=== PATIENT | female | born 1970 | race Two or more races ===

== ENCOUNTER 2020-03-21 17:25 | Emergency (ER) | payer MEDICAID, SELFPAY ==
[2020-03-21 17:39] VITALS: BP 122/78; PULSE 105; RESP 16; TEMP 36.6; O2SAT 97; BMI 31.7
--- NOTE | 2020-03-21 21:40 | ED.FEMALEGU ---
HPI - Female Genitourinary General Chief complaint: Urogenital-Female Stated complaint: flank pain,painful urination Time Seen by Provider: 03/21/20 21:31 Source: patient Mode of arrival: ambulatory Limitations: no limitations History of Present Illness HPI Narrative: Patient comes to emergency room complaining dysuria and back pain. Patient states it has been going on for 3-4 days but much worse today. Patient states she called her primary care physician but they could not see her today and she was instructed to come to the emergency room. Patient denies fever. Patient has no history of kidney stones. Patient states she has had multiple UTIs in the past and feels about the same. Related Data Previous Rx's Medication Instructions Recorded promethazine 12.5 mg tablet 12.500f25 mg PO TID #120 tab 02/29/20 cefuroxime axetil 250 mg PO BID 10 Days #20 tab 03/22/20 Allergies Allergy/AdvReac Type Severity Reaction Status Date / Time gabapentin [From NEURONTIN] Allergy Severe RASH,HIVES Verified 03/21/20 22:22 cortisone [CORTISONE] Allergy Intermediate ITCHING,JANAE Verified 03/21/20 22:22 H Sulfa (Sulfonamide Allergy Intermediate VOMITING/RA Verified 03/21/20 22:22 Antibiotics) SH adhesive tape [Adhesive Tape] Allergy Mild RASH ( Verified 03/21/20 22:22 TEGADERM ) carisoprodol [From Soma] Allergy Mild SHORTNESS Verified 03/21/20 22:22 OF BREATH,VOMITING ibuprofen [From Motrin] Allergy Mild VOMITING Verified 03/21/20 22:22 morphine [Morphine] Allergy Mild SHORTNESS Verified 03/21/20 22:22 OF BREATH naproxen [From Naprosyn] Allergy Mild VOMITING Verified 03/21/20 22:22 duloxetine [Cymbalta] Allergy Unknown Nausea and Verified 03/21/20 22:22 Vomiting ketorolac Allergy Unknown Shortness Verified 03/21/20 22:22 of Breath oxybutynin Allergy Unknown Nausea and Verified 03/21/20 22:22 Vomiting pregabalin [From LYRICA] Allergy Unknown HYPER AND Verified 03/21/20 22:22 PANIC ATTACK ranitidine [RANITIDINE] Allergy Unknown TACHYCARDIA Verified 03/21/20 22:22 sulfamethoxazole Allergy Unknown VOMITING,RA Verified 11/11/20 22:22 [From BACTRIM] SH tramadol Allergy Unknown Shortness Verified 03/21/20 22:22 of Breath trimethoprim [From BACTRIM] Allergy Unknown VOMITING,RA Verified 03/21/20 22:22 SH Tricyclic Compounds AdvReac Mild VOMITING Verified 03/21/20 22:22 TO ALL ANTIDEPRESSANTS From Toradol Allergy Intermediate SOB Uncoded 01/26/20 16:29 From Ultram Allergy Intermediate SOB Uncoded 01/26/20 16:29 all antidepressants except Allergy Unknown Nausea and Uncoded 03/21/20 22:22 Rem Vomiting Cortisone Allergy Unknown Hives Uncoded 03/21/20 22:22 milk, yogurt, dairy Allergy Unknown vomitting Uncoded 11/17/19 00:00 tegaderm Allergy Unknown rash Uncoded 11/17/19 00:00 Review of Systems Review of Systems: Constitutional : No Weight loss, No Fever, No Chills, No Night Sweats, No Fatigue, No Malaise ENT/Mouth : No Hearing loss, No Ear Pain, No Nasal Congestion, No Sinus Pain, No Hoarseness, No sore throat, No Rhinorrhea, No Swallowing Difficulty Eyes: No Eye Pain, No Swelling, No Redness, No Foreign Body, No Discharge, No Vision Changes Cardiovascular : No Chest Pain, No SOB, No Dyspnea on Exertion, No Orthopnea, No Edema, No Palpitations Respiratory : No Cough, No Sputum, No Wheezing, No Smoke Exposure, No Dyspnea Gastrointestinal : complaining of nausea, no vomiting, no abdominal pain Genitourinary : no irregular bleeding, complaining of dysuria, dark colored urine and back pain bilaterally, no flank pain No Urinary Incontinence, No Urgency, No Flank Pain, No Urinary Flow Changes, No Hesitancy Musculoskeletal : No joint pain, No Myalgias, No Joint Swelling Skin : No Skin Lesions, No rash Neuro : No Weakness, No Numbness, No Paresthesias, No Loss of Consciousness, No Dizziness, No Headache Psych : No Anxiety/Panic, No Depression, No SI/HI/AH/VH, No Social Issues, Heme/Lymph: No Bruising, No Bleeding,No Lymphadenopathy Endocrine : No Polyuria, No Polydipsia, No Temperature Intolerance PMFSH Past Medical History Medical History (Updated 03/22/20 @ 00:52 by Nadira Santa MD) Asthma Fibromyalgia Hypertension Hypoglycemia Social History Social History Alcohol intake: never Smoking Status: Current every day smoker Use of substances other than those prescribed or required for medical reasons: No Advance Directives: No Advance Directives Information Provided: No Physical Exam Vital Signs: Vital Signs: Last Vital Signs Temp 97.9 F 03/21/20 22:53 Pulse 83 03/21/20 22:53 Resp 18 03/21/20 22:53 BP 121/74 03/21/20 22:53 Pulse Ox 99 03/21/20 22:53 Body Mass Index 31.7 Appearance: Alert. Oriented X3. No acute distress. Eyes: Pupils equal, round and reactive to light. ENT: Pharynx normal. Neck: Normal inspection. Neck supple. No lymph nodes noted. No crepitus CVS: Normal heart rate and rhythm. Pulses normal. Normal S1 and S2 Respiratory: No respiratory distress. Breath sounds normal. No Wheezing. No rales Abdomen: Soft and nontender. No rigidity. No distention. good BS x4, no suprapubic pain Back: bilateral lower back pain, no flank pain Skin: Skin warm and dry. Normal skin color. Normal skin turgor. Extremities: No lower extremity edema. No lower extremity edema. No Lacerations. No Rash Neuro: Oriented X 3. No motor deficit. No sensory deficit. Moving all extermities. No slurred speech. Course Course Course Narrative: I discussed the labs with the patient and the imaging. Patient does not have kidney stones, patient has a UTI, clinically pyelonephritis. Patient's white blood cell count is chronically elevated. Patient's blood pressure within normal limits, not tachycardic no fever. Sepsis is not suspected at this time. Patient was given 1 g of ceftriaxone, patient is being discharged home. MDM - Female Genitourinary Lab Data Result diagrams: 03/21/20 22:17 03/21/20 22:17 Labs: Lab Results 03/21/20 03/21/20 03/21/20 Range/Units 22:15 22:16 22:17 WBC 15.6 H (4.8-10.8) X10*3/uL RBC 4.97 (4.20-5.50) X10*6/uL Hgb 13.9 (12.0-16.0) g/dl Hct 44.1 (37-47) % MCV 88.7 (80-98) fL MCH 28.0 (27.0-33.0) pg MCHC 31.5 (31.0-35.0) g/dl RDW 14.2 (11.0-16.0) % Plt Count 347 (160-400) X10*3/uL MPV 10.2 (9.4-12.3) fL Immature Gran % (Auto) 0.3 (0.0-0.4) % Neut % (Auto) 62.3 (45-73) % Lymph % (Auto) 28.2 (20-40) % [place] % (Auto) 7.2 (2-11) % Eos % (Auto) 1.5 (0-4) % Baso % (Auto) 0.5 (0-2) % Lymph # (Auto) 4.4 (1.2-4.9) X10*3/uL [place] # (Auto) 1.1 (0.1-1.2) X10*3/uL Eos # (Auto) 0.2 (0.0-0.4) X10*3/uL Baso # (Auto) 0.1 (0.0-0.2) X10*3/uL Abs Immat Gran (auto) 0.05 H (0.00-0.03) X10*3/uL Absolute Neuts (auto) 9.7 H (2.0-8.3) X10*3/uL Absolute Nucleated RBC 0.000 (0.0-0.012) X10*3/uL Nucleated RBC % (auto) 0.0 (0.0-0.2) /100WBC Sodium (135-145) mmol/L Potassium (3.3-5.1) mmol/l Chloride (96-108) mmol/L Carbon Dioxide (22-29) mmol/L Anion Gap (12-20) BUN (9-16) mg/dL Creatinine (0.5-1.4) mg/dL Estim Creat Clear Calc Estimated GFR Random Glucose (60-115) mg/dL Lactic Acid 1.4 (0.5-2.0) mmol/L Calcium (8.4-10.2) mg/dL Total Bilirubin (0.0-1.0) mg/dL Direct Bilirubin (0.0-0.5) mg/dL AST (5-31) U/L ALT (0-31) U/L Alkaline Phosphatase (39-117) U/L Total Protein (6.5-8.0) g/dL Albumin (3.5-5.0) g/dL Urine Color YELLOW Urine Appearance HAZY Urine pH 5.5 (5.0-8.0) Ur Specific [place] 1.020 (1.005-1.025) Urine Protein NEG (NEG-TRACE) MG/DL Urine Glucose (UA) NEG (NEG) MG/DL Urine Ketones NEG (NEG) MG/DL Urine Blood 1+ H (NEG) Urine Nitrite NEG (NEG) Ur Leukocyte Esterase TRACE H (NEG) Urine RBC 1-4 (0) /HPF Urine WBC 0-2 (0-4) /HPF Ur Squamous Epith Cells 4+ /LPF Urine Bacteria 1+ /LPF 03/21/20 Range/Units 22:17 WBC (4.8-10.8) X10*3/uL RBC (4.20-5.50) X10*6/uL Hgb (12.0-16.0) g/dl Hct (37-47) % MCV (80-98) fL MCH (27.0-33.0) pg MCHC (31.0-35.0) g/dl RDW (11.0-16.0) % Plt Count (160-400) X10*3/uL MPV (9.4-12.3) fL Immature Gran % (Auto) (0.0-0.4) % Neut % (Auto) (45-73) % Lymph % (Auto) (20-40) % [place] % (Auto) (2-11) % Eos % (Auto) (0-4) % Baso % (Auto) (0-2) % Lymph # (Auto) (1.2-4.9) X10*3/uL [place] # (Auto) (0.1-1.2) X10*3/uL Eos # (Auto) (0.0-0.4) X10*3/uL Baso # (Auto) (0.0-0.2) X10*3/uL Abs Immat Gran (auto) (0.00-0.03) X10*3/uL Absolute Neuts (auto) (2.0-8.3) X10*3/uL Absolute Nucleated RBC (0.0-0.012) X10*3/uL Nucleated RBC % (auto) (0.0-0.2) /100WBC Sodium 140 (135-145) mmol/L Potassium 3.3 (3.3-5.1) mmol/l Chloride 98 (96-108) mmol/L Carbon Dioxide 31 H (22-29) mmol/L Anion Gap 14 (12-20) BUN 7 L (9-16) mg/dL Creatinine 0.75 (0.5-1.4) mg/dL Estim Creat Clear Calc 94.0 Estimated GFR > 60 Random Glucose 80 (60-115) mg/dL Lactic Acid (0.5-2.0) mmol/L Calcium 8.9 (8.4-10.2) mg/dL Total Bilirubin 0.4 (0.0-1.0) mg/dL Direct Bilirubin < 0.2 (0.0-0.5) mg/dL AST 21 (5-31) U/L ALT 28 (0-31) U/L Alkaline Phosphatase 144 H (39-117) U/L Total Protein 7.2 (6.5-8.0) g/dL Albumin 4.3 (3.5-5.0) g/dL Urine Color Urine Appearance Urine pH (5.0-8.0) Ur Specific [place] (1.005-1.025) Urine Protein (NEG-TRACE) MG/DL Urine Glucose (UA) (NEG) MG/DL Urine Ketones (NEG) MG/DL Urine Blood (NEG) Urine Nitrite (NEG) Ur Leukocyte Esterase (NEG) Urine RBC (0) /HPF Urine WBC (0-4) /HPF Ur Squamous Epith Cells /LPF Urine Bacteria /LPF Imaging Data CT scan - abdomen: Radiologist's impression: There is mild bibasilar atelectasis. The visualized lung bases are otherwise clear. The visualized portions of the heart are unremarkable. The liver is of normal size and attenuation without focal lesions nor intrahepatic biliary ductal dilation. A normal gallbladder is identified. There is no wall thickening or discernible pericholecystic fluid. The spleen, pancreas, adrenal glands are unremarkable. Both kidneys are of normal size and attenuation without hydronephrosis or nephrolithiasis. There is no abdominal free fluid. There is neither mesenteric nor retroperitoneal lymphadenopathy. There are mild manifestations of diverticulosis without evidence of diverticulitis; otherwise, unremarkable unopacified loops of small and large bowel are identified. A normal appendix is identified. There is no pelvic free fluid. The urinary bladder is unremarkable. There is neither pelvic nor inguinal lymphadenopathy. Bone windows: Neither sclerotic nor lytic bone lesions are identified. CT/CT abdomen pelvis wo con IMPRESSION: No acute abdominal or pelvic inflammatory or infectious processes. Diverticulosis without evidence of diverticulitis. Neither hydronephrosis nor nephrolithiasis. Automated exposure control (Care Dose) Adjustment of the mA and/or kv according to patient size (this includes techniques or standardized protocols for targeted exams where dose is matched to indication / reason for exam; i.e. extremities or head). Discharge Plan Discharge Clinical Impression: Pyelonephritis Patient Disposition: Home, Self-Care Instructions: Kidney Infection (ED), Flank Pain (ED) Additional Instructions: if you have any fever, worsening symptoms, please return to emergency room or call 911. Please follow-up with the primary care physician tomorrow. Prescriptions: New cefuroxime axetil 250 mg tablet 250 mg PO BID 10 Days Qty: 20 RF: 0 No Action promethazine 12.5 mg tablet 12.500f25 mg PO TID Qty: 120 RF: 0
[2020-03-21 21:57] VITALS: BP 131/79; PULSE 88; RESP 17; TEMP 36.8; O2SAT 100
[2020-03-21] MEDS: 0.9 % Sodium Chloride 1,000 ML 999 ML IVCONT (22:23)
[2020-03-21 22:33] LABS: Basophils Absolute Auto 0.1 X10*3/uL (0.0-0.2); Basophils Percent Auto 0.5 % (0-2); Eosinophils Absolute Auto 0.2 X10*3/uL (0.0-0.4); Eosinophils Percent Auto 1.5 % (0-4); Hematocrit 44.1 % (37-47); Hemoglobin 13.9 g/dl (12.0-16.0); Imm Gran Abs Auto 0.05 X10*3/uL (0.00-0.03); Imm Gran Pct Auto 0.3 % (0.0-0.4); Lymphocytes Absolute Auto 4.4 X10*3/uL (1.2-4.9); Lymphocytes Percent Auto 28.2 % (20-40); Mean Corpuscular HGB Conc 31.5 g/dl (31.0-35.0); Mean Corpuscular Volume 88.7 fL (80-98); Mean Platelet Volume 10.2 fL (9.4-12.3); Monocytes Absolute Auto 1.1 X10*3/uL (0.1-1.2); Monocytes Percent Auto 7.2 % (2-11); Neutrophils Absolute Auto 9.7 X10*3/uL (2.0-8.3); Neutrophils Percent Auto 62.3 % (45-73); Platelet Count 347 X10*3/uL (160-400); Red Blood Count 4.97 X10*6/uL (4.20-5.50); Red Cell Distribution Width 14.2 % (11.0-16.0); White Blood Count 15.6 X10*3/uL (4.8-10.8)
[2020-03-21 22:34] LABS: MANUAL DIFF FLAG NO
[2020-03-21 22:53] VITALS: BP 121/74; PULSE 83; RESP 18; TEMP 36.6; O2SAT 99
[2020-03-21 22:58] LABS: Lactic Acid 1.4 mmol/L (0.5-2.0)
[2020-03-21 23:02] LABS: Anion Gap 14 (12-20); Blood Urea Nitrogen 7 mg/dL (9-16); Calcium 8.9 mg/dL (8.4-10.2); Carbon Dioxide 31 mmol/L (22-29); Chloride 98 mmol/L (96-108); Estimated Glomerular Filt Rate > 60; Glucose Random 80 mg/dL (60-115); Potassium 3.3 mmol/l (3.3-5.1); Sodium 140 mmol/L (135-145)
[2020-03-21 23:05] LABS: Appearance Urine HAZY; Color Urine YELLOW; Glucose Urine UA NEG (NEG); Leukocyte Esterase Urine TRACE (NEG); Nitrite Urine NEG (NEG); PH 5.5 (5.0-8.0); Urine Blood 1+ (NEG); Urine Ketones NEG (NEG); Urine Protein NEG (NEG-TRACE)
[2020-03-21 23:12] LABS: Bacteria Urine 1+ /LPF; Squamous Epithelial Cell Urine 4+ /LPF; WBC Urine 0-2 /HPF (0-4)
--- NOTE | 2020-03-21 23:23 | CT_ITS ---
EXAMINATION: CT ABDOMEN AND PELVIS WITHOUT CONTRAST CLINICAL INFORMATION: Bilateral flank pain. COMPARISON: 08/31/2018. TECHNIQUE: Contiguous axial thin section helical images of the abdomen and pelvis were performed without oral or IV contrast. The data set was reformatted in the coronal and sagittal planes and reviewed on an independent workstation. DLP: 762 mGy-cm. FINDINGS: There is mild bibasilar atelectasis. The visualized lung bases are otherwise clear. The visualized portions of the heart are unremarkable. The liver is of normal size and attenuation without focal lesions nor intrahepatic biliary ductal dilation. A normal gallbladder is identified. There is no wall thickening or discernible pericholecystic fluid. The spleen, pancreas, adrenal glands are unremarkable. Both kidneys are of normal size and attenuation without hydronephrosis or nephrolithiasis. There is no abdominal free fluid. There is neither mesenteric nor retroperitoneal lymphadenopathy. There are mild manifestations of diverticulosis without evidence of diverticulitis; otherwise, unremarkable unopacified loops of small and large bowel are identified. A normal appendix is identified. There is no pelvic free fluid. The urinary bladder is unremarkable. There is neither pelvic nor inguinal lymphadenopathy. Bone windows: Neither sclerotic nor lytic bone lesions are identified. CT/CT abdomen pelvis wo con IMPRESSION: No acute abdominal or pelvic inflammatory or infectious processes. Diverticulosis without evidence of diverticulitis. Neither hydronephrosis nor nephrolithiasis. Automated exposure control (Care Dose) Adjustment of the mA and/or kv according to patient size (this includes techniques or standardized protocols for targeted exams where dose is matched to indication / reason for exam; i.e. extremities or head).
[2020-03-21 23:37] LABS: Alanine Aminotransferase 28 U/L (0-31); Albumin Level 4.3 g/dL (3.5-5.0); Alkaline Phosphatase 144 U/L (39-117); Aspartate Amino Transferase 21 U/L (5-31); Bilirubin Direct < 0.2 mg/dL (0.0-0.5); Bilirubin Total 0.4 mg/dL (0.0-1.0); Total Protein 7.2 g/dL (6.5-8.0)
--- NOTE | 2020-03-22 00:11 | PC.NURSE ---
PT TO AND FROM IMAGING WITHOUT INCIDENT. PLAN FOR IV ANTIBIOTICS AND PAIN MANAGEMENT
[2020-03-22] MEDS: cefTRIAXone sodium 1 GM in 0.9 % Sodium Chloride 50 ML IV (00:17)
== END 2020-03-22 00:58 | disposition home or self-care (01) ==
PROVIDERS: Emergency Provider Emergency Medicine; PCP Internal Medicine
DX: N10 Acute pyelonephritis (principal); M54.5 Low back pain; I10 Essential (primary) hypertension; F17.200 Nicotine dependence, unspecified, uncomplicated; Z71.6 Tobacco abuse counseling; Z79.899 Other long term (current) drug therapy
CPT/HCPCS: 36415; 74176; 80048; 80076; 81001; 83605; 85025; 87040; 87086; 96361; 96365; 96375; 99284; J0696

== ENCOUNTER 2020-07-25 14:55 | Outpatient (REF) | payer MEDICAID, SELFPAY ==
[2020-07-25 16:51] LABS: Cholesterol 269 mg/dL; HDL Cholesterol 53 mg/dL; LDL Cholesterol Calculated 188 mg/dl; Triglycerides 142 mg/dL
== END 2020-07-25 14:56 | disposition home or self-care (01) ==
LOC: HO.LAB 14:55
PROVIDERS: Absent Provider Internal Medicine Cardiovascular Disease; PCP Internal Medicine; Visit Provider Internal Medicine Endocrinology, Diabetes & Metabolism
DX: E89.0 Postprocedural hypothyroidism (principal); E55.9 Vitamin D deficiency, unspecified; E16.1 Other hypoglycemia; E78.5 Hyperlipidemia, unspecified
CPT/HCPCS: 36415; 80061

== ENCOUNTER 2020-08-29 15:36 | Outpatient (REF) | payer MEDICAID, SELFPAY ==
--- NOTE | ~2020-08-29 | MM_ITS ---
EXAMINATION: MM DIAGNOSTIC DIGITAL BREAST TOMOSYNTHESIS, BILATERAL CLINICAL INFORMATION: At time of screening appointment, patient notes pain upper inner quadrant right breast 1-2 weeks. No palpable mass or discharge. No known family history breast cancer. The lifetime risk of breast cancer based on the Tyrer-Cuzick Model is 6%. COMPARISON: Mammography: 06/14/2019, 03/19/2018, 02/12/2017, 02/06/2017, 02/05/2016 TECHNIQUE: Digital breast tomosynthesis is performed in both the craniocaudal and mediolateral oblique views along with computer-aided detection (CAD). Synthesized 2D images are generated from the tomosynthesis. FINDINGS: There are scattered areas of fibroglandular density (ACR BI-RADS breast composition Category b). There is denser fibroglandular tissue in the bilateral upper outer quadrant similar to prior studies. There are shifting fibroglandular densities from year to year without interval mass or developing density or architectural abnormality. No abnormal calcifications. The axilla and skin contours are unremarkable. There is no skin thickening or coarsening of the Alvarez's ligaments. Patient unable to stay for diagnostic right breast ultrasound which has been rescheduled. MM/MM tomosynthesis diagnostic BI IMPRESSION: 1. No mammographic evidence of malignancy or inflammatory changes. 2. Targeted right breast ultrasound scheduled for another day. ASSESSMENT: BI-RADS 0: Incomplete - Need Additional Imaging Evaluation RECOMMENDATION: Diagnostic right breast ultrasound (scheduled). This patient's information was entered into a reminder system with a target due date for their next breast imaging.
== END 2020-08-29 15:37 | disposition home or self-care (01) ==
LOC: HO.MAMMO 15:36
PROVIDERS: Visit Provider Internal Medicine
DX: N64.4 Mastodynia (principal)
CPT/HCPCS: 77062; 77066

== ENCOUNTER 2020-09-07 14:13 | Outpatient (REF) | payer MEDICAID, SELFPAY ==
--- NOTE | ~2020-09-07 | US_ITS ---
EXAMINATION: US DIAGNOSTIC ULTRASOUND BREAST, RIGHT CLINICAL INFORMATION: Right breast pain upper inner quadrant. Unremarkable diagnostic mammography. Ultrasound to complete evaluation. COMPARISON: Mammography 08/29/2020, 06/14/2019, 03/19/2018, 02/06/2017. TECHNIQUE: Ultrasound right breast is targeted to the area of clinical concern medial right breast. Additional imaging also performed outer quadrant and comparison imaging medial left breast. Grayscale imaging and color Doppler are performed without and with harmonics. FINDINGS: There is no focal suspicious finding. There is no cystic or solid mass, architectural abnormality, duct ectasia, or edema in the soft tissue planes. Results are discussed with the patient at time of visit. There is no imaging correlate for patient's symptoms within the breasts. Patient confirms prior history costochondritis and fibromyalgia. US/US breast RT limited IMPRESSION: 1. Unremarkable targeted right breast ultrasound. 2. No mammographic evidence of malignancy or inflammatory changes on recent imaging. ASSESSMENT: BI-RADS 1: Negative RECOMMENDATION: 1. Patient should be managed based on the clinical impression. 2. Otherwise, routine annual screening mammography. This patient's information was entered into a reminder system with a target due date for their next mammogram.
== END 2020-09-07 14:14 | disposition home or self-care (01) ==
LOC: HO.MAMMO 14:13
PROVIDERS: Visit Provider Internal Medicine
DX: N64.4 Mastodynia (principal)
CPT/HCPCS: 76642

== ENCOUNTER 2020-12-12 15:29 | Outpatient (REF) | payer MEDICAID, SELFPAY ==
[2020-12-12 16:50] LABS: Alanine Aminotransferase 26 U/L (0-31); Albumin Level 4.3 g/dL (3.5-5.0); Anion Gap 14 (12-20); Aspartate Amino Transferase 20 U/L (5-31); Blood Urea Nitrogen 9 mg/dL (9-16); Calcium 9.6 mg/dL (8.4-10.2); Carbon Dioxide 27 mmol/L (22-29); Chloride 104 mmol/L (96-108); Estimated Glomerular Filt Rate > 60; Glucose Random 97 mg/dL (60-115); Phosphorus 2.9 mg/dL (2.7-4.5); Potassium 4.5 mmol/L (3.3-5.1); Sodium 140 mmol/L (135-145)
[2020-12-12 17:11] LABS: TSH reflex Free T4 0.62 uIU/mL (0.32-4.0); Vitamin D 25-OH Total 26.4 ng/mL (>30)
[2020-12-13 07:48] LABS: Estimated Average Glucose 114 mg/dL; Hemoglobin A1c % 5.6 %
[2020-12-14 17:51] LABS: Calcium (PTHI) 9.6 mg/dL (8.6-10.4); PTHI 40 pg/mL (14-64)
== END 2020-12-12 15:30 | disposition home or self-care (01) ==
LOC: HO.LAB 15:29
PROVIDERS: PCP Internal Medicine; Visit Provider Internal Medicine Endocrinology, Diabetes & Metabolism
DX: E89.0 Postprocedural hypothyroidism (principal); E55.9 Vitamin D deficiency, unspecified; E16.1 Other hypoglycemia
CPT/HCPCS: 36415; 80048; 82040; 82306; 83036; 83970; 84100; 84443; 84450; 84460

== ENCOUNTER 2021-03-21 15:02 | Outpatient (REF) | payer MEDICAID, SELFPAY ==
--- NOTE | ~2021-03-21 | XR_ITS ---
EXAMINATION: XR THORACIC SPINE XR LUMBAR SPINE CLINICAL INFORMATION: Back pain. Right-sided sciatica. COMPARISON: CT abdomen and pelvis from 03/21/2020. TECHNIQUE: Thoracic spine, AP and lateral views (2 views) Lumbar spine, 5 views FINDINGS: Thoracic spine: The thoracic vertebra have normal height and alignment. No evidence of degenerative disc disease. No focal lytic or blastic lesion. The paraspinal soft tissues are unremarkable. Lumbosacral spine: The 5 segmented lumbar vertebra have normal height and alignment. No fracture or subluxation. No evidence of pars interarticularis defect or vertebral compression fracture. The disc spaces are maintained. No vertebral endplate erosion or soft tissue swelling. Moderate facet osteoarthritis at L4-L5. Otherwise, there appears to be generally mild facet arthropathy at L3-L4 and L5-S1. Sacrum and sacroiliac joints are unremarkable. XR/XR thoracic spine 2V IMPRESSION: * Thoracic spine is unremarkable. * Multilevel facet arthropathy of the lumbar spine, worst (moderate in degree) at L4-L5. * No fracture or malalignment in the spine.
--- NOTE | ~2021-03-21 | XR_ITS ---
EXAMINATION: XR THORACIC SPINE XR LUMBAR SPINE CLINICAL INFORMATION: Back pain. Right-sided sciatica. COMPARISON: CT abdomen and pelvis from 03/21/2020. TECHNIQUE: Thoracic spine, AP and lateral views (2 views) Lumbar spine, 5 views FINDINGS: Thoracic spine: The thoracic vertebra have normal height and alignment. No evidence of degenerative disc disease. No focal lytic or blastic lesion. The paraspinal soft tissues are unremarkable. Lumbosacral spine: The 5 segmented lumbar vertebra have normal height and alignment. No fracture or subluxation. No evidence of pars interarticularis defect or vertebral compression fracture. The disc spaces are maintained. No vertebral endplate erosion or soft tissue swelling. Moderate facet osteoarthritis at L4-L5. Otherwise, there appears to be generally mild facet arthropathy at L3-L4 and L5-S1. Sacrum and sacroiliac joints are unremarkable. XR/XR lumbar spine 4V min IMPRESSION: * Thoracic spine is unremarkable. * Multilevel facet arthropathy of the lumbar spine, worst (moderate in degree) at L4-L5. * No fracture or malalignment in the spine.
== END 2021-03-21 15:03 | disposition home or self-care (01) ==
LOC: HO.XRAY 15:02
PROVIDERS: PCP Internal Medicine; Visit Provider Internal Medicine
DX: M54.6 Pain in thoracic spine (principal)
CPT/HCPCS: 72070; 72110

== ENCOUNTER 2021-04-23 17:04 | Outpatient (REF) | payer MEDICAID, SELFPAY ==
--- NOTE | ~2021-04-23 | XR_ITS ---
EXAMINATION: XR CHEST CLINICAL INFORMATION: Acute upper respiratory tract infection COMPARISON: Previous chest x-ray most recent June 2018 TECHNIQUE: 2 views of the chest were obtained. FINDINGS: The cardiac and mediastinal contours are stable. The lungs are clear. There is no pleural effusion or pneumothorax. There are postsurgical changes to the cervical spine. XR/XR chest 2V IMPRESSION: No evidence for acute disease in the chest.
== END 2021-04-23 17:05 | disposition home or self-care (01) ==
LOC: HO.XRAY 17:04
PROVIDERS: Absent Provider Internal Medicine; PCP Internal Medicine; Visit Provider Family Medicine
DX: J06.9 Acute upper respiratory infection, unspecified (principal); R06.02 Shortness of breath
CPT/HCPCS: 71046

== ENCOUNTER 2021-08-12 11:12 | Outpatient (REF) | payer MEDICAID, SELFPAY ==
[2021-08-12 12:40] LABS: Cholesterol 169 mg/dL; HDL Cholesterol 43 mg/dL; LDL Cholesterol Calculated 100 mg/dl; Triglycerides 130 mg/dL
== END 2021-08-12 11:13 | disposition home or self-care (01) ==
LOC: HO.LAB 11:12
PROVIDERS: PCP Internal Medicine; Visit Provider Internal Medicine Cardiovascular Disease
DX: E78.5 Hyperlipidemia, unspecified (principal)
CPT/HCPCS: 36415; 80061

== ENCOUNTER 2021-10-11 15:31 | Outpatient (REF) | payer MEDICAID, SELFPAY ==
[2021-10-11 16:39] LABS: Estimated Average Glucose 117 mg/dL; Hemoglobin A1c % 5.7 %
[2021-10-11 17:01] LABS: Albumin Level 4.2 g/dL (3.5-5.0); Anion Gap 15 (12-20); Blood Urea Nitrogen 9 mg/dL (9-16); Calcium 9.5 mg/dL (8.4-10.2); Carbon Dioxide 25 mmol/L (22-29); Chloride 100 mmol/L (96-108); Estimated Glomerular Filt Rate > 60; Glucose Random 149 mg/dL (60-115); Potassium 4.3 mmol/L (3.3-5.1); Sodium 136 mmol/L (135-145)
[2021-10-11 17:13] LABS: TSH reflex Free T4 1.13 uIU/mL (0.32-4.0); Vitamin D 25-OH Total 61.8 ng/mL (>30)
== END 2021-10-11 15:32 | disposition home or self-care (01) ==
LOC: HO.LAB 15:31
PROVIDERS: PCP Internal Medicine; Visit Provider Internal Medicine Endocrinology, Diabetes & Metabolism
DX: E89.0 Postprocedural hypothyroidism (principal); E55.9 Vitamin D deficiency, unspecified; R73.9 Hyperglycemia, unspecified; K21.9 Gastro-esophageal reflux disease without esophagitis; K58.2 Mixed irritable bowel syndrome; K30 Functional dyspepsia
CPT/HCPCS: 36415; 80048; 82040; 82306; 83036; 84443; 99212

== ENCOUNTER 2021-10-14 15:30 | Outpatient (REF) | payer MEDICAID, SELFPAY ==
--- NOTE | ~2021-10-14 | MM_ITS ---
EXAMINATION: MM SCREENING DIGITAL BREAST TOMOSYNTHESIS, BILATERAL CLINICAL INFORMATION: Screening. Asymptomatic. The lifetime risk of breast cancer based on the Tyrer-Cuzick Model is 6.3%. COMPARISON: Mammography: August 29, 2020 and studies dating back to December 27, 2013 TECHNIQUE: Digital breast tomosynthesis is performed in both the craniocaudal and mediolateral oblique views along with computer-aided detection (CAD). Synthesized 2D images are generated from the tomosynthesis. FINDINGS: The breasts are heterogeneously dense, which may obscure small masses (ACR BI-RADS breast composition Category c). There are no significant masses, abnormal calcifications, or other abnormalities. MM/MM tomosynthesis screening BI IMPRESSION: There are no significant changes from prior study. ASSESSMENT: BI-RADS 1: Negative RECOMMENDATION: Routine annual mammography screening. This patient's information was entered into a reminder system with a target due date for their next mammogram.
== END 2021-10-14 15:31 | disposition home or self-care (01) ==
LOC: HO.MAMMO 15:30
PROVIDERS: Visit Provider Internal Medicine
DX: Z12.31 Encounter for screening mammogram for malignant neoplasm of breast (principal)
CPT/HCPCS: 77063; 77067

== ENCOUNTER → 2022-01-08 14:33 | Outpatient (BNVA) | payer MEDICAID, SELFPAY | PROVIDERS: PCP Internal Medicine; Visit Provider Nurse Practitioner | DX: K21.9 Gastro-esophageal reflux disease without esophagitis (principal); K30 Functional dyspepsia; K58.2 Mixed irritable bowel syndrome | CPT/HCPCS: 99212 ==

== ENCOUNTER 2022-01-16 13:45 | Outpatient (REF) | payer MEDICAID, SELFPAY ==
--- NOTE | ~2022-01-16 | US_ITS ---
EXAMINATION: ULTRASOUND EXTREMITY NONVASCULAR CLINICAL INFORMATION: Localized mass/lump. COMPARISON: No similar priors. TECHNIQUE: Targeted sonographic evaluation of the area of clinical concern in the soft tissues of the left hip. US/US extremity nonvascular FINDINGS/IMPRESSION: There is a lesion in the soft tissues overlying the left hip with density equal to the adjacent fat measuring approximately up to 4.9 cm in favor to represent a lipoma. If patient becomes symptomatic and if there is any growth of the lesion, correlation with cross-sectional imaging, preferably MRI is recommended to further characterize the finding.
== END 2022-01-16 13:46 | disposition home or self-care (01) ==
LOC: HO.US 13:45
PROVIDERS: PCP Internal Medicine; Visit Provider Emergency Medicine
DX: R22.42 Localized swelling, mass and lump, left lower limb (principal)
CPT/HCPCS: 76882

== ENCOUNTER → 2022-02-07 14:25 | Outpatient (BNVA) | payer MEDICAID, SELFPAY | PROVIDERS: PCP Internal Medicine; Referring Provider Emergency Medicine; Visit Provider Surgery | DX: Z01.818 Encounter for other preprocedural examination (principal); D17.9 Benign lipomatous neoplasm, unspecified; M79.7 Fibromyalgia; J45.909 Unspecified asthma, uncomplicated; I10 Essential (primary) hypertension; F11.90 Opioid use, unspecified, uncomplicated; F17.200 Nicotine dependence, unspecified, uncomplicated; Z71.6 Tobacco abuse counseling | CPT/HCPCS: 99202 ==

== ENCOUNTER 2022-04-22 13:54 | Emergency (ER) | payer MEDICAID, SELFPAY ==
--- NOTE | ~2022-04-22 | XR_ITS ---
EXAMINATION: XR CHEST CLINICAL INFORMATION: Cough, shortness of breath, wheezing. COMPARISON: 04/23/2021 chest radiographs. TECHNIQUE: 2 views of the chest were obtained. FINDINGS: No significant abnormality is noted involving the heart, lungs, mediastinum, bony thorax or soft tissues. XR/XR chest 2V IMPRESSION: No acute cardiopulmonary process.
[2022-04-22 14:03] VITALS: BP 122/97; PULSE 98; RESP 18; TEMP 37; O2SAT 96; BMI 32.9
--- NOTE | 2022-04-22 14:05 | ED.URI ---
HPI - URI/Sore Throat General Chief Complaint: Upper Respiratory Symptoms <MARIELLA Bhat - Last Filed: 04/22/22 14:10> Stated Complaint: COLD,COUGH,ELOINA X'S 2 DAYS <MARIELLA Bhat - Last Filed: 04/22/22 14:10> Time Seen by Provider: 04/22/22 14:12 <MARIELLA Bhat - Last Filed: 04/22/22 14:10> Source: patient <Ashley Reagan NP - Last Filed: 04/22/22 16:52> Mode of arrival: ambulatory <Ashley Reagan NP - Last Filed: 04/22/22 16:52> Limitations: no limitations <Ashley Reagan NP - Last Filed: 04/22/22 16:52> History of Present Illness HPI Narrative: 51yoF c PMHx HTN, HLD, Herat disease, GERD and fibromyalgia who is presenting to the ER c c /o 4 days of URI symptoms which include subjective fevers, chills, fatigue, malaise, cough with chest tightness/wheezing. Reports she has been using her albuterol inhaler nebulizers and no symptomatic relief. She is also using [id number] cough medicine and no symptomatic relief. She denies any measured fevers, dizziness, headaches, neck pain/stiffness, sore throat, nasal congestion/rhinorrhea, sputum production, dyspnea on exertion, orthopnea, palpitations, paresthesias, nausea/vomiting/diarrhea abdominal pain, lower extremity edema or calf tenderness, recent travel or sick contacts or any other symptoms complaints or concerns at this time. <Ashley Reagan NP - Last Filed: 04/22/22 16:52> Related Data Home Medications: Home Medications Medication Instructions Recorded Confirmed albuterol sulfate 90 mcg/actuation 2 puff inhalation Q6H PRN 10/11/21 02/07/22 aerosol inhaler atorvastatin 20 mg tablet 20 mg PO DAILY 10/11/21 02/07/22 cholecalciferol (vitamin D3) 125 125 mcg PO DAILY 10/11/21 02/07/22 mcg (5,000 unit) tablet clonazepam 1 mg tablet (Klonopin) 1 mg PO TID 10/11/21 02/07/22 fluticasone propionate 250 1 inh inhalation BID 10/11/21 02/07/22 mcg/actuation blister powder for inhalation (Flovent Diskus) levothyroxine 125 mcg tablet 125 mcg PO DAILY 10/11/21 02/07/22 (Levoxyl) lisinopril 40 mg tablet 40 mg PO DAILY 10/11/21 02/07/22 mirtazapine 15 mg tablet (Remeron) 15 mg PO BEDTIME 10/11/21 02/07/22 omeprazole 20 mg capsule,delayed 20 mg PO BID 10/11/21 02/07/22 release oxycodone-acetaminophen 5 mg-325 1 tab PO TID PRN 10/11/21 02/07/22 mg tablet (Percocet) promethazine 12.5 mg tablet 12.5 mg PO TID 10/11/21 02/07/22 sumatriptan succinate 100 mg 100 mg PO Q2-4H PRN 10/11/21 02/07/22 tablet (Imitrex) verapamil 120 mg 24 hr 120 mg PO DAILY 10/11/21 02/07/22 capsule,extended release zinc 50 mg tablet 50 mg PO TID 10/11/21 02/07/22 Previous Rx's Medication Instructions Recorded promethazine 12.5 mg tablet 12.500f25 mg PO TID #120 tabs 02/29/20 cefuroxime axetil 250 mg tablet 250 mg PO BID 10 days #20 tabs 03/22/20 sennosides 8.6 mg capsule (senna) 17.2 mg PO BEDTIME constipation 30 10/11/21 days #60 caps simethicone 180 mg capsule 180 mg PO QID 30 days #120 caps 10/11/21 dicyclomine 10 mg capsule 10 mg PO BID #60 caps 01/08/22 metoclopramide HCl 5 mg tablet 5 mg PO .TIDAC #90 tabs 01/08/22 (Reglan) <MARIELLA Bhat - Last Filed: 04/22/22 14:10> Allergies/Adverse Reactions: Allergies Allergy/AdvReac Type Severity Reaction Status Date / Time gabapentin [From NEURONTIN] Allergy Severe RASH,HIVES Verified 02/07/22 15:01 cortisone [CORTISONE] Allergy Intermediate ITCHING,JANAE Verified 02/07/22 15:01 H Sulfa (Sulfonamide Allergy Intermediate VOMITING/RA Verified 02/07/22 15:01 Antibiotics) SH adhesive tape [Adhesive Tape] Allergy Mild RASH ( Verified 02/07/22 15:01 TEGADERM ) carisoprodol [From Soma] Allergy Mild SHORTNESS Verified 02/07/22 15:01 OF BREATH,VOMITING ibuprofen [From Motrin] Allergy Mild VOMITING Verified 02/07/22 15:01 morphine [Morphine] Allergy Mild SHORTNESS Verified 02/07/22 15:01 OF BREATH naproxen [From Naprosyn] Allergy Mild VOMITING Verified 02/07/22 15:01 duloxetine [Cymbalta] Allergy Unknown Nausea and Verified 02/07/22 15:01 Vomiting ketorolac Allergy Unknown Shortness Verified 02/07/22 15:01 of Breath oxybutynin Allergy Unknown Nausea and Verified 02/07/22 15:01 Vomiting pregabalin [From LYRICA] Allergy Unknown HYPER AND Verified 02/07/22 15:01 PANIC ATTACK ranitidine [RANITIDINE] Allergy Unknown TACHYCARDIA Verified 02/07/22 15:01 sulfamethoxazole Allergy Unknown VOMITING,RA Verified 02/07/22 15:01 [From BACTRIM] SH tramadol Allergy Unknown Shortness Verified 02/07/22 15:01 of Breath trimethoprim [From BACTRIM] Allergy Unknown VOMITING,RA Verified 02/07/22 15:01 SH Tricyclic Antidepressants AdvReac Mild VOMITING Verified 02/07/22 15:01 and Tricy TO ALL [Tricyclic Compounds] ANTIDEPRESSANTS From Toradol Allergy Intermediate SOB Uncoded 10/11/21 16:33 From Ultram Allergy Intermediate SOB Uncoded 10/11/21 16:33 all antidepressants except Allergy Unknown Nausea and Uncoded 10/11/21 16:33 Rem Vomiting Cortisone Allergy Unknown Hives Uncoded 10/11/21 16:33 milk, yogurt, dairy Allergy Unknown vomitting Uncoded 10/11/21 16:33 tegaderm Allergy Unknown rash Uncoded 10/11/21 16:33 <MARIELLA Bhat - Last Filed: 04/22/22 14:10> Review of Systems Review of Systems: Yes all other systems are reviewed and are negative <Ashley Reagan NP - Last Filed: 04/22/22 16:52> Constitutional: Constitutional: Reports no additional constitutional complaints, Denies body ache(s), Reports chills, Reports fatigue, Reports fever(s), Denies headache(s), Reports malaise and Denies weakness <Ashley Reagan CREDIT RISK SPECIALIST - Last Filed: 04/22/22 16:52> Eyes: Eyes: Reports no additional eye complaints and Denies change in vision <Ashley Reagan CREDIT RISK SPECIALIST - Last Filed: 04/22/22 16:52> ENT: Reports system reviewed and no additional complaints, except as documented, Denies dizziness, Denies headache(s), Denies nasal congestion, Denies nasal discharge and Denies neck pain <Ashley Reagan CREDIT RISK SPECIALIST - Last Filed: 04/22/22 16:52> Cardiovascular: Cardiovascular: Reports no additional cardiovascular complaints, Denies chest pain, Denies leg edema and Denies dyspnea <Ashley Reagan CREDIT RISK SPECIALIST - Last Filed: 04/22/22 16:52> Respiratory: Respiratory: Reports no additional respiratory complaints, Reports cough and Denies dyspnea <Ashley Reagan CREDIT RISK SPECIALIST - Last Filed: 04/22/22 16:52> Gastrointestinal: Gastrointestinal: Reports no additional gastrointestinal complaints, Denies abdominal pain, Denies diarrhea, Denies nausea and Denies vomiting <Ashley Reagan CREDIT RISK SPECIALIST - Last Filed: 04/22/22 16:52> Genitourinary: Genitourinary: Reports no additional female genitourinary complaints and Denies urinary incontinence <Ashley Reagan CREDIT RISK SPECIALIST - Last Filed: 04/22/22 16:52> Musculoskeletal: Musculoskeletal: Reports no additional musculoskeletal complaints, Denies back pain, Denies arthralgias, Denies joint swelling, Denies neck pain, Denies numbness and Denies tingling <Ashley Reagan CREDIT RISK SPECIALIST - Last Filed: 04/22/22 16:52> Integumentary/Breasts: Skin/Breast: Reports system reviewed and no additional complaints, except as docu and Denies rash <Ashley Reagan CREDIT RISK SPECIALIST - Last Filed: 04/22/22 16:52> Neurologic: Reports system reviewed and no additional complaints, except as documented, Denies Abnormal speech present, Denies dizziness, Denies headache(s), Denies numbness, Denies tingling and Denies weakness <Ashley Reagan NP - Last Filed: 04/22/22 16:52> Endocrine: Endocrine: Reports fatigue <Ashley Reagan NP - Last Filed: 04/22/22 16:52> [facility] Past Medical History Attestation statement: The following information was validated with the patient. <Ashley Reagan NP - Last Filed: 04/22/22 16:52> Source: old records reviewed and nursing notes reviewed <Ashley Reagan NP - Last Filed: 04/22/22 16:52> Medical History: Medical History Asthma Fibromyalgia Hypertension Hypoglycemia <MARIELLA Bhat - Last Filed: 04/22/22 14:10> Surgical History: Surgical History Carpal tunnel syndrome Endometriosis determined by laparoscopy H/O knee surgery H/O neck surgery History of partial hysterectomy <MARIELLA Bhat - Last Filed: 04/22/22 14:10> Social History Social History: Social History Household Members: None Housing: Apartment Alcohol intake: never Patient Tobacco Use Status: Never used Tobacco Advance Directives: No <MARIELLA Bhat - Last Filed: 04/22/22 14:10> Physical Exam Vital Signs: Vital Signs: Last Vital Signs Temp 98.6 F 04/22/22 14:03 Pulse 98 04/22/22 14:03 Resp 18 04/22/22 16:17 BP 122/97 H 04/22/22 14:03 Pulse Ox 96 04/22/22 14:03 O2 Del Method 04/22/22 14:03 BMI result Body Mass Index 32.9 <MARIELLA Bhat - Last Filed: 04/22/22 14:10> Vital Signs: Last Vital Signs Temp 98.6 F 04/22/22 14:03 Pulse 98 04/22/22 14:03 Resp 18 04/22/22 16:17 BP 122/97 H 04/22/22 14:03 Pulse Ox 96 04/22/22 14:03 O2 Del Method 04/22/22 14:03 BMI result Body Mass Index 32.9 <Ashley Reagan NP - Last Filed: 04/22/22 16:52> Const: General: cooperative, healthy appearing, comfortable and no acute distress <Ashley Reagan NP - Last Filed: 04/22/22 16:52> Orientation/consciousness: patient oriented x3 <Ashley Reagan NP - Last Filed: 04/22/22 16:52> Limitations: no limitations <Ashley Reagan NP - Last Filed: 04/22/22 16:52> HEENT: Head: Yes normal to inspection <Ashley Reagan NP - Last Filed: 04/22/22 16:52> Ears: hearing grossly normal bilaterally and TM's normal bilaterally <Ashley Reagan NP - Last Filed: 04/22/22 16:52> General nose exam: Normal external nose present <Ashley Reagan NP - Last Filed: 04/22/22 16:52> Face and sinus: Yes normal facial exam <Ashley Reagan NP - Last Filed: 04/22/22 16:52> Mouth: Normal oral and palatal mucosa present <Ashley Reagan NP - Last Filed: 04/22/22 16:52> Throat: Yes posterior oropharynx normal, Yes tonsils normal and Yes uvula midline <Ashley Reagan NP - Last Filed: 04/22/22 16:52> Eyes: General: appearance normal, both eyes and all related structures <Ashley Reagan NP - Last Filed: 04/22/22 16:52> Pupils: Equal, round and reactive pupils present <Ashley Reagan NP - Last Filed: 04/22/22 16:52> Neck: Neck: Yes normal visual inspection <Ashley Reagan NP - Last Filed: 04/22/22 16:52> Chest: Chest palpation & inspection: normal inspection of the chest <Ashley Reagan NP - Last Filed: 04/22/22 16:52> Resp: Effort & Inspection: normal respiratory effort <Ashley Reagan NP - Last Filed: 04/22/22 16:52> Auscultation: clear to auscultation bilaterally <Ashley Reagan NP - Last Filed: 04/22/22 16:52> Cardio: Rate: regular rate <Ashley Reagan CREDIT RISK SPECIALIST - Last Filed: 04/22/22 16:52> Rhythm: regular rhythm <Ashley Reagan CREDIT RISK SPECIALIST - Last Filed: 04/22/22 16:52> Peripheral pulses: Peripheral pulses 2+ throughout <Ashley Reagan CREDIT RISK SPECIALIST - Last Filed: 04/22/22 16:52> GI: Inspection: Yes normal to inspection <Ashley Reagan NP - Last Filed: 04/22/22 16:52> Palpation (GI): Soft to palpation and nontender <Ashley Reagan CREDIT RISK SPECIALIST - Last Filed: 04/22/22 16:52> Auscultation: normal bowel sounds <Ashley Reagan CREDIT RISK SPECIALIST - Last Filed: 04/22/22 16:52> Back/Spine/Pelvis: Thoracic/Lumbar Spine: thoracic and lumbar spine normal to inspection <Ashley Reagan NP - Last Filed: 04/22/22 16:52> Skin: General skin exam: no rashes or lesions noted <Ashley Reagan NP - Last Filed: 04/22/22 16:52> Neuro: General: patient oriented x3, no focal motor deficits and normal sensation to monofilament <Ashley Reagan NP - Last Filed: 04/22/22 16:52> Cranial nerves: Yes Equal, round and reactive pupils present <Ashley Reagan CREDIT RISK SPECIALIST - Last Filed: 04/22/22 16:52> Cognition (Neuro): normal cognition <Ashley Reagan NP - Last Filed: 04/22/22 16:52> Speech: No Abnormal speech present <Ashley Reagan NP - Last Filed: 04/22/22 16:52> Gait exam (Neuro): Normal gait present <Ashley Reagan NP - Last Filed: 04/22/22 16:52> Motor exam (neuro): 5/5 motor strength present throughout <Ashley Reagan NP - Last Filed: 04/22/22 16:52> Extrem: General: Yes normal to inspection, Yes no pedal edema and Yes no calf tenderness <Ashley Reagan NP - Last Filed: 04/22/22 16:52> Course Course Course Narrative: 14:10pm - 51yoF c PMHx HTN, HLD, Herat disease, GERD and fibromyalgia who is presenting to the ER c c /o 4 days of URI symptoms which include subjective fevers, chills, fatigue, malaise, cough with chest tightness/wheezing. Reports she has been using her albuterol inhaler nebulizers and no symptomatic relief. She is also using [id number] cough medicine and no symptomatic relief. She denies any measured fevers, dizziness, headaches, neck pain/stiffness, sore throat, nasal congestion/rhinorrhea, sputum production, dyspnea on exertion, orthopnea, palpitations, paresthesias, nausea/vomiting/diarrhea abdominal pain, lower extremity edema or calf tenderness, recent travel or sick contacts or any other symptoms complaints or concerns at this time. Vital signs are stable within normal limits. Lungs clear to auscultation. CV RRR. No lower extremity or calf tenderness noted. Plan: COVID/RSV/flu swab, chest x-ray. Patient will be sent back to the waiting room for further evaluation treatment into Emergency minor care. <MARIELLA Bhat - Last Filed: 04/22/22 14:10> Reevaluation(s) Reevaluation #1: Influenza a screen is positive. RSV and COVID are negative. Chest x-ray shows no evidence of pneumonia. Patient has had symptoms for 4 days so I do not believe Tamiflu would be helpful. Patient on discharge complaining of some wheezing and feeling like she needs a nebulizer treatment. She has clear lungs throughout. Will give DuoNeb and reassess <Ashley Reagan NP - Last Filed: 04/22/22 16:52> Reevaluation #2: Feels better post neb. Will discharge home with supportive care. <Ashley Reagan NP - Last Filed: 04/22/22 16:52> Medications Administered Discontinued Medications Generic Name Dose Route Start Last Admin Trade Name Freq PRN Reason Stop Dose Admin Albuterol/Ipratropium 3 ml 04/22/22 15:41 04/22/22 16:15 Albuterol/Iprat 2.5/0.5mg 3 Ml Ampul.Neb INHALE 04/22/22 15:42 3 ml ONCE ONE Administration <MARIELLA Bhat - Last Filed: 04/22/22 14:10> Medications Administered Discontinued Medications Generic Name Dose Route Start Last Admin Trade Name Freq PRN Reason Stop Dose Admin Albuterol/Ipratropium 3 ml 04/22/22 15:41 04/22/22 16:15 Albuterol/Iprat 2.5/0.5mg 3 Ml Ampul.Neb INHALE 04/22/22 15:42 3 ml ONCE ONE Administration <Ashley Reagan NP - Last Filed: 04/22/22 16:52> Medical Decision Making Medical Decision Making MDM Narrative: 51yoF c PMHx HTN, HLD, Herat disease, GERD and fibromyalgia who is presenting to the ER c c /o 4 days of URI symptoms which include subjective fevers, chills, fatigue, malaise, cough with chest tightness/wheezing. Exam is benign. Lungs are clear. Will send testing for flu, COVID, RSV, obtain x-ray <Ashley Reagan NP - Last Filed: 04/22/22 16:52> Differential Diagnosis Differential Diagnoses: The differential diagnosis associated with the presentation includes <Ashley Reagan NP - Last Filed: 04/22/22 16:52> Viral syndrome, influenza, pneumonia <Ashley Reagan NP - Last Filed: 04/22/22 16:52> Lab Data [facility] Lab Attestation statement: I reviewed the patient's lab results. <Ashley Reagan NP - Last Filed: 04/22/22 16:52> Labs: Lab Results 04/22/22 Range/Units 14:10 Influenza Type A (PCR) POSITIVE A (Negative) Influenza Type B (PCR) NEGATIVE (Negative) RSV RNA Qual (PCR) NEGATIVE (Negative) SARS-CoV-2 RNA (RT-PCR) NEGATIVE (Negative) <MARIELLA Bhat - Last Filed: 04/22/22 14:10> Lab Results 04/22/22 Range/Units 14:10 Influenza Type A (PCR) POSITIVE A (Negative) Influenza Type B (PCR) NEGATIVE (Negative) RSV RNA Qual (PCR) NEGATIVE (Negative) SARS-CoV-2 RNA (RT-PCR) NEGATIVE (Negative) <Ashley Reagan NP - Last Filed: 04/22/22 16:52> Radiology Impression Discussion of test interpretation with radiology: I have reviewed the radiologist's reading. <Ashley Reagan NP - Last Filed: 04/22/22 16:52> Radiologist Impression: CXR negative for fracture <Ashlye Reagan NP - Last Filed: 04/22/22 16:52> Prescription Management Tamiflu-not indicated with symptoms greater than 4 days <Ashley Reagan NP - Last Filed: 04/22/22 16:52> Discharge Plan Discharge Clinical Impression: Influenza <MARIELLA Bhat - Last Filed: 04/22/22 14:10> Patient Disposition: Home, Self-Care <MARIELLA Bhat - Last Filed: 04/22/22 14:10> Instructions: Influenza (ED) <MARIELLA Bhat - Last Filed: 04/22/22 14:10> Additional Instructions: Flu screen is positive. RSV and covid are negative Chest x-ray shows no signs of pneumonia. Increase fluids, rest Tylenol for pain or fever as needed Use your albuterol inhaler 2 puffs every 4 hours as needed for cough/wheezing <MARIELLA Bhat - Last Filed: 04/22/22 14:10> Prescriptions: No Action promethazine 12.5 mg tablet 12.500f25 mg PO TID Qty: 120 0RF cefuroxime axetil 250 mg tablet 250 mg PO BID 10 Days Qty: 20 0RF levothyroxine [Levoxyl] 125 mcg tablet 125 mcg PO DAILY clonazepam [Klonopin] 1 mg tablet 1 mg PO TID simethicone 180 mg capsule 180 mg PO QID 30 Days Qty: 120 3RF Rx Instructions: after meals omeprazole 20 mg capsule,delayed release(DR/EC) 20 mg PO BID sumatriptan succinate [Imitrex] 100 mg tablet 100 mg PO Q2-4H PRN Rx Instructions: do not exceed 2 doses per 24 hrs senna 8.6 mg capsule 17.2 mg PO BEDTIME 30 Days Qty: 60 1RF mirtazapine [Remeron] 15 mg tablet 15 mg PO BEDTIME oxycodone-acetaminophen [Percocet] 5-325 mg tablet 1 tab PO TID PRN promethazine 12.5 mg tablet 12.5 mg PO TID lisinopril 40 mg tablet 40 mg PO DAILY verapamil 120 mg capsule,ext rel. pellets 24 hr 120 mg PO DAILY albuterol sulfate 90 mcg/actuation HFA aerosol inhaler 2 puff inhalation Q6H PRN Flovent Diskus 250 mcg/actuation blister with device 1 inh inhalation BID cholecalciferol (vitamin D3) 125 mcg (5,000 unit) tablet 125 mcg PO DAILY zinc 50 mg tablet 50 mg PO TID Rx Instructions: administer on empty stomach, at least 1 hour before or after meal(s) atorvastatin 20 mg tablet 20 mg PO DAILY metoclopramide HCl [Reglan] 5 mg tablet 5 mg PO .TIDAC Qty: 90 3RF Rx Instructions: PLEASE DISPENSE TO PATIENT!! SOMEONE AT THE PHARMACY TOLD HER NOT TO TAKE THIS WHICH IS IMPROPER THEY DO NOT HAVE A LICENSE TO PRACTICE MEDICINE!! PROVIDER IS AWARE OF PHENERGEN AND WE ARE TRANSITIONING AWAY. THANK YOU FOR DELAYIONG THE PATIENTS TREATMENT AND RECOVERY!! dicyclomine 10 mg capsule 10 mg PO BID Qty: 60 3RF <MARIELLA Bhat - Last Filed: 04/22/22 14:10> Referrals: Carmita Avelar MD [Primary Care Provider] - 1 week <MARIELLA Bhat - Last Filed: 04/22/22 14:10> Interventions: ED Discharge Assessment Last Done: 04/22/22 16:46 <MARIELLA Bhat - Last Filed: 04/22/22 14:10> Discharge Date/Time: 04/22/22 16:47 <MARIELLA Bhat - Last Filed: 04/22/22 14:10>
[2022-04-22 15:15] LABS: Influenza A PCR POSITIVE (Negative); Influenza B PCR NEGATIVE (Negative); Resp Syncy Virus RNA Qual PCR NEGATIVE (Negative); SARS COV2 PCR INHOUSE NEGATIVE (Negative)
[2022-04-22] MEDS: Albuterol/Iprat 2.5/0.5MG 3 ML AMPUL.NEB INHALE (16:15)
[2022-04-22 16:17] VITALS: RESP 18; O2SAT 96
== END 2022-04-22 16:47 | disposition home or self-care (01) ==
PROVIDERS: Physician Assistant Medical; Emergency Provider Emergency Medicine; PCP Internal Medicine
DX: J10.1 Influenza due to other identified influenza virus with other respiratory manifestations (principal); R05.9 Cough, unspecified; M79.10 Myalgia, unspecified site; R50.9 Fever, unspecified; Z79.899 Other long term (current) drug therapy
CPT/HCPCS: 0241U; 71046; 94640; 99283; 99284

== ENCOUNTER → 2022-05-06 15:39 | Outpatient (BNVA) | payer MEDICAID, SELFPAY | PROVIDERS: PCP Internal Medicine; Visit Provider Nurse Practitioner | DX: K30 Functional dyspepsia (principal); K59.04 Chronic idiopathic constipation; K58.2 Mixed irritable bowel syndrome; K21.9 Gastro-esophageal reflux disease without esophagitis; M79.7 Fibromyalgia; I10 Essential (primary) hypertension | CPT/HCPCS: 99212 ==

== ENCOUNTER 2022-05-13 14:58 | Outpatient (REF) | payer MEDICAID, SELFPAY ==
[2022-05-13 16:33] LABS: Alanine Aminotransferase 37 U/L (0-31); Albumin Level 4.5 g/dL (3.5-5.0); Alkaline Phosphatase 184 U/L (39-117); Anion Gap 12 (12-20); Aspartate Amino Transferase 24 U/L (5-31); Bilirubin Total 0.4 mg/dL (0.0-1.0); Blood Urea Nitrogen 12 mg/dL (9-16); Carbon Dioxide 26 mmol/L (22-29); Chloride 107 mmol/L (96-108); Estimated Glomerular Filt Rate > 60; Glucose Random 74 mg/dL (60-115); Potassium 3.8 mmol/L (3.3-5.1); Sodium 141 mmol/L (135-145); Total Protein 7.6 g/dL (6.5-8.0)
[2022-05-13 16:37] LABS: Estimated Average Glucose 114 mg/dL; Hemoglobin A1C 149.1474 umol/L; Hemoglobin A1c % 5.6 %
[2022-05-13 16:51] LABS: Free T4 (Free Thyroxine) 1.06 ng/dL (0.71-1.85); Thyroid Stimulating Hormone 0.78 uIU/mL (0.32-4.0); Vitamin D 25-OH Total 36.6 ng/mL (>30)
== END 2022-05-13 14:59 | disposition home or self-care (01) ==
LOC: HO.LAB 14:58
PROVIDERS: Absent Provider Internal Medicine Endocrinology, Diabetes & Metabolism; PCP Internal Medicine; Visit Provider Surgery
DX: E89.0 Postprocedural hypothyroidism (principal); E55.9 Vitamin D deficiency, unspecified; R73.9 Hyperglycemia, unspecified
CPT/HCPCS: 36415; 80053; 82306; 83036; 84439; 84443; 99212

== ENCOUNTER 2022-05-28 07:15 | Day surgery (SDC) | payer MEDICAID, SELFPAY ==
[2022-05-22 13:09] VITALS: BMI 32.5
--- NOTE | 2022-05-27 10:20 | HO.ANESPROP2 ---
HPI - Anesthesia Eval Consult details Narrative: 51yo F for Left Excision Lipoma of Hip Multiple Allergies PMFSH Active Problems Active Problems: All Active Problems (Updated 04/23/22 @ 00:00 by Akanksha Onofre) GERD (gastroesophageal reflux disease) (Acute) Irritable bowel syndrome with both constipation and diarrhea (Acute) Delayed gastric emptying (Acute) Lipoma (Acute) Chronic narcotic use (Acute) Nicotine use (Acute) Hypertension (Acute) Asthma (Acute) Fibromyalgia (Acute) Past Medical History Medical History Asthma Fibromyalgia Hypertension Hypoglycemia Family History Family History Mother Diabetes Hypertension Heart abnormality Father No problems noted. Father No problems noted. Surgical History Surgical History Carpal tunnel syndrome Endometriosis determined by laparoscopy H/O knee surgery H/O neck surgery History of partial hysterectomy Social History Social History Household Members: None Housing: Apartment Do you presently have visiting nurse or other home services: No Alcohol intake: never Patient Tobacco Use Status: Current everyday Tobacco user Tobacco use type: Cigarette Cigarettes Per Day: 8 Years Smoked: 26 Use of substances other than those prescribed or required for medical reasons: No Have you been hit, kicked, punched, or otherwise hurt by someone within the past year? If so, by whom?: No Are you DNR?: No Advance Directives: No Advance Directives Information Provided: Yes Advance Directives on File: No Recently lost weight without trying: No Nutrition Risks: No Nutritional Risk Patient : No : No Poor oral hygiene: No Meds Allergies Allergy/AdvReac Type Severity Reaction Status Date / Time carisoprodol [From Soma] Allergy Severe SHORTNESS Verified 05/22/22 13:06 OF BREATH,VOMITING duloxetine [Cymbalta] Allergy Severe Nausea and Verified 05/22/22 13:06 Vomiting gabapentin [From NEURONTIN] Allergy Severe RASH,HIVES Verified 05/22/22 13:07 ibuprofen [From Motrin] Allergy Severe VOMITING Verified 05/22/22 13:06 ketorolac Allergy Severe Shortness Verified 05/22/22 13:06 of Breath morphine [Morphine] Allergy Severe SHORTNESS Verified 05/22/22 13:06 OF BREATH naproxen [From Naprosyn] Allergy Severe VOMITING Verified 05/22/22 13:06 oxybutynin Allergy Severe Nausea and Verified 05/22/22 13:06 Vomiting pregabalin [From LYRICA] Allergy Severe HYPER AND Verified 05/22/22 13:06 PANIC ATTACK ranitidine [RANITIDINE] Allergy Severe TACHYCARDIA Verified 05/22/22 13:06 sulfamethoxazole Allergy Severe VOMITING,RASH, Verified 05/22/22 13:06 [From BACTRIM] hives tramadol Allergy Severe Shortness Verified 05/22/22 13:06 of Breath trimethoprim [From BACTRIM] Allergy Severe VOMITING,RASH, Verified 05/22/22 13:06 hives cortisone [CORTISONE] Allergy Intermediate ITCHING,JANAE Verified 05/22/22 13:07 H Sulfa (Sulfonamide Allergy Intermediate VOMITING/RASH, Verified 05/22/22 13:06 Antibiotics) hives transparent dressing Allergy Rash Verified 05/27/22 09:36 [Tegaderm] dicyclomine AdvReac Severe Palpitation Verified 05/22/22 13:07 s Tricyclic Antidepressants AdvReac Severe VOMITING Verified 05/22/22 13:06 and Tricy from ALL [Tricyclic Compounds] ANTIDEPRESSANTS, palpitations all antidepressants except Allergy Severe Nausea and Uncoded 05/22/22 13:06 Rem Vomiting milk, yogurt, dairy Allergy Severe Diarrhea, Uncoded 05/22/22 13:06 vomitting Home Medications Medication Instructions Recorded Confirmed Last Taken Type albuterol sulfate 90 mcg/actuation 2 puff inhalation Q6H PRN 10/11/21 05/28/22 Unknown History aerosol inhaler Shortness Of Breath Or Wheezing atorvastatin 20 mg tablet 20 mg PO .DAILY @ 1600 10/11/21 05/28/22 05/27/22 History cholecalciferol (vitamin D3) 125 125 mcg PO DAILY 10/11/21 05/28/22 05/27/22 History mcg (5,000 unit) tablet clonazepam 1 mg tablet (Klonopin) 1 mg PO BID 10/11/21 05/28/22 05/27/22 History fluticasone propionate 250 1 inh inhalation BID 10/11/21 05/28/22 Unknown History mcg/actuation blister powder for inhalation (Flovent Diskus) levothyroxine 125 mcg tablet 125 mcg PO DAILY 10/11/21 05/28/22 05/28/22 History (Levoxyl) oxycodone-acetaminophen 5 mg-325 1 tab PO TID PRN Pain 10/11/21 05/28/22 05/28/22 History mg tablet (Percocet) sumatriptan succinate 100 mg 100 mg PO Q2-4H PRN Headache 10/11/21 05/28/22 Unknown History tablet (Imitrex) doxylamine succinate 25 mg tablet 25 - 50 mg PO BEDTIME PRN Insomnia 05/06/22 05/28/22 Unknown History (Sleep Aid (doxylamine)) lisinopril 20 mg tablet 20 mg PO DAILY 05/06/22 05/28/22 05/27/22 History mirtazapine 7.5 mg tablet 7.5 mg PO BEDTIME 05/06/22 05/28/22 05/27/22 History verapamil 180 mg 24 hr 180 mg PO .DAILY @ 1600 05/06/22 05/28/22 05/27/22 History capsule,extended release zinc 50 mg tablet 50 mg PO BID 05/06/22 05/28/22 05/27/22 History sennosides 8.6 mg capsule (senna) 17.2 mg PO BEDTIME PRN Constipation 05/22/22 05/28/22 Unknown History Exam Exam Date and Time: May 27, 2022 1020 Height,Weight and Vital Signs: Height 5 ft 4 in Weight 86.183 kg Pertinent Lab Results Pertinent Lab Results: Laboratory Tests 03/21/20 05/13/22 22:17 15:39 WBC 15.6 H Hgb 13.9 Hct 44.1 Plt Count 347 Sodium 141 Potassium 3.8 Chloride 107 Carbon Dioxide 26 BUN 12 Creatinine 0.74 Assessment and Plan Assessment Anesthesia Assessment: Chart Reviewed
[2022-05-28] VITALS (9 sets, daily range): BP systolic 103–143; BP diastolic 59–89; PULSE 94–112; RESP 15–20; TEMP 36.5–37; O2SAT 91–98
[2022-05-28] MEDS: Lactated Ringers 1,000 ML 100 ML IVCONT (08:01)
--- NOTE | 2022-05-28 08:08 | P.CONAN_ITS ---
[facility] Active Problems Active Problems: All Active Problems (Updated 04/23/22 @ 00:00 by Background [place]) GERD (gastroesophageal reflux disease) (Acute) Irritable bowel syndrome with both constipation and diarrhea (Acute) Delayed gastric emptying (Acute) Lipoma (Acute) Chronic narcotic use (Acute) Nicotine use (Acute) Hypertension (Acute) Asthma (Acute) Fibromyalgia (Acute) Past Medical History Medical History Asthma Fibromyalgia Hypertension Hypoglycemia Family History Family History Mother Diabetes Hypertension Heart abnormality Father No problems noted. Father No problems noted. Surgical History Surgical History Carpal tunnel syndrome Endometriosis determined by laparoscopy H/O knee surgery H/O neck surgery History of partial hysterectomy History of Problems with Anesthesia: Yes Social History Social History Household Members: None Housing: Apartment Do you presently have visiting nurse or other home services: No Alcohol intake: never Patient Tobacco Use Status: Current everyday Tobacco user Tobacco use type: Cigarette Cigarettes Per Day: 8 Years Smoked: 26 Use of substances other than those prescribed or required for medical reasons: No Have you been hit, kicked, punched, or otherwise hurt by someone within the past year? If so, by whom?: No Are you DNR?: No Advance Directives: No Advance Directives Information Provided: Yes Advance Directives on File: No Recently lost weight without trying: No Nutrition Risks: No Nutritional Risk Patient : No : No Poor oral hygiene: No Meds Allergies Allergy/AdvReac Type Severity Reaction Status Date / Time carisoprodol [From Soma] Allergy Severe SHORTNESS Verified 05/22/22 13:06 OF BREATH,VOMITING duloxetine [Cymbalta] Allergy Severe Nausea and Verified 05/22/22 13:06 Vomiting gabapentin [From NEURONTIN] Allergy Severe RASH,HIVES Verified 05/22/22 13:07 ibuprofen [From Motrin] Allergy Severe VOMITING Verified 05/22/22 13:06 ketorolac Allergy Severe Shortness Verified 05/22/22 13:06 of Breath morphine [Morphine] Allergy Severe SHORTNESS Verified 05/22/22 13:06 OF BREATH naproxen [From Naprosyn] Allergy Severe VOMITING Verified 05/22/22 13:06 oxybutynin Allergy Severe Nausea and Verified 05/22/22 13:06 Vomiting pregabalin [From LYRICA] Allergy Severe HYPER AND Verified 05/22/22 13:06 PANIC ATTACK ranitidine [RANITIDINE] Allergy Severe TACHYCARDIA Verified 05/22/22 13:06 sulfamethoxazole Allergy Severe VOMITING,RASH, Verified 05/22/22 13:06 [From BACTRIM] hives tramadol Allergy Severe Shortness Verified 05/22/22 13:06 of Breath trimethoprim [From BACTRIM] Allergy Severe VOMITING,RASH, Verified 05/22/22 13:06 hives cortisone [CORTISONE] Allergy Intermediate ITCHING,JANAE Verified 05/22/22 13:07 H Sulfa (Sulfonamide Allergy Intermediate VOMITING/RASH, Verified 05/22/22 13:06 Antibiotics) hives transparent dressing Allergy Rash Verified 05/27/22 09:36 [Tegaderm] dicyclomine AdvReac Severe Palpitation Verified 05/22/22 13:07 s Tricyclic Antidepressants AdvReac Severe VOMITING Verified 05/22/22 13:06 and Tricy from ALL [Tricyclic Compounds] ANTIDEPRESSANTS, palpitations all antidepressants except Allergy Severe Nausea and Uncoded 05/22/22 13:06 Rem Vomiting milk, yogurt, dairy Allergy Severe Diarrhea, Uncoded 05/22/22 13:06 vomitting Active Medications: Current Medications Albuterol Sulfate (Albuterol Sulfate (0.083%) 2.5 Mg/3 Ml Vial.Neb) 2.5 mg INHALE ONCE PRN PRN Reason: Shortness of Breath/Wheezing Lactated Ringer's (Lr) 1,000 mls @ 100 mls/hr IVCONT .Q10H CLAUDIA Last Admin: 05/28/22 08:01 Dose: 100 mls/hr Home Medications Medication Instructions Recorded Confirmed Last Taken Type albuterol sulfate 90 mcg/actuation 2 puff inhalation Q6H PRN 10/11/21 05/28/22 Unknown History aerosol inhaler Shortness Of Breath Or Wheezing atorvastatin 20 mg tablet 20 mg PO .DAILY @ 1600 10/11/21 05/28/22 05/27/22 History cholecalciferol (vitamin D3) 125 125 mcg PO DAILY 10/11/21 05/28/22 05/27/22 History mcg (5,000 unit) tablet clonazepam 1 mg tablet (Klonopin) 1 mg PO BID 10/11/21 05/28/22 05/27/22 History fluticasone propionate 250 1 inh inhalation BID 10/11/21 05/28/22 Unknown History mcg/actuation blister powder for inhalation (Flovent Diskus) levothyroxine 125 mcg tablet 125 mcg PO DAILY 10/11/21 05/28/22 05/28/22 History (Levoxyl) oxycodone-acetaminophen 5 mg-325 1 tab PO TID PRN Pain 10/11/21 05/28/22 05/28/22 History mg tablet (Percocet) sumatriptan succinate 100 mg 100 mg PO Q2-4H PRN Headache 10/11/21 05/28/22 Unknown History tablet (Imitrex) doxylamine succinate 25 mg tablet 25 - 50 mg PO BEDTIME PRN Insomnia 05/06/22 05/28/22 Unknown History (Sleep Aid (doxylamine)) lisinopril 20 mg tablet 20 mg PO DAILY 05/06/22 05/28/22 05/27/22 History mirtazapine 7.5 mg tablet 7.5 mg PO BEDTIME 05/06/22 05/28/22 05/27/22 History verapamil 180 mg 24 hr 180 mg PO .DAILY @ 1600 05/06/22 05/28/22 05/27/22 Hi story capsule,extended release zinc 50 mg tablet 50 mg PO BID 05/06/22 05/28/22 05/27/22 History sennosides 8.6 mg capsule (senna) 17.2 mg PO BEDTIME PRN Constipation 05/22/22 05/28/22 Unknown History Exam Exam Date and Time: May 28, 2022 0808 Height,Weight and Vital Signs: Height 5 ft 4 in Weight 86.183 kg Last Vital Signs Temp 97.7 F 05/28/22 07:55 Pulse 94 05/28/22 07:55 Resp 16 05/28/22 07:55 BP 130/82 05/28/22 07:55 Pulse Ox 98 05/28/22 07:55 O2 Del Method 05/28/22 07:55 Airway Mallampati Class: II TM Dist: >3cm Neck ROM: Full Loose/Missing/Broken Teeth: No Heart: RRR Lungs: CTA Assessment and Plan Assessment Anesthesia Assessment: Anesthesia Plan Discussed and Chart Reviewed Final Anesthetic Review History of Problems with Anesthesia: Yes NPO: Yes ASA Class: II Final Preanesthetic Review: Meds/Allgs Chart Reviewed, Consent Obtained/Reviewed and Anes Risks/Benef Reviewed Patient Risk: Low Procedure Risk: Low Anesthetic Plan Anesthetic Plan: GA Disposition: Standard PACU
--- NOTE | 2022-05-28 08:25 | P.HPSUR_ITS ---
Pre-Procedural Eval Section A Date of Service: 05/28/22 The patient is an INPATIENT: No Changes since office visit: Yes Patient answered all questions; No Cold of Flu in the past 2 weeks, No New Medical Problems and No Changes in Medication The History & Physical has been completed within 30 days and I have reviewed it.: Yes Section B Chief Complaint: Benign lipomatous neoplasm, unspecified Allergies: Allergies Allergy/AdvReac Type Severity Reaction Status Date / Time carisoprodol [From Soma] Allergy Severe SHORTNESS Verified 05/22/22 13:06 OF BREATH,VOMITING duloxetine [Cymbalta] Allergy Severe Nausea and Verified 05/22/22 13:06 Vomiting gabapentin [From NEURONTIN] Allergy Severe RASH,HIVES Verified 05/22/22 13:07 ibuprofen [From Motrin] Allergy Severe VOMITING Verified 05/22/22 13:06 ketorolac Allergy Severe Shortness Verified 05/22/22 13:06 of Breath morphine [Morphine] Allergy Severe SHORTNESS Verified 05/22/22 13:06 OF BREATH naproxen [From Naprosyn] Allergy Severe VOMITING Verified 05/22/22 13:06 oxybutynin Allergy Severe Nausea and Verified 05/22/22 13:06 Vomiting pregabalin [From LYRICA] Allergy Severe HYPER AND Verified 05/22/22 13:06 PANIC ATTACK ranitidine [RANITIDINE] Allergy Severe TACHYCARDIA Verified 05/22/22 13:06 sulfamethoxazole Allergy Severe VOMITING,RASH, Verified 05/22/22 13:06 [From BACTRIM] hives tramadol Allergy Severe Shortness Verified 05/22/22 13:06 of Breath trimethoprim [From BACTRIM] Allergy Severe VOMITING,RASH, Verified 05/22/22 13:0 6 hives cortisone [CORTISONE] Allergy Intermediate ITCHING,JANAE Verified 05/22/22 13:07 H Sulfa (Sulfonamide Allergy Intermediate VOMITING/RASH, Verified 05/22/22 13:06 Antibiotics) hives transparent dressing Allergy Rash Verified 05/27/22 09:36 [Tegaderm] dicyclomine AdvReac Severe Palpitation Verified 05/22/22 13:07 s Tricyclic Antidepressants AdvReac Severe VOMITING Verified 05/22/22 13:06 and Tricy from ALL [Tricyclic Compounds] ANTIDEPRESSANTS, palpitations all antidepressants except Allergy Severe Nausea and Uncoded 05/22/22 13:06 Rem Vomiting milk, yogurt, dairy Allergy Severe Diarrhea, Uncoded 05/22/22 13:06 vomitting Plan Diagnosis/Plan: Unchanged I have reviewed the history and physical and performed a pertinent physical examination on my patient. No changes have occurred unless specified. Time Spent With Patient Time: Total time managing care of this patient today ____ minutes.
--- NOTE | 2022-05-28 09:39 | W.PM.OPN ---
Operative Note Operative Note Date of Service: 05/28/22 Narrative: Preoperative diagnosis: lipoma left hip Postoperative diagnosis: same Procedure: excision of lipoma left hip Surgeon: Dariel Stout MD Monitor Technician: Nancy Hung PA-C Anesthesia: general LMA Indications for procedure: 51-year-old female patient presenting with a large lipoma of the left hip which is gradually increased in size and causing discomfort. On examination the lipoma measures 15 by 10 cm and is just above the left hip the posterior lateral back. There are no overlying skin changes noted. Operative findings: Large lipoma with multiple pseudo pockets involving a area measuring 15 x 15 cm Specimen: lipoma left hip Estimated blood loss: 5 mL Complications: none Procedure details: patient was brought to the OR placed in a supine position. After administering general anesthesia the patient was rotated to a lateral position. Left hip was prepped with ChloraPrep and draped in a sterile fashion. A surgical time-out was called the consent confirmed. Patient received preoperative antibiotics and Venodyne boots were in place. Local anesthesia consisting of 0.5% Sensorcaine with epinephrine was then infiltrated in a curvilinear fashion over the lipoma. Incision was then made with scalpel carried out through subcutaneous tissue up to the lipoma. The lipoma was found to be soft and indiscrete. Combination of electrocautery and sharp dissection was used to excise the multiple levels of lipoma. The lipoma was approximately 15 cm in diameter and extended down to the muscle fascia. The lesion was completely removed and sent to pathology for further examination. Hemostasis was assured using electrocautery. Wounds were irrigated with saline solution suctioned dry. Deep subcutaneous tissue and superficial subcutaneous tissue were then reapproximated using interrupted 3-0 Polysorb sutures. Dermis was reapproximated using interrupted 3-0 Polysorb sutures. Skin was closed using a subcuticular 4-0 Polysorb suture. Steri-Strips, 2 x 2 gauze and Tegaderm then applied. The patient tolerated the procedure well. Sponge, instrument, needle counts reported as correct. The patient was transferred to PACU in stable condition.
[2022-05-28] MEDS: oxyCODONE HCl Immed Release 5 MG TABLET PO (10:03)
[2022-05-28] MEDS: fentaNYL citrate/PF 100 MCG/2 ML VIAL 50 MCG IVPUSH ×2 (10:09→10:20)
== END 2022-05-28 11:31 ==
LOC: HO.SSS 07:15
PROVIDERS: PCP Internal Medicine; Visit Provider Surgery
PROC: (CPT 27043; principal; 2022-05-28 09:10)
DX: D17.24 Benign lipomatous neoplasm of skin and subcutaneous tissue of left leg (principal); M79.7 Fibromyalgia; I10 Essential (primary) hypertension; E16.2 Hypoglycemia, unspecified; J45.909 Unspecified asthma, uncomplicated; Z79.51 Long term (current) use of inhaled steroids; Z79.899 Other long term (current) drug therapy; Z88.2 Allergy status to sulfonamides; Z88.8 Allergy status to other drugs, medicaments and biological substances; Z91.040 Latex allergy status
CPT/HCPCS: 27043; 88304; J0690; J1100; J1170; J2250; J2370; J2405; J3010

== ENCOUNTER → 2022-06-10 13:36 | Outpatient (BNVA) | payer MEDICAID, SELFPAY | PROVIDERS: PCP Internal Medicine; Visit Provider Surgery | DX: Z13.89 Encounter for screening for other disorder (principal) ==

== ENCOUNTER 2022-07-01 08:44 | Emergency (ER) | payer MEDICAID, SELFPAY ==
--- NOTE | ~2022-07-01 | CT_ITS ---
EXAMINATION: CT abdomen pelvis wo IV con CLINICAL INFORMATION: Reason for Exam R flank pain COMPARISON: No prior CT available for comparison. TECHNIQUE: Multidetector volumetric imaging was performed from the superior aspect of the liver through the pubic symphysis , noncontrasted study. Sagittal and coronal reformatted images were obtained on the technologist's workstation. This CT examination was performed using dose optimization techniques as appropriate, variously including the following: *Automated exposure control *Adjustment of mA and/or kV according to patient size (this includes techniques or standardized protocols for targeted exams where dose is matched to indication/reason for exam; i.e. extremities or head) *Use of iterative reconstruction technique DLP: 667 mGy-cm FINDINGS: LOWER THORAX: Included lung bases are clear. HEPATOBILIARY: No focal hepatic lesions. No biliary ductal dilatation. GALLBLADDER: Gallbladder unremarkable. SPLEEN: Spleen is normal in size. PANCREAS: No focal mass or ductal dilatation. STOMACH AND GASTROINTESTINAL TRACT: Stomach is grossly unremarkable. There is no bowel distention or thickening. Mild diverticulosis without evidence of acute diverticulitis. Normal appendix identified. No CT evidence of appendicitis. ADRENALS: No adrenal nodules. KIDNEYS/URETERS: No hydronephrosis, stones or solid mass lesions. URINARY BLADDER: Partially decompressed. PELVIC VISCERA: Unremarkable PERITONEUM: No free air or fluid. LYMPH NODES: No lymphadenopathy. VASCULAR:Mild vascular calcifications, no aneurysm. BONES, ABDOMINAL WALL AND SOFT TISSUES: There is subcutaneous soft tissue opacity within the left lateral gluteal region extends from the dermis to the muscle fascia roughly measures 5.7 x 5.4 cm axially and about 6.7 cm craniocaudally, not well characterized on this noncontrast CT scan, differential diagnoses would include hematoma, infection, versus soft tissue mass, this may require further evaluation with contrast enhanced CT scan and/or ultrasound. CT/CT abdomen pelvis wo IV con IMPRESSION: * There is extra-abdominal SUBCUTANEOUS soft tissue opacity within the left lateral gluteal region extends from the dermis to the muscle fascia roughly measures 5.7 x 5.4 x 6.7 cm, not well characterized on this noncontrast CT scan, differential diagnoses would include hematoma, infection, versus soft tissue mass, this may require further evaluation with contrast enhanced CT scan and/or ultrasound. * Mild diverticulosis without evidence of acute diverticulitis. * Mild vascular calcifications. * No CT evidence of kidney stone or hydronephrosis. No evidence of appendicitis.
--- NOTE | ~2022-07-01 | US_ITS ---
EXAMINATION:US pelvic and transvaginal CLINICAL INFORMATION: Reason for Exam r flank/rlq abd pain COMPARISON: No priors available. LMP: Postmenopausal FINDINGS: UTERUS: Uterus is absent has been removed. ADNEXA: Ovaries were not visualized might have been removed and/or obscured by bowel gas. FREE FLUID: Trace amount of free fluid. OTHER FINDINGS: None US/US pelvic and transvaginal IMPRESSION: * Status post hysterectomy. * Ovaries were not visualized might have been removed and/or obscured by bowel gas.
[2022-07-01 08:49] VITALS: BP 140/95; PULSE 95; RESP 18; TEMP 36.4; O2SAT 98; BMI 32.5
[2022-07-01 09:22] LABS: Basophils Absolute Auto 0.1 X10*3/uL (0.0-0.2); Basophils Percent Auto 0.6 % (0-2); Eosinophils Absolute Auto 0.3 X10*3/uL (0.0-0.4); Eosinophils Percent Auto 1.9 % (0-4); Hematocrit 48.5 % (37.0-47.0); Hemoglobin 15.4 g/dl (12.0-16.0); Imm Gran Abs Auto 0.05 X10*3/uL (0.00-0.03); Imm Gran Pct Auto 0.3 % (0.0-0.4); Lymphocytes Absolute Auto 5.1 X10*3/uL (1.2-4.9); MANUAL DIFF FLAG SCAN; Mean Corpuscular HGB Conc 31.8 g/dl (31.0-35.0); Mean Corpuscular Hemoglobin 27.9 pg (27.0-33.0); Mean Corpuscular Volume 87.9 fL (80.0-98.0); Mean Platelet Volume 9.8 fL (9.4-12.3); Monocytes Absolute Auto 1.1 X10*3/uL (0.1-1.2); Monocytes Percent Auto 6.5 % (2-11); Neutrophils Absolute Auto 9.9 x10*3/uL (2.0-8.3); Neutrophils Percent Auto 59.7 % (45-73); Platelet Count 366 X10*3/uL (160-400); Red Blood Count 5.52 X10*6/uL (4.20-5.50); Red Cell Distribution Width 14.9 % (11.0-16.0); SCAN SMEAR FLAG 1; White Blood Count 16.6 X10*3/uL (4.8-10.8)
[2022-07-01 09:24] LABS: Appearance Urine Cloudy; Color Urine Yellow; Glucose Urine UA Negative (Negative); Leukocyte Esterase Urine Negative (Negative); Nitrite Urine Negative (Negative); PH 5.5 (5.0-9.0); Specific Gravity - Urine 1.015 (1.005-1.025); UMIC TRIGGER UACC YES; Urine Blood Trace (Negative); Urine Ketones Negative (Negative); Urine Protein Negative (Neg-Trace)
[2022-07-01 09:27] LABS: Bacteria Urine 2+ (None Seen); Hyaline Casts Urine 0-2 /LPF (0-2); Squamous Epithelial Cell Urine >20 /HPF (0-2); WBC Urine 0-5 /HPF (0-5)
[2022-07-01 09:39] LABS: Alanine Aminotransferase 47 U/L (0-31); Albumin Level 4.5 g/dL (3.5-5.0); Alkaline Phosphatase 178 U/L (39-117); Anion Gap 11 (12-20); Aspartate Amino Transferase 23 U/L (5-31); Bilirubin Direct 0.2 mg/dL (0.0-0.5); Bilirubin Total 0.5 mg/dL (0.0-1.0); Blood Urea Nitrogen 10 mg/dL (9-16); Calcium 9.9 mg/dL (8.4-10.2); Carbon Dioxide 27 mmol/L (22-29); Chloride 105 mmol/L (96-108); Creatinine Clr Calc Pharmacy 93.2; Estimated Glomerular Filt Rate > 60; Glucose Random 98 mg/dL (60-115); Lipase 24 U/L (8-78); Potassium 3.7 mmol/L (3.3-5.1); Sodium 139 mmol/L (135-145); Total Protein 7.3 g/dL (6.5-8.0)
[2022-07-01 09:40] LABS: COVID-19 Test Negative (Negative); IDNOW Serial# 16C4AD1C
[2022-07-01 09:48] LABS: SLIDE REVIEW VERIFIED
[2022-07-01 11:29] VITALS: BP 146/95; PULSE 83; RESP 18; O2SAT 97
--- NOTE | 2022-07-01 11:30 | PC.NURSE ---
pt is alert and oriented, skin appropriate for ethnicity, respirations even and unlabored, pt reports right sided flank pain since thursday, and foul smelling urine and urgency to void, sometimes also has pain in the right upper abd area, pain at 10/10. denies n/v/d
[2022-07-01] MEDS: oxyCODONE HCl Immed Release 5 MG TABLET PO (12:29)
[2022-07-01 12:48] LABS: Lactic Acid 1.2 mmol/L (0.5-2.0)
[2022-07-01 12:55] LABS: HCG Quantitative < 2 mIU/mL
--- NOTE | 2022-07-01 13:44 | ED.ABDPAIN ---
HPI - Abdominal Pain General Chief Complaint: Abdominal Pain Stated Complaint: R side back pain/kidney pain? Time Seen by Provider: 07/01/22 12:15 Source: patient and family ( at bedside) Mode of arrival: ambulatory Limitations: language barrier (German-speaking) History of Present Illness HPI narrative: 51yoF with a PMHx of GERD, IBS, delayed gastric emptying, lipoma, chronic narcotic use, hypertension, asthma, fibromyalgia and pyelonephritis to his code presenting to the ER with complaints of right-sided flank pain with associated urinary frequency/urgency and retention for the past 3 days worse today. She is also concerned about her ovaries and feels like she has been having bilateral suprapubic ovarian pain and is concerned about this. She reports she has never had kidney stones in the past although she has chronic microscopic hematuria that she is aware of. She denies any fevers, chills, nausea/vomiting, chest pain or shortness of breath, palpitations, dysuria, gross hematuria, black or bloody stools, diarrhea constipation, recent travel or sick contacts or any other symptoms complaints or concerns at this time. MD elicited complaint: abdominal pain and flank pain Pertinent past history: other (History of pyelonephritis) Onset (ago): day(s) (3 days) Pain Consistency: constant Location: R flank Severity: moderate Quality: aching Radiation: RLQ Exacerbating factors: nothing Relieving factors: nothing Associated symptoms: other (Urinary frequency/urgency/retention) Related Data Home Medications Medication Instructions Recorded Confirmed albuterol sulfate 90 mcg/actuation 2 puff inhalation Q6H PRN 10/11/21 05/28/22 aerosol inhaler Shortness Of Breath Or Wheezing atorvastatin 20 mg tablet 20 mg PO .DAILY @ 1600 10/11/21 05/28/22 cholecalciferol (vitamin D3) 125 125 mcg PO DAILY 10/11/21 05/28/22 mcg (5,000 unit) tablet clonazepam 1 mg tablet (Klonopin) 1 mg PO BID 10/11/21 05/28/22 fluticasone propionate 250 1 inh inhalation BID 10/11/21 05/28/22 mcg/actuation blister powder for inhalation (Flovent Diskus) levothyroxine 125 mcg tablet 125 mcg PO DAILY 10/11/21 05/28/22 (Levoxyl) oxycodone-acetaminophen 5 mg-325 1 tab PO TID PRN Pain 10/11/21 05/28/22 mg tablet (Percocet) sumatriptan succinate 100 mg 100 mg PO Q2-4H PRN Headache 10/11/21 05/28/22 tablet (Imitrex) doxylamine succinate 25 mg tablet 25 - 50 mg PO BEDTIME PRN Insomnia 05/06/22 05/28/22 (Sleep Aid (doxylamine)) lisinopril 20 mg tablet 20 mg PO DAILY 05/06/22 05/28/22 mirtazapine 7.5 mg tablet 7.5 mg PO BEDTIME 05/06/22 05/28/22 verapamil 180 mg 24 hr 180 mg PO .DAILY @ 1600 05/06/22 05/28/22 capsule,extended release zinc 50 mg tablet 50 mg PO BID 05/06/22 05/28/22 sennosides 8.6 mg capsule (senna) 17.2 mg PO BEDTIME PRN Constipation 05/22/22 05/28/22 Previous Rx's Medication Instructions Recorded loperamide 2 mg capsule (Imodium 2 mg PO Q2H PRN loose stool #60 05/06/22 A-D) caps metoclopramide HCl 5 mg tablet 5 mg PO .TIDAC #90 tabs 05/06/22 (Reglan) omeprazole 20 mg capsule,delayed 20 mg PO BID #60 caps 05/06/22 release simethicone 180 mg capsule 180 mg PO QID 30 days #120 caps 05/06/22 cyclobenzaprine 10 mg tablet 10 mg PO Q8H #10 tabs 07/01/22 oxycodone 5 mg tablet 5 mg PO Q6H PRN pain #10 tabs 07/01/22 Allergies Allergy/AdvReac Type Severity Reaction Status Date / Time carisoprodol [From Soma] Allergy Severe SHORTNESS Verified 07/01/22 08:49 OF BREATH,VOMITING duloxetine [Cymbalta] Allergy Severe Nausea and Verified 07/01/22 08:49 Vomiting gabapentin [From NEURONTIN] Allergy Severe RASH,HIVES Verified 07/01/22 08:49 ibuprofen [From Motrin] Allergy Severe VOMITING Verified 07/01/22 08:49 ketorolac Allergy Severe Shortness Verified 07/01/22 08:49 of Breath morphine [Morphine] Allergy Severe SHORTNESS Verified 07/01/22 08:49 OF BREATH naproxen [From Naprosyn] Allergy Severe VOMITING Verified 07/01/22 08:49 oxybutynin Allergy Severe Nausea and Verified 07/01/22 08:49 Vomiting pregabalin [From LYRICA] Allergy Severe HYPER AND Verified 07/01/22 08:49 PANIC ATTACK ranitidine [RANITIDINE] Allergy Severe TACHYCARDIA Verified 07/01/22 08:49 sulfamethoxazole Allergy Severe VOMITING,RASH, Verified 07/01/22 08:49 [From BACTRIM] hives tramadol Allergy Severe Shortness Verified 07/01/22 08:49 of Breath trimethoprim [From BACTRIM] Allergy Severe VOMITING,RASH, Verified 07/01/22 08:49 hives cortisone [CORTISONE] Allergy Intermediate ITCHING,JANAE Verified 07/01/22 08:49 H Sulfa (Sulfonamide Allergy Intermediate VOMITING/RASH, Verified 07/01/22 08:49 Antibiotics) hives transparent dressing Allergy Rash Verified 07/01/22 08:49 [Tegaderm] dicyclomine AdvReac Severe Palpitation Verified 07/01/22 08:49 s Tricyclic Antidepressants AdvReac Severe VOMITING Verified 07/01/22 08:49 and Tricy from ALL [Tricyclic Compounds] ANTIDEPRESSANTS, palpitations all antidepressants except Allergy Severe Nausea and Uncoded 06/10/22 14:04 Rem Vomiting milk, yogurt, dairy Allergy Severe Diarrhea, Uncoded 06/10/22 14:04 vomitting Review of Systems Review of Systems Constitutional : No Fever, No Chills, No Night Sweats, No Fatigue, No Malaise Cardiovascular : No Chest Pain, No SOB Respiratory : No Cough, No Sputum, No Wheezing, No Dyspnea Gastrointestinal : No Nausea, No Vomiting, No Diarrhea, + abdominal Pain, No Hematochezia, No Melena Genitourinary : No irregular bleeding, No Dysuria, + Urinary Frequency, No Hematuria,No Urinary Incontinence, No Urgency, No Flank Pain Musculoskeletal : No joint pain, No Myalgias, No Joint Swelling Skin : No Skin Lesions, No rash Neuro : No Weakness, No Numbness, No Paresthesias, No Loss of Consciousness, No Dizziness, No Headache Heme/Lymph: No Lymphadenopathy Endocrine : No Temperature Intolerance Yes all other systems are reviewed and are negative PMFSH Past Medical History Attestation statement: The following information was validated with the patient. Source: old records reviewed and nursing notes reviewed Medical History Asthma Fibromyalgia Hypertension Hypoglycemia Surgical History Carpal tunnel syndrome Endometriosis determined by laparoscopy H/O knee surgery H/O neck surgery History of partial hysterectomy Family History Family History Mother Diabetes Hypertension Heart abnormality Father No problems noted. Father No problems noted. Social History Social History Household Members: None Housing: Apartment Do you presently have visiting nurse or other home services: No Alcohol intake: never Patient Tobacco Use Status: Current everyday Tobacco user Tobacco use type: Cigarette Cigarettes Per Day: 8 Years Smoked: 26 Smoked in Last 30 Days: Yes Use of substances other than those prescribed or required for medical reasons: No Advance Directives: No Advance Directives Information Provided: No Physical Exam ED Vital Signs: Vital Signs - 24 hr 07/01/22 08:49 07/01/22 11:29 Temperature 97.5 F Pulse Rate 95 83 Respiratory Rate 18 18 Blood Pressure 140/95 H 146/95 H Pulse Oximetry 98 97 Oxygen Delivery Method Room Air Room Air BMI result Body Mass Index 32.5 Vital signs have been reviewed and all within normal limits Appearance: Alert. Oriented X3. No acute distress. Head: Normal external exam. Normocephalic. Eyes: PERRLA. EOMI. Conjunctiva and sclera normal. Eyelids normal. ENT: Pharynx normal. Uvula midline. Moist mucous membranes. No trismus noted. No drooling noted. No muffled voice noted. Neck: Normal inspection. Neck supple. FROM. No adenopathy. No meningeal signs. CVS: Normal heart rate and rhythm. Heart sound normal. No murmurs noted. Pulses normal throughout. Respiratory: No respiratory distress. Painless inspiration. Breath sounds normal. No wheezes/rales/rhonchi noted. Chest nontender. No accessory muscle usage noted or decreased air movement noted. Abdomen: Soft and moderate tenderness palpation to the right flank/right lower quadrant/suprapubic area with guarding. Nondistended. No rigidity. Bowel sounds normal in all 4 quadrants. No distention noted. No organomegaly noted. No visible injury noted. No rebound tenderness. Negative Rovsing sign. Negative obturator's sign. Negative psoas sign. Negative Lee sign. Back: + Right CVA tenderness. No Left CVA tenderness noted. Full range of motion noted. Skin: Skin warm and dry. Normal skin color. Normal skin turgor. No rashes/lesions/lacerations noted. Extremities: Extremities exhibit normal range of motion. Extremities nontender. Neuro: Oriented X 3. No motor deficit. No sensory deficit. Reflexes normal. Normal steady gait. CN's II-XII intact bilaterally? Course Course Course Narrative: 12:20pm - 51yoF with a PMHx of GERD, IBS, delayed gastric emptying, lipoma, chronic narcotic use, hypertension, asthma, fibromyalgia and pyelonephritis to his code presenting to the ER with complaints of right-sided flank pain with associated urinary frequency/urgency and retention for the past 3 days worse today. She is also concerned about her ovaries and feels like she has been having bilateral suprapubic ovarian pain and is concerned about this. She reports she has never had kidney stones in the past although she has chronic microscopic hematuria that she is aware of. This is a patient with right flank/right lower quadrant/suprapubic abdominal pain, most concerning for kidney stone. Differential diagnoses: Pyelonephritis versus UTI versus kidney stones. Abdominal exam without peritoneal signs. No evidence of acute abdomen at this time. Well appearing. Low suspicion for acute hepatobiliary disease (includng acute cholecystitis), acute infectious processes (pneumonia, hepatitis, appendicitis), vascular catastrophe, bowel obstruction or viscus perforation. Presentation not consistent with other acute, emergent causes of abdominal pain at this time. Patient had labs while she was in triage patient with leukocytosis of 16,000, anion gap 11, ALT 47, alkaline phosphate 178. Otherwise all other labs are within normal limits. UA revealed trace of blood otherwise no evidence of UTI she has negative nitrates and negative leukocytes therefore left concern for pyelonephritis. Plan: Will obtain CT scan abdomen pelvis without IV contrast. Provide 5 mg of oxycodone and re-evaluate. Reevaluation(s) Reevaluation #1: CT scan abdomen pelvis revealed a subcutaneous soft tissue opacity within the left lateral gluteal region. Mild diverticulosis without evidence of diverticulitis. Vascular calcifications otherwise no evidence of kidney stones or hydronephrosis or evidence of appendicitis. Therefore I went back in to examine the patient and she reports to me that at the end of May she had a lipoma to her left gluteal area excised. She denies any fevers and the area does not appear tender, erythematous and there is no swelling on my exam. Therefore at this time patient most likely muscular skeletal pain. Will DC home with muscle relaxants and instructions return if any new or worsening symptoms follow up with primary care provider. Patient with at bedside understand agree this plan. Time: 14:40 Medical Decision Making Lab Data MDM Lab Attestation statement: I reviewed the patient's lab results. 07/01/22 09:09 07/01/22 09:09 Labs: Lab Results 07/01/22 07/01/22 07/01/22 Range/Units 09:09 09:09 09:09 WBC 16.6 H (4.8-10.8) X10*3/uL RBC 5.52 H (4.20-5.50) X10*6/uL Hgb 15.4 (12.0-16.0) g/dl Hct 48.5 H (37.0-47.0) % MCV 87.9 (80.0-98.0) fL MCH 27.9 (27.0-33.0) pg MCHC 31.8 (31.0-35.0) g/dl RDW 14.9 (11.0-16.0) % Plt Count 366 (160-400) X10*3/uL MPV 9.8 (9.4-12.3) fL Immature Gran % (Auto) 0.3 (0.0-0.4) % Neut % (Auto) 59.7 (45-73) % Lymph % (Auto) 31.0 (20-40) % [place] % (Auto) 6.5 (2-11) % Eos % (Auto) 1.9 (0-4) % Baso % (Auto) 0.6 (0-2) % Lymph # (Auto) 5.1 H (1.2-4.9) X10*3/uL [place] # (Auto) 1.1 (0.1-1.2) X10*3/uL Eos # (Auto) 0.3 (0.0-0.4) X10*3/uL Baso # (Auto) 0.1 (0.0-0.2) X10*3/uL Abs Immat Gran (auto) 0.05 H (0.00-0.03) X10*3/uL Absolute Neuts (auto) 9.9 H (2.0-8.3) x10*3/uL Absolute Nucleated RBC 0.000 (0.0-0.012) X10*3/uL Nucleated RBC % (auto) 0.0 (0.0-0.2) /100WBC Smear Tech's Comments VERIFIED Sodium 139 (135-145) mmol/L Potassium 3.7 (3.3-5.1) mmol/L Chloride 105 (96-108) mmol/L Carbon Dioxide 27 (22-29) mmol/L Anion Gap 11 L (12-20) BUN 10 (9-16) mg/dL Creatinine 0.75 (0.5-1.4) mg/dL Estim Creat Clear Calc 93.2 Estimated GFR > 60 Random Glucose 98 (60-115) mg/dL Lactic Acid (0.5-2.0) mmol/L Calcium 9.9 (8.4-10.2) mg/dL Total Bilirubin 0.5 (0.0-1.0) mg/dL Direct Bilirubin 0.2 (0.0-0.5) mg/dL AST 23 (5-31) U/L ALT 47 H (0-31) U/L Alkaline Phosphatase 178 H (39-117) U/L Total Protein 7.3 (6.5-8.0) g/dL Albumin 4.5 (3.5-5.0) g/dL Lipase 24 (8-78) U/L Beta HCG, Quant < 2 mIU/mL Urine Color Urine Appearance Urine pH (5.0-9.0) Ur Specific [place] (1.005-1.025) Urine Protein (Neg-Trace) mg/dL Urine Glucose (UA) (Negative) mg/dL Urine Ketones (Negative) mg/dL Urine Blood (Negative) Urine Nitrite (Negative) Ur Leukocyte Esterase (Negative) Urine RBC (0-2) /HPF Urine WBC (0-5) /HPF Ur Squamous Epith Cells (0-2) /HPF Urine Bacteria (None Seen) Hyaline Casts (0-2) /LPF COVID-19 ([facility]) Negative (Negative) COVID-19 Clin Com See Note 07/01/22 07/01/22 Range/Units 09:09 12:31 WBC (4.8-10.8) X10*3/uL RBC (4.20-5.50) X10*6/uL Hgb (12.0-16.0) g/dl Hct (37.0-47.0) % MCV (80.0-98.0) fL MCH (27.0-33.0) pg MCHC (31.0-35.0) g/dl RDW (11.0-16.0) % Plt Count (160-400) X10*3/uL MPV (9.4-12.3) fL Immature Gran % (Auto) (0.0-0.4) % Neut % (Auto) (45-73) % Lymph % (Auto) (20-40) % [place] % (Auto) (2-11) % Eos % (Auto) (0-4) % Baso % (Auto) (0-2) % Lymph # (Auto) (1.2-4.9) X10*3/uL [place] # (Auto) (0.1-1.2) X10*3/uL Eos # (Auto) (0.0-0.4) X10*3/uL Baso # (Auto) (0.0-0.2) X10*3/uL Abs Immat Gran (auto) (0.00-0.03) X10*3/uL Absolute Neuts (auto) (2.0-8.3) x10*3/uL Absolute Nucleated RBC (0.0-0.012) X10*3/uL Nucleated RBC % (auto) (0.0-0.2) /100WBC Smear Tech's Comments Sodium (135-145) mmol/L Potassium (3.3-5.1) mmol/L Chloride (96-108) mmol/L Carbon Dioxide (22-29) mmol/L Anion Gap (12-20) BUN (9-16) mg/dL Creatinine (0.5-1.4) mg/dL Estim Creat Clear Calc Estimated GFR Random Glucose (60-115) mg/dL Lactic Acid 1.2 (0.5-2.0) mmol/L Calcium (8.4-10.2) mg/dL Total Bilirubin (0.0-1.0) mg/dL Direct Bilirubin (0.0-0.5) mg/dL AST (5-31) U/L ALT (0-31) U/L Alkaline Phosphatase (39-117) U/L Total Protein (6.5-8.0) g/dL Albumin (3.5-5.0) g/dL Lipase (8-78) U/L Beta HCG, Quant mIU/mL Urine Color Yellow Urine Appearance Cloudy Urine pH 5.5 (5.0-9.0) Ur Specific [place] 1.015 (1.005-1.025) Urine Protein Negative (Neg-Trace) mg/dL Urine Glucose (UA) Negative (Negative) mg/dL Urine Ketones Negative (Negative) mg/dL Urine Blood Trace H (Negative) Urine Nitrite Negative (Negative) Ur Leukocyte Esterase Negative (Negative) Urine RBC 3-5 H (0-2) /HPF Urine WBC 0-5 (0-5) /HPF Ur Squamous Epith Cells >20 (0-2) /HPF Urine Bacteria 2+ (None Seen) Hyaline Casts 0-2 (0-2) /LPF COVID-19 ([facility]) (Negative) COVID-19 Clin Com Independent Interpretation I performed an independent interpretation of an: CT Scan (CT scan results reviewed by myself and discussed with the patient and family member at bedside) Radiology Impression Discussion of test interpretation with radiology: I have reviewed the radiologist's reading. Radiologist Impression: FINDINGS: LOWER THORAX: Included lung bases are clear. HEPATOBILIARY: No focal hepatic lesions. No biliary ductal dilatation. GALLBLADDER: Gallbladder unremarkable. SPLEEN: Spleen is normal in size. PANCREAS: No focal mass or ductal dilatation. STOMACH AND GASTROINTESTINAL TRACT: Stomach is grossly unremarkable. There is no bowel distention or thickening. Mild diverticulosis without evidence of acute diverticulitis. Normal appendix identified. No CT evidence of appendicitis. ADRENALS: No adrenal nodules. KIDNEYS/URETERS: No hydronephrosis, stones or solid mass lesions. URINARY BLADDER: Partially decompressed. PELVIC VISCERA: Unremarkable PERITONEUM: No free air or fluid. LYMPH NODES: No lymphadenopathy. VASCULAR:Mild vascular calcifications, no aneurysm. BONES, ABDOMINAL WALL AND SOFT TISSUES: There is subcutaneous soft tissue opacity within the left lateral gluteal region extends from the dermis to the muscle fascia roughly measures 5.7 x 5.4 cm axially and about 6.7 cm craniocaudally, not well characterized on this noncontrast CT scan, differential diagnoses would include hematoma, infection, versus soft tissue mass, this may require further evaluation with contrast enhanced CT scan and/or ultrasound. CT/CT abdomen pelvis wo IV con IMPRESSION: ? *? There is extra-abdominal SUBCUTANEOUS soft tissue opacity within the left lateral gluteal region extends from the dermis to the muscle fascia roughly measures 5.7 x 5.4 x 6.7 cm, not well characterized on this noncontrast CT scan, differential diagnoses would include hematoma, infection, versus soft tissue mass, this may require further evaluation with contrast enhanced CT scan and/or ultrasound. ? *? Mild diverticulosis without evidence of acute diverticulitis. ? *? Mild vascular calcifications. ? *? No CT evidence of kidney stone or hydronephrosis. No evidence of appendicitis. Independent Historian Clinical information obtained from an independent historian. History obtained from or confirmed by: Spouse External Record Review External record reviewed: Inpatient record, Office record, Outpatient record, Prior outpatient labs, Prior outpatient radiology, Primary care record and Outside ED record I reviewed all labs in our medical record system Prescription Management I considered prescription management with: Pain Medication Chronic Conditions Patient?s care impacted by: Hypertension and Other (Pyelonephritis, GERD, fibromyalgia, heart disease) Medications Administered Discontinued Medications Generic Name Dose Route Start Last Admin Trade Name Freq PRN Reason Stop Dose Admin Ketorolac Tromethamine 30 mg 07/01/22 12:22 07/01/22 12:40 Ketorolac Tromethamine 30 Mg/Ml Vial IM 07/01/22 12:23 Not Given ONCE ONE Oxycodone HCl 5 mg 07/01/22 12:23 07/01/22 12:29 Oxycodone Hcl Immed Release 5 Mg Tablet PO 07/01/22 12:24 5 mg ONCE ONE Administration Discharge Plan Discharge Clinical Impression: Pain on movement of skeletal muscle Patient Disposition: Home, Self-Care Instructions: Musculoskeletal Pain (ED) Prescriptions: New cyclobenzaprine 10 mg tablet 10 mg PO Q8H Qty: 10 0RF oxycodone 5 mg tablet 5 mg PO Q6H PRN (Reason: pain) Qty: 10 0RF Rx Instructions: Partial Fill upon patient request. No Action senna 8.6 mg capsule 17.2 mg PO BEDTIME PRN (Reason: Constipation) levothyroxine [Levoxyl] 125 mcg tablet 125 mcg PO DAILY clonazepam [Klonopin] 1 mg tablet 1 mg PO BID Label Comments: 1 mg in the morning and 2 mg at bedtime sumatriptan succinate [Imitrex] 100 mg tablet 100 mg PO Q2-4H PRN (Reason: Headache) Rx Instructions: do not exceed 2 doses per 24 hrs oxycodone-acetaminophen [Percocet] 5-325 mg tablet 1 tab PO TID PRN (Reason: Pain) albuterol sulfate 90 mcg/actuation HFA aerosol inhaler 2 puff inhalation Q6H PRN (Reason: Shortness Of Breath Or Wheezing) Flovent Diskus 250 mcg/actuation blister with device 1 inh inhalation BID cholecalciferol (vitamin D3) 125 mcg (5,000 unit) tablet 125 mcg PO DAILY atorvastatin 20 mg tablet 20 mg PO .DAILY @ 1600 zinc 50 mg tablet 50 mg PO BID Rx Instructions: administer on empty stomach, at least 1 hour before or after meal(s) lisinopril 20 mg tablet 20 mg PO DAILY mirtazapine 7.5 mg tablet 7.5 mg PO BEDTIME verapamil 180 mg capsule,ext rel. pellets 24 hr 180 mg PO .DAILY @ 1600 Sleep Aid (doxylamine) 25 mg tablet 25 - 50 mg PO BEDTIME PRN (Reason: Insomnia) omeprazole 20 mg capsule,delayed release(DR/EC) 20 mg PO BID Qty: 60 6RF metoclopramide HCl [Reglan] 5 mg tablet 5 mg PO .TIDAC Qty: 90 6RF loperamide [Imodium A-D] 2 mg capsule 2 mg PO Q2H PRN (Reason: loose stool) Qty: 60 6RF Rx Instructions: until patient has gone 12 hours without a bowel movement simethicone 180 mg capsule 180 mg PO QID 30 Days Qty: 120 6RF Rx Instructions: after meals Referrals: Carimta Avelar MD [Primary Care Provider] - 2 days Print Language: German
[2022-07-01 14:44] VITALS: BP 134/98; PULSE 81; RESP 18; O2SAT 96
== END 2022-07-01 15:26 | disposition home or self-care (01) ==
PROVIDERS: Physician Assistant Medical; Emergency Provider Emergency Medicine; PCP Internal Medicine
DX: M79.7 Fibromyalgia (principal); Z20.822 Contact with and (suspected) exposure to COVID-19; I10 Essential (primary) hypertension; F11.90 Opioid use, unspecified, uncomplicated; Z79.02 Long term (current) use of antithrombotics/antiplatelets; Z79.899 Other long term (current) drug therapy
CPT/HCPCS: 36415; 74176; 76830; 76856; 80053; 81001; 82248; 83605; 83690; 84702; 85025; 87040; 87635; 99284

== ENCOUNTER → 2022-07-04 14:38 | Outpatient (BNVA) | payer MEDICAID, SELFPAY | PROVIDERS: PCP Internal Medicine; Visit Provider Nurse Practitioner | DX: K58.2 Mixed irritable bowel syndrome (principal); K21.9 Gastro-esophageal reflux disease without esophagitis; K30 Functional dyspepsia; Z79.899 Other long term (current) drug therapy | CPT/HCPCS: 99212 ==

== ENCOUNTER 2022-08-27 13:57 | Outpatient (REF) | payer MEDICAID, SELFPAY ==
--- NOTE | ~2022-08-27 | XR_ITS ---
EXAMINATION: XR SHOULDER, RIGHT CLINICAL INFORMATION: Pain and numbness COMPARISON: Previous right clavicle x-ray December 2013 TECHNIQUE: Three views of the right shoulder. FINDINGS: The bones and soft tissues are normal. No fracture. Glenohumeral and acromioclavicular alignment is anatomic with normal joint space. No abnormal soft tissue calcifications. XR/XR shoulder RT min 2V IMPRESSION: Normal right shoulder.
== END 2022-08-27 13:58 | disposition home or self-care (01) ==
LOC: HO.XRAY 13:57
PROVIDERS: PCP Internal Medicine; Visit Provider Internal Medicine
DX: M25.511 Pain in right shoulder (principal); G89.29 Other chronic pain
CPT/HCPCS: 73030

== ENCOUNTER 2022-10-15 09:24 | Outpatient (REF) | payer MEDICAID, SELFPAY ==
--- NOTE | 2022-10-15 | EMG_ITS ---
Please see scanned EMG / Nerve Conduction Report. MTDD
== END 2022-10-15 09:25 | disposition home or self-care (01) ==
LOC: HO.NEURO 09:24
PROVIDERS: PCP Internal Medicine; Visit Provider Internal Medicine
DX: M25.511 Pain in right shoulder (principal); G89.29 Other chronic pain
CPT/HCPCS: 95886; 95910

== ENCOUNTER 2022-12-30 15:12 | Outpatient (REF) | payer MEDICAID, SELFPAY | END 2022-12-30 15:13 | disposition home or self-care (01) | LOC: HO.MAMMO 15:12 | PROVIDERS: PCP Internal Medicine; Visit Provider Internal Medicine | DX: Z12.31 Encounter for screening mammogram for malignant neoplasm of breast (principal) | CPT/HCPCS: 77063; 77067 ==

== ENCOUNTER → 2022-12-30 15:30 | Outpatient (BNV) | payer MEDICAID, SELFPAY | PROVIDERS: PCP Internal Medicine; Visit Provider Radiology Diagnostic Radiology | DX: Z12.31 Encounter for screening mammogram for malignant neoplasm of breast (principal) | CPT/HCPCS: 77063; 77067 ==

== ENCOUNTER 2023-01-01 15:34 | Outpatient (AMB) | payer MEDICAID, SELFPAY ==
--- NOTE | 2023-01-01 15:37 | A.OFFVIS_ITS ---
Intake Vital Signs 01/01/23 15:47 Height 5 ft 4 in Weight 194 lb 0.108 oz BMI 33.3 BP 125/67 Blood Pressure Location Lt brachial Position Sitting Pulse 93 Intake Visit Reasons: 6 month fu Intake Note: Patient presents to in office visit today in 6 months follow up. CC: Patient constipation, diarrhea, epigastric pain, nausea and GERD. 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 Accompanied by: Self / Same As Patient Allergies carisoprodol [From Soma] Allergy (Severe, Verified 01/01/23 15:50) SHORTNESS OF BREATH,VOMITING duloxetine [Cymbalta] Allergy (Severe, Verified 01/01/23 15:50) Nausea and Vomiting gabapentin [From NEURONTIN] Allergy (Severe, Verified 01/01/23 15:50) RASH,HIVES ibuprofen [From Motrin] Allergy (Severe, Verified 01/01/23 15:50) VOMITING ketorolac Allergy (Severe, Verified 01/01/23 15:50) Shortness of Breath morphine [Morphine] Allergy (Severe, Verified 01/01/23 15:50) SHORTNESS OF BREATH naproxen [From Naprosyn] Allergy (Severe, Verified 01/01/23 15:50) VOMITING oxybutynin Allergy (Severe, Verified 01/01/23 15:50) Nausea and Vomiting pregabalin [From LYRICA] Allergy (Severe, Verified 01/01/23 15:50) HYPER AND PANIC ATTACK ranitidine [RANITIDINE] Allergy (Severe, Verified 01/01/23 15:50) TACHYCARDIA sulfamethoxazole [From BACTRIM] Allergy (Severe, Verified 01/01/23 15:50) VOMITING,RASH, hives tramadol Allergy (Severe, Verified 01/01/23 15:50) Shortness of Breath trimethoprim [From BACTRIM] Allergy (Severe, Verified 01/01/23 15:50) VOMITING,RASH, hives cortisone [CORTISONE] Allergy (Intermediate, Verified 01/01/23 15:50) ITCHING,RASH Sulfa (Sulfonamide Antibiotics) Allergy (Intermediate, Verified 01/01/23 15:50) VOMITING/RASH, hives transparent dressing [Tegaderm] Allergy (Verified 01/01/23 15:50) Rash dicyclomine Adverse Reaction (Severe, Verified 01/01/23 15:50) Palpitations Tricyclic Antidepressants and Tricy [Tricyclic Compounds] Adverse Reaction (Severe, Verified 01/01/23 15:50) VOMITING from ALL ANTIDEPRESSANTS, palpitations all antidepressants except Rem Allergy (Severe, Uncoded 06/10/22 14:04) Nausea and Vomiting milk, yogurt, dairy Allergy (Severe, Uncoded 06/10/22 14:04) Diarrhea, vomitting HPI 6 month fu HPI Details Assessment & Plan (1) Irritable bowel syndrome with both constipation and diarrhea: ?Code(s): K58.2 - Mixed irritable bowel syndrome ?Plan: She is doing well with her medications. The loperimide solved the diarrhea and the senna controls her CIC phase, and her N/V is well controlled on the reglan. She is now very satisfied with her treatment. Her GERD is well controlled on her omeprazole. ROV 6 mos. (2) GERD (gastroesophageal reflux disease): ?Code(s): K21.9 - Gastro-esophageal reflux disease without esophagitis (3) Delayed gastric emptying: ?Code(s): K30 - Functional dyspepsia ? ? ? Medications: Refilled loperamide (Imodiu m A-D) ?? until mariella salvador has gone 12 hours without a mohan wel movement 2 mg? PO Q2H PRN 6 0 caps 6RF loose s tool ? ? metoclopramide HCl (Reglan) 5 mg? PO .TIDAC 90 tabs 6RF K30 - Functional d yspepsia ? omeprazole 20 mg? PO BID 60 c aps 6RF K21.9 - Gastro-eso phageal reflux dis ease without esoph agitis ? simethicone ?? aft er meals 180 mg? PO QID 30 days 120 caps 6RF E ? TODAY'S VISIT She is having CIC alt with diarrhea, about equal. But she is taking senna 2 tabs only with bad CIC, I think we need to eliminate the imodium, and do 1 s mehreen a night to see if we can even out her BM's. AND add fiber, sending rx even though it is not covered so pharmacy can help her as she does not like the gloopy liquid. She is doing well with the omeprazole and simethicone and metoclopramide. ROV 5 weeks. [facility], [facility] Medical History Asthma Fibromyalgia Hypertension Hypoglycemia Surgical History Carpal tunnel syndrome Endometriosis determined by laparoscopy H/O knee surgery H/O neck surgery History of partial hysterectomy Family History Mother Diabetes Hypertension Heart abnormality Father No problems noted. Father No problems noted. Social History Household Members: None Housing: Apartment Do you presently have visiting nurse or other home services: No Alcohol intake: never Patient Tobacco Use Status: Current everyday Tobacco user Tobacco use type: Cigarette Cigarettes Per Day: 8 Years Smoked: 26 Review of Systems Const Denies fatigue, Denies fever(s), Denies night sweats, Denies poor appetite and Denies weight loss ENT Reports Normal hearing present, Denies dental pain, Denies dysphagia, Denies hearing loss, Denies mouth pain, Denies odynophagia, Denies throat swelling, Denies tongue swelling and Reports other (Dentition adequate) Card Reports no additional complaints Resp Reports no additional complaints GI Denies abdominal pain, Denies melena, Denies bloating, Denies hematochezia, Reports constipation, Denies GI cramping, Denies dysphagia, Denies excessive flatus, Denies early satiety, Reports heartburn, Reports diarrhea, Denies nausea, Denies odynophagia, Denies vomiting and Denies hematemesis Skin/Breast Denies pruritus, Denies lesions, Denies rash and Denies jaundice Neuro Reports Normal hearing present and Denies Abnormal speech present Endo Denies fatigue Aller/Immun Denies throat swelling and Denies tongue swelling Physical Exam Vital Signs: Last Vital Signs Pulse 93 01/01/23 15:47 BP 125/67 01/01/23 15:47 BMI result Body Mass Index 33.3 Const General: cooperative, no acute distress, well developed and well groomed Nutritional Appearance: well nourished and obese Orientation/consciousness: oriented to person, oriented to place and oriented to time Limitations: No language barrier HEENT Head: Yes normocephalic and Yes atraumatic Eyes General: appearance normal, both eyes and all related structures Pupils: Equal, round and reactive pupils present Neck Neck: Yes normal visual inspection and Yes no lymphadenopathy Thyroid: Thyroid normal Resp Effort & Inspection: normal respiratory effort and able to speak in complete sentences Auscultation: clear to auscultation bilaterally Cardio Rate: regular rate Rhythm: regular rhythm Heart sounds: Normal, physiologic split S2 sound present Peripheral pulses: radial pulses present and posterior tibial pulses present GI Inspection: No distended, No Abdominal panniculus present and Yes obesity Palpation (GI): Soft to palpation, nontender, no guarding, not rigid and No hepatosplenomegaly present Percussion: Yes normal to percussion Auscultation: normal bowel sounds Rectal Exam - Female: deferred Skin General skin exam: no rashes or lesions noted, turgor normal, skin not dry, no jaundice, No spider nevi and no striae Rashes: no rashes Nails: normal Neuro General: oriented to person, oriented to place and oriented to time Cranial nerves: Yes Equal, round and reactive pupils present and Yes Normal hearing present Speech: No Abnormal speech present Extrem General: Yes normal to inspection, No clubbing, No cyanosis and No edema Psych Appearance: grossly normal and well kempt Mental Status: mental status grossly normal Speech and movement: Normal speech and movement present Affect: normal affect Attitude: cooperative Thought process: Normal thought process present and not confabulating Thought content: Normal thought content present Insight: Limited insight present (Psych) Judgement: Limited judgement present (Psych) Assessment & Plan Assessment & Plan (1) Irritable bowel syndrome with both constipation and diarrhea: Code(s): K58.2 - Mixed irritable bowel syndrome Plan: She is having CIC alt with diarrhea, about equal. But she is taking senna 2 tabs only with bad CIC, I think we need to eliminate the imodium, and do 1 senna a night to see if we can even out her BM's. AND add fiber, sending rx even though it is not covered so pharmacy can help her as she does not like the gloopy liquid. She is doing well with the omeprazole and simethicone and metoclopramide. ROV 5 weeks. (2) GERD (gastroesophageal reflux disease): Code(s): K21.9 - Gastro-esophageal reflux disease without esophagitis (3) Delayed gastric emptying: Code(s): K30 - Functional dyspepsia (4) Chronic narcotic use: Code(s): F11.90 - Opioid use, unspecified, uncomplicated Medications: New psyllium husk (Fiber (psyllium husk)) 0.8 grams (2 x 0.4 gram) PO DAILY 60 caps 6RF K58.2 - Mixed irritable bowel syndrome Refilled simethicone after meals 180 mg PO QID 30 days 120 caps 6RF Coding Level of Care Code Est Pt Level 3 (88892) Diagnoses Irritable bowel syndrome with both constipation and diarrhea K58.2 GERD (gastroesophageal reflux disease) K21.9 Delayed gastric emptying K30 Chronic narcotic use F11.90
[2023-01-01 15:47] VITALS: BP 125/67; PULSE 93; BMI 33.3
== END 2023-01-01 16:14 | disposition home or self-care (01) ==
PROVIDERS: Visit Provider Nurse Practitioner
DX: K58.2 Mixed irritable bowel syndrome (principal); K21.9 Gastro-esophageal reflux disease without esophagitis; K30 Functional dyspepsia; F11.90 Opioid use, unspecified, uncomplicated

== ENCOUNTER → 2023-01-01 15:34 | Outpatient (BNVA) | payer MEDICAID, SELFPAY | PROVIDERS: Visit Provider Nurse Practitioner | DX: K58.2 Mixed irritable bowel syndrome (principal); K21.9 Gastro-esophageal reflux disease without esophagitis; K30 Functional dyspepsia; F11.20 Opioid dependence, uncomplicated | CPT/HCPCS: 99212; 99213 ==

== ENCOUNTER 2023-01-14 14:25 | Outpatient (REF) | payer MEDICAID, SELFPAY ==
[2023-01-14 18:04] LABS: Alanine Aminotransferase 28 U/L (0-31); Aspartate Amino Transferase 19 U/L (5-31); Cholesterol 145 mg/dL (<200); HDL Cholesterol 39 mg/dL (>40); LDL Cholesterol Calculated 79 mg/dL (<100); Triglycerides 135 mg/dL (<150)
== END 2023-01-14 14:26 | disposition home or self-care (01) ==
LOC: HO.LAB 14:25
PROVIDERS: PCP Internal Medicine; Visit Provider Internal Medicine Cardiovascular Disease
DX: E78.5 Hyperlipidemia, unspecified (principal)
CPT/HCPCS: 36415; 80061; 84450; 84460

== ENCOUNTER 2023-01-20 15:54 | Outpatient (REF) | payer MEDICAID, SELFPAY ==
[2023-01-20 19:58] LABS: Creatinine Urine 265.78 mg/dL; Microalbum/Creatinine Ratio Ur 10.1 ug/mg cr (<30)
== END 2023-01-20 15:55 | disposition home or self-care (01) ==
LOC: HO.HHCL 15:54
PROVIDERS: Visit Provider Internal Medicine
DX: E11.9 Type 2 diabetes mellitus without complications (principal)
CPT/HCPCS: 82043; 82570

== ENCOUNTER 2023-03-03 13:50 | Outpatient (AMB) | payer MEDICAID, SELFPAY ==
[2023-03-03 14:01] VITALS: BP 148/87; PULSE 102; O2SAT 97; BMI 33.8
--- NOTE | 2023-03-03 14:01 | A.OFFVIS_ITS ---
Intake Vital Signs 03/03/23 14:01 Height 5 ft 4 in Weight 196 lb 10.437 oz BMI 33.8 BP 148/87 H Blood Pressure Location Rt brachial Position Sitting Pulse 102 H Pulse Source Pulse Oximeter Pulse Oximetry (%) 97 Oxygen Delivery Method Room Air Intake Visit Reasons: 5 week follow up Intake Note: Pt presents to the office today for a 5 week follow up. Pt states she is very upset that she got a letter in the mail saying she had a positive cologuard test but her doctor never called to explain the results. Pt states otherwise she is feeling feel well and denies any N/V/D. Pt states she thinks the senna is helpful. Allergies carisoprodol [From Soma] Allergy (Severe, Verified 04/09/23 14:20) SHORTNESS OF BREATH,VOMITING duloxetine [Cymbalta] Allergy (Severe, Verified 04/09/23 14:20) Nausea and Vomiting gabapentin [From NEURONTIN] Allergy (Severe, Verified 04/09/23 14:20) RASH,HIVES ibuprofen [From Motrin] Allergy (Severe, Verified 04/09/23 14:20) VOMITING ketorolac Allergy (Severe, Verified 04/09/23 14:20) Shortness of Breath morphine [Morphine] Allergy (Severe, Verified 04/09/23 14:20) SHORTNESS OF BREATH naproxen [From Naprosyn] Allergy (Severe, Verified 04/09/23 14:20) VOMITING oxybutynin Allergy (Severe, Verified 04/09/23 14:20) Nausea and Vomiting pregabalin [From LYRICA] Allergy (Severe, Verified 04/09/23 14:20) HYPER AND PANIC ATTACK ranitidine [RANITIDINE] Allergy (Severe, Verified 04/09/23 14:20) TACHYCARDIA sulfamethoxazole [From BACTRIM] Allergy (Severe, Verified 04/09/23 14:20) VOMITING,RASH, hives tramadol Allergy (Severe, Verified 04/09/23 14:20) Shortness of Breath trimethoprim [From BACTRIM] Allergy (Severe, Verified 04/09/23 14:20) VOMITING,RASH, hives cortisone [CORTISONE] Allergy (Intermediate, Verified 04/09/23 14:20) ITCHING,RASH Sulfa (Sulfonamide Antibiotics) Allergy (Intermediate, Verified 04/09/23 14:20) VOMITING/RASH, hives transparent dressing [Tegaderm] Allergy (Verified 04/09/23 14:20) Rash dicyclomine Adverse Reaction (Severe, Verified 04/09/23 14:20) Palpitations Tricyclic Antidepressants and Tricy [Tricyclic Compounds] Adverse Reaction (Severe, Verified 04/09/23 14:20) VOMITING from ALL ANTIDEPRESSANTS, palpitations all antidepressants except Rem Allergy (Severe, Uncoded 04/09/23 14:20) Nausea and Vomiting milk, yogurt, dairy Allergy (Severe, Uncoded 04/09/23 14:20) Diarrhea, vomitting HPI 5 week follow up HPI Details Assessment & Plan (1) Irritable bowel syndrome with both c onstipation and diarrhea: Code(s): K58.2 - Mixed irritable bowel syndrome Plan: She is having CIC alt with diarrhea, about equal. But she is taking senna 2 tabs only with bad CIC, I think we need to eliminate the imodium, and do 1 se nna a night to see if we can even out her BM's. AND add fiber, sending rx even though it is not covered so pharmacy can help her as she does not like the gloopy liquid. She is doing well with the omeprazole and simethicone and metoclopramide. ROV 5 weeks. (2) GERD (gastroesophageal reflux diseas e): Code(s): K21.9 - Gastro-esophageal reflux disease without esophagitis (3) Delayed gastric emptying: Code(s): K30 - Functional dyspepsia (4) Chronic narcotic use: Code(s): F11.90 - Opioid use, unspecified, uncomplicated Medications: New psyllium husk (Fib er (psyllium husk) ) 0.8 grams (2 x 0.4 gram) PO DAILY 60 caps 6RF K58.2 - Mixed irri table bowel syndro me Refilled simethicone aft er meals 180 mg PO QID 30 days 120 caps 6RF TODAY'S VISIT She is upset today because she received a letter from her PCP stating she has a positive Cologuard. She is very worried about this as she does not understand what this means. She wants to proceed with colonoscopy and this is fine. Her last scope was in 2019 and she had hyperplastic polyps then. She is doing well with the omeprazole and simethicone and metoclopramide, and fiber. She continues to have chronic leukocytosis. Her asthma is well controlled and she denies any cardiac problems. There are no prior problems with anesthesia or sedation. No ID problems ROV 6 mos and after colonoscopy PFSH Medical History Fibromyalgia Hypoglycemia Asthma Hypertension Surgical History H/O neck surgery H/O knee surgery Carpal tunnel syndrome History of partial hysterectomy Endometriosis determined by laparoscopy Family History Mother Diabetes Hypertension Heart abnormality Father No problems noted. Father No problems noted. Social History Household Members: None Housing: Apartment Do you presently have visiting nurse or other home services: No Alcohol intake: never Patient Tobacco Use Status: Current everyday Tobacco user Tobacco use type: Cigarette Cigarettes Per Day: 8 Years Smoked: 26 Review of Systems Const Denies fatigue, Denies fever(s), Denies night sweats, Denies poor appetite and Denies weight loss Eyes Reports requires corrective lenses ENT Reports Normal hearing present, Denies dental pain, Denies dysphagia, Denies hearing loss, Denies mouth pain, Denies odynophagia, Denies throat swelling, Denies tongue swelling and Reports other (Dentition adequate) GI Denies abdominal pain, Denies melena, Denies bloating, Denies hematochezia, Denies constipation, Denies GI cramping, Denies dysphagia, Denies excessive flatus, Denies early satiety, Denies heartburn, Denies diarrhea, Denies nausea, Denies odynophagia, Denies vomiting and Denies hematemesis Skin/Breast Denies pruritus, Denies lesions, Denies rash and Denies jaundice Neuro Reports Normal hearing present and Denies Abnormal speech present Endo Denies fatigue Aller/Immun Denies throat swelling and Denies tongue swelling Physical Exam Vital Signs: Last Vital Signs Pulse 102 H 03/03/23 14:01 BP 148/87 H 03/03/23 14:01 Pulse Ox 97 03/03/23 14:01 Oxygen Delivery Method Room Air 03/03/23 14:01 BMI result Body Mass Index 33.8 Const General: cooperative, no acute distress, well developed and well groomed Nutritional Appearance: well nourished, obese and overweight Orientation/consciousness: oriented to person, oriented to place and oriented to time Limitations: No language barrier, ambulation with cane, ambulation with walker and wheelchair HEENT Head: Yes normocephalic and Yes atraumatic Eyes General: appearance normal, both eyes and all related structures Pupils: Equal, round and reactive pupils present Neck Neck: Yes normal visual inspection and Yes no lymphadenopathy Thyroid: Thyroid normal Resp Effort & Inspection: normal respiratory effort and able to speak in complete sentences Auscultation: clear to auscultation bilaterally Cardio Rate: regular rate Rhythm: regular rhythm Heart sounds: Normal, physiologic split S2 sound present Peripheral pulses: radial pulses present and posterior tibial pulses present GI Inspection: No distended and No Abdominal panniculus present Palpation (GI): Soft to palpation, nontender, no guarding, not rigid, No hepatosplenomegaly present and Hepatosplenomegaly present Percussion: Yes normal to percussion Auscultation: normal bowel sounds Rectal Exam - Female: deferred Skin General skin exam: no rashes or lesions noted, turgor normal, skin not dry, no jaundice, No spider nevi and no striae Rashes: no rashes Nails: normal Neuro General: oriented to person, oriented to place and oriented to time Cranial nerves: Yes Equal, round and reactive pupils present and Yes Normal hearing present Speech: No Abnormal speech present Extrem General: Yes normal to inspection, No clubbing, No cyanosis and No edema Psych Thought process: Normal thought process present and not confabulating Thought content: Normal thought content present Insight: Good insight present (Psych) Judgement: Good judgement present (Psych) Assessment & Plan Assessment & Plan (1) GERD (gastroesophageal reflux disease): Code(s): K21.9 - Gastro-esophageal reflux disease without esophagitis Plan: . (2) Irritable bowel syndrome with both constipation and diarrhea: Code(s): K58.2 - Mixed irritable bowel syndrome (3) Delayed gastric emptying: Code(s): K30 - Functional dyspepsia (4) Chronic narcotic use: Code(s): F11.90 - Opioid use, unspecified, uncomplicated (5) Leukocytosis: Code(s): D72.829 - Elevated white blood cell count, unspecified Plan She is upset today because she received a letter from her PCP stating she has a positive Cologuard. She is very worried about this as she does not understand what this means. She wants to proceed with colonoscopy and this is fine. Her last scope was in 2019 and she had hyperplastic polyps then. She is doing well with the omeprazole and simethicone and metoclopramide, and fiber. She continues to have chronic leukocytosis. Her asthma is well controlled and she denies any cardiac problems. There are no prior problems with anesthesia or sedation. No ID problems ROV 6 mos and after colonoscopy Orders: Orders Colonoscopy - GI Use Only 03/03/23 R19.5 - Other fecal abnormalities, K30 - Functional dyspepsia Referrals Hematology & Oncology Referral D72.829 - Elevated white blood cell count, unspecified Medications: New peg 3350-electrolytes [id number] -5.86 gram (Golytely) until fecal effluent is clear; do not exceed a total volume of 2,000 mL 240 mL PO Q10M 4,000 mL 0RF 1 day Z12.11 - Encounter for screening for malignant neoplasm of colon sennosides (senna) 17.2 mg (2 x 8.6 mg) PO BEDTIME PRN 60 caps 6RF Constipation K58.2 - Mixed irritable bowel syndrome Refilled omeprazole 20 mg PO BID 60 caps 6RF K21.9 - Gastro-esophageal reflux disease without esophagitis simethicone after meals 180 mg PO QID 120 caps 6RF 30 days Coding Level of Care Code Est Pt Level 4 (13186) Diagnoses GERD (gastroesophageal reflux disease) K21.9 Irritable bowel syndrome with both constipation and diarrhea K58.2 Delayed gastric emptying K30 Chronic narcotic use F1.90 Leukocytosis D72.829
== END 2023-03-03 14:40 | disposition home or self-care (01) ==
PROVIDERS: PCP Internal Medicine; Visit Provider Nurse Practitioner
DX: K21.9 Gastro-esophageal reflux disease without esophagitis (principal); K58.2 Mixed irritable bowel syndrome; K30 Functional dyspepsia; F11.90 Opioid use, unspecified, uncomplicated; D72.829 Elevated white blood cell count, unspecified
CPT/HCPCS: 99214

== ENCOUNTER → 2023-03-03 13:50 | Outpatient (BNVA) | payer MEDICAID, SELFPAY | PROVIDERS: PCP Internal Medicine; Visit Provider Nurse Practitioner | DX: K58.2 Mixed irritable bowel syndrome (principal); K21.9 Gastro-esophageal reflux disease without esophagitis; K30 Functional dyspepsia; F11.90 Opioid use, unspecified, uncomplicated; D72.829 Elevated white blood cell count, unspecified | CPT/HCPCS: 99212 ==

== ENCOUNTER 2023-04-09 14:11 | Outpatient (AMB) | payer MEDICAID, SELFPAY ==
--- NOTE | 2023-04-09 14:13 | A.OFFVIS_ITS ---
Intake Vital Signs 3 04/09/23 14:19 Height 5 ft 4 in Weight 197 lb 2 oz BMI 33.8 BP 124/78 Blood Pressure Location Lt brachial Position Sitting Pulse 98 Intake Visit Reasons: Lipoma x2 of back Intake Note: Patient is seen in office for evaluation of a lipoma of the back. Pt c/o: has 2 lumps on the lower back, onset 8 yrs ago, has increase in size, very painful, denies discharge, redness or other concerns L.OV:06/10/22 (lipoma hip) [employer] Required: No Accompanied by: Family/Other Allergies carisoprodol [From Soma] Allergy (Severe, Verified 04/09/23 14:20) SHORTNESS OF BREATH,VOMITING duloxetine [Cymbalta] Allergy (Severe, Verified 04/09/23 14:20) Nausea and Vomiting gabapentin [From NEURONTIN] Allergy (Severe, Verified 04/09/23 14:20) RASH,HIVES ibuprofen [From Motrin] Allergy (Severe, Verified 04/09/23 14:20) VOMITING ketorolac Allergy (Severe, Verified 04/09/23 14:20) Shortness of Breath morphine [Morphine] Allergy (Severe, Verified 04/09/23 14:20) SHORTNESS OF BREATH naproxen [From Naprosyn] Allergy (Severe, Verified 04/09/23 14:20) VOMITING oxybutynin Allergy (Severe, Verified 04/09/23 14:20) Nausea and Vomiting pregabalin [From LYRICA] Allergy (Severe, Verified 04/09/23 14:20) HYPER AND PANIC ATTACK ranitidine [RANITIDINE] Allergy (Severe, Verified 04/09/23 14:20) TACHYCARDIA sulfamethoxazole [From BACTRIM] Allergy (Severe, Verified 04/09/23 14:20) VOMITING,RASH, hives tramadol Allergy (Severe, Verified 04/09/23 14:20) Shortness of Breath trimethoprim [From BACTRIM] Allergy (Severe, Verified 04/09/23 14:20) VOMITING,RASH, hives cortisone [CORTISONE] Allergy (Intermediate, Verified 04/09/23 14:20) ITCHING,RASH Sulfa (Sulfonamide Antibiotics) Allergy (Intermediate, Verified 04/09/23 14:20) VOMITING/RASH, hives transparent dressing [Tegaderm] Allergy (Verified 04/09/23 14:20) Rash dicyclomine Adverse Reaction (Severe, Verified 04/09/23 14:20) Palpitations Tricyclic Antidepressants and Tricy [Tricyclic Compounds] Adverse Reaction (Severe, Verified 04/09/23 14:20) VOMITING from ALL ANTIDEPRESSANTS, palpitations all antidepressants except Rem Allergy (Severe, Uncoded 04/09/23 14:20) Nausea and Vomiting milk, yogurt, dairy Allergy (Severe, Uncoded 04/09/23 14:20) Diarrhea, vomitting Medication List - Last Reconciled 04/09/23 by Dariel Stout MD albuterol sulfate 90 mcg/actuation 2 puffs inhalation Q6H PRN atorvastatin 20 mg PO .DAILY @ 1600 cholecalciferol (vitamin D3) 125 mcg PO DAILY clonazepam (Klonopin) 1 mg PO BID doxylamine succinate (Sleep Aid (doxylamine)) 25 - 50 mg PO BEDTIME PRN fluticasone propionate 250 mcg/actuation (Flovent Diskus) 1 inh inhalation BID levothyroxine (Levoxyl) 125 mcg PO DAILY lisinopril 20 mg PO DAILY loperamide (Imodium A-D) 2 mg PO Q2H PRN metoclopramide HCl (Reglan) 5 mg PO .TIDAC mirtazapine 7.5 mg PO BEDTIME omeprazole 20 mg PO BID oxycodone-acetaminophen 5-325 mg (Percocet) 1 tab PO TID PRN peg 3350-electrolytes 236-22.74-6.74 -5.86 gram (Golytely) 240 mL PO Q10M 1 day psyllium husk (Fiber (psyllium husk)) 0.8 grams (2 x 0.4 gram) PO DAILY sennosides (senna) 17.2 mg (2 x 8.6 mg) PO BEDTIME PRN simethicone 180 mg PO QID 30 days sumatriptan succinate (Imitrex) 100 mg PO Q2-4H PRN verapamil ER 180 mg PO .DAILY @ 1600 zinc 50 mg PO BID HPI HPI Comments 2 History of Present Illness0 Details 52-year-old female patient presenting with complaints of a painful lump in the lower back bilaterally which is developed over the last several months and is now causing increased discomfort. She also reports some pain that radiates down into the leg which she feels may be separate from the low back pain. She feels a palpable lump in location of the pain but denies any skin changes, bleeding or discharge. She denies previous surgery in this location. She has requested excision of this palpable lump. She does have a previous history of lipomas in the leg. [facility] Medical History Fibromyalgia Hypoglycemia Asthma Hypertension Surgical History H/O neck surgery H/O knee surgery Carpal tunnel syndrome History of partial hysterectomy Endometriosis determined by laparoscopy Family History Mother Diabetes Hypertension Heart abnormality Father No problems noted. Father No problems noted. Social History Household Members: None Housing: Apartment Do you presently have visiting nurse or other home services: No Alcohol intake: never Patient Tobacco Use Status: Current everyday Tobacco user Tobacco use type: Cigarette Cigarettes Per Day: 8 Years Smoked: 26 Review of Systems Const All systems reviewed & are unremarkable except as noted in HPI and below Musc Reports back pain and Reports radiating pain into limb Physical Exam Vital Signs: Last Vital Signs Pulse 98 04/09/23 14:19 BP 124/78 04/09/23 14:19 BMI result Body Mass Index 33.8 Const General: cooperative and no acute distress Nutritional Appearance: well nourished Orientation/consciousness: patient oriented x3 Limitations: no limitations HEENT Head: Yes normocephalic and Yes atraumatic Ears: hearing grossly normal bilaterally Resp Effort & Inspection: normal respiratory effort, no audible wheezes, no cough and no respiratory distress Cardio Jugular venous distension: no JVD GI Inspection: Yes normal to inspection Palpation (GI): Soft to palpation Back/Spine/Pelvis Other: Bilateral palpable soft tissue mass within the subcutaneous tissue, tender to palpation each measuring approximately 2-3 cm in diameter. No overlying skin changes are appreciated. Findings are consistent with a lipoma. Back/spine/pelvis image: 2 1. 2. Skin Other: Warm, dry, no rash Neuro General: patient oriented x3 Extrem General: Yes no clubbing, cyanosis or edema Assessment & Plan Assessment & Plan (1) Lipoma: Code(s): D17.9 - Benign lipomatous neoplasm, unspecified Qualifiers: Lipoma location: trunk Qualified Code(s): D17.1 - Benign lipomatous neoplasm of skin and subcutaneous tissue of trunk Plan 52-year-old female patient presenting with a soft tissue mass located bilaterally in the low back which seems to be increasing in size and causing increased discomfort. On examination the patient has 2-3 cm palpable soft tissue masses suggestive of a lipoma , located in the low back bilaterally. After discussion of the procedure, risks, and alternatives, she consents to excision of the bilateral low back lipomas under general anesthesia. This will be scheduled at her earliest convenience. Coding Level of Care Code Est Pt Level 3 (71122) Diagnoses Lipoma of torso D17.1 Lipoma location: trunk
[2023-04-09 14:19] VITALS: BP 124/78; PULSE 98; BMI 33.8
== END 2023-04-09 14:36 | disposition home or self-care (01) ==
PROVIDERS: PCP Internal Medicine; Visit Provider Surgery
DX: D17.1 Benign lipomatous neoplasm of skin and subcutaneous tissue of trunk (principal)
CPT/HCPCS: 99214

== ENCOUNTER → 2023-04-09 14:11 | Outpatient (BNVA) | payer MEDICAID, SELFPAY | PROVIDERS: PCP Internal Medicine; Visit Provider Surgery | DX: D17.1 Benign lipomatous neoplasm of skin and subcutaneous tissue of trunk (principal) | CPT/HCPCS: 99212 ==

== ENCOUNTER 2023-05-13 11:07 | Day surgery (SDC) | payer MEDICAID, SELFPAY ==
--- NOTE | 2023-05-12 12:49 | P.CONAN_ITS ---
Documented by User: Sandra Lyons NP 05/12/23 12:49 HPI - Anesthesia Eval Consult details Narrative: 52yo F for Colonoscopy Multiple Allergies PMFSH Active Problems Active Problems: All Active Problems (Updated 04/09/23 @ 14:31 by Dariel Stout MD) Leukocytosis (Acute) Positive colorectal cancer screening using Cologuard test (Acute) GERD (gastroesophageal reflux disease) (Acute) Irritable bowel syndrome with both constipation and diarrhea (Acute) Delayed gastric emptying (Acute) Chronic narcotic use (Acute) Nicotine use (Acute) Hypertension (Acute) Asthma (Acute) Fibromyalgia (Acute) Past Medical History Medical History (Updated 05/13/23 @ 11:30 by Maria R Helms RN) Thyroid disease Migraines Elevated cholesterol Fibromyalgia Hypoglycemia Asthma Hypertension Family History Family History Mother Diabetes Hypertension Heart abnormality Father No problems noted. Father No problems noted. Surgical History Surgical History (Updated 05/13/23 @ 11:23 by Maria R Helms RN) H/O neck surgery H/O knee surgery Carpal tunnel syndrome History of partial hysterectomy Endometriosis determined by laparoscopy History of Problems with Anesthesia: Yes Social History Social History Household Members: None Housing: Apartment Do you presently have visiting nurse or other home services: No Alcohol intake: never Patient Tobacco Use Status: Current everyday Tobacco user Tobacco use type: Cigarette Cigarettes Per Day: 10 Years Smoked: 26 Use of substances other than those prescribed or required for medical reasons: No Are you DNR?: No Advance Directives: No Advance Directives Information Provided: Yes Meds Allergies Allergy/AdvReac Type Severity Reaction Status Date / Time carisoprodol [From Soma] Allergy Severe SHORTNESS Verified 05/13/23 11:25 OF BREATH,VOMITING duloxetine [Cymbalta] Allergy Severe Nausea and Verified 05/13/23 11:25 Vomiting gabapentin [From NEURONTIN] Allergy Severe RASH,HIVES Verified 05/13/23 11:25 ibuprofen [From Motrin] Allergy Severe VOMITING Verified 05/13/23 11:25 ketorolac Allergy Severe Shortness Verified 05/13/23 11:25 of Breath morphine [Morphine] Allergy Severe SHORTNESS Verified 05/13/23 11:25 OF BREATH naproxen [From Naprosyn] Allergy Severe VOMITING Verified 05/13/23 11:25 oxybutynin Allergy Severe Nausea and Verified 05/13/23 11:25 Vomiting pregabalin [From LYRICA] Allergy Severe HYPER AND Verified 05/13/23 11:25 PANIC ATTACK ranitidine [RANITIDINE] Allergy Severe TACHYCARDIA Verified 05/13/23 11:25 sulfamethoxazole Allergy Severe VOMITING,RASH, Verified 05/13/23 11:25 [From BACTRIM] hives tramadol Allergy Severe Shortness Verified 05/13/23 11:25 of Breath trimethoprim [From BACTRIM] Allergy Severe VOMITING,RASH, Verified 05/13/23 11:25 hives cortisone [CORTISONE] Allergy Intermediate ITCHING,JANAE Verified 05/13/23 11:25 H Sulfa (Sulfonamide Allergy Intermediate VOMITING/RASH, Verified 05/13/23 11:25 Antibiotics) hives transparent dressing Allergy Rash Verified 05/13/23 11:25 [Tegaderm] dicyclomine AdvReac Severe Palpitation Verified 05/13/23 11:25 s Tricyclic Antidepressants AdvReac Severe VOMITING Verified 05/13/23 11:25 and Tricy from ALL [Tricyclic Compounds] ANTIDEPRESSANTS, palpitations all antidepressants except Allergy Severe Nausea and Uncoded 04/09/23 14:20 Rem Vomiting milk, yogurt, dairy Allergy Severe Diarrhea, Uncoded 04/09/23 14:20 vomitting Home Medications Medication Instructions Recorded Confirmed Last Taken Type albuterol sulfate 90 mcg/actuation 2 puff inhalation Q6H PRN 10/11/21 05/13/23 Unknown History aerosol inhaler Shortness Of Breath Or Wheezing atorvastatin 20 mg tablet 20 mg PO .DAILY @ 1600 10/11/21 05/13/23 05/27/22 History cholecalciferol (vitamin D3) 125 125 mcg PO DAILY 10/11/21 05/13/23 05/27/22 History mcg (5,000 unit) tablet clonazepam 1 mg tablet (Klonopin) 1 mg PO BID 10/11/21 05/13/23 05/27/22 History fluticasone propionate 250 1 inh inhalation BID 10/11/21 05/13/23 05/13/23 07:30 History mcg/actuation blister powder for inhalation (Flovent Diskus) levothyroxine 125 mcg tablet 125 mcg PO DAILY 10/11/21 05/13/23 05/13/23 07:30 History (Levoxyl) sumatriptan succinate 100 mg 100 mg PO Q2-4H PRN Headache 10/11/21 05/13/23 Unknown History tablet (Imitrex) doxylamine succinate 25 mg tablet 25 - 50 mg PO BEDTIME PRN Insomnia 05/06/22 05/13/23 Unknown History (Sleep Aid (doxylamine)) lisinopril 20 mg tablet 20 mg PO DAILY 05/06/22 05/13/23 05/13/23 07:30 History mirtazapine 7.5 mg tablet 7.5 mg PO BEDTIME 05/06/22 05/13/23 05/27/22 History verapamil 180 mg 24 hr 180 mg PO .DAILY @ 1600 05/06/22 05/13/23 05/27/22 History capsule,extended release zinc 50 mg tablet 50 mg PO BID 05/06/22 05/13/23 05/27/22 History loratadine 10 mg tablet (Claritin) 10 mg PO DAILY 05/13/23 05/13/23 05/13/23 07:30 History oxycodone 5 mg tablet 5 mg PO TID PRN Pain 05/13/23 05/13/23 05/13/23 07:30 History Assessment and Plan Assessment Anesthesia Assessment: Chart Reviewed Final Anesthetic Review History of Problems with Anesthesia: Yes Documented by User: Toya Kaur MD 05/13/23 13:34 [facility] Past Medical History Medical History (Updated 05/13/23 @ 11:30 by Maria R Helms RN) Thyroid disease Migraines Elevated cholesterol Fibromyalgia Hypoglycemia Asthma Hypertension Family History Family History Mother Diabetes Hypertension Heart abnormality Father No problems noted. Father No problems noted. Family history of problems with anesthesia: No Surgical History Surgical History (Updated 05/13/23 @ 11:23 by Maria R Helms RN) H/O neck surgery H/O knee surgery Carpal tunnel syndrome History of partial hysterectomy Endometriosis determined by laparoscopy History of Problems with Anesthesia: No Social History Social History Household Members: None Housing: Apartment Do you presently have visiting nurse or other home services: No Alcohol intake: never Patient Tobacco Use Status: Current everyday Tobacco user Tobacco use type: Cigarette Cigarettes Per Day: 10 Years Smoked: 26 Use of substances other than those prescribed or required for medical reasons: No Are you DNR?: No Advance Directives: No Advance Directives Information Provided: Yes Meds Allergies Allergy/AdvReac Type Severity Reaction Status Date / Time carisoprodol [From Soma] Allergy Severe SHORTNESS Verified 05/13/23 11:25 OF BREATH,VOMITING duloxetine [Cymbalta] Allergy Severe Nausea and Verified 05/13/23 11:25 Vomiting gabapentin [From NEURONTIN] Allergy Severe RASH,HIVES Verified 05/13/23 11:25 ibuprofen [From Motrin] Allergy Severe VOMITING Verified 05/13/23 11:25 ketorolac Allergy Severe Shortness Verified 05/13/23 11:25 of Breath morphine [Morphine] Allergy Severe SHORTNESS Verified 05/13/23 11:25 OF BREATH naproxen [From Naprosyn] Allergy Severe VOMITING Verified 05/13/23 11:25 oxybutynin Allergy Severe Nausea and Verified 05/13/23 11:25 Vomiting pregabalin [From LYRICA] Allergy Severe HYPER AND Verified 05/13/23 11:25 PANIC ATTACK ranitidine [RANITIDINE] Allergy Severe TACHYCARDIA Verified 05/13/23 11:25 sulfamethoxazole Allergy Severe VOMITING,RASH, Verified 05/13/23 11:25 [From BACTRIM] hives tramadol Allergy Severe Shortness Verified 05/13/23 11:25 of Breath trimethoprim [From BACTRIM] Allergy Severe VOMITING,RASH, Verified 05/13/23 11:25 hives cortisone [CORTISONE] Allergy Intermediate ITCHING,JANAE Verified 05/13/23 11:25 H Sulfa (Sulfonamide Allergy Intermediate VOMITING/RASH, Verified 05/13/23 11:25 Antibiotics) hives transparent dressing Allergy Rash Verified 05/13/23 11:25 [Tegaderm] dicyclomine AdvReac Severe Palpitation Verified 05/13/23 11:25 s Tricyclic Antidepressants AdvReac Severe VOMITING Verified 05/13/23 11:25 and Tricy from ALL [Tricyclic Compounds] ANTIDEPRESSANTS, palpitations all antidepressants except Allergy Severe Nausea and Uncoded 04/09/23 14:20 Rem Vomiting milk, yogurt, dairy Allergy Severe Diarrhea, Uncoded 04/09/23 14:20 vomitting Home Medications Medication Instructions Recorded Confirmed Last Taken Type albuterol sulfate 90 mcg/actuation 2 puff inhalation Q6H PRN 10/11/21 05/13/23 Unknown History aerosol inhaler Shortness Of Breath Or Wheezing atorvastatin 20 mg tablet 20 mg PO .DAILY @ 1600 10/11/21 05/13/23 05/27/22 History cholecalciferol (vitamin D3) 125 125 mcg PO DAILY 10/11/21 05/13/23 05/27/22 History mcg (5,000 unit) tablet clonazepam 1 mg tablet (Klonopin) 1 mg PO BID 10/11/21 05/13/23 05/27/22 History fluticasone propionate 250 1 inh inhalation BID 10/11/21 05/13/23 05/13/23 07:30 History mcg/actuation blister powder for inhalation (Flovent Diskus) levothyroxine 125 mcg tablet 125 mcg PO DAILY 10/11/21 05/13/23 05/13/23 07:30 History (Levoxyl) sumatriptan succinate 100 mg 100 mg PO Q2-4H PRN Headache 10/11/21 05/13/23 Unknown History tablet (Imitrex) doxylamine succinate 25 mg tablet 25 - 50 mg PO BEDTIME PRN Insomnia 05/06/22 05/13/23 Unknown History (Sleep Aid (doxylamine)) lisinopril 20 mg tablet 20 mg PO DAILY 05/06/22 05/13/23 05/13/23 07:30 History mirtazapine 7.5 mg tablet 7.5 mg PO BEDTIME 05/06/22 05/13/23 05/27/22 History verapamil 180 mg 24 hr 180 mg PO .DAILY @ 1600 05/06/22 05/13/23 05/27/22 History capsule,extended release zinc 50 mg tablet 50 mg PO BID 05/06/22 05/13/23 05/27/22 History loratadine 10 mg tablet (Claritin) 10 mg PO DAILY 05/13/23 05/13/23 05/13/23 07:30 History oxycodone 5 mg tablet 5 mg PO TID PRN Pain 05/13/23 05/13/23 05/13/23 07:30 History Exam Airway Mallampati Class: II TM Dist: >3cm Neck ROM: Full Heart: rrr Lungs: cta Assessment and Plan Assessment Anesthesia Assessment: Anesthesia Plan Discussed Final Anesthetic Review Family History of Problems with Anesthesia: No History of Problems with Anesthesia: No NPO: Yes ASA Class: III Final Preanesthetic Review: No Changes in Pt Med Stat, Meds/Allgs Chart Reviewed and Consent Obtained/Reviewed Patient Risk: Intermediate Procedure Risk: Intermediate Anesthetic Plan Anesthetic Plan: MAC: Disposition: Standard PACU
--- NOTE | 2023-05-13 10:27 | MHC.SHP ---
Pre-Procedural Eval Section A Date of Service: 05/13/23 Section B Chief Complaint: Other fecal abnormalities Details of Present Illness: FH of polyps, pos cologuard Relevant Family History (Specify if Yes): Yes Relevant Social History: None Present Medications: see Short Stay Collaborative assessment Medical History: Significant History (Asthma Fibromyalgia Hypertension Hypoglycemia) History of Previous Operations: Relevant previous surgery/procedure and date(s) (Carpal tunnel syndrome Endometriosis determined by laparoscopy H/O knee surgery H/O neck surgery History of partial hysterectomy) Allergies: Allergies Allergy/AdvReac Type Severity Reaction Status Date / Time carisoprodol [From Soma] Allergy Severe SHORTNESS Verified 04/09/23 14:20 OF BREATH,VOMITING duloxetine [Cymbalta] Allergy Severe Nausea and Verified 04/09/23 14:20 Vomiting gabapentin [From NEURONTIN] Allergy Severe RASH,HIVES Verified 04/09/23 14:20 ibuprofen [From Motrin] Allergy Severe VOMITING Verified 04/09/23 14:20 ketorolac Allergy Severe Shortness Verified 04/09/23 14:20 of Breath morphine [Morphine] Allergy Severe SHORTNESS Verified 04/09/23 14:20 OF BREATH naproxen [From Naprosyn] Allergy Severe VOMITING Verified 04/09/23 14:20 oxybutynin Allergy Severe Nausea and Verified 04/09/23 14:20 Vomiting pregabalin [From LYRICA] Allergy Severe HYPER AND Verified 04/09/23 14:20 PANIC ATTACK ranitidine [RANITIDINE] Allergy Severe TACHYCARDIA Verified 04/09/23 14:20 sulfamethoxazole Allergy Severe VOMITING,RASH, Verified 04/09/23 14:20 [From BACTRIM] hives tramadol Allergy Severe Shortness Verified 04/09/23 14:20 of Breath trimethoprim [From BACTRIM] Allergy Severe VOMITING,RASH, Verified 04/09/23 14:20 hives cortisone [CORTISONE] Allergy Intermediate ITCHING,JANAE Verified 04/09/23 14:20 H Sulfa (Sulfonamide Allergy Intermediate VOMITING/RASH, Verified 04/09/23 14:20 Antibiotics) hives transparent dressing Allergy Rash Verified 04/09/23 14:20 [Tegaderm] dicyclomine AdvReac Severe Palpitation Verified 04/09/23 14:20 s Tricyclic Antidepressants AdvReac Severe VOMITING Verified 04/09/23 14:20 and Tricy from ALL [Tricyclic Compounds] ANTIDEPRESSANTS, palpitations all antidepressants except Allergy Severe Nausea and Uncoded 04/09/23 14:20 Rem Vomiting milk, yogurt, dairy Allergy Severe Diarrhea, Uncoded 04/09/23 14:20 vomitting Review of Systems Sugical H&P ROS: Negative: Constitution, Cardiovascular, Respiratory, Neurological, Psychiatric, Hem-Onc, Allergic/Immunologic, Gastrointestinal, Genitourinary, Musculoskeletal, Integumentary, Endocrine and Eyes/Ears/Nose/Throat Exam Surgical H&P Exam: Normal: HEENT, Normal: Heart, Normal: Lungs, Normal: Extremities, Normal: Abdomen, Normal: Skin and Normal: Neurological Plan Diagnosis/Plan: Unchanged I have reviewed the history and physical and performed a pertinent physical examination on my patient. No changes have occurred unless specified. Time Spent With Patient Time: Total time managing care of this patient today ____ minutes.
[2023-05-13 11:49] VITALS: BP 139/83; PULSE 72; RESP 16; TEMP 36.6; O2SAT 96; BMI 33.4
[2023-05-13 12:41] LABS: Glucose, Whole Blood 85 mg/dL (60-115)
--- NOTE | 2023-05-13 14:19 | W.PM.OPN ---
Operative Note Operative Note Date of Service: 05/13/23 Narrative: Operative Information Procedure Description: Colonoscopy Indication: pos cologuard Anesthesia: MAC COLONOSCOPY Instrument: Olympus variable stiffness pediatric scope 190L Colonoscopy Monitoring: Vital signs and clinical assessment, continuous EKG monitoring, Pulse oximetry, Carbon Dioxide monitoring and blood pressure monitoring were done throughout the procedure. Colon withdrawal time was 18 minutes. Procedure: The patient was placed in the left lateral decubitis position and pre-procedure medications were administered. After a digital rectal examination of the ano-rectum, the video colonoscope was inserted into the rectum and advanced through the colon to the cecum/TI. The colonoscope was slowly withdrawn in a retrograde panoramic fashion and the colon mucosa was carefully examined including a retroflexed view of the rectum. Findings and interventions are described below. Procedure Difficulty: easy Findings: Terminal Ileum- scattered erosions, bx taken Cecum:normal Ascending Colon: normal, random bx taken Transverse Colon -normal Descending Colon:normal Sigmoid Colon: moderate diverticulosis, x2 sessile polyps 6-9 mm removed with cold snare, 4-6 mm sessile polyp removed with cold forceps Rectum: Retroflexion with small internal hemorrhoids, grade I, x1 sessile polyp 10 mm removed with cold snare Anorectum - normal Colon preparation: Lima Bowel Preparation Scale Right colon; 2 Transverse colon: 2 Left colon; 2 (0 = Unprepared colon segment with mucosa not seen due to solid stool that cannot be cleared. 1 = Portion of mucosa of the colon segment seen, but other areas of the colon segment not well seen due to staining, residual stool and/or opaque liquid. 2 = Minor amount of residual staining, small fragments of stool and/or opaque liquid, but mucosa of colon segment seen well. 3 = Entire mucosa of colon segment seen well with no residual staining, small fragments of stool or opaque liquid) Impression and Post Procedure Diagnosis: polyps internal hemorrhoids diverticular disease Plan: High fiber diet leaflet Avoid straining at stool, epsom salts and sitz bath, anusol supps or cream Repeat Colonoscopy in 2-3 years due to polyps or earlier if clinically indicated consider Cte if having any sx suggestive of crohns, check NSAId hx Above findings were reviewed with the patient and relevant handouts were provided if indicated.
[2023-05-13 14:25] VITALS: BP 112/69; PULSE 76; RESP 16; TEMP 36.3; O2SAT 94
[2023-05-13 14:40] VITALS: BP 111/68; PULSE 64; RESP 16; TEMP 36.3; O2SAT 96
== END 2023-05-13 15:27 | disposition home or self-care (01) ==
PROVIDERS: PCP Internal Medicine; Visit Provider Internal Medicine Gastroenterology
PROC: 0DJD8ZZ Inspection of Lower Intestinal Tract, Via Natural or Artificial Opening Endoscopic (ICD-10-PCS; CPT 45378; principal; 2023-05-13 13:40)
DX: R19.5 Other fecal abnormalities (principal); Z83.719 Family history of colon polyps, unspecified; K63.5 Polyp of colon; K57.30 Diverticulosis of large intestine without perforation or abscess without bleeding; K64.0 First degree hemorrhoids; K52.89 Other specified noninfective gastroenteritis and colitis; I10 Essential (primary) hypertension; E16.2 Hypoglycemia, unspecified; J45.909 Unspecified asthma, uncomplicated; M79.7 Fibromyalgia; Z79.51 Long term (current) use of inhaled steroids; Z79.899 Other long term (current) drug therapy; Z88.2 Allergy status to sulfonamides; Z88.5 Allergy status to narcotic agent; Z88.8 Allergy status to other drugs, medicaments and biological substances; F17.210 Nicotine dependence, cigarettes, uncomplicated
CPT/HCPCS: 45385; 45380; 82947; 88305; J2704

== ENCOUNTER → 2023-05-13 11:07 | Outpatient (BNV) | payer MEDICAID, SELFPAY | PROVIDERS: PCP Internal Medicine; Visit Provider Internal Medicine Gastroenterology | DX: Z12.11 Encounter for screening for malignant neoplasm of colon (principal); R19.5 Other fecal abnormalities; K63.5 Polyp of colon; K64.0 First degree hemorrhoids | CPT/HCPCS: 45380; 45385 ==

== ENCOUNTER 2023-06-09 14:54 | Outpatient (REF) | payer MEDICAID, SELFPAY ==
[2023-06-09 16:18] LABS: Estimated Average Glucose 108 mg/dL; Hemoglobin A1c % 5.4 % (<6.0)
[2023-06-09 16:40] LABS: Alanine Aminotransferase 42 U/L (0-31); Albumin Level 4.5 g/dL (3.5-5.0); Anion Gap 14 (12-20); Aspartate Amino Transferase 23 U/L (5-31); Blood Urea Nitrogen 12 mg/dL (9-16); Calcium 10.2 mg/dL (8.4-10.2); Carbon Dioxide 26 mmol/L (22-29); Chloride 106 mmol/L (96-108); Estimated Glomerular Filt Rate > 60; Glucose Random 91 mg/dL (60-115); Potassium 4.3 mmol/L (3.3-5.1); Sodium 142 mmol/L (135-145)
[2023-06-09 16:59] LABS: TSH reflex Free T4 0.34 uIU/mL (0.32-4.0); Vitamin D 25-OH Total 35.3 ng/mL (>30)
== END 2023-06-09 14:55 | disposition home or self-care (01) ==
LOC: HO.LAB 14:54
PROVIDERS: PCP Internal Medicine; Visit Provider Internal Medicine Endocrinology, Diabetes & Metabolism
DX: E16.2 Hypoglycemia, unspecified (principal); E03.9 Hypothyroidism, unspecified; E55.9 Vitamin D deficiency, unspecified
CPT/HCPCS: 36415; 80048; 82040; 82306; 83036; 84443; 84450; 84460

== ENCOUNTER → 2023-06-16 13:33 | Outpatient (BNV) | payer MEDICAID, SELFPAY | PROVIDERS: PCP Internal Medicine; Referring Provider Nurse Practitioner; Visit Provider Internal Medicine Medical Oncology | DX: D72.829 Elevated white blood cell count, unspecified (principal) | CPT/HCPCS: 99204; 99213 ==

== ENCOUNTER 2023-09-03 16:07 | Emergency (ER) | payer MEDICAID, SELFPAY ==
[2023-09-03 16:24] VITALS: BP 140/87; PULSE 101; RESP 18; TEMP 36.3; O2SAT 98; BMI 33.8
--- NOTE | 2023-09-03 16:25 | ED_ITS ---
HPI - General Adult General Chief complaint: General Medical Stated complaint: swollen node, sore throat. antibiotics didnt work Time Seen by Provider: 09/03/23 16:53 Source: patient Mode of arrival: ambulatory Limitations: no limitations History of Present Illness HPI narrative: 53-year-old female presents the ER for evaluation of left-sided neck swelling and pain with a palpable bump for the last 1 week. She went to the clinic 2 times where she tested negative for strep throat. She was started on empiric Augmentin and prednisone. She states the swelling on the left side of her neck is continuing, worsens when she eats. No redness of the area. She reports pain when swallowing. No fevers. No cough or upper respiratory tract infection symptoms. MD complaint: Left-sided neck swelling and sore throat Onset (ago): week(s) (1) Location: mouth Radiation: neck Severity: severe Severity scale (1-10): 8 Quality: stabbing and aching Pain Consistency: constant Relieving factors: medication Exacerbating factors: eating Associated symptoms: denies other symptoms Treatments prior to arrival: none Related Data Home Medications ?Medication ?Instructions ?Recorded ?Confirmed albuterol sulfate 90 mcg/actuation 2 puff inhalation Q6H PRN 10/11/21 06/16/23 aerosol inhaler Shortness Of Breath Or Wheezing atorvastatin 20 mg tablet 20 mg PO .DAILY @ 1600 10/11/21 06/16/23 cholecalciferol (vitamin D3) 125 125 mcg PO DAILY 10/11/21 06/16/23 mcg (5,000 unit) tablet clonazepam 1 mg tablet (Klonopin) 1 mg PO BID 10/11/21 06/16/23 fluticasone propionate 250 1 inh inhalation BID 10/11/21 06/16/23 mcg/actuation blister powder for inhalation (Flovent Diskus) levothyroxine 125 mcg tablet 125 mcg PO DAILY 10/11/21 06/16/23 (Levoxyl) sumatriptan succinate 100 mg 100 mg PO Q2-4H PRN Headache 10/11/21 06/16/23 tablet (Imitrex) doxylamine succinate 25 mg tablet 25 - 50 mg PO BEDTIME PRN Insomnia 05/06/22 06/16/23 (Sleep Aid (doxylamine)) lisinopril 20 mg tablet 20 mg PO DAILY 05/06/22 06/16/23 mirtazapine 7.5 mg tablet 7.5 mg PO BEDTIME 05/06/22 06/16/23 verapamil 180 mg 24 hr 180 mg PO .DAILY @ 1600 05/06/22 06/16/23 capsule,extended release zinc 50 mg tablet 50 mg PO BID 05/06/22 06/16/23 loratadine 10 mg tablet (Claritin) 10 mg PO DAILY 05/13/23 06/16/23 oxycodone 5 mg tablet 5 mg PO TID PRN Pain 05/13/23 06/16/23 Previous Rx's ?Medication ?Instructions ?Recorded loperamide 2 mg capsule (Imodium 2 mg PO Q2H PRN loose stool #60 07/04/22 A-D) caps sennosides 8.6 mg capsule (senna) 17.2 mg (2 x 8.6 mg) PO BEDTIME 03/03/23 PRN Constipation #60 caps simethicone 180 mg capsule 180 mg PO QID 30 days #120 caps 03/03/23 metoclopramide HCl 5 mg tablet 5 mg PO TID #90 tabs 06/08/23 omeprazole 20 mg capsule,delayed 20 mg PO BID #60 caps 07/06/23 release Allergies Allergy/AdvReac Type Severity Reaction Status Date / Time carisoprodol [From Soma] Allergy Severe SHORTNESS Verified 09/03/23 16:27 OF BREATH,VOMITING duloxetine [Cymbalta] Allergy Severe Nausea and Verified 09/03/23 16:27 Vomiting gabapentin [From NEURONTIN] Allergy Severe RASH,HIVES Verified 09/03/23 16:27 ibuprofen [From Motrin] Allergy Severe VOMITING Verified 09/03/23 16:27 ketorolac Allergy Severe Shortness Verified 09/03/23 16:27 of Breath morphine [Morphine] Allergy Severe SHORTNESS Verified 09/03/23 16:27 OF BREATH naproxen [From Naprosyn] Allergy Severe VOMITING Verified 09/03/23 16:27 oxybutynin Allergy Severe Nausea and Verified 09/03/23 16:27 Vomiting pregabalin [From LYRICA] Allergy Severe HYPER AND Verified 09/03/23 16:27 PANIC ATTACK ranitidine [RANITIDINE] Allergy Severe TACHYCARDIA Verified 09/03/23 16:27 sulfamethoxazole Allergy Severe VOMITING,RASH, Verified 09/03/23 16:27 [From BACTRIM] hives tramadol Allergy Severe Shortness Verified 09/03/23 16:27 of Breath trimethoprim [From BACTRIM] Allergy Severe VOMITING,RASH, Verified 09/03/23 16:27 hives cortisone [CORTISONE] Allergy Intermediate ITCHING,JANAE Verified 09/03/23 16:27 H Sulfa (Sulfonamide Allergy Intermediate VOMITING/RASH, Verified 09/03/23 16:27 Antibiotics) hives transparent dressing Allergy Rash Verified 09/03/23 16:27 [Tegaderm] dicyclomine AdvReac Severe Palpitation Verified 09/03/23 16:27 s Tricyclic Antidepressants AdvReac Severe VOMITING Verified 09/03/23 16:27 and Tricy from ALL [Tricyclic Compounds] ANTIDEPRESSANTS, palpitations all antidepressants except Allergy Severe Nausea and Uncoded 06/16/23 13:49 Rem Vomiting milk, yogurt, dairy Allergy Severe Diarrhea, Uncoded 06/16/23 13:49 vomitting Review of Systems 2 Review of Systems: Yes all other systems are reviewed and are negative [facility] Past Medical History Medical History (Updated 09/03/23 @ 17:54 by MARIELLA Agustin) Thyroid disease Migraines Elevated cholesterol Fibromyalgia Hypoglycemia Asthma Hypertension Surgical History (Updated 06/16/23 @ 16:28 by Tawnya Faustin MD) H/O neck surgery H/O knee surgery Carpal tunnel syndrome History of partial hysterectomy Endometriosis determined by laparoscopy Family History Family History Mother Diabetes Hypertension Heart abnormality Father No problems noted. Father No problems noted. Social History Social History (Updated 06/16/23 @ 13:48 by Vira Bertrand) Household Members: None Housing: Apartment Do you presently have visiting nurse or other home services: No Alcohol intake: never Patient Tobacco Use Status: Current everyday Tobacco user Tobacco use type: Cigarette Years Smoked: 26 Advance Directives: No Advance Directives Information Provided: No Do you have a plan to hurt others: No Plan service: No Physical Exam ED Vital Signs: Vital Signs - 24 hr 09/03/23 16:24 Temperature 97.3 F Pulse Rate 101 H Respiratory Rate 18 Blood Pressure 140/87 H Pulse Oximetry 98 Oxygen Delivery Method Room Air BMI result Body Mass Index 33.8 Appearance: Alert. Oriented X3. No acute distress. Head: normocephalic, atraumatic. Eyes: Pupils equal, round and reactive to light. ENT: Pharynx normal. No tonsillar swelling or exudate. duct of the salivary glands uvula is midline. Normal voice, handling secretions normally uvula is midline, handling secretions normally, normal voice. No visible salivary duct Neck: Small area of swelling to the left upper neck under the mandible w/ tenderness. no overlying erythema. CVS: Normal heart rate and rhythm. Pulses normal. Respiratory: No respiratory distress. Breath sounds normal. Abdomen: Soft and nontender. +BS x4 Skin: Skin warm and dry. Normal skin color. Normal skin turgor. No rashes. Extremities: No lower extremity edema. No joint swelling. Neuro/psych: Oriented X 3. Grossly normal, nonfocal. CN II-XII intact. Normal speech and cognition. Course Course Course Narrative: This is a rapid medical exam: Additional HPI, ROS, PE not included below will be deferred to primary provider. Patient is a 53-year-old female presenting to the ED with complaint of painful swelling to left side of neck which she states gets bigger after eating. Has been seen at the clinic on 08/25 and 08/30 and was tested for strep both times which were negative. Has been on abx for 3 days without improvement. Plan: labs, strep and viral swabs, will likely need CT Medical Decision Making Medical Decision Making [facility] Narrative: 53-year-old female presents to the ER for evaluation of a swollen area on the left side of her neck along with sore throat. Pain increases with eating. On empiric antibiotics despite negative strep throat swabs. Exam and clinical presentation are consistent with prostatitis. Discussed diagnosis and management with patient including massage and sour candies. She can continue her oral antibiotics although low suspicion for infectious etiology. Stable for discharge home with outpatient follow-up. Differential Diagnosis Differential Diagnoses: The differential diagnosis associated with the presentation includes Strep throat, COVID, flu, RSV, peritonsillar abscess, retropharyngeal abscess, dental infection or abscess, Jose's angina Admission/Observation Consideration of admission/observation: Escalation of care including admission/observation considered Lab Data [facility] Lab Attestation statement: I reviewed the patient's lab results. mild leukocytosis of 14.8, just finished a course of prednisone, this is most likely the cause of her leukocytosis 04/25/24 16:36 09/03/23 16:36 Labs: Lab Results 09/03/23 Range/Units 16:36 WBC 14.8 H (4.8-10.8) X10*3/uL RBC 5.47 (4.20-5.50) X10*6/uL Hgb 15.7 (12.0-16.0) g/dl Hct 48.7 H (37.0-47.0) % MCV 89.0 (80.0-98.0) fL MCH 28.7 (27.0-33.0) pg MCHC 32.2 (31.0-35.0) g/dl RDW 14.4 (11.0-16.0) % Plt Count 322 (160-400) X10*3/uL MPV 9.5 (9.4-12.3) fL Immature Gran % (Auto) 0.3 (0.0-0.4) % Neut % (Auto) 63.8 (45-73) % Lymph % (Auto) 29.0 (20-40) % Otero % (Auto) 4.9 (2-11) % Eos % (Auto) 1.5 (0-4) % Baso % (Auto) 0.5 (0-2) % Lymph # (Auto) 4.3 (1.2-4.9) X10*3/uL Otero # (Auto) 0.7 (0.1-1.2) X10*3/uL Eos # (Auto) 0.2 (0.0-0.4) X10*3/uL Baso # (Auto) 0.1 (0.0-0.2) X10*3/uL Abs Immat Gran (auto) 0.04 H (0.00-0.03) X10*3/uL Absolute Neuts (auto) 9.5 H (2.0-8.3) x10*3/uL Absolute Nucleated RBC 0.000 (0.0-0.012) X10*3/uL Nucleated RBC % (auto) 0.0 (0.0-0.2) /100WBC Sodium 142 (135-145) mmol/L Potassium 3.5 (3.3-5.1) mmol/L Chloride 106 (96-108) mmol/L Carbon Dioxide 31 H (22-29) mmol/L Anion Gap 9 L (12-20) BUN 9 (9-16) mg/dL Creatinine 0.71 (0.5-1.4) mg/dL Estim Creat Clear Calc 97.9 Estimated GFR > 60 Random Glucose 117 H (60-115) mg/dL Calcium 9.7 (8.4-10.2) mg/dL Total Bilirubin 0.4 (0.0-1.0) mg/dL AST 17 (5-31) U/L ALT 23 (0-31) U/L Alkaline Phosphatase 156 H (39-117) U/L Total Protein 7.6 (6.5-8.0) g/dL Albumin 4.4 (3.5-5.0) g/dL Influenza Type A (PCR) NEGATIVE (Negative) Influenza Type B (PCR) NEGATIVE (Negative) RSV RNA Qual (PCR) NEGATIVE (Negative) SARS-CoV-2 RNA (RT-PCR) NEGATIVE (Negative) S. pyogenes GrpA NOLAN Negative (Negative) Independent Historian Clinical information obtained from an independent historian. History obtained from or confirmed by: Spouse External Record Review External record reviewed: Outpatient record, Prior outpatient labs and Prior outpatient radiology Tests considered The following testing was considered but not selected: CT scan of the neck considered Prescription Management I considered prescription management with: Pain Medication and Antibiotic Critical Care Time Critical Care Time Critical Care Time: No Discharge Plan Discharge Clinical Impression: Parotiditis Patient Disposition: Home, Self-Care Instructions: Sialoadenitis (ED) Additional Instructions: Continue the previously prescribed antibiotics. Use warm compresses to the area several times per day. Gently massage the area. Recommend trial of sour foods and candies to help increase saliva and released the gland obstruction. Recommend Tylenol 1000 mg 4 times a day as needed for pain. Continue your previously prescribed oxycodone as needed for pain. Follow-up with your doctor. If you develop new or worsening symptoms call 911 or come back to the ER for further evaluation. Prescriptions: No Action metoclopramide HCl 5 mg tablet 5 mg PO TID Qty: 90 3RF omeprazole 20 mg capsule,delayed release(DR/EC) 20 mg PO BID Qty: 60 6RF loratadine [Claritin] 10 mg Tablet 10 mg PO DAILY oxycodone 5 mg tablet 5 mg PO TID PRN (Reason: Pain) levothyroxine [Levoxyl] 125 mcg tablet 125 mcg PO DAILY clonazepam [Klonopin] 1 mg tablet 1 mg PO BID Patient Comments: 1 mg in the morning and 2 mg at bedtime sumatriptan succinate [Imitrex] 100 mg tablet 100 mg PO Q2-4H PRN (Reason: Headache) Rx Instructions: do not exceed 2 doses per 24 hrs albuterol sulfate 90 mcg/actuation HFA aerosol inhaler 2 puff inhalation Q6H PRN (Reason: Shortness Of Breath Or Wheezing) Flovent Diskus 250 mcg/actuation blister with device 1 inh inhalation BID cholecalciferol (vitamin D3) 125 mcg (5,000 unit) tablet 125 mcg PO DAILY atorvastatin 20 mg tablet 20 mg PO .DAILY @ 1600 zinc 50 mg tablet 50 mg PO BID Rx Instructions: administer on empty stomach, at least 1 hour before or after meal(s) loperamide [Imodium A-D] 2 mg capsule 2 mg PO Q2H PRN (Reason: loose stool) Qty: 60 6RF Rx Instructions: until patient has gone 12 hours without a bowel movement lisinopril 20 mg tablet 20 mg PO DAILY mirtazapine 7.5 mg tablet 7.5 mg PO BEDTIME verapamil 180 mg capsule,ext rel. pellets 24 hr 180 mg PO .DAILY @ 1600 Sleep Aid (doxylamine) 25 mg tablet 25 - 50 mg PO BEDTIME PRN (Reason: Insomnia) simethicone 180 mg capsule 180 mg PO QID 30 Days Qty: 120 6RF Rx Instructions: after meals senna 8.6 mg capsule 17.2 mg PO BEDTIME PRN (Reason: Constipation) Qty: 60 6RF Print Language: Maltese
[2023-09-03 16:41] LABS: MANUAL DIFF FLAG NO
--- OUTSIDE RECORDS SUMMARY | 2023-09-03 16:42 | XMS_ITS | Continuity of Care Document ---
Author Organization [facility] ter Address [address] [place] [id number]- Care Team Providers Care Organizational Development Consultant Name Role Phone Kiya Alvarado MD, Carmita Cook Primary Care Physici an Encounter [facility] [place] Date(s): 07/13/23 - 07/14/[address] [address]- Discharge Disposition: A-D/C Home Attending Physician: Bradley Martinez MD Admitting Physician: Bradley Martinez MD Referring Physician: Bradley Martinez MD Allergies, Adverse Reactions, Alerts Substance Reaction Severity Status sulfADIAZINE 1 Hives Active morphine SOB Active cortisone big hives swelling and itching Active gabapentin chest pain sob Active Toradol dyspnea Active Soma PALPITATIONS Active Zoloft vomiting Active Motrin vomiting Active Naprosyn vomiting Active Prozac vomiting Active Wellbutrin vomiting Active Ultram VOMITING, SOB Active Bactrim hives Active Tegaderm RASH Active Cymbalta 2 Dizzy Vomiting Active Lyrica tachycardia,hives Active NSAIDs Hives Active raNITIdine 3 Nausea and vomiting Active 1hives 2vomiting and dizzy 3vomiting, out of it Medications albuterol 0.083% inhalation solution 3 mL = 0.002 Gm, Inhalation, Every 6 hours, PRN wheezing, # 25 each, 0 Refills, Maintenance, Inhalation Solution Start Date: 11/12/09 Status: Ordered albuterol 200 mcg inhalation capsule 200, mcg, 1, each, 4 times a day, Scheduled / PRN, 0, 0, 06/23/05 18:11:14, as needed for wheezing,65 Start Date: 06/23/05 Status: Ordered atorvastatin 10 mg oral tablet 2 tablet = 20 mg, By Mouth, Daily, 0 Refills, Maintenance, 07/09/23 9:43:00 EST, Partial fill upon patient request if the prescription is for a schedule II opioid drug. Start Date: 07/09/23 Status: Ordered cholecalciferol 1000 intl units oral capsule 1 capsule = 1,000 International_Units, By Mouth, Daily, # 75 capsule, 0 Refills, Maintenance, 05/27/18 13:00:49 EST, Capsule Start Date: 05/27/18 Status: Ordered Flovent Rotadisk 250, mcg, Inhalation, 2 times a day, Scheduled / PRN, 60 each, 0, 0, 06/23/05 18:12:29, as needed for wheezing, [id number] Start Date: 06/23/05 Status: Ordered HYDROmorphone Inj 0.5 mg, Injection, IV Push Slowly, Every 3 hours, PRN for Pain , Severe, Routine, 07/13/23 22:32:00EST Start Date: 07/13/23 Stop Date: 07/14/23 Status: Discontinued Imitrex 100 mg oral tablet 1 tablet = 100 mg, By Mouth, Daily, PRN for migraine headache, may repeat dose after 2 hours up to a maximum of 2, # 9 tablet, 0 Refills, Maintenance, 05/27/18 13:02:07 EST, Tablet Start Date: 05/27/18 Status: Ordered Klonopin Tablet = 1 mg, By Mouth, 2 times a day, 1 tab in am and 2 tabs at bedtime, 0 Refills, 06/23/05 18:05:01 Start Date: 06/23/05 Status: Ordered levothyroxine 125 mcg (0.125 mg) oral tablet 1 tablet = 125 mcg, By Mouth, Daily, Maintenance, 07/13/23 18:54:00 EST, Tablet, Partial fill upon patient request if the prescription is for a schedule II opioid drug. Start Date: 07/13/23 Status: Ordered lisinopril 10 mg oral tablet 10 mg, 1, tablet, By Mouth, Daily, Refills 0, Maintenance, 11/01/18 14:39:19 EDT Start Date: 11/01/18 Status: Ordered ondansetron 4 mg oral tablet 1 tablet = 4 mg, By Mouth, Every 8 hours, # 12 tablet, 0 Refills, Acute 07/16/23 7:21:00 EST, 07/13/23 7:21:00 EST, Tablet, [facility], Partial fill upon patient request if the prescription is for a schedule II opioid drug., 163, cm, . Start Date: 07/13/23 Stop Date: 07/16/23 Status: Ordered oxyCODONE 5 mg oral tablet See Instructions, PRN, 1 tablet By Mouth Every 4-6 hours, # 42 tablet, Refills 0, Tot. Refills 0, Acute 07/20/23 7:21:00 EDT, as needed for pain, 07/13/23 7:20:00 EST, Instructions Replace Required Details, Route to Pharmacy Electronically, [facility]... Start Date: 07/13/23 Stop Date: 07/20/23 Status: Ordered oxyCODONE 5 mg oral tablet 5 mg, Tablet, By Mouth, Every 6 hours, PRN for Pain , Severe, Routine, 07/13/23 18:19:00 EST Start Date: 07/13/23 Stop Date: 07/14/23 Status: Discontinued Percocet-5/325 325 mg-5 mg oral tablet See Instructions, PRN as needed for pain, 1-2 tablets By Mouth Every 4 hours, # 10 tablet, 0 Refills Start Date: 04/15/09 Stop Date: 04/22/09 Status: Ordered Phenergan 25 mg/mL injectable solution = 12.5 mg, Intramuscular, Daily at bedtime, # 1 mL, 0 Refills, Maintenance, 05/27/18 13:01:35 EST, Solution Start Date: 05/27/18 Status: Ordered Prilosec OTC = 20 mg, By Mouth, Daily, 0 Refills, 06/23/05 18:07:53 Start Date: 06/23/05 Status: Ordered Remeron 15 mg oral tablet 1 tablet = 15 mg, By Mouth, Daily at bedtime, # 30 tablet, 0 Refills, Maintenance, 02/28/14 15:29:22, Tablet Start Date: 02/28/14 Status: Ordered verapamil 120 mg oral tablet, extended release 1 tablet = 120 mg, By Mouth, Daily, 0 Refills, Maintenance, 11/01/18 14:39:34 EDT Start Date: 11/01/18 Status: Ordered Vitamin D 32240 iu oral capsule 50,000 International_Units, By Mouth, Every week, Refills 0, Maintenance, 07/09/23 9:43:00 EST, Partial fill upon patient request if the prescription is for a schedule II opioid drug. Start Date: 07/09/23 Status: Ordered Problem List Condition Confirmation Course Effective Dates Status Health St atus Informant Obese class I Confirmed Active Procedures Procedure Date Related Diagnosis Body Site Status Arthrodesis, anterior interb jesus, including disc space preparation, discectomy, osteophytectomy and decompression of spinal cord and/or nerve roots; cervical below C2 Completed Results Radiology Reports * Exam Date Time Procedure Performing Provider Status 07/13/23 1:45 PM C-Arm > 1 Hour Terrance Simon; Auth ( Verified) Notes: (C-Arm > 1 Hour) Reason For Exam: C5-C7 ACDF RESULT: C-Arm > 1 Hour Cervical Spine 3 Views or Less, C-Arm > 1 Hour INDICATION: Reason: C5-C7 ACDF COMPARISONS: None TECHNIQUE: Fluoroscopy support was provided. There was no radiologist in attendance. FLUOROSCOPY TIME: 09.9 seconds EXPOSURE: 0.8468 Gycm2 (Dose Area Product) TECHNOLOGIST TIME: 1 hour 15 minutes FINDINGS: 6 images were submitted. Please refer to operative note for full details. IMPRESSION: See above. WSN: [id number] Ordering Physician: Bradley Martinez Dictated By: Rolando Hawkins MD Dictated Date/Time: 07/13/23 3:58 pm Reviewed By: Rolando Hawkins MD Signed By: Rolando Hakwins MD Signed Date/Time: 07/13/23 3:58 pm Transcribed By: LUAN Transcribed Date/Time: 07/13/23 3:58 pm * Exam Date Time Procedure Performing Provider Status 07/13/23 1:45 PM Cervical Spine 3 Views or Less Terrance Simon; David Notes: (Cervical Spine 3 Views or Less) Reason For Exam: C5-C7 ACDF RESULT: Cervical Spine 3 Views or Less Cervical Spine 3 Views or Less, C-Arm > 1 Hour INDICATION: Reason: C5-C7 ACDF COMPARISONS: None TECHNIQUE: Fluoroscopy support was provided. There was no radiologist in attendance. FLUOROSCOPY TIME: 09.9 seconds EXPOSURE: 0.8468 Gycm2 (Dose Area Product) TECHNOLOGIST TIME: 1 hour 15 minutes FINDINGS: 6 images were submitted. Please refer to operative note for full details. IMPRESSION: See above. WSN: [id number] Ordering Physician: Bradley Martinez Dictated By: Rolando Hawkins MD Dictated Date/Time: 07/13/23 3:58 pm Reviewed By: Rolando Hawkins MD Signed By: Rolando Hawkins MD Signed Date/Time: 07/13/23 3:58 pm Transcribed By: LUAN Transcribed Date/Time: 07/13/23 3:58 pm Vital Signs Most recent to oldest [Reference Range]: 1 2 3 Height 163 cm (07/14/23 7:33 AM) 163 cm (07/14/23 2:54 AM) 163 cm (07/13/23 11:49 PM) Weight 89 kg (07/13/23 10:07 AM) 88 kg (07/09/23 9:48 AM) Oxygen Saturation [94-100 %] 94 % (07/14/23 7:33 AM) 93 % *L* (07/14/23 2:54 AM) 91 % *L* (07/13/23 11:49 PM) Pulse Rate [55-90 bpm] 87 bpm (07/14/23 7:33 AM) 89 bpm (07/14/23 2:54 AM) 84 bpm (07/13/23 11:49 PM) Body Mass Index [18.5-24.99 kg/m2] 33.5 kg/m2 *>HHI* (07/13/23 10:07 AM) 33.12 kg/m2 *>HHI* (07/09/23 9:48 AM) Blood Pressure [90-138/55-84 mm Hg] 103/65mm Hg (07/14/23 7:33 AM) 104/74mm Hg (07/14/23 2:54 AM) 107/59mm Hg (07/13/23 11:49 PM) Respiratory Rate [16-30 br/min] 18 br/min (07/14/23 7:33 AM) 18 br/min (07/14/23 7:22 AM) 18 br/min (07/14/23 7:22 AM) Temperature [96.8-100.4 DegF] 98.2 DegF (07/14/23 7:33 AM) 97.9 DegF (07/14/23 2:54 AM) 98.0 DegF (07/13/23 11:49 PM) Liters per Minute 6 L/min (07/13/23 2:15 PM) 6 L/min (07/13/23 2:00 PM) Mode of Delivery (Oxygen) Room air (07/14/23 7:33 AM) Room air (07/14/23 2:54 AM) Room air (07/13/23 11:49 PM) Blood pressure sites Arm, left (07/14/23 7:33 AM) Arm, left (07/14/23 2:54 AM) Arm, left (07/13/23 11:49 PM) Temperature Route Oral (07/14/23 7:33 AM) Oral (07/14/23 2:54 AM) Oral (07/13/23 11:49 PM) Dry Weight 89 kg (07/13/23 10:07 AM) Weight Obtained Via Standing scale (07/13/23 10:07 AM) Patient/family stated (07/09/23 9:48 AM) Dry Weight Obtained Via Standing scale (07/13/23 10:07 AM) Social History Social History Type Response Smoking Status Current every day sm oker; Tobacco user in household: Yes; Type: Cigarettes entered on: 03/09/14 Sex Implantable Device List Procedure Provider Procedure Date Device Type Site Discectomy and Fusion Anterior Cervical Bradley Martinez MD 07/13/23 Unknown Cervical Sp ine Device Identifier Serial Number Lot or Batch Number Manufacturing Date Expiration Date Distinct Identification Code MRI Safety Implantable Status Assigning Authority Unknown [id number] Unknown Unknown 07/22/25 Unknown Unknown Active Unknown History and physical note * Event Display: History and Physical Hospital Authored Date: Hospital Progress note * Bradley Martinez MD: PERFORM, SIGN, VERIFY Event Display: Progress Note Hospital Authored Date: [id number] Patient: [address] Age: 53 years Sex: Female : 1970 Associated Diagnoses: None Author: Bradley Martinez MD Health Status Problem list All Problems Obese class I / SNOMED CT [id number] / Confirmed Allergies Allergic Reactions (Selected) Severity Not Documented Bactrim- Hives. Cortisone- Big hives swelling and itching. Cymbalta- Dizzy and vomiting. Gabapentin- Sob and chest pain. Lyrica- Tachycardia,hives. Morphine- Sob. Motrin- Vomiting. Naprosyn- Vomiting. NSAIDs- Hives. Prozac- Vomiting. RaNITIdine- Nausea and vomiting. Soma- Palpitations. SulfADIAZINE- Hives. Tegaderm- Rash. Toradol- Dyspnea. Ultram- Vomiting, sob. Wellbutrin- Vomiting. Zoloft- Vomiting. Patient With a good appetite. Ambulating to bathroom. Voiding spontaneously. Incision pain is improved Results Review Vital Signs Vitals : VITALS 07/14/2023 7:33 EST Temperature 98.2 DegF Pulse Rate 87 bpm Respiratory Rate 18 br/min Systolic Blood Pressure 103 mm Hg Diastolic Blood Pressure 65 mm Hg Physical Examination Neurologic Status alert appropriate. Motor Exam intact distally. DTR's Clonus is: absent. Incision Appears clean, dry, and intact. Impression and Plan Plan for D/C home when ambulating and eating * Mayela Dolan RN: PERFORM, SIGN, VERIFY Event Display: Progress Note Hospital Authored Date: Patient: [address] Age: 53 years Sex: Female : 1970 Associated Diagnoses: None Author: Mayela Dolan RN Findings Assumed care of pt at 1830. Pt a/ox4, ambulates independently, reports 10/10 pain to neck and throat. 0.2mg of IV Dilaudid given with little effect. Paged covering [facility] provider MARIELLA Fisher, increased IV Dilaudid to 0.5mg q3h and ordered Chloraseptic spray/lozenge. Meds administered with good effect. Pt requesting 1mg of Klonopin which she takes daily, covering provider made aware, ordered and given. Dressing to anterior neck c/d/i. Cervical collar in place. Note * Maria R Elliott RN: PERFORM Event Display: Discharge/Transfer Note Hospital Authored Date: Nursing Discharge Note Entered On: 07/14/2023 9:22 EST Performed On: 07/14/2023 9:21 EST by Maria R Elliott RN Nursing Discharge Note 2 Discharge Time : 07/14/2023 9:20 EST Discharge Level of Care at Discharge : Home/Prison/Foster Care Patient Left Unit Via : Wheelchair Patient Accompanied Off Unit with : Responsible adult DC Instructions Provided & Signed by Pt : Yes Patient Understands D/C Instructions : Yes Patient Instructions Discharge Signed : Yes Discharge Comments : IV dc'd with the tip intact Did Pt have Specialty Bed or Wound Vac : No Maria R lEliott RN - 07/14/2023 9:21 EST * Maria R Elliott RN: PERFORM Event Display: Patient Education/Instruction Authored Date: [id number] Inpatient Adult Discharge Instructions. [address] [address] Name: [address] : 1970?? Visit: 07/13/2023 09:34?? Current Date: 07/14/2023 08:48 ?? Account: [id number]?? Inpatient Adult Discharge Instructions We would like to thank you for allowing us to assist you with your healthcare needs. The following includes patient education materials and information regarding your injury/illness. Our entire staffstrives to provide an excellent experience for our patients and their families. PLEASE ENSURE YOU FOLLOW-UP PER THE INSTRUCTIONS BELOW! ?? YOUR OPINION IS IMPORTANT TO US! Please complete the survey you may receive by mail or email. Your feedback will be used to make improvements to the healthcare experiences of our patients and their families. Surveys are administered by [employer] ?? If further treatment with your primary care physician or another doctor is recommended, it is important for you to keep the appointment. Call your primary care physician or return to the Emergency Department immediately if your condition worsens, fails to improve, or new symptoms develop. If you need to find a doctor, you can call [facility] for a referral at [phone] or toll free at [phone]) or log in to [email or web address].. ?? [facility], in keeping with [facility] guidance, no longer requires face masks for staff, patientsor visitors in most situations. Similiar to time spent indoors at other locations, there is the chance that you were exposed to repiratory viruses during your time with us (such as flu or COVID-19). If you develop symptoms concerning for a viral respiratory infection, please seek testing (and treatment if indicated) from your medical provider or home test kit. ?? You can view and manage your care through the patient portal or by using a health care tim of your choosing. [employer] is a website that allows you to securely view your medical information including your hospital discharge summary, office visit summaries, medications and follow-up visits. You can also request appointments, renew medications, and request access to your medical information using a health care tim of your choosing, or just ask a question. You can enroll at [email or web address] or register during your next office visit. You have been discharged from [facility], Patient Care Unit: S3??. If you have any questions regarding these instructions, including results of studies pending, afteryou leave, please call us and we will be happy to assist you 01/12. [facility] Your Care Team Attending Physician Bradley Martinez MD?? Consulting Providers rBadley Martinez MD?? Discharging Providers Bradley Martinez MD Your Diagnosis Cervical spinal stenosis Tests Performed Below is a partial list of the tests performed during your hospitalization. You may have had other tests and procedures not included in this list. Please discuss all test results with your provider. GLUCOSE POC XR C-Arm > 1 Hour XR Cervical Spine 3 Views or Less No tests performed during this visit.?? Primary Care Provider Kiya Alvarado MD, Carmita Cook? Advance Directive Health Care Proxy on File No Discharge Vitals Temperature: 98.2 DegF Height: 163 cm Pulse Rate: 87 bpm Weight: 89 kg Respiratory Rate: 18 br/min Body Mass Index:??33.5 kg/m2??Critical Systolic Blood Pressure: 103 mm Hg Body surface area: 2.01 Diastolic Blood Pressure: 65 mm Hg ?? Oxygen Saturation: 94 % ?? Studies Pending All studies ordered during this hospital stay have been completed unless listed below. Please discuss all pending results with your provider listed above in these instructions. ?? No incomplete studies found?? What to do next Instructions From Your Doctor ?? Orders?? , ??07/14/23 8:39:00 EST?? Discharge Medications [address] :1970 Visit Date:07/13/2023 Medications: Please continue your medications until treatment is completed or stopped by your provider. Medications not listed below should be discontinued. Discuss any questions related to medications with your provider. What How Much When Instructions Next Dose Unchanged Albuterol (albuterol 0.083% inhalation solution) 3 Milliliter Inhalation Every 6 hours as needed for wheezing as needed Unchanged Albuterol (albuterol 200 mcg inhalation capsule) 1 Each 4 times a day as needed for as needed for wheezing as needed Unchanged Atorvastatin (atorvastatin 10 mg oral tablet) 2 tab(s) Oral Daily Today Unchanged Cholecalciferol (cholecalciferol 1000 intl units oral capsule) 1 capsule Oral Daily Today Unchanged Clonazepam (Klonopin Tablet) 1 Milligram Oral Twice a day 1 tab in am and 2 tabs at bedtime ?? Today Unchanged Ergocalciferol (Vitamin D 04635 iu oral capsule) 50,000 International Unit Oral Every week resume home schedule Unchanged Fluticasone (Flovent Rotadisk) 250 Microgram Inhalation Twice a day as needed for as needed for wheezing as needed Unchanged Levothyroxine (levothyroxine 125 mcg (0.125 mg) oral tablet) 1 tab(s) Oral Daily Today Unchanged Lisinopril (lisinopril 10 mg oral tablet) 1 tab(s) Oral Daily Today Unchanged Mirtazapine (Remeron 15 mg oral tablet) 1 tab(s) Oral Daily at Bedtime 3/5 bedtime Unchanged Omeprazole (Prilosec OTC) 20 Milligram Oral Daily Today Unchanged Ondansetron (ondansetron 4 mg oral tablet) 1 tab(s) Oral Every 8 hours Pickup at [facility] 3 as needed Unchanged Oxycodone (oxyCODONE 5 mg oral tablet) See instructions 1 tablet By Mouth Every 4-6 hours, As needed for as needed for pain ?? Pickup at [facility] 3 Last dose 07 Unchanged Promethazine (Phenergan 25 mg/ mL injectable solution) 12.5 Milligram Intramuscular Daily at Bedtime 3/5 Bedtime Unchanged Sumatriptan (Imitrex 100 mg oral tablet) 1 tab(s) Oral Daily as needed for for migraine headache may repeat dose after 2 hours up to a maximum of 2 ?? as needed Unchanged Verapamil (verapamil 120 mg oral tablet, extended release) 1 tab(s) Oral Daily Today [facility] Information [facility]: [address] [place], [place] [id number] [phone] Prescription Given During Visit Ondansetron (ondansetron 4 mg oral tablet) - 1 tablet = 4 mg, By Mouth, Every 8 hours, # 12 tablet,0 Refills, [facility], [address] [place] [phone]?? Oxycodone (oxyCODONE 5 mg oral tablet) - , # 42 tablet, 0 Refills, 1 tablet By Mouth Every 4-6 hours, [facility], [address] [place] [id number]?? Laboratory Results Below is a partial list of the most recent Laboratory test results done prior to this discharge. You may have had other tests and procedures not included in this list. Please discuss all test resultswith your provider. GLUCOSE POC (07/13/2023) ???Glucose, POC - 133 mg/dL Allergies (NKA means No Known Allergies) Bactrim??(hives) Cymbalta??(Dizzy, Vomiting) Lyrica??(tachycardia,hives) Motrin??(vomiting) NSAIDs??(Hives) Naprosyn??(vomiting) Prozac??(vomiting) Soma??(PALPITATIONS) Tegaderm??(RASH) Toradol??(dyspnea) Ultram??(VOMITING, SOB) Wellbutrin??(vomiting) Zoloft??(vomiting) cortisone??(big hives swelling and itching) gabapentin??(chest pain, sob) morphine??(SOB) raNITIdine??(Nausea and vomiting) sulfADIAZINE??(Hives) Problems Active Problems??(1) Obese class I?? Education Materials Below is the list of Educational Leaflet Providered with your Discharge Instructions. [employer] Patient Education - Orthopedics-Anterior Cervical Discectomy- Cervical Fusion-Or Scrub Tech?? Valuables and Belongings I fully understand and agree that [facility] accepts no responsibility for all my personal property including clothing, toilet articles, radios, jewelry, dentures, hearing aids, rings, money, or any other property that is in my possession or is brought to me after admission. I understand certain valuables may be placed in a hospital safe for a short period of time. I understand that the hospital is not liable for loss or damage due to accident, fire, or other natural occurrence while said property is in the safe. I accept full responsibility for any personal property that I keep with me, and will not hold the hospital responsible in case of loss or disappearance. I acknowledge that i have been encouraged to send valuables and belongings home. ?? Review of Valuable and Belonging List: With patient Date for Pt to Sign Valuables/Belongings: 07/14/23 07:33:00 ?? Other Discharge Information ? Pulmonary Rehab Status?? Pulmonary Rehab Discharge Status?? Respiratory Rate: 18 br/min ? Common Emergency Awareness Tips IS IT A STROKE? Act FAST and Check for these signs: FACE Does the face look uneven? ARM Does one arm drift down? SPEECH Does their speech sound strange? TIME Call at any sign of stroke ?? Heart Attack Signs Chest discomfort: Most heart attacks involve discomfort in the center of the chest and lasts more than a few minutes, or goes away and comes back. It can feel like uncomfortable pressure, squeezing, fullness or pain. Discomfort in upper body: Symptoms can include pain or discomfort in one or both arms, back, neck, jaw or stomach. Shortness of breath: With or without discomfort. Other signs: Breaking out in a cold sweat, nausea, or lightheaded. Remember, MINUTES DO MATTER. If you experience any of these heart attack warning signs, call to get immediate medical attention! ?? Smoking can increase your chances of developing chronic health problems and can cause harmful effects to other family members in your house. If you smoke, you are strongly encouraged to quit. Please call [employer] at [phone] or [phone] ([phone]) or log in to [email or web address] for referrals to smoking cessation programs. ?? 495 Suicide & Crisis Lifeline is available 01/12 if you or someone you know needs to find a reason to keep living. By calling 154 you'll be connected to a skilled, trained counselor at a crisis center in your area. INPATIENT DISCHARGE INSTRUCTIONS SIGNATURE PAGE [address] Location:[facility] Registration Date and Time:07/13/2023 09:34 EST Primary Care Physician: Kiya Alvarado MD, Carmita Cook, Attending Physician: Juan MILLER, Bradley Rodriguez, I [address], have received the above patient education materials/instructions and have verbalized understanding. If ambulance or transport services are being used I further acknowledge being given a choice of service. ?? If you need to contact me, please call me at this number: . Patient/Financial Reporting Accountant Name: Patient/Financial Reporting Accountant Signature: Relationship to Patient: Witness Name/Signature: Date: * Maria R Elliott RN: PERFORM Event Display: Patient Education Leaflets Authored Date: [id number] Orthopedics-Anterior Cervical Discectomy-Cervical Fusion-Or Scrub Tech ?? 226 Anterior Cervical Discectomy/ Cervical Fusion/ Posterior Cervical Decompression ?? Activity as tolerated, let pain be your guide. ?? Change dressings each day. ?? You should contact your physician if you experience any of the following: new pain, weakness, or new numbness which persists, increased redness, swelling, or drainage from incision, pain persisting more than 2 days requiring bed rest. ?? Riding in car is permissible but avoid driving yourself until cleared by your doctor. ?? Shower instructions: shower without collar, change bandage after. ?? Dressing instructions: leave steri-strips in place (white tape on skin); they will fall off on own. ?? Dressing instructions: dressing should be removed 24 hours after discharge. ?? Dressing instructions: keep dressing clean and dry except showers. ?? Return to work instructions: you should speak with your physician regarding when you can return to work. ?? Activity instructions: you may walk, climb stairs and do light activity as tolerated. ?? Activity instructions: no lifting more than 10 pounds or any heavy pushing or pulling. ?? Sexual activity: consult with your MD when to resume sexual activity. ?? You should contact your physician if you experience any of the following: increased temperature, headaches, difficulty breathing or swallowing, difficulty controlling urination or bowel movements. ?? If you have any questions, please call [phone]. ?? Try to taper pain medication use, particularly during the day. If you have questions, please call [phone]. ? Patient Care team information Care Team Personnel Name: Kiya Alvarado MD, Carmita Cook Position: [facility] Outreach Member Role: PCP Address: Address: [address] [place] [address] [address] [place] [address]- Name: Kelsi HUGHES, Mayela Position: [facility] RN Member Role: Primary Care Nurse Name: Geneva Diaz RN Position: [facility] SN RN Member Role: Primary Care Nurse Care Team Related Persons Name: PATSY ROSENBERG Address: [address] [place] [address] Name: LISA BLACKWELL Address: home [address] [place] [address] [address] [place] [address]
[2023-09-03 16:43] LABS: Basophils Absolute Auto 0.1 X10*3/uL (0.0-0.2); Basophils Percent Auto 0.5 % (0-2); Eosinophils Absolute Auto 0.2 X10*3/uL (0.0-0.4); Eosinophils Percent Auto 1.5 % (0-4); Hematocrit 48.7 % (37.0-47.0); Hemoglobin 15.7 g/dl (12.0-16.0); Imm Gran Abs Auto 0.04 X10*3/uL (0.00-0.03); Imm Gran Pct Auto 0.3 % (0.0-0.4); Lymphocytes Absolute Auto 4.3 X10*3/uL (1.2-4.9); Mean Corpuscular HGB Conc 32.2 g/dl (31.0-35.0); Mean Corpuscular Hemoglobin 28.7 pg (27.0-33.0); Mean Platelet Volume 9.5 fL (9.4-12.3); Monocytes Absolute Auto 0.7 X10*3/uL (0.1-1.2); Monocytes Percent Auto 4.9 % (2-11); Neutrophils Absolute Auto 9.5 x10*3/uL (2.0-8.3); Neutrophils Percent Auto 63.8 % (45-73); Platelet Count 322 X10*3/uL (160-400); Red Blood Count 5.47 X10*6/uL (4.20-5.50); Red Cell Distribution Width 14.4 % (11.0-16.0); White Blood Count 14.8 X10*3/uL (4.8-10.8)
[2023-09-03 16:58] LABS: Alanine Aminotransferase 23 U/L (0-31); Albumin Level 4.4 g/dL (3.5-5.0); Alkaline Phosphatase 156 U/L (39-117); Anion Gap 9 (12-20); Aspartate Amino Transferase 17 U/L (5-31); Bilirubin Total 0.4 mg/dL (0.0-1.0); Blood Urea Nitrogen 9 mg/dL (9-16); Calcium 9.7 mg/dL (8.4-10.2); Carbon Dioxide 31 mmol/L (22-29); Chloride 106 mmol/L (96-108); Creatinine Clr Calc Pharmacy 97.9; Estimated Glomerular Filt Rate > 60; Glucose Random 117 mg/dL (60-115); Potassium 3.5 mmol/L (3.3-5.1); Sodium 142 mmol/L (135-145); Total Protein 7.6 g/dL (6.5-8.0)
[2023-09-03 17:08] LABS: IDNOW Serial# 08D9AD1C; Strep A Nucleic Acid Negative (Negative)
[2023-09-03 17:22] LABS: Influenza A PCR NEGATIVE (Negative); Influenza B PCR NEGATIVE (Negative); Resp Syncy Virus RNA Qual PCR NEGATIVE (Negative); SARS COV2 PCR INHOUSE NEGATIVE (Negative)
[2023-09-03 18:12] VITALS: BP 135/65; PULSE 88; RESP 20; TEMP 36.6; O2SAT 98
== END 2023-09-03 18:13 | disposition home or self-care (01) ==
PROVIDERS: Registered Nurse Emergency; Emergency Provider Emergency Medicine; PCP Internal Medicine
DX: J02.9 Acute pharyngitis, unspecified (principal); R13.10 Dysphagia, unspecified; M54.2 Cervicalgia; Z11.52 Encounter for screening for COVID-19; Z20.822 Contact with and (suspected) exposure to COVID-19; Z79.899 Other long term (current) drug therapy
CPT/HCPCS: 0241U; 80053; 85025; 87651; 99283; 99284

== ENCOUNTER 2023-09-15 14:47 | Outpatient (REF) | payer MEDICAID, SELFPAY ==
[2023-09-15 15:11] LABS: Baso%MD 0.7 %; Eos%MD 2.1 %; Hematocrit 43.8 % (37.0-47.0); Hemoglobin 14.4 g/dl (12.0-16.0); IG%MD 0.3 %; Lymph%MD 26.7 %; Mean Corpuscular HGB Conc 32.9 g/dl (31.0-35.0); Mean Corpuscular Hemoglobin 29.3 pg (27.0-33.0); Mean Platelet Volume 9.9 fL (9.4-12.3); Mono%MD 3.6 %; Neut%MD 66.6 %; Platelet Count 306 X10*3/uL (160-400); Red Blood Count 4.92 X10*6/uL (4.20-5.50); Red Cell Distribution Width 14.4 % (11.0-16.0); White Blood Count 11.4 X10*3/uL (4.8-10.8)
[2023-09-15 15:38] LABS: Alanine Aminotransferase 41 U/L (0-31); Albumin Level 4.3 g/dL (3.5-5.0); Alkaline Phosphatase 155 U/L (39-117); Anion Gap 14 (12-20); Aspartate Amino Transferase 21 U/L (5-31); Bilirubin Total 0.4 mg/dL (0.0-1.0); Blood Urea Nitrogen 8 mg/dL (9-16); Calcium 9.5 mg/dL (8.4-10.2); Carbon Dioxide 25 mmol/L (22-29); Chloride 106 mmol/L (96-108); Estimated Glomerular Filt Rate > 60; Glucose Random 139 mg/dL (60-115); Potassium 3.7 mmol/L (3.3-5.1); Sodium 141 mmol/L (135-145); Total Protein 7.3 g/dL (6.5-8.0)
[2023-09-15 16:25] LABS: Basophils Abs Manual 0.1 X10*3/uL (0.0-0.2); Basophils Percent Manual 1 % (0-2); Lymphocytes Absolute Manual 2.7 X10*3/uL (1.2-4.9); Lymphocytes Percent Manual 24 % (20-40); Monocytes Absolute Manual 0.2 X10*3/uL (0.1-1.2); Monocytes Percent Manual 2 % (2-11); Neutrophils Percent Manual 73 % (45-73)
[2023-09-15 16:26] LABS: RBC Morphology NORMAL
[2023-09-15 16:27] LABS: Giant Platelet PRESENT; Large Platelet PRESENT; Platelet Estimate NORMAL (NORMAL); Platelet Morphology Comment NOTED; Spherocytes 2+ (3-5) /OIF; Toxic Granulation PRESENT
[2023-09-15 16:34] LABS: Estimated Glomerular Filt Rate > 60
[2023-09-15 19:03] LABS: Band Neutrophils Percent 0 % (3-5); Neutrophils Absolute Manual 8.3 X10*3/uL (2.0-8.3)
== END 2023-09-15 14:48 | disposition home or self-care (01) ==
LOC: HO.LAB 14:47
PROVIDERS: Internal Medicine Medical Oncology
DX: D72.829 Elevated white blood cell count, unspecified (principal); N18.9 Chronic kidney disease, unspecified
CPT/HCPCS: 36415; 80053; 82565; 85007; 85027

== ENCOUNTER 2023-10-09 12:24 | Emergency (ER) | payer MEDICAID, SELFPAY ==
--- NOTE | ~2023-10-09 | CT_ITS ---
EXAMINATION: CT ABDOMEN AND PELVIS WITH CONTRAST CLINICAL INFORMATION: Right-sided pain. Diarrhea. COMPARISON: CT scan abdomen pelvis July 01, 2019 TECHNIQUE: Multidetector volumetric images were obtained from the superior aspect of the liver through the pubic symphysis following administration 85 mL of Omnipaque 350 intravenous contrast. Sagittal and coronal reformatted images were obtained on the technologist's workstation. Oral contrast: No This CT examination was performed using dose optimization techniques as appropriate, variously including the following: *Automated exposure control *Adjustment of mA and/or kV according to patient size (this includes techniques or standardized protocols for targeted exams where dose is matched to indication/reason for exam; i.e. extremities or head) *Use of iterative reconstruction technique DLP: 745 mGy-cm FINDINGS: LUNG BASES: The visualized lung bases are unremarkable. LIVER, GALLBLADDER, AND BILIARY TREE: The liver is normal in size, shape, and attenuation. No focal hepatic lesion or biliary ductal dilatation is present. The gallbladder is unremarkable with no evidence of radiopaque gallstones, gallbladder wall thickening, or obvious pericholecystic inflammatory changes. PANCREAS: Unremarkable. SPLEEN: Unremarkable. ADRENAL GLANDS: Unremarkable. KIDNEYS AND URETERS: The kidneys are normal in size, shape, and attenuation. No hydronephrosis, hydroureter, or calculi seen. No perinephric stranding. BLADDER: Unremarkable. GASTROINTESTINAL TRACT: There are a few scattered diverticula of the colon. There is no diverticulitis. There is no bowel wall thickening /edema. There is no bowel obstruction. There is a moderate volume of stool in the colon. The appendix is normal . The small bowel loops are unremarkable. The stomach is normal. There is no hiatal hernia. ABDOMINAL WALL: No significant hernia is appreciated. LYMPH NODES: Normal. VASCULAR: Scattered vascular calcifications of aorta and iliac arteries. There is no aneurysm. PELVIC VISCERA: Status post hysterectomy. OSSEOUS STRUCTURES: Unremarkable. CT/CT abdomen pelvis w IV con IMPRESSION: No acute abnormality CT scan abdomen pelvis. Fleischner guidelines were followed.
[2023-10-09 12:26] VITALS: BP 150/99; PULSE 109; RESP 20; TEMP 36.7; O2SAT 98; BMI 33.0
--- NOTE | 2023-10-09 12:29 | ED.NAVMDI ---
HPI - Nausea/Vomiting/Diarrhea General Chief complaint: Abdominal Pain Stated complaint: vomiting diaherra Time Seen by Provider: 10/09/23 14:59 Source: patient and old records reviewed Mode of arrival: ambulatory Limitations: no limitations History of Present Illness ED Provider: JOSUE WHYTE Narrative: 53 yo male with PMH of GERD, IBS, delayed gastric emptying, chronic oxycodone use, asthma, HTN, fibromyalgia, HLD here with c/o having a diarrhea episode on Thursday but only one. On Thursday her mom made sound ground meat and afterwards the patient noted abdominal pain cramps nausea vomiting and diarrhea - nonbloody not black. No one else was sick. Since then she has diarrhea all the time even incontinent in her sleep. No travel, antibiotic use. No hx of diverticulitis/colitis. MD elicited complaint: nausea, vomiting, diarrhea and abdominal pain Onset (ago): day(s) (3) Description of vomiting: watery Description of diarrhea: mucus, watery and loose Associated nausea: Yes Associated abdominal pain: Yes Location of pain: diffuse Radiation: diffuse Pain consistency: intermittent Severity: moderate Quality: cramping Exacerbating factors: eating Relieving factors: none Context: possible food poisoning Associated symptoms: loss of appetite, malaise and nausea/vomiting Treatment prior to arrival: immodium Related Data Home Medications ?Medication ?Instructions ?Recorded ?Confirmed albuterol sulfate 90 mcg/actuation 2 puff inhalation Q6H PRN 10/11/21 06/16/23 aerosol inhaler Shortness Of Breath Or Wheezing atorvastatin 20 mg tablet 20 mg PO .DAILY @ 1600 10/11/21 06/16/23 cholecalciferol (vitamin D3) 125 125 mcg PO DAILY 10/11/21 06/16/23 mcg (5,000 unit) tablet clonazepam 1 mg tablet (Klonopin) 1 mg PO BID 10/11/21 06/16/23 fluticasone propionate 250 1 inh inhalation BID 10/11/21 06/16/23 mcg/actuation blister powder for inhalation (Flovent Diskus) levothyroxine 125 mcg tablet 125 mcg PO DAILY 10/11/21 06/16/23 (Levoxyl) sumatriptan succinate 100 mg 100 mg PO Q2-4H PRN Headache 10/11/21 06/16/23 tablet (Imitrex) doxylamine succinate 25 mg tablet 25 - 50 mg PO BEDTIME PRN Insomnia 05/06/22 06/16/23 (Sleep Aid (doxylamine)) lisinopril 20 mg tablet 20 mg PO DAILY 05/06/22 06/16/23 mirtazapine 7.5 mg tablet 7.5 mg PO BEDTIME 05/06/22 06/16/23 verapamil 180 mg 24 hr 180 mg PO .DAILY @ 1600 05/06/22 06/16/23 capsule,extended release zinc 50 mg tablet 50 mg PO BID 05/06/22 06/16/23 loratadine 10 mg tablet (Claritin) 10 mg PO DAILY 05/13/23 06/16/23 oxycodone 5 mg tablet 5 mg PO TID PRN Pain 05/13/23 06/16/23 Previous Rx's ?Medication ?Instructions ?Recorded loperamide 2 mg capsule (Imodium 2 mg PO Q2H PRN loose stool #60 07/04/22 A-D) caps sennosides 8.6 mg capsule (senna) 17.2 mg (2 x 8.6 mg) PO BEDTIME 03/03/23 PRN Constipation #60 caps simethicone 180 mg capsule 180 mg PO QID 30 days #120 caps 03/03/23 metoclopramide HCl 5 mg tablet 5 mg PO TID #90 tabs 06/08/23 omeprazole 20 mg capsule,delayed 20 mg PO BID #60 caps 07/06/23 release Allergies Allergy/AdvReac Type Severity Reaction Status Date / Time carisoprodol [From Soma] Allergy Severe SHORTNESS Verified 10/09/23 12:30 OF BREATH,VOMITING duloxetine [Cymbalta] Allergy Severe Nausea and Verified 10/09/23 12:30 Vomiting gabapentin [From NEURONTIN] Allergy Severe RASH,HIVES Verified 10/09/23 12:30 ibuprofen [From Motrin] Allergy Severe VOMITING Verified 10/09/23 12:30 ketorolac Allergy Severe Shortness Verified 10/09/23 12:30 of Breath morphine [Morphine] Allergy Severe SHORTNESS Verified 10/09/23 12:30 OF BREATH naproxen [From Naprosyn] Allergy Severe VOMITING Verified 10/09/23 12:30 oxybutynin Allergy Severe Nausea and Verified 10/09/23 12:30 Vomiting pregabalin [From LYRICA] Allergy Severe HYPER AND Verified 10/09/23 12:30 PANIC ATTACK ranitidine [RANITIDINE] Allergy Severe TACHYCARDIA Verified 10/09/23 12:30 sulfamethoxazole Allergy Severe VOMITING,RASH, Verified 10/09/23 12:30 [From BACTRIM] hives tramadol Allergy Severe Shortness Verified 10/09/23 12:30 of Breath trimethoprim [From BACTRIM] Allergy Severe VOMITING,RASH, Verified 10/09/23 12:30 hives cortisone [CORTISONE] Allergy Intermediate ITCHING,JANAE Verified 10/09/23 12:30 H Sulfa (Sulfonamide Allergy Intermediate VOMITING/RASH, Verified 10/09/23 12:30 Antibiotics) hives transparent dressing Allergy Rash Verified 10/09/23 12:30 [Tegaderm] dicyclomine AdvReac Severe Palpitation Verified 10/09/23 12:30 s Tricyclic Antidepressants AdvReac Severe VOMITING Verified 10/09/23 12:30 and Tricy from ALL [Tricyclic Compounds] ANTIDEPRESSANTS, palpitations all antidepressants except Allergy Severe Nausea and Uncoded 06/16/23 13:49 Rem Vomiting milk, yogurt, dairy Allergy Severe Diarrhea, Uncoded 06/16/23 13:49 vomitting Review of Systems Review of Systems: Constitutional : No Weight loss, No Fever, No Chills ENT/Mouth : No sore throat, No Rhinorrhea Eyes: No Swelling, No Redness Cardiovascular : No Chest Pain, No SOB, NoEdema Respiratory : No Cough, No Sputum, No Wheezing Gastrointestinal : Positive Nausea, Positive Vomiting, positive Diarrhea, positive abdominal Pain, No Hematochezia, No Melena Genitourinary : No Dysuria, No Urinary Frequency, No Hematuria, No Urgency Musculoskeletal : No joint pain, No Myalgias, No Joint Swelling Skin : No Skin Lesions, No rash Neuro : No Weakness, No Numbness, No Dizziness, No Headache Psych : No Anxiety/Panic, No Depression Heme/Lymph: No Bruising, No Lymphadenopathy Endocrine : No Polyuria, No Polydipsia All other systems reviewed and are negative. Gastrointestinal: Gastrointestinal: Reports nausea PMFSH Past Medical History Attestation statement: The following information was validated with the patient. Source: old records reviewed Medical History Thyroid disease Migraines Elevated cholesterol Fibromyalgia Hypoglycemia Asthma Hypertension Surgical History H/O neck surgery H/O knee surgery Carpal tunnel syndrome History of partial hysterectomy Endometriosis determined by laparoscopy Family History Family History Mother Diabetes Hypertension Heart abnormality Father No problems noted. Father No problems noted. Social History Social History Household Members: None Housing: Apartment Do you presently have visiting nurse or other home services: No Alcohol intake: never Patient Tobacco Use Status: Current everyday Tobacco user Tobacco use type: Cigarette Years Smoked: 26 Smoked in Last 30 Days: Yes Use of substances other than those prescribed or required for medical reasons: No Advance Directives: No Advance Directives Information Provided: No Do you have a plan to hurt others: No Plan service: No Physical Exam Vital Signs: Vital Signs: Last Vital Signs Temp 98.1 F 10/09/23 12:26 Pulse 90 10/09/23 14:48 Resp 19 10/09/23 14:48 BP 135/76 10/09/23 14:48 Pulse Ox 97 10/09/23 14:48 O2 Del Method Room Air 10/09/23 14:48 BMI result Body Mass Index 33.0 Appearance: Alert. Oriented X3. No acute distress. Eyes: Pupils equal, round and reactive to light. ENT: Pharynx normal. Neck: Normal inspection. Neck supple. CVS: Normal heart rate and rhythm. Pulses normal. Respiratory: No respiratory distress. Breath sounds normal. Abdomen: Soft and moderate ttp in lower abdomen no rebound Skin: Skin warm and dry. Normal skin color. Normal skin turgor. Extremities: No lower extremity edema. No calf ttp Neuro: Oriented X 3. No motor deficit. No sensory deficit. Course Course Course Narrative: This is a Rapid Medical Examination (RME) performed by Thuy Gupta PA-C in triage. Full HPI, ROS, assessment and treatment plan per primary provider in the Main ED. 53 yo female hx of GERD, IBS, delayed gastric emptying, lipoma, chronic narcotic use, HTN, fibromyalgia, pyelonephritis here w/ N/V/D x5 days. states stool is watery and looks like im peeing . cannot tolerate PO intake. endorses assoc 7/10 epigastric abd pain. no known sick contacts. no new medications. denies recent travel. denies etoh consumption. denies fever, chills, constipation, dysuria, hematuria. Plan: labs, UA, viral serology, GI penel, cdiff ordered Reevaluation(s) Reevaluation #1: signed out to Dr. Brian pending further workup Medications Administered Generic Name Dose Route Start Last Admin Trade Name Freq PRN Reason Stop Dose Admin Sodium Chloride 1,000 mls @ 999 mls/hr 10/09/23 15:00 10/09/23 15:17 Ns IV 10/09/23 16:00 999 mls/hr .Q1H1M ONE Administration Sodium Chloride 1,000 mls @ 999 mls/hr 10/09/23 15:04 10/09/23 15:17 Ns IV 10/09/23 16:04 999 mls/hr .Q1H1M ONE Administration Discontinued Medications Generic Name Dose Route Start Last Admin Trade Name Freq PRN Reason Stop Dose Admin Ondansetron HCl 4 mg 10/09/23 15:00 10/09/23 15:14 Ondansetron Hcl 4 Mg/2 Ml Vial IVPUSH 10/09/23 15:01 4 mg ONCE ONE Administration Oxycodone HCl 10 mg 10/09/23 15:04 10/09/23 15:13 Oxycodone Hcl Immed Release 5 Mg Tablet PO 10/09/23 15:05 10 mg ONCE ONE Administration Medical Decision Making Medical Decision Making [facility] Narrative: 53 yo male with PMH of GERD, IBS, delayed gastric emptying, chronic oxycodone use, asthma, HTN, fibromyalgia, HLD here with c/o abdominal pain diarrhea n/v since Thursday no travel, antibiotic use was present prior to food exposure but worsened. At this time labs, CT scan, IVF, zofran oral pain medication. Differential Diagnosis Differential Diagnoses: The differential diagnosis associated with the presentation includes diverticulitis, colitis, enteritis Admission/Observation Consideration of admission/observation: Escalation of care including admission/observation considered Lab Data [facility] Lab Attestation statement: I reviewed the patient's lab results. 10/09/23 13:02 10/09/23 13:02 Labs: Lab Results 10/09/23 Range/Units 13:02 WBC 14.4 H (4.8-10.8) X10*3/uL RBC 5.12 (4.20-5.50) X10*6/uL Hgb 15.0 (12.0-16.0) g/dl Hct 46.0 (37.0-47.0) % MCV 89.8 (80.0-98.0) fL MCH 29.3 (27.0-33.0) pg MCHC 32.6 (31.0-35.0) g/dl RDW 14.5 (11.0-16.0) % Plt Count 309 (160-400) X10*3/uL MPV 9.9 (9.4-12.3) fL Immature Gran % (Auto) 0.2 (0.0-0.4) % Neut % (Auto) 62.5 (45-73) % Lymph % (Auto) 29.5 (20-40) % Dade % (Auto) 5.8 (2-11) % Eos % (Auto) 1.4 (0-4) % Baso % (Auto) 0.6 (0-2) % Lymph # (Auto) 4.3 (1.2-4.9) X10*3/uL Dade # (Auto) 0.8 (0.1-1.2) X10*3/uL Eos # (Auto) 0.2 (0.0-0.4) X10*3/uL Baso # (Auto) 0.1 (0.0-0.2) X10*3/uL Abs Immat Gran (auto) 0.03 (0.00-0.03) X10*3/uL Absolute Neuts (auto) 9.0 H (2.0-8.3) x10*3/uL Absolute Nucleated RBC 0.000 (0.0-0.012) X10*3/uL Nucleated RBC % (auto) 0.0 (0.0-0.2) /100WBC Sodium 142 (135-145) mmol/L Potassium 3.3 (3.3-5.1) mmol/L Chloride 107 (96-108) mmol/L Carbon Dioxide 25 (22-29) mmol/L Anion Gap 13 (12-20) BUN 8 L (9-16) mg/dL Creatinine 0.72 (0.5-1.4) mg/dL Estim Creat Clear Calc 95.4 Estimated GFR > 60 Random Glucose 101 (60-115) mg/dL Calcium 9.4 (8.4-10.2) mg/dL Magnesium 1.9 (1.6-2.6) mg/dL Total Bilirubin 0.3 (0.0-1.0) mg/dL AST 19 (5-31) U/L ALT 49 H (0-31) U/L Alkaline Phosphatase 166 H (39-117) U/L Total Protein 7.1 (6.5-8.0) g/dL Albumin 4.4 (3.5-5.0) g/dL Lipase 22 (8-78) U/L Urine Color Dark Yellow Urine Appearance Cloudy Urine pH 5.5 (5.0-9.0) Ur Specific Cornish >= 1.030 H (1.005-1.025) Urine Protein Trace (Neg-Trace) mg/dL Urine Glucose (UA) Negative (Negative) mg/dL Urine Ketones Trace (Negative) mg/dL Urine Blood Small (1+) H (Negative) Urine Nitrite Negative (Negative) Ur Leukocyte Esterase Negative (Negative) Urine RBC 11-20 H (0-2) /HPF Urine WBC 0-5 (0-5) /HPF Ur Squamous Epith Cells >20 (0-2) /HPF Urine Bacteria 1+ (None Seen) Hyaline Casts 0-2 (0-2) /LPF Influenza Type A (PCR) NEGATIVE (Negative) Influenza Type B (PCR) NEGATIVE (Negative) RSV RNA Qual (PCR) NEGATIVE (Negative) SARS-CoV-2 RNA (RT-PCR) NEGATIVE (Negative) Independent Interpretation I performed an independent interpretation of an: CT Scan Radiology Impression Discussion of test interpretation with radiology: I have reviewed the radiologist's reading. Independent Historian Clinical information obtained from an independent historian. History obtained from or confirmed by: Spouse External Record Review External record reviewed: Inpatient record Discharge Plan Discharge Clinical Impression: Abdominal pain Patient Disposition: Still a Patient Prescriptions: No Action metoclopramide HCl 5 mg tablet 5 mg PO TID Qty: 90 3RF omeprazole 20 mg capsule,delayed release(DR/EC) 20 mg PO BID Qty: 60 6RF loratadine [Claritin] 10 mg Tablet 10 mg PO DAILY oxycodone 5 mg tablet 5 mg PO TID PRN (Reason: Pain) levothyroxine [Levoxyl] 125 mcg tablet 125 mcg PO DAILY clonazepam [Klonopin] 1 mg tablet 1 mg PO BID Patient Comments: 1 mg in the morning and 2 mg at bedtime sumatriptan succinate [Imitrex] 100 mg tablet 100 mg PO Q2-4H PRN (Reason: Headache) Rx Instructions: do not exceed 2 doses per 24 hrs albuterol sulfate 90 mcg/actuation HFA aerosol inhaler 2 puff inhalation Q6H PRN (Reason: Shortness Of Breath Or Wheezing) Flovent Diskus 250 mcg/actuation blister with device 1 inh inhalation BID cholecalciferol (vitamin D3) 125 mcg (5,000 unit) tablet 125 mcg PO DAILY atorvastatin 20 mg tablet 20 mg PO .DAILY @ 1600 zinc 50 mg tablet 50 mg PO BID Rx Instructions: administer on empty stomach, at least 1 hour before or after meal(s) loperamide [Imodium A-D] 2 mg capsule 2 mg PO Q2H PRN (Reason: loose stool) Qty: 60 6RF Rx Instructions: until patient has gone 12 hours without a bowel movement lisinopril 20 mg tablet 20 mg PO DAILY mirtazapine 7.5 mg tablet 7.5 mg PO BEDTIME verapamil 180 mg capsule,ext rel. pellets 24 hr 180 mg PO .DAILY @ 1600 Sleep Aid (doxylamine) 25 mg tablet 25 - 50 mg PO BEDTIME PRN (Reason: Insomnia) simethicone 180 mg capsule 180 mg PO QID 30 Days Qty: 120 6RF Rx Instructions: after meals senna 8.6 mg capsule 17.2 mg PO BEDTIME PRN (Reason: Constipation) Qty: 60 6RF Print Language: Citizen Of [place]
[2023-10-09 13:07] LABS: MANUAL DIFF FLAG NO
[2023-10-09 13:09] LABS: Basophils Absolute Auto 0.1 X10*3/uL (0.0-0.2); Basophils Percent Auto 0.6 % (0-2); Eosinophils Absolute Auto 0.2 X10*3/uL (0.0-0.4); Eosinophils Percent Auto 1.4 % (0-4); Imm Gran Abs Auto 0.03 X10*3/uL (0.00-0.03); Imm Gran Pct Auto 0.2 % (0.0-0.4); Lymphocytes Absolute Auto 4.3 X10*3/uL (1.2-4.9); Lymphocytes Percent Auto 29.5 % (20-40); Mean Corpuscular HGB Conc 32.6 g/dl (31.0-35.0); Mean Corpuscular Hemoglobin 29.3 pg (27.0-33.0); Mean Corpuscular Volume 89.8 fL (80.0-98.0); Mean Platelet Volume 9.9 fL (9.4-12.3); Monocytes Absolute Auto 0.8 X10*3/uL (0.1-1.2); Monocytes Percent Auto 5.8 % (2-11); Neutrophils Percent Auto 62.5 % (45-73); Platelet Count 309 X10*3/uL (160-400); Red Blood Count 5.12 X10*6/uL (4.20-5.50); Red Cell Distribution Width 14.5 % (11.0-16.0); White Blood Count 14.4 X10*3/uL (4.8-10.8)
[2023-10-09 13:10] LABS: Appearance Urine Cloudy; Color Urine Dark Yellow; Glucose Urine UA Negative (Negative); Leukocyte Esterase Urine Negative (Negative); Nitrite Urine Negative (Negative); PH 5.5 (5.0-9.0); Specific Gravity - Urine >= 1.030 (1.005-1.025); UMIC TRIGGER UACC YES; Urine Blood Small (1+) (Negative); Urine Ketones Trace mg/dL (Negative); Urine Protein Trace mg/dL (Neg-Trace)
[2023-10-09 13:15] LABS: Bacteria Urine 1+ (None Seen); Hyaline Casts Urine 0-2 /LPF (0-2); Squamous Epithelial Cell Urine >20 /HPF (0-2); WBC Urine 0-5 /HPF (0-5)
[2023-10-09 13:24] LABS: Alanine Aminotransferase 49 U/L (0-31); Albumin Level 4.4 g/dL (3.5-5.0); Alkaline Phosphatase 166 U/L (39-117); Anion Gap 13 (12-20); Aspartate Amino Transferase 19 U/L (5-31); Bilirubin Total 0.3 mg/dL (0.0-1.0); Blood Urea Nitrogen 8 mg/dL (9-16); Calcium 9.4 mg/dL (8.4-10.2); Carbon Dioxide 25 mmol/L (22-29); Chloride 107 mmol/L (96-108); Creatinine Clr Calc Pharmacy 95.4; Estimated Glomerular Filt Rate > 60; Glucose Random 101 mg/dL (60-115); Lipase 22 U/L (8-78); Magnesium 1.9 mg/dL (1.6-2.6); Potassium 3.3 mmol/L (3.3-5.1); Sodium 142 mmol/L (135-145); Total Protein 7.1 g/dL (6.5-8.0)
[2023-10-09 13:45] LABS: Influenza A PCR NEGATIVE (Negative); Influenza B PCR NEGATIVE (Negative); Resp Syncy Virus RNA Qual PCR NEGATIVE (Negative); SARS COV2 PCR INHOUSE NEGATIVE (Negative)
[2023-10-09 14:48] VITALS: BP 135/76; PULSE 90; RESP 19; O2SAT 97
--- NOTE | 2023-10-09 14:53 | PC.NURSE ---
Pt presents to ED from home, reports ABD pain and N/V/D (multiple episodes of each) since Thursday night. Pt reports she thinks she ate bad meat Thursday. Denies CP, SOB, fevers, cough, recent ABX use. Pt does report increase urination but little amounts. Reports poor PO intake. ABD pain in epigastric and RUQ region, 10/10, pressure. Alert and oriented, breathing even and unlabored, skin slightly clammy. VSS.
[2023-10-09] MEDS: oxyCODONE HCl Immed Release 5 MG TABLET 10 MG PO ×2 (15:13→18:41)
[2023-10-09] MEDS: ondansetron HCL 4 MG/2 ML VIAL IVPUSH (15:14)
[2023-10-09] MEDS: 0.9 % Sodium Chloride 1,000 ML 999 ML IV ×2 (15:17)
[2023-10-09] MEDS: iohexoL 350 MG/ML 100 ML INFUS..BTL IV (16:13)
[2023-10-09 16:37] VITALS: BP 115/70; PULSE 84; RESP 18; TEMP 36.5; O2SAT 98
--- NOTE | 2023-10-09 18:07 | PC.NURSE ---
Pt still unable to provide stool sample, reports she cannot go. Pain at 810 now
[2023-10-09 18:41] VITALS: BP 126/76; PULSE 79; RESP 18; TEMP 36.6; O2SAT 95
[2023-10-09 18:46] VITALS: BP 126/76; PULSE 79; RESP 18; TEMP 36.6; O2SAT 95
== END 2023-10-09 18:46 | disposition home or self-care (01) ==
PROVIDERS: Physician Assistant Medical; Emergency Provider Emergency Medicine Emergency Medical Services; PCP Internal Medicine
DX: R10.9 Unspecified abdominal pain (principal); R19.7 Diarrhea, unspecified; I10 Essential (primary) hypertension; J45.909 Unspecified asthma, uncomplicated; Z79.891 Long term (current) use of opiate analgesic
CPT/HCPCS: 0241U; 74177; 80053; 81001; 83690; 83735; 85025; 96361; 96374; 99284; 99285; J2405; Q9967

== ENCOUNTER 2023-10-16 15:35 | Outpatient (REF) | payer MEDICAID, SELFPAY ==
[2023-10-16 16:01] LABS: MANUAL DIFF FLAG NO
[2023-10-16 16:08] LABS: Basophils Absolute Auto 0.1 X10*3/uL (0.0-0.2); Basophils Percent Auto 0.6 % (0-2); Eosinophils Absolute Auto 0.3 X10*3/uL (0.0-0.4); Eosinophils Percent Auto 1.9 % (0-4); Hematocrit 44.7 % (37.0-47.0); Hemoglobin 14.6 g/dl (12.0-16.0); Imm Gran Abs Auto 0.06 X10*3/uL (0.00-0.03); Imm Gran Pct Auto 0.4 % (0.0-0.4); Lymphocytes Absolute Auto 4.6 X10*3/uL (1.2-4.9); Lymphocytes Percent Auto 29.6 % (20-40); Mean Corpuscular HGB Conc 32.7 g/dl (31.0-35.0); Mean Corpuscular Hemoglobin 29.5 pg (27.0-33.0); Mean Corpuscular Volume 90.3 fL (80.0-98.0); Mean Platelet Volume 10.4 fL (9.4-12.3); Monocytes Percent Auto 6.3 % (2-11); Neutrophils Absolute Auto 9.6 x10*3/uL (2.0-8.3); Neutrophils Percent Auto 61.2 % (45-73); Platelet Count 317 X10*3/uL (160-400); Red Blood Count 4.95 X10*6/uL (4.20-5.50); Red Cell Distribution Width 14.6 % (11.0-16.0); White Blood Count 15.6 X10*3/uL (4.8-10.8)
[2023-10-16 17:32] LABS: Alanine Aminotransferase 33 U/L (0-31); Albumin Level 4.2 g/dL (3.5-5.0); Alkaline Phosphatase 138 U/L (39-117); Anion Gap 10 (12-20); Aspartate Amino Transferase 27 U/L (5-31); Bilirubin Total 0.2 mg/dL (0.0-1.0); Blood Urea Nitrogen 8 mg/dL (9-16); Calcium 9.7 mg/dL (8.4-10.2); Carbon Dioxide 31 mmol/L (22-29); Chloride 107 mmol/L (96-108); Estimated Glomerular Filt Rate > 60; Glucose Random 104 mg/dL (60-115); Potassium 3.2 mmol/L (3.3-5.1); Sodium 145 mmol/L (135-145); Total Protein 7.2 g/dL (6.5-8.0)
== END 2023-10-16 15:36 | disposition home or self-care (01) ==
LOC: HO.HHCL 15:35
PROVIDERS: Visit Provider Internal Medicine Medical Oncology
DX: D72.829 Elevated white blood cell count, unspecified (principal)
CPT/HCPCS: 36415; 80053; 85025

== ENCOUNTER 2023-10-18 16:35 | Outpatient (REF) | payer MEDICAID, SELFPAY ==
[2023-10-20 12:29] LABS: Adenovirus F 40/41 Not Detected (Not Detect.); Astrovirus Not Detected (Not Detect.); Cryptosporidium Not Detected (Not Detect.); Cyclospora cayetanensis Not Detected (Not Detect.); E. coli EAEC Not Detected (Not Detect.); E. coli EPEC Not Detected (Not Detect.); E. coli ETEC Not Detected (Not Detect.); E. coli STEC Not Detected (Not Detect.); Entamoeba histolytica Not Detected (Not Detect.); Giardia lamblia Not Detected (Not Detect.); Norovirus GI/GII Not Detected (Not Detect.); Plesiomonas shigelloides Not Detected (Not Detect.); Rotavirus A Not Detected (Not Detect.); Salmonella Not Detected (Not Detect.); Sapovirus Not Detected (Not Detect.); Shigella sp./EIEC Not Detected (Not Detect.); Vibrio Not Detected (Not Detect.); Vibrio Cholerae Not Detected (Not Detect.); Yersinia enterocolitica Not Detected (Not Detect.)
[2023-10-20 15:29] LABS: Campylobacter Detected (Not Detect.)
== END 2023-10-18 16:36 | disposition home or self-care (01) ==
LOC: HO.HHCLNP 16:35
PROVIDERS: Visit Provider General Practice
DX: R19.7 Diarrhea, unspecified (principal)
CPT/HCPCS: 87507

== ENCOUNTER 2023-12-08 15:53 | Outpatient (AMB) | payer MEDICAID, SELFPAY ==
[2023-12-08 15:56] VITALS: BP 135/83; PULSE 102; BMI 33.2
--- NOTE | 2023-12-08 15:56 | MHC.OFFVIS ---
Vital Signs 12/08/23 15:56 Height 5 ft 4 in Weight 193 lb 9.054 oz BMI 33.2 BP 135/83 Blood Pressure Location Lt brachial Position Sitting Pulse 102 H Intake Visit Reasons: s/p colonoscopy 05/13 Intake Note: Patient presents to in office visit today in follow up s/p colonoscopy. CC: Patient reports that she had a bacteria back in September and was having diarrhea. She went to the ED and was started on abx, she completed abx course but sometimes still has diarrhea. Line Helper Required: No Allergies carisoprodol [From Soma] Allergy (Severe, Verified 12/08/23 16:08) SHORTNESS OF BREATH,VOMITING duloxetine [Cymbalta] Allergy (Severe, Verified 12/08/23 16:08) Nausea and Vomiting gabapentin [From NEURONTIN] Allergy (Severe, Verified 12/08/23 16:08) RASH,HIVES ibuprofen [From Motrin] Allergy (Severe, Verified 12/08/23 16:08) VOMITING ketorolac Allergy (Severe, Verified 12/08/23 16:08) Shortness of Breath morphine [Morphine] Allergy (Severe, Verified 12/08/23 16:08) SHORTNESS OF BREATH naproxen [From Naprosyn] Allergy (Severe, Verified 12/08/23 16:08) VOMITING oxybutynin Allergy (Severe, Verified 12/08/23 16:08) Nausea and Vomiting pregabalin [From LYRICA] Allergy (Severe, Verified 12/08/23 16:08) HYPER AND PANIC ATTACK ranitidine [RANITIDINE] Allergy (Severe, Verified 12/08/23 16:08) TACHYCARDIA sulfamethoxazole [From BACTRIM] Allergy (Severe, Verified 12/08/23 16:08) VOMITING,RASH, hives tramadol Allergy (Severe, Verified 12/08/23 16:08) Shortness of Breath trimethoprim [From BACTRIM] Allergy (Severe, Verified 12/08/23 16:08) VOMITING,RASH, hives cortisone [CORTISONE] Allergy (Intermediate, Verified 12/08/23 16:08) ITCHING,RASH Sulfa (Sulfonamide Antibiotics) Allergy (Intermediate, Verified 12/08/23 16:08) VOMITING/RASH, hives transparent dressing [Tegaderm] Allergy (Verified 12/08/23 16:08) Rash dicyclomine Adverse Reaction (Severe, Verified 12/08/23 16:08) Palpitations Tricyclic Antidepressants and Tricy [Tricyclic Compounds] Adverse Reaction (Severe, Verified 12/08/23 16:08) VOMITING from ALL ANTIDEPRESSANTS, palpitations all antidepressants except Rem Allergy (Severe, Uncoded 11/06/23 15:36) Nausea and Vomiting milk, yogurt, dairy Allergy (Severe, Uncoded 11/06/23 15:36) Diarrhea, vomitting HPI HPI s/p colonoscopy 05/13: Details: Assessment & Plan (1) GERD (gastroesophageal reflux disease): Code(s): K21.9 - Gastro-esophageal reflux disease without esophagitis Plan: . (2) Irritable bowel syndrome with both constipation and diarrhea: Code(s): K58.2 - Mixed irritable bowel syndrome (3) Delayed gastric emptying: Code(s): K30 - Functional dyspepsia (4) Chronic narcotic use: Code(s): F11.90 - Opioid use, unspecified, uncomplicated (5) Leukocytosis: Code(s): D72.829 - Elevated white blood cell count, unspecified Plan She is upset today because she received a letter from her PCP stating she has a positive Cologuard. She is very worried about this as she does not understand what this means. She wants to proceed with colonoscopy and this is fine. Her last scope was in 2019 and she had hyperplastic polyps then. She is doing well with the omeprazole and simethicone and metoclopramide, and fiber. She continues to have chronic leukocytosis. Her asthma is well controlled and she denies any cardiac problems. There are no prior problems with anesthesia or sedation. No ID problems ROV 6 mos and after colonoscopy Orders: Orders Colonoscopy - GI Use Only 03/03/23 R19.5 - Other fecal abnormalities, K30 - Functional dyspepsia Referrals Hematology & Oncology Referral D72.829 - Elevated white blood cell count, unspecified Medications: New peg 3350-electrolytes 236-22.74-6.74 -5.86 gram (Golytely) until fecal effluent is clear; do not exceed a total volume of 2,000 mL 240 mL PO Q10M 4,000 mL 0RF 1 day Z12.11 - Encounter for screening for malignant neoplasm of colon sennosides (senna) 17.2 mg (2 x 8.6 mg) PO BEDTIME PRN 60 caps 6RF Constipation K58.2 - Mixed irritable bowel syndrome Refilled omeprazole 20 mg PO BID 60 caps 6RF K21.9 - Gastro-esophageal reflux disease without esophagitis simethicone after meals 180 mg PO QID 120 caps 6RF 30 days Colonoscopy 05/13/23 Findings: Terminal Ileum- scattered erosions, bx taken Cecum:normal Ascending Colon: normal, random bx taken Transverse Colon -normal Descending Colon:normal Sigmoid Colon: moderate diverticulosis, x2 sessile polyps 6-9 mm removed with cold snare, 4-6 mm sessile polyp removed with cold forceps Rectum: Retroflexion with small internal hemorrhoids, grade I, x1 sessile polyp 10 mm removed with cold snare Anorectum - normal Impression and Post Procedure Diagnosis: polyps internal hemorrhoids diverticular disease Plan: High fiber diet leaflet Avoid straining at stool, epsom salts and sitz bath, anusol supps or cream Repeat Colonoscopy in 2-3 years due to polyps or earlier if clinically indicated consider Cte if having any sx suggestive of crohns, check NSAId hx Biopsy Received: 05/14/23 Diagnosis A. Terminal ileum, biopsy: Ileal mucosa with no specific change; no ileitis, granulomas or dysplasia. B. Colon, right, biopsy: Colonic mucosa with no specific change; no colitis, granulomas or dysplasia. C. Colon, rectum and sigmoid, 3 polyps: Hyperplastic polyps, three TODAY'S VISIT Since the polyps were only hyperplastic the procedure should be repeated in 5 years due to the positive Cologuard. The procedure was well tolerated. The results were explained and the patient is agreeable to the follow-up interval as stated. The bowel pattern has returned to normal. Education was provided to tell any 1st degree relatives about their findings to be sure that they are screened by age 45. Educated that they will be put on a recall list when it is time for their repeat scope but should they move out of state or away from the hospital they will need to remember along with their primary to repeat the procedure in a timely fashion to avoid any adverse complications. She is doing well with the omeprazole and simethicone and metoclopramide, and fiber. She developed 5 days of severe watery diarrhea in September. She presented to our ER initially, and they did a CT but did not find any reason for the diarrhea. However, they did no stool samples! She could not provide stools r/t taking 2 imodium prior to arrival. At this time she was severely dehydrated and took 3 bags of IV. She tells me that she was dx'ed with camphylobactor in October by [facility] and then she was treated with zithromax. But she has had diarrhea milton with eating red meats - even if it is well cooked. ROV 3 mos. PFSH Medical History Thyroid disease Migraines Elevated cholesterol Fibromyalgia Hypoglycemia Asthma Hypertension Surgical History H/O colonoscopy H/O neck surgery H/O knee surgery Carpal tunnel syndrome History of partial hysterectomy Endometriosis determined by laparoscopy Family History Mother Diabetes Hypertension Heart abnormality Father No problems noted. Father No problems noted. Social History Household Members: None Housing: Apartment Do you presently have visiting nurse or other home services: No Alcohol intake: never Patient Tobacco Use Status: Current everyday Tobacco user Tobacco use type: Cigarette Years Smoked: 26 service: No Review of Systems Const Denies fatigue, Denies fever(s), Denies night sweats, Denies poor appetite and Denies weight loss ENT Reports Normal hearing present, Denies dental pain, Denies dysphagia, Denies hearing loss, Denies mouth pain, Denies odynophagia, Denies throat swelling, Denies tongue swelling and Reports other (Dentition adequate) Card Reports no additional complaints Resp Reports no additional complaints GI Details: Denies abdominal pain, Denies melena, Denies bloating, Denies hematochezia, Reports constipation, Denies GI cramping, Denies dysphagia, Denies excessive flatus, Denies early satiety, Reports heartburn, Reports diarrhea, Denies nausea, Denies odynophagia, Denies vomiting and Denies hematemesis Skin/Breast Denies pruritus, Denies lesions, Denies rash and Denies jaundice Neuro Reports Normal hearing present and Denies Abnormal speech present Endo Denies fatigue Aller/Immun Denies throat swelling and Denies tongue swelling Physical Exam Vital Signs: Last Vital Signs Pulse 102 H 12/08/23 15:56 BP 135/83 12/08/23 15:56 BMI result Body Mass Index 33.2 Const General: cooperative, no acute distress, well developed and well groomed Nutritional Appearance: well nourished and obese Orientation/consciousness: oriented to person, oriented to place and oriented to time Limitations: No language barrier HEENT Head: Yes normocephalic and Yes atraumatic Eyes General: appearance normal, both eyes and all related structures Pupils: Equal, round and reactive pupils present Neck Neck: Yes normal visual inspection and Yes no lymphadenopathy Thyroid: Thyroid normal Resp Effort & Inspection: normal respiratory effort and able to speak in complete sentences Auscultation: clear to auscultation bilaterally Cardio Rate: regular rate Rhythm: regular rhythm Heart sounds: Normal, physiologic split S2 sound present Peripheral pulses: radial pulses present and posterior tibial pulses present GI Inspection: No distended, No Abdominal panniculus present and Yes obesity Palpation (GI): Soft to palpation, nontender, no guarding, not rigid and No hepatosplenomegaly present Percussion: Yes normal to percussion Auscultation: normal bowel sounds Rectal Exam - Female: deferred Skin General skin exam: no rashes or lesions noted, turgor normal, skin not dry, no jaundice, No spider nevi and no striae Rashes: no rashes Nails: normal Neuro General: oriented to person, oriented to place and oriented to time Cranial nerves: Yes Equal, round and reactive pupils present and Yes Normal hearing present Speech: No Abnormal speech present Extrem General: Yes normal to inspection, No clubbing, No cyanosis and No edema Psych Appearance: grossly normal and well kempt Mental Status: mental status grossly normal Speech and movement: Normal speech and movement present Affect: normal affect Attitude: cooperative Thought process: Normal thought process present and not confabulating Thought content: Normal thought content present Insight: Limited insight present (Psych) Judgement: Limited judgement present (Psych) Results Reviewed Results Reviewed: Colonoscopy 05/13/23 Findings: Terminal Ileum- scattered erosions, bx taken Cecum:normal Ascending Colon: normal, random bx taken Transverse Colon -normal Descending Colon:normal Sigmoid Colon: moderate diverticulosis, x2 sessile polyps 6-9 mm removed with cold snare, 4-6 mm sessile polyp removed with cold forceps Rectum: Retroflexion with small internal hemorrhoids, grade I, x1 sessile polyp 10 mm removed with cold snare Anorectum - normal Impression and Post Procedure Diagnosis: polyps internal hemorrhoids diverticular disease Plan: High fiber diet leaflet Avoid straining at stool, epsom salts and sitz bath, anusol supps or cream Repeat Colonoscopy in 2-3 years due to polyps or earlier if clinically indicated consider Cte if having any sx suggestive of crohns, check NSAId hx Biopsy Received: 05/14/23 Diagnosis A. Terminal ileum, biopsy: Ileal mucosa with no specific change; no ileitis, granulomas or dysplasia. B. Colon, right, biopsy: Colonic mucosa with no specific change; no colitis, granulomas or dysplasia. C. Colon, rectum and sigmoid, 3 polyps: Hyperplastic polyps, three Assessment & Plan Assessment & Plan (1) Positive colorectal cancer screening using Cologuard test: Code(s): R19.5 - Other fecal abnormalities Category: Medical (2) Delayed gastric emptying: Code(s): K30 - Functional dyspepsia Category: Medical (3) Irritable bowel syndrome with both constipation and diarrhea: Code(s): K58.2 - Mixed irritable bowel syndrome Category: Medical (4) GERD (gastroesophageal reflux disease): Code(s): K21.9 - Gastro-esophageal reflux disease without esophagitis Category: Medical Plan Since the polyps were only hyperplastic the procedure should be repeated in 5 years due to the positive Cologuard. The procedure was well tolerated. The results were explained and the patient is agreeable to the follow-up interval as stated. The bowel pattern has returned to normal. Education was provided to tell any 1st degree relatives about their findings to be sure that they are screened by age 45. Educated that they will be put on a recall list when it is time for their repeat scope but should they move out of state or away from the hospital they will need to remember along with their primary to repeat the procedure in a timely fashion to avoid any adverse complications. She is doing well with the omeprazole and simethicone and metoclopramide, and fiber. She developed 5 days of severe watery diarrhea in September. She presented to our ER initially, and they did a CT but did not find any reason for the diarrhea. However, they did no stool samples! She could not provide stools r/t taking 2 imodium prior to arrival. At this time she was severely dehydrated and took 3 bags of IV. She tells me that she was dx'ed with camphylobactor in October by [facility] and then she was treated with zithromax. But she has had diarrhea milton with eating red meats - even if it is well cooked. ROV 3 mos. Medications: Refilled sennosides (senna) 17.2 mg (2 x 8.6 mg) PO BEDTIME PRN 60 caps 6RF Constipation K58.2 - Mixed irritable bowel syndrome simethicone after meals 180 mg PO QID 120 caps 6RF 30 days metoclopramide HCl 5 mg PO TID 90 tabs 3RF K30 - Functional dyspepsia omeprazole 20 mg PO BID 60 caps 6RF K21.9 - Gastro-esophageal reflux disease without esophagitis Coding Level of Care Code Est Pt Level 3 (68754) Diagnoses Positive colorectal cancer screening using Cologuard test R19.5 Delayed gastric emptying K30 Irritable bowel syndrome with both constipation and diarrhea K58.2 GERD (gastroesophageal reflux disease) K21.9
== END 2023-12-08 17:51 ==
PROVIDERS: PCP Internal Medicine; Visit Provider Nurse Practitioner
DX: R19.5 Other fecal abnormalities (principal); K30 Functional dyspepsia; K58.2 Mixed irritable bowel syndrome; K21.9 Gastro-esophageal reflux disease without esophagitis
CPT/HCPCS: 99213

== ENCOUNTER → 2023-12-08 15:53 | Outpatient (BNVA) | payer MEDICAID, SELFPAY | PROVIDERS: PCP Internal Medicine; Visit Provider Nurse Practitioner | DX: K21.9 Gastro-esophageal reflux disease without esophagitis (principal); K58.2 Mixed irritable bowel syndrome; K30 Functional dyspepsia; R19.7 Diarrhea, unspecified; R19.5 Other fecal abnormalities; D72.829 Elevated white blood cell count, unspecified | CPT/HCPCS: 99212 ==

== ENCOUNTER 2024-01-01 15:14 | Outpatient (REF) | payer MEDICAID, SELFPAY ==
--- NOTE | ~2024-01-01 | MM_ITS ---
EXAMINATION: MM SCREENING DIGITAL BREAST TOMOSYNTHESIS, BILATERAL CLINICAL INFORMATION: Screening. Asymptomatic. COMPARISON: Mammography: Comparison is made with available prior examinations. TECHNIQUE: Digital breast tomosynthesis is performed in both the craniocaudal and mediolateral oblique views along with computer-aided detection (CAD). Synthesized 2D images are generated from the tomosynthesis. FINDINGS: The breasts are heterogeneously dense, which may obscure small masses (ACR BI-RADS breast composition Category c). There are no significant masses, abnormal calcifications, or other abnormalities. MM/MM tomosynthesis screening BI IMPRESSION: No mammographic evidence of malignancy. ASSESSMENT: BI-RADS BI-RADS 1 - Negative RECOMMENDATION: Routine annual mammography screening. 1 year F/U This examination should not preclude the clinical evaluation of a suspicious palpable abnormality. This patient's information was entered into a reminder system with a target due date for their next mammogram. Electronically signed by: Myrna Shipley DO 01/29/2024 09:44 AM EDT
== END 2024-01-01 15:15 | disposition home or self-care (01) ==
LOC: HO.MAMMO 15:14
PROVIDERS: Visit Provider Internal Medicine
DX: Z12.31 Encounter for screening mammogram for malignant neoplasm of breast (principal)
CPT/HCPCS: 77063; 77067

== ENCOUNTER → 2024-01-01 15:45 | Outpatient (BNV) | payer MEDICAID, SELFPAY | PROVIDERS: Visit Provider Internal Medicine | DX: Z12.31 Encounter for screening mammogram for malignant neoplasm of breast (principal) | CPT/HCPCS: 77063; 77067 ==

== ENCOUNTER 2024-01-12 14:08 | Outpatient (REF) | payer MEDICAID, SELFPAY ==
[2024-01-12 16:44] LABS: Estimated Average Glucose 108 mg/dL; Hemoglobin A1c % 5.4 % (<6.0)
[2024-01-12 17:14] LABS: Alanine Aminotransferase 42 U/L (0-31); Anion Gap 12 (12-20); Aspartate Amino Transferase 26 U/L (5-31); Blood Urea Nitrogen 8 mg/dL (9-16); Calcium 9.4 mg/dL (8.4-10.2); Carbon Dioxide 29 mmol/L (22-29); Chloride 106 mmol/L (96-108); Estimated Glomerular Filt Rate > 60; Glucose Random 116 mg/dL (60-115); Potassium 3.9 mmol/L (3.3-5.1); Sodium 143 mmol/L (135-145)
[2024-01-12 17:31] LABS: TSH reflex Free T4 0.72 uIU/mL (0.32-4.0)
== END 2024-01-12 14:09 | disposition home or self-care (01) ==
LOC: HO.LAB 14:08
PROVIDERS: PCP Internal Medicine; Visit Provider Internal Medicine Endocrinology, Diabetes & Metabolism
DX: E16.2 Hypoglycemia, unspecified (principal); E89.0 Postprocedural hypothyroidism
CPT/HCPCS: 36415; 80048; 82306; 83036; 84443; 84450; 84460

== ENCOUNTER 2024-02-17 13:43 | Outpatient (AMB) | payer MEDICAID, SELFPAY ==
--- NOTE | 2024-02-17 14:00 | A.OFFVIS_ITS ---
VS Expanded 02/17/24 14:01 02/24/24 09:24 Height 5 ft 4 in 5 ft 4 in Weight 194 lb 7.163 oz 194 lb BMI 33.4 33.3 Intake Visit Reasons: Reactive Hypoglycemia/CONFIRMED Allergies carisoprodol [From Soma] Allergy (Severe, Verified 12/08/23 16:08) SHORTNESS OF BREATH,VOMITING duloxetine [Cymbalta] Allergy (Severe, Verified 12/08/23 16:08) Nausea and Vomiting gabapentin [From NEURONTIN] Allergy (Severe, Verified 12/08/23 16:08) RASH,HIVES ibuprofen [From Motrin] Allergy (Severe, Verified 12/08/23 16:08) VOMITING ketorolac Allergy (Severe, Verified 12/08/23 16:08) Shortness of Breath morphine [Morphine] Allergy (Severe, Verified 12/08/23 16:08) SHORTNESS OF BREATH naproxen [From Naprosyn] Allergy (Severe, Verified 12/08/23 16:08) VOMITING oxybutynin Allergy (Severe, Verified 12/08/23 16:08) Nausea and Vomiting pregabalin [From LYRICA] Allergy (Severe, Verified 12/08/23 16:08) HYPER AND PANIC ATTACK ranitidine [RANITIDINE] Allergy (Severe, Verified 12/08/23 16:08) TACHYCARDIA sulfamethoxazole [From BACTRIM] Allergy (Severe, Verified 12/08/23 16:08) VOMITING,RASH, hives tramadol Allergy (Severe, Verified 12/08/23 16:08) Shortness of Breath trimethoprim [From BACTRIM] Allergy (Severe, Verified 12/08/23 16:08) VOMITING,RASH, hives cortisone [CORTISONE] Allergy (Intermediate, Verified 12/08/23 16:08) ITCHING,RASH Sulfa (Sulfonamide Antibiotics) Allergy (Intermediate, Verified 12/08/23 16:08) VOMITING/RASH, hives transparent dressing [Tegaderm] Allergy (Verified 12/08/23 16:08) Rash dicyclomine Adverse Reaction (Severe, Verified 12/08/23 16:08) Palpitations Tricyclic Antidepressants and Tricy [Tricyclic Compounds] Adverse Reaction (Severe, Verified 12/08/23 16:08) VOMITING from ALL ANTIDEPRESSANTS, palpitations all antidepressants except Rem Allergy (Severe, Uncoded 11/06/23 15:36) Nausea and Vomiting milk, yogurt, dairy Allergy (Severe, Uncoded 11/06/23 15:36) Diarrhea, vomitting Nutrition Presentation Details: Pt presents for MNT for hypoglycemia. Pt was referred by project planner Dr. Herrera Pt reports she is working on losing weight and has been choosing whole grain foods. food frequency fruits: 0-1/d, juices > 2serivng/d dairy: 1-2 /d, cheese++ non starchy ve-4 serving/wk protein foods: poultry/beef/ eggs, cheese, fish 0-1/wk starches > 20 servings/d beverages: water/tea/juices/milk fried foods: 2x/wk physical activity: daily life activities etoh/smoking---- BS Monitoring Most Recent Diabetes Results: Creatinine 0.72 mg/dL (0.5-1.4) 01/12/24 Blood Urea Nitrogen 8 mg/dL (9-16) L 01/12/24 Sodium 143 mmol/L (135-145) 01/12/24 Potassium 3.9 mmol/L (3.3-5.1) 01/12/24 Chloride 106 mmol/L (96-108) 01/12/24 Carbon Dioxide 29 mmol/L (22-29) 01/12/24 Calcium 9.4 mg/dL (8.4-10.2) 01/12/24 AST 26 U/L (5-31) 01/12/24 ALT 42 U/L (0-31) H 01/12/24 Total Protein 7.5 g/dL (6.5-8.0) 11/06/23 Albumin 4.4 g/dL (3.5-5.0) 11/06/23 [id number]-Ux.Jeor Equation Height: 5 ft 4 in Weight: 194 lb Resting Metabolic Rate: 1468.41 Calculated Activity Level: Mild Activity Calories Needed to Maintain Weight: 2019. Diagnosis Nutrition problem #1: food nutri know defi As related to (etiology) #1: diagnosis (hypoglycemia) As evidenced by (sign/symptom) #1: knowledge deficit of diet Monitoring/Goals Nutrition problem monitoring: level of knowledge/skill, total PRO intake and total CHO intake (whole grain foods ) [facility] Medical History (Updated 10/16/24 @ 09:37 by Kelly Garica, RD, LDN) Thyroid disease Migraines Elevated cholesterol Fibromyalgia Hypoglycemia Asthma Hypertension Surgical History H/O colonoscopy H/O neck surgery H/O knee surgery Carpal tunnel syndrome History of partial hysterectomy Endometriosis determined by laparoscopy Family History Mother Diabetes Hypertension Heart abnormality Father No problems noted. Father No problems noted. Social History Household Members: None Housing: Apartment Do you presently have visiting nurse or other home services: No Alcohol intake: never Patient Tobacco Use Status: Current everyday Tobacco user Tobacco use type: Cigarette Years Smoked: 26 service: No Assessment & Plan Assessment & Plan (1) Hypoglycemia: Code(s): E16.2 - Hypoglycemia, unspecified Category: Medical Plan: Wt: 88 Kg ( 03/03 ) Est kcal needs as per MSJ: 2000 (40% carb, 30% protein/fat) Est fluid needs as per 25-30 ml/d: 2600 Est prot per day as per 1 g/kg bw: 88 Recommend fiber intake : 8-10 g per day and gradually increase to 25-28 g per day for women and 35-38 g for men or as tolerated Recommend sodium intake per day : less than 2000 mg Educated patient on: ( R = reviewed V = verbalizes understanding N/R = needs review N/A = not applicable * Food sources of carbohydrate, adequate serving sizes and its role in various health conditions: R * Differences between complex carbohydrates a simple carbohydrates, role of fiber in diet: R V N/R * Lean protein sources of foods: R * Differences between types of fats and role in diet (mono on saturated fat fatty acids, saturated fatty acids, trans fats): R V N/R * Food sources of sodium in salt and healthy modifications for heart health in kidney health: R V R/V * Vitamins and minerals: R V N/R * Healthy plate method concept: R V N/R * Physical activity: Benefits a precaution: R V N/R * Hypoglycemia protocol (rule of 15): R * Dietary prevention of Hyperglycemia: R Patient Instructions: Control your portion of carbohydrate and choose low fat foods, reduce total carb to less than 60 g at meal (3 meals per day ) and include lean protein foods , have 2-3 snacks reducing carbs to less than 15 g include at least 1 oz of protein . Choose baked in place of fried foods (starches/meat) Keep hydrated by having water with meals/snacks abstain from alcoholic beverages Coding Level of Care Code Nutr Indiv Intake (66871) Diagnoses Hypoglycemia E16.2 Time Spent (min) 30
[2024-02-17 14:01] VITALS: BMI 33.4
[2024-02-24 09:24] VITALS: BMI 33.3
== END 2024-02-17 14:40 | disposition home or self-care (01) ==
PROVIDERS: PCP Internal Medicine; Visit Provider Dietitian, Registered
DX: E16.2 Hypoglycemia, unspecified (principal)

== ENCOUNTER → 2024-02-17 13:43 | Outpatient (BNVA) | payer MEDICAID, SELFPAY | PROVIDERS: PCP Internal Medicine; Visit Provider Dietitian, Registered | DX: E16.2 Hypoglycemia, unspecified (principal) | CPT/HCPCS: 97802 ==

== ENCOUNTER → 2024-03-16 15:57 | Outpatient (BNVA) | payer MEDICAID, SELFPAY | PROVIDERS: PCP Internal Medicine; Visit Provider Nurse Practitioner | DX: K58.2 Mixed irritable bowel syndrome (principal); K30 Functional dyspepsia; K21.9 Gastro-esophageal reflux disease without esophagitis; R19.5 Other fecal abnormalities | CPT/HCPCS: 99212 ==

== ENCOUNTER → 2024-03-16 15:57 | Outpatient (AMB) | payer MEDICAID, SELFPAY ==
[2024-03-16 16:04] VITALS: BP 106/74; PULSE 87; BMI 32.6
--- NOTE | 2024-03-16 16:04 | MHC.OFFVIS ---
Vital Signs 03/16/24 16:04 Height 5 ft 4 in Weight 190 lb BMI 32.6 BP 106/74 Blood Pressure Location Rt brachial Position Sitting Pulse 87 Intake Visit Reasons: 3 mos FUV. R/S x1 Intake Note: Shirley returns to in office follow up of IBS. CC: Patient c/o epigastric pain and occasional constipation but she states that she takes Senna and it helps her move her BM. 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 Accompanied by: Self / Same As Patient Allergies carisoprodol [From Soma] Allergy (Severe, Verified 03/16/24 16:29) SHORTNESS OF BREATH,VOMITING duloxetine [Cymbalta] Allergy (Severe, Verified 03/16/24 16:29) Nausea and Vomiting gabapentin [From NEURONTIN] Allergy (Severe, Verified 03/16/24 16:29) RASH,HIVES ibuprofen [From Motrin] Allergy (Severe, Verified 03/16/24 16:29) VOMITING ketorolac Allergy (Severe, Verified 03/16/24 16:29) Shortness of Breath morphine [Morphine] Allergy (Severe, Verified 03/16/24 16:29) SHORTNESS OF BREATH naproxen [From Naprosyn] Allergy (Severe, Verified 03/16/24 16:29) VOMITING oxybutynin Allergy (Severe, Verified 03/16/24 16:29) Nausea and Vomiting pregabalin [From LYRICA] Allergy (Severe, Verified 03/16/24 16:29) HYPER AND PANIC ATTACK ranitidine [RANITIDINE] Allergy (Severe, Verified 03/16/24 16:29) TACHYCARDIA sulfamethoxazole [From BACTRIM] Allergy (Severe, Verified 03/16/24 16:29) VOMITING,RASH, hives tramadol Allergy (Severe, Verified 03/16/24 16:29) Shortness of Breath trimethoprim [From BACTRIM] Allergy (Severe, Verified 03/16/24 16:29) VOMITING,RASH, hives cortisone [CORTISONE] Allergy (Intermediate, Verified 03/16/24 16:29) ITCHING,RASH Sulfa (Sulfonamide Antibiotics) Allergy (Intermediate, Verified 03/16/24 16:29) VOMITING/RASH, hives transparent dressing [Tegaderm] Allergy (Verified 03/16/24 16:29) Rash dicyclomine Adverse Reaction (Severe, Verified 03/16/24 16:29) Palpitations Tricyclic Antidepressants and Tricy [Tricyclic Compounds] Adverse Reaction (Severe, Verified 03/16/24 16:29) VOMITING from ALL ANTIDEPRESSANTS, palpitations all antidepressants except Rem Allergy (Severe, Uncoded 11/06/23 15:36) Nausea and Vomiting milk, yogurt, dairy Allergy (Severe, Uncoded 11/06/23 15:36) Diarrhea, vomitting HPI HPI 3 mos FUV. R/S x1: Details: Assessment & Plan (1) Positive colorectal cancer screening using Cologuard test: Code(s): R19.5 - Other fecal abnormalities Category: Medical (2) Delayed gastric emptying: Code(s): K30 - Functional dyspepsia Category: Medical (3) Irritable bowel syndrome with both constipation and diarrhea: Code(s): K58.2 - Mixed irritable bowel syndrome Category: Medical (4) GERD (gastroesophageal reflux disease): Code(s): K21.9 - Gastro-esophageal reflux disease without esophagitis Category: Medical Plan Since the polyps were only hyperplastic the procedure should be repeated in 5 years due to the positive Cologuard. The procedure was well tolerated. The results were explained and the patient is agreeable to the follow-up interval as stated. The bowel pattern has returned to normal. Education was provided to tell any 1st degree relatives about their findings to be sure that they are screened by age 45. Educated that they will be put on a recall list when it is time for their repeat scope but should they move out of state or away from the hospital they will need to remember along with their primary to repeat the procedure in a timely fashion to avoid any adverse complications. She is doing well with the omeprazole and simethicone and metoclopramide, and fiber. She developed 5 days of severe watery diarrhea in September. She presented to our ER initially, and they did a CT but did not find any reason for the diarrhea. However, they did no stool samples! She could not provide stools r/t taking 2 imodium prior to arrival. At this time she was severely dehydrated and took 3 bags of IV. She tells me that she was dx'ed with camphylobactor in October by [facility] and then she was treated with zithromax. But she has had diarrhea milton with eating red meats - even if it is well cooked. ROV 3 mos. Medications: Refilled sennosides (senna) 17.2 mg (2 x 8.6 mg) PO BEDTIME PRN 60 caps 6RF Constipation K58.2 - Mixed irritable bowel syndrome simethicone after meals 180 mg PO QID 120 caps 6RF 30 days metoclopramide HCl 5 mg PO TID 90 tabs 3RF K30 - Functional dyspepsia omeprazole 20 mg PO BID 60 caps 6RF K21.9 - Gastro-esophageal reflux disease without esophagitis TODAY'S VISIT She has been seeing a electric mule driver for 4 weeks and has lost 4 lbs already. She is measuring portions and trying to eat more healthfully. She continues on her omeprazole and simethicone and metoclopramide, and fiber. She is now able to eat red meat after her Jejuni infection, so I think that her immune system is calming down, but she still will have random upper abd pain that she describes as a burning. ROV 6 mos. [facility] Medical History Thyroid disease Migraines Elevated cholesterol Fibromyalgia Hypoglycemia Asthma Hypertension Surgical History H/O colonoscopy H/O neck surgery H/O knee surgery Carpal tunnel syndrome History of partial hysterectomy Endometriosis determined by laparoscopy Family History Mother Diabetes Hypertension Heart abnormality Father No problems noted. Father No problems noted. Social History Household Members: None Housing: Apartment Do you presently have visiting nurse or other home services: No Alcohol intake: never Patient Tobacco Use Status: Current everyday Tobacco user Tobacco use type: Cigarette Years Smoked: 26 service: No Review of Systems Const Denies fatigue, Denies fever(s), Denies night sweats, Denies poor appetite and Reports weight loss (Intentional dieting) ENT Reports Normal hearing present, Denies dental pain, Denies dysphagia, Denies hearing loss, Denies mouth pain, Denies odynophagia, Denies throat swelling, Denies tongue swelling and Reports other (Dentition adequate) Card Reports no additional complaints Resp Reports no additional complaints GI Details: Denies abdominal pain, Denies melena, Denies bloating, Denies hematochezia, Denies constipation, Denies GI cramping, Denies dysphagia, Denies excessive flatus, Denies early satiety, Reports heartburn, Denies diarrhea, Denies nausea, Denies odynophagia, Denies vomiting and Denies hematemesis Skin/Breast Denies pruritus, Denies lesions, Denies rash and Denies jaundice Neuro Reports Normal hearing present and Denies Abnormal speech present Endo Denies fatigue Aller/Immun Denies throat swelling and Denies tongue swelling Physical Exam Vital Signs: Last Vital Signs Pulse 87 03/16/24 16:04 BP 106/74 03/16/24 16:04 BMI result Body Mass Index 32.6 Const General: cooperative, no acute distress, well developed and well groomed Nutritional Appearance: well nourished and obese Orientation/consciousness: oriented to person, oriented to place and oriented to time Limitations: No language barrier HEENT Head: Yes normocephalic and Yes atraumatic Eyes General: appearance normal, both eyes and all related structures Pupils: Equal, round and reactive pupils present Neck Neck: Yes normal visual inspection and Yes no lymphadenopathy Thyroid: Thyroid normal Resp Effort & Inspection: normal respiratory effort and able to speak in complete sentences Auscultation: clear to auscultation bilaterally Cardio Rate: regular rate Rhythm: regular rhythm Heart sounds: Normal, physiologic split S2 sound present Peripheral pulses: radial pulses present and posterior tibial pulses present GI Inspection: No distended, No Abdominal panniculus present and Yes obesity Palpation (GI): Soft to palpation, nontender, no guarding, not rigid and No hepatosplenomegaly present Percussion: Yes normal to percussion Auscultation: normal bowel sounds Rectal Exam - Female: deferred Skin General skin exam: no rashes or lesions noted, turgor normal, skin not dry, no jaundice, No spider nevi and no striae Rashes: no rashes Nails: normal Neuro General: oriented to person, oriented to place and oriented to time Cranial nerves: Yes Equal, round and reactive pupils present and Yes Normal hearing present Speech: No Abnormal speech present Extrem General: Yes normal to inspection, No clubbing, No cyanosis and No edema Psych Appearance: grossly normal and well kempt Mental Status: mental status grossly normal Speech and movement: Normal speech and movement present Affect: normal affect Attitude: cooperative Thought process: Normal thought process present and not confabulating Thought content: Normal thought content present Insight: Fair insight present (Psych) Judgement: Fair judgement present (Psych) Assessment & Plan Assessment & Plan (1) Delayed gastric emptying: Code(s): K30 - Functional dyspepsia Category: Medical (2) Irritable bowel syndrome with both constipation and diarrhea: Code(s): K58.2 - Mixed irritable bowel syndrome Category: Medical (3) GERD (gastroesophageal reflux disease): Code(s): K21.9 - Gastro-esophageal reflux disease without esophagitis Category: Medical Plan She has been seeing a electric mule driver for 4 weeks and has lost 4 lbs already. She is measuring portions and trying to eat more healthfully. She continues on her omeprazole and simethicone and metoclopramide, and fiber. She is now able to eat red meat after her Jejuni infection, so I think that her immune system is calming down, but she still will have random upper abd pain that she describes as a burning. ROV 6 mos. Coding Level of Care Code Est Pt Level 3 (91270) Diagnoses Delayed gastric emptying K30 Irritable bowel syndrome with both constipation and diarrhea K58.2 GERD (gastroesophageal reflux disease) K21.9
== END ==
LOC: HO.HGI 15:57
PROVIDERS: PCP Internal Medicine; Visit Provider Nurse Practitioner
DX: K30 Functional dyspepsia (principal); K58.2 Mixed irritable bowel syndrome; K21.9 Gastro-esophageal reflux disease without esophagitis
CPT/HCPCS: 99213

== ENCOUNTER 2024-03-17 15:50 | Outpatient (REF) | payer MEDICAID, SELFPAY ==
[2024-03-17 17:44] LABS: MANUAL DIFF FLAG NO
[2024-03-17 17:52] LABS: Basophils Absolute Auto 0.1 X10*3/uL (0.0-0.2); Basophils Percent Auto 0.6 % (0-2); Eosinophils Absolute Auto 0.2 X10*3/uL (0.0-0.4); Eosinophils Percent Auto 1.7 % (0-4); Hemoglobin 14.9 g/dl (12.0-16.0); Imm Gran Abs Auto 0.03 X10*3/uL (0.00-0.03); Imm Gran Pct Auto 0.2 % (0.0-0.4); Lymphocytes Absolute Auto 4.1 X10*3/uL (1.2-4.9); Lymphocytes Percent Auto 32.6 % (20-40); Mean Corpuscular HGB Conc 32.4 g/dl (31.0-35.0); Mean Corpuscular Hemoglobin 29.3 pg (27.0-33.0); Mean Corpuscular Volume 90.4 fL (80.0-98.0); Mean Platelet Volume 10.5 fL (9.4-12.3); Monocytes Absolute Auto 0.9 X10*3/uL (0.1-1.2); Monocytes Percent Auto 6.7 % (2-11); Neutrophils Absolute Auto 7.4 x10*3/uL (2.0-8.3); Neutrophils Percent Auto 58.2 % (45-73); Platelet Count 312 X10*3/uL (160-400); Red Blood Count 5.09 X10*6/uL (4.20-5.50); Red Cell Distribution Width 14.2 % (11.0-16.0); White Blood Count 12.7 X10*3/uL (4.8-10.8)
[2024-03-17 18:11] LABS: Alanine Aminotransferase 24 U/L (0-31); Albumin Level 4.3 g/dL (3.5-5.0); Alkaline Phosphatase 131 U/L (39-117); Anion Gap 11 (12-20); Aspartate Amino Transferase 22 U/L (5-31); Bilirubin Total 0.3 mg/dL (0.0-1.0); Blood Urea Nitrogen 11 mg/dL (9-16); Calcium 9.8 mg/dL (8.4-10.2); Carbon Dioxide 28 mmol/L (22-29); Chloride 106 mmol/L (96-108); Cholesterol 131 mg/dL (<200); Estimated Glomerular Filt Rate > 60; Glucose Random 70 mg/dL (60-115); HDL Cholesterol 37 mg/dL (>40); LDL Cholesterol Calculated 65 mg/dL (<100); Potassium 3.6 mmol/L (3.3-5.1); Sodium 141 mmol/L (135-145); Total Protein 7.5 g/dL (6.5-8.0); Triglycerides 146 mg/dL (<150)
[2024-03-17 18:29] LABS: TSH reflex Free T4 1.24 uIU/mL (0.32-4.0); Vitamin D 25-OH Total 42.4 ng/mL (>30)
[2024-03-18 04:08] LABS: HIV AB/AG Nonreactive (Nonreactive); HIV Num 1 0.06 S/CO (0.00-0.99); ~HepC Num1 0.12 S/CO (0.00-0.79); ~Hepatitis C Antibody Nonreactive (Nonreactive)
== END 2024-03-17 15:51 | disposition home or self-care (01) ==
LOC: HO.HHCL 15:50
PROVIDERS: PCP Internal Medicine; Visit Provider Internal Medicine
DX: M25.511 Pain in right shoulder (principal); Z00.00 Encounter for general adult medical examination without abnormal findings; Z11.4 Encounter for screening for human immunodeficiency virus [HIV]
CPT/HCPCS: 36415; 73030; 80053; 80061; 82306; 84443; 85025; 86803; 87389

== ENCOUNTER 2024-06-30 13:48 | Outpatient (AMB) | payer MEDICAID, SELFPAY ==
[2024-06-30 14:02] VITALS: BMI 31.0
--- NOTE | 2024-06-30 14:02 | MHC.AMNUTRGE ---
VS Expanded 06/30/24 14:02 06/30/24 14:20 Height 5 ft 4 in 5 ft 4 in Weight 180 lb 5.41 oz 180 lb BMI 31.0 30.9 Intake Visit Reasons: reactive hypoglycemia Allergies carisoprodol [From Soma] Allergy (Severe, Verified 03/16/24 16:29) SHORTNESS OF BREATH,VOMITING duloxetine [Cymbalta] Allergy (Severe, Verified 03/16/24 16:29) Nausea and Vomiting gabapentin [From NEURONTIN] Allergy (Severe, Verified 03/16/24 16:29) RASH,HIVES ibuprofen [From Motrin] Allergy (Severe, Verified 03/16/24 16:29) VOMITING ketorolac Allergy (Severe, Verified 03/16/24 16:29) Shortness of Breath morphine [Morphine] Allergy (Severe, Verified 03/16/24 16:29) SHORTNESS OF BREATH naproxen [From Naprosyn] Allergy (Severe, Verified 03/16/24 16:29) VOMITING oxybutynin Allergy (Severe, Verified 03/16/24 16:29) Nausea and Vomiting pregabalin [From LYRICA] Allergy (Severe, Verified 03/16/24 16:29) HYPER AND PANIC ATTACK ranitidine [RANITIDINE] Allergy (Severe, Verified 03/16/24 16:29) TACHYCARDIA sulfamethoxazole [From BACTRIM] Allergy (Severe, Verified 03/16/24 16:29) VOMITING,RASH, hives tramadol Allergy (Severe, Verified 03/16/24 16:29) Shortness of Breath trimethoprim [From BACTRIM] Allergy (Severe, Verified 03/16/24 16:29) VOMITING,RASH, hives cortisone [CORTISONE] Allergy (Intermediate, Verified 03/16/24 16:29) ITCHING,RASH Sulfa (Sulfonamide Antibiotics) Allergy (Intermediate, Verified 03/16/24 16:29) VOMITING/RASH, hives transparent dressing [Tegaderm] Allergy (Verified 03/16/24 16:29) Rash dicyclomine Adverse Reaction (Severe, Verified 03/16/24 16:29) Palpitations Tricyclic Antidepressants and Tricy [Tricyclic Compounds] Adverse Reaction (Severe, Verified 03/16/24 16:29) VOMITING from ALL ANTIDEPRESSANTS, palpitations all antidepressants except Rem Allergy (Severe, Uncoded 11/06/23 15:36) Nausea and Vomiting milk, yogurt, dairy Allergy (Severe, Uncoded 11/06/23 15:36) Diarrhea, vomitting Nutrition Presentation Details: Pt presents for MNT for reactive hypoglycemia Pt reports working on reducing sugars and working on choosing smaller portions of starches. She reports feeling well, motivated. Pt reports keeping sedentary denies constipation/diarrhea Reports having better glucose control, denies having bg below 70, feeling motivated. BS Monitoring Most Recent Diabetes Results: Cholesterol 131 mg/dL (<200) 03/17/24 HDL Cholesterol 37 mg/dL (>40) L 03/17/24 Triglycerides 146 mg/dL (<150) 03/17/24 Creatinine 0.62 mg/dL (0.5-1.4) 03/17/24 Blood Urea Nitrogen 11 mg/dL (9-16) 03/17/24 Sodium 141 mmol/L (135-145) 03/17/24 Potassium 3.6 mmol/L (3.3-5.1) 03/17/24 Chloride 106 mmol/L (96-108) 03/17/24 Carbon Dioxide 28 mmol/L (22-29) 03/17/24 Calcium 9.8 mg/dL (8.4-10.2) 03/17/24 AST 22 U/L (5-31) 03/17/24 ALT 24 U/L (0-31) 03/17/24 Total Protein 7.5 g/dL (6.5-8.0) 03/17/24 Albumin 4.3 g/dL (3.5-5.0) 03/17/24 AVU-Ywkxyrx-Af.Jeor Equation Height: 5 ft 4 in Weight: 180 lb Resting Metabolic Rate: 1404.97 Calculated Activity Level: Mild Activity Calories Needed to Maintain Weight: 1931.83 [facility] Medical History Thyroid disease Migraines Elevated cholesterol Fibromyalgia Hypoglycemia Asthma Hypertension Surgical History H/O colonoscopy H/O neck surgery H/O knee surgery Carpal tunnel syndrome History of partial hysterectomy Endometriosis determined by laparoscopy Family History Mother Diabetes Hypertension Heart abnormality Father No problems noted. Father No problems noted. Social History Household Members: None Housing: Apartment Do you presently have visiting nurse or other home services: No Alcohol intake: never Patient Tobacco Use Status: Current everyday Tobacco user Tobacco use type: Cigarette Years Smoked: 26 service: No Assessment & Plan Assessment & Plan (1) Hypoglycemia: Code(s): E16.2 - Hypoglycemia, unspecified Category: Medical Plan: Wt: 88 Kg ( 03/03 ), 82 kg(07/05) Est kcal needs as per MSJ: 1900 (40% carb, 30% protein/fat) Est fluid needs as per 25-30 ml/d: 2500 Est prot per day as per 1 g/kg bw: 80 Recommend fiber intake : 8-10 g per day and gradually increase to 25-28 g per day for women and 35-38 g for men or as tolerated Recommend sodium intake per day : less than 2000 mg Educated patient on: ( R = reviewed V = verbalizes understanding N/R = needs review N/A = not applicable Food sources of carbohydrate, adequate serving sizes and its role in various health conditions: R Differences between complex carbohydrates a simple carbohydrates, role of fiber in diet: R Lean protein sources of foods: R Differences between types of fats and role in diet (mono on saturated fat fatty acids, saturated fatty acids, trans fats): R V N/R Food sources of sodium in salt and healthy modifications for heart health in kidney health: R V R/V Vitamins and minerals: R V N/R Healthy plate method concept: R V N/R Physical activity: Benefits a precaution: R Hypoglycemia protocol (rule of 15): R Dietary prevention of Hyperglycemia: R Patient Instructions: Continue as established keep physically active goal 30 minutes 3 x/wk Coding Level of Care Code Nutr Indiv Subseq (80671) Diagnoses Hypoglycemia E16.2 Time Spent (min) 20
[2024-06-30 14:20] VITALS: BMI 30.9
--- OUTSIDE RECORDS SUMMARY | 2024-06-30 14:50 | XMS_ITS | Encounter Summary ---
Author Organization [employer] Address [address] [place] [address] Care Team Providers Care Coding Compliance Auditor Name Role Phone Carmita Avelar MD Primary Care Provide r Reason for Visit * Reason Comments COMMUNICATION ENGINEER Renewal COMMUNICATION ENGINEER Renewal Encounter Details Date Type Department Care Team (Latest Contact Info) Description 06/01/2024 2:00 PM EST Clinical Support [facility] MEDICINE [address] [place] [address] Jennifer Garcia RN Chronic right shoulder pain (Primary Dx) Social History Tobacco Use Types Packs/Day Years Used Date Smoking Tobacco: Every Day Cigarettes Passive Smoke Exposure: Current Smokeless Tobacco: Never Alcohol Use Standard Drinks/Week Comments Never 0 (1 standard drink = 0.6 oz pur e alcohol) Depression Answer Date Recorded Patient Health Questionnaire-9 Score 0 03/17/2024 Patient Health Questionnaire-9 Score 0 03/17/2024 Last PHQ-9: Questionnaire Data Not on file 1 05/17/2023 Housing Stability Answer Date Recorded What is your housing situation today? I have danae patrick 03/08/[address] you li ve. Do you have problems with any of the following? None of the above 03/08/2024 Food Insecurity Answer Date Recorded Within the past 12 months, y ou worried that your food would run out before you got money to buy more: Never True 03/08/2024 Within the past 12 months,th e food you bought just didn't last and you didn't have enough money to get more: Never True Transportation Answer Date Recorded In the past 12 months, has l ack of transportation kept you from medical appts, meetings, work or from getting things needed for daily living? No 03/08/2024 Utilities Answer Date Recorded In the past 12 months, has t he electric, gas, oil or water company threatened to shut off services in your home? No 03/08/2024 Depression Answer Date Recorded Patient Health Questionnaire-2 Score 0 03/17/2024 Internet Access Answer Date Recorded Internet Access Q1 Yes 03/08/2024 Internet Access Q2 Not on file 03/08/2024 Comments Unknown Sex and Gender Information Value Date Recorded Sex Assigned at Female 03/10/2022 10:14 AM EDT Legal Sex Female 10:14 AM EDT Gender Identity Female 03/10/2022 10:14 AM EDT Sexual Orientation Choose not to disclose 2022 12:21 PM EDT Sexual Orientation Straight 08/26/2022 12 :21 PM EDT documented as of this encounter Progress Notes * Jennifer Garcia RN - 06/01/2024 2:00 PM EST S: Pt here for COMMUNICATION ENGINEER Renewal Visit. Prescribed Oxycodone 5mg Q8hr PRN. States she has been taking as prescribed, last Oxycodone was taken today @ 1pm. Pt is also prescribed Clonazepam 1mg TID from an outside provider. States she is trying to quit smoking, she's down to 8 cigarettes a day. Denies ETOHuse, Illicit drug use and marijuana use. Currently rates her pain a 7 and states medication is 50% e ffective at alleviating her pain. Current pain sites are her neck, lower back, hands and left wrist/carpal tunnel. Pt stated she's lost 16# and is feeling really good. Congratulated! Pt cancelled CSTappt 04/12/24. O: COMMUNICATION ENGINEER Tele Tier 2/In person renewals. Pt currently prescribed Oxycodone 5mg Q8hr PRN. FASHION SUPERVISOR verifiedtoday. Rx last filled on 05/23/24. Pill count performed. Pt has 13 pills at this time, 13 at least expected. Medication is not overused by patient. UTOX completed. Positive for BZO, MOP & OXY, Negative for AMP, BAR, BUP, GLEN, FTY, MDMA, MET, MTD, PCP, TCA, THC. UTOX as expected. BPI updated, see scanned documents from this date. Pain severity score of 7.5, activity interference score of 7. Previous BPI completed 10/19/23 with pain severity score of 7.8, activity interference score of 9.6. Narcan medication reviewed, how it's administered and when it's used. Pt stated she understood and has it available. Will update PCP with BPI scoring and send request for oxycodone refill. Last PCP visitwas 03/17/24, scheduled next 07/15/24. A: COMMUNICATION ENGINEER Contract Renewal Visit: Chronic Opioid use related to pain. P: COMMUNICATION ENGINEER contract reviewed and signed, Pt provided copy. Pt to continue taking medication only as prescribed; Next Tele COMMUNICATION ENGINEER RV appointment scheduled for 08/19/24, F/U sooner PRN. Appointment reminder given. Pt verbalized understanding and agreed to plan. documented in this encounter Plan of Treatment Upcoming Encounters Date Type Department Care Team (Late st Contact Info) Description 07/20/2024 3:30 PM EDT Office Visit [address] [address] Carmita Avelar MD [address] [place] [address] [phone] 08/19/2024 1:30 PM EDT Telemedicine [address] [phone] Jennifer Garcia, RN documented as of this encounter Procedures Procedure Name Priority Date/Time Associated Diagnosis Comments POCT BENOIT-14 URINE DRUG SCREEN Routine 06/01/2024 2:17 PM EST Chronic right shoulder pain documented in this encounter Results * POCT BENOIT-14 Urine Drug Screen (06/01/2024 2:17 PM EST) Opiate Screen, Urine Positive Benzodiazepines Screen, Urine Positive Oxycodone Screen, Urine Positive Urine Urine specimen obtained by clean catch procedure / Unknown 06/01/2024 2:17 PM EST Narrative Jennifer Garcia, RN - 06/01/2024 2:17 PM EST UTOX cup Lot#[id number] Exp. 02/02/26 Internal Pass Control Carmita Alvarado MD POINT OF CARE TEST EN TER/EDIT ORDERABLES Final Result documented in this encounter Visit Diagnoses Diagnosis Chronic right shoulder pain- Primary Pain in joint, shoulder region documented in this encounter Additional Health Concerns Assessment Noted Time PHQ-9 Depression Total Score: 0 03/17/20 24 2:34 PM EST documented as of this encounter Care Teams Coding Compliance Auditor Relationship Specialty Start Date End Date Carmita Avelar MD [address] [place] [address] PCP - General Family Medicine 03/11/19 documented as of this encounter
--- OUTSIDE RECORDS SUMMARY | 2024-06-30 14:50 | XMS_ITS | Encounter Summary ---
Author Organization [employer] Address [address] [place] [address] Care Team Providers Care Ems Helicopter Pilot Name Role Phone Carmita Avelar MD Primary Care Provide r Reason for Visit * Reason Onset Date Comments Medication Question 06/10/2024 Encounter Details Date Type Department Care Team ([facility] st Contact Info) Description 06/10/2024 Telephone [facility] MEDICINE [address] [place], [place] [phone] Carmita Avelar MD [address] [place] [address] Medication Question Social History Tobacco Use Types Packs/Day Years [...] is your housing situation today? I have danaeken patrick 03/08/[address] you [...] PM EDT documented as of this encounter Miscellaneous Notes * Telephone Encounter - Ramya Melendez - 06/10/2024 11:31 AM EST Tc from pt stating that the pharmacy does not have the medication Sudafed 60 MG available, they will receive it on 06/13. In relation to the medication benzonatate 100 MG; It was not covered by insurance. Any questions contact pt: [phone] documented in this encounter Plan of Treatment Upcoming Encounters Date Type Department Care Team (Late st Contact Info) Description 07/20/2024 3:30 PM EDT Office Visit [facility] MEDICINE [address] [place] [phone] Carmita Avelar MD [address] [place] [address] 08/19/2024 1:30 PM EDT Telemedicine [facility] MEDICINE [address] [place] [phone] Jennifer Garcia RN documented as of this encounter Visit Diagnoses Not on filedocumented in this encounter Additional Health Concerns Assessment Noted Time PHQ-9 Depression Total Score: 0 03/17/20 24 2:34 PM EST documented as of this encounter Care Teams Ems Helicopter Pilot Relationship Specialty Start Date End Date Carmita Avelar MD [address] [place] [address] PCP - General Family Medicine 03/11/19 documented as of this encounter
--- OUTSIDE RECORDS SUMMARY | 2024-06-30 14:50 | XMS_ITS | Encounter Summary ---
Author Organization [employer] Address [address] [place] [address] Care Team Providers Care Supervisor Central Supply Name Role Phone Carmita Avelar MD Primary Care Provide r Encounter Details Date Type Department Care Team (Latest Contact Info) Description 06/09/2024 Travel Social History Tobacco Use Types Packs/Day Years [...] PM EDT documented as of this encounter Plan of Treatment Upcoming Encounters Date Type Department Care Team (Late st Contact Info) Description 07/20/2024 3:30 PM EDT Office Visit [facility] [address] [place] [id number] aCrmita Avelar MD [address] [place] [phone] 08/19/2024 1:30 PM EDT Telemedicine [facility] [address] [place] [address] [phone] Jennifer Garcia RN documented as of this encounter Visit Diagnoses Not on filedocumented in this encounter Additional Health Concerns Assessment Noted Time PHQ-9 Depression Total Score: 0 03/17/20 24 2:34 PM EST documented as of this encounter Care Teams Supervisor Central Supply Relationship Specialty Start Date End Date Carmita Avelar MD [address] [place] [address] [phone] PCP - General Family Medicine 03/11/19 documented as of this encounter
--- OUTSIDE RECORDS SUMMARY | 2024-06-30 14:50 | XMS_ITS | Encounter Summary ---
Author Organization [employer] Address [address] [place] [address] Care Team Providers Care Home Health Care Physician Name Role Phone Carmita Avelar MD Primary Care Provide r Reason for Visit * Reason Comments Med Refill Encounter Details Date Type Department Care Team (Late st Contact Info) Description 08/24/2022 Refill [facility] [address] [place], [place] [phone] [facility] [address] [place] [address] Neck pain Social History Tobacco Use Types Packs/Day Years Used Date Smoking Tobacco: Never Assessed Depression Answer Date Recorded Patient Health Questionnaire-9 Score 18 08/26/2022 Depression Answer Date Recorded Patient Health Questionnaire-2 Score 6 08/26/2022 Comments Unknown Sex and Gender Information Value Date Recorded Sex Assigned at Female 03/10/2022 10:14 AM EDT Legal Sex Female 10:14 AM EDT Gender Identity Female 03/10/2022 10:14 AM EDT Sexual Orientation Choose not to disclose 2022 12:21 PM EDT Sexual Orientation Straight 08/26/2022 12 :21 PM EDT COVID-19 Exposure Response Date Recorded In the last 10 days, have yo u been in contact with someone who was confirmed or suspected to have Coronavirus/COVID-19? No / Unsure 08/26/2022 2:54 PM EDT documented as of this encounter Plan of Treatment Upcoming Encounters Date Type Department Care Team (Late st Contact Info) Description 07/20/2024 3:30 PM EDT Office Visit [facility] [address] [place] [phone] Carmita Avelar MD [address] [place] [address] 08/19/2024 1:30 PM EDT Telemedicine [facility] [address] [place] [phone] Jennifer Garcia RN documented as of this encounter Visit Diagnoses Diagnosis Neck pain Cervicalgia documented in this encounter Care Teams Home Health Care Physician Relationship Specialty Start Date End Date Carmita Avelar MD [address] [place] [phone] PCP - General Family Medicine 03/11/19 documented as of this encounter
--- OUTSIDE RECORDS SUMMARY | 2024-06-30 14:50 | XMS_ITS | Clinical Summary ---
Author Organization [employer] Address [address] [place] [address] Care Team Providers Care Table Top Tile Setter Name Role Phone Carmita Avelar MD Primary Care Provide r Allergies Active Allergy Reactions Criticality Noted Date Comments Bupropion Vomiting 08/31/2023 Carisoprodol Palpitations,Shortne ss of breath High 07/17/2014 Cortisone High 07/17/2014 Other Reaction(s): big hives swelling and itching, ITCHING,RASH Dicyclomine Palpitations High 05/13/2023 Duloxetine Nausea And Vomiting High 05/13/2023 Duloxetine Hcl Dizziness,Vomiting 08/31/2023 vomiting and dizzy Fluoxetine Vomiting 08/31/2023 Gabapentin Shortness of breath High 07/17/2014 Other Reaction(s): chest pain, RASH,HIVES Ibuprofen Vomiting High 07/17/2014 Ketorolac Shortness of breath High 05/13/2023 Ketorolac Tromethamine 07/17/2014 Other Reaction(s): dyspnea Milk (Cow) High 04/09/2023 Other Reaction(s): Diarrhea, vomitting Morphine Shortness of breath High 07/17/2014 Naproxen Vomiting High 07/17/2014 Nsaids Shortness of breath High 08/31/2023 Oxybutynin Nausea And Vomiting High 05/13/2023 Pregabalin High 07/17/2014 Other Reaction(s): HYPER AND PANIC ATTACK, tachycardia,hives Ranitidine Nausea And Vomiting High 04/12/2015 Other reaction(s): Vomiting Other Reaction(s): TACHYCARDIA vomiting, out of it Sertraline Vomiting 08/31/2023 Sulfa Antibiotics High 07/04/2010 Other reaction(s): unspecified Other Reaction(s): Hives, VOMITING,RASH, hives, VOMITING/RASH, hives hives Sulfamethoxazole 07/17/2014 Sulfamethoxazole-Trimetho prim Hives 10/19/2023 Tramadol Shortness of breath High 05/13/2023 Other Reaction(s): VOMITING, SOB Trimethoprim High 07/17/2014 Other Reaction(s): VOMITING,RASH, hives Wound Dressing Adhesive 06/11/2023 Wound Dressings Rash Low 08/31/2023 Medications omeprazole (PriLOSEC) [address] capsule Take 1 capsule by mouth. Every day before a meal Active COVID-19 At Home Antigen Test (QuickVue At-Home Covid-19 Test) kit as directed Active fluticasone (Flonase Allergy Relief) 50 MCG/ACT nasal spray Administer 2 sprays into affected nostril(s) 1 (one) time each day. Active ergocalciferol (Vitamin D-2) 1.25 MG (05168 UT) capsule Take 1 capsule by mouth 1 (one) time per week. Active Misc. Devices (Pulse Oximeter) misc use daily prn SOB Active SUMAtriptan (Imitrex) 100 MG tablet Take 1 tablet by mouth 1 (one) time each day. With fluids as early as possible after the onset of a migraine attack; may repeat after 2 hours if headache returns, not exceed 200mg in 24 hrs Active lisinopril 20 MG tablet Take 1 tablet by mouth 1 (one) time each day. Active glucose blood (FREESTYLE LITE) test strip use by fingerstick route five times daily Active levothyroxine (Levoxyl) 112 MCG tablet Take 1 tablet by mouth 1 (one) time each day. Active Benzoyl Peroxide 5.3 % foam Apply by topical route every day to the affected area(s): rub in gently and completely Active verapamil ER (Verelan) 120 MG 24 hr capsule Take 1 capsule by mouth 1 (one) time each day. Active clonazePAM (KlonoPIN) 1 MG tablet Take 1 tablet by mouth in the morning, at noon, and at bedtime. Active promethazine (Phenergan) 12.5 MG tablet Take 1 tablet by mouth every 6 (six) hours. take 1 tablet by oral route 4 times every day before meals and at bedtime 022 Active Spacer/Aero-Hol ding Chambers (AeroChamber Z-Stat Plus) inhaler by Other route. Use with inhaler q6h prn Active Blood Glucose Monitoring Suppl (FreeStyle glucose monitoring) kit 1 each if needed. Active FreeStyle lancets 1 each by Other route. Use 1 lancet by to skin route 5 times every day Active Lancets Ultra Thin misc 26 gauge. Use to check blood sugars five times daily. Active Misc. Devices (Wrist Brace) misc Medium. Use daily. Dx hand pain/tenosynovi tis/cervical radiculopathy. Active Nebulizers (Comp Air Compressor Nebulizer) misc Use qid prn SOB Active glucose 4 g chewable tablet Use 1 tab po prn hypoglycemic sxs Active Misc. Devices (Cane) misc Use daily for support with R knee injury Active UltiCare Alcohol Swabs 70 % padsIndications :Type 2 diabetes mellitus without complication, unspecified whether alf insulin use ([facility]) USE FIVE TIMES DAILY 100 each 11 023 Active naloxone (Narcan) 4 mg/0.1 mL nasal sprayIndication s:Chronic right shoulder pain Administer 1 spray (4 mg) into affected nostril(s) if needed for opioid reversal. May repeat dose every 2-3 minutes as needed alternating nostrils with each dose 2 each 2 023 Active Blood Pressure Monitoring (Blood Pressure Cuff) miscIndications :Essential hypertension 1 each Once daily. 1 each 024 Active ketoconazole (Nizoral) 2 % shampoo Apply topically 2 (two) times a week. 120 mL 1 024 Active Asmanex HFA 100 MCG/ACT aerosol INHALE 2 PUFFS INTO THE LUNGS BY MOUTH EVERY 12 HOURS 13 g 1 024 Active acetaminophen (Tylenol) 500 MG tablet Take 1 tablet (500 mg) by mouth every 8 (eight) hours if needed for moderate pain, headaches or fever. Not to exceed 3 tablets per 24 hrs 30 tablet Active atorvastatin (Lipitor) 10 MG tablet Take 20 mg by mouth. Active Bisacodyl EC 5 MG EC tablet TAKE 2 TABLETS BY MOUTH ONCE AT NOON THE DAY BEFORE COLONOSCOPY Active diazePAM (Valium) 10 MG tablet TAKE 1 TABLET BY MOUTH 1/2 HOUR PRIOR TO MRI DIRECTED Active lamoTRIgine (LaMICtal) 25 MG tablet Take 1 tablet by mouth at bedtime. Active loperamide (Imodium) 2 MG capsule Active metoclopramide (Reglan) 5 MG tablet Take 5 mg by mouth 3 times daily. Active ondansetron (Zofran) 4 MG tablet Take 4 mg by mouth every 8 (eight) hours. Active GaviLyte-G 236 g solution Active senna (Senokot) 8.6 MG tablet TAKE 2 TABLETS BY MOUTH AT BEDTIME NEEDED FOR CONSTIPATION Active Simethicone Ultra Strength 180 MG capsule TAKE 1 CAPSULE BY MOUTH FOUR TIMES DAILY AFTER MEALS FOR 30 DAYS Active triamcinolone (Kenalog) 0.1 % cream Active verapamil SR (Calan SR) 180 MG ER tablet Take 180 mg by mouth Once per day. Active albuterol (2.5 MG/3ML) 0.083% nebulizer solutionIndicat ions:Moderate persistent asthma with acute exacerbation Take 3 mL by nebulization every 4 (four) hours. As needed for wheezing 75 mL 1 Active pseudoephedrine (Sudafed) 30 MG tablet Take 1 tablet (30 mg) by mouth every 4 (four) hours if needed for congestion for up to 10 days. 30 tablet Active albuterol (Ventolin HFA) 108 (90 Base) MCG/ACT inhalerIndicati ons:Shortness of breath Inhale 2 puffs by mouth every 4 to 6 hours as needed 18 g 3 024 Active baclofen (Lioresal) 10 MG tabletIndicatio ns:Acute pain of right shoulder Take 1 tablet (10 mg) by mouth 3 times daily. 90 tablet 1 024 Active Diclofenac Sodium 1 % gelIndications: Chronic right shoulder pain Apply 2 g topically every 12 (twelve) hours. To affected areas. 100 g 1 025 Active oxyCODONE (Roxicodone) 5 MG immediate release tabletIndicatio ns:Chronic right shoulder pain Take 1 tablet (5 mg) by mouth every 8 (eight) hours if needed for severe pain for up to 28 days. Do not start before June 06, 2024. 84 tablet 025 2024 Active pseudoephedrine (Sudafed) 60 MG tablet Take 1 tablet (60 mg) by mouth every 4 (four) hours if needed for congestion for up to 10 days. 30 tablet 025 Active Diclofenac Sodium 1 % gel APPLY 2 GRAMS TOPICALLY TO THE AFFECTED AREA TWICE DAILY 100 g 1 023 2024 Discontinued(R eorder (will not trigger notification to Pharmacy)) oxyCODONE (Roxicodone) 5 MG immediate release tabletIndicatio ns:Chronic right shoulder pain Take 1 tablet (5 mg) by mouth every 8 (eight) hours if needed for severe pain for up to 14 days. 42 tablet 025 2024 Discontinued(R eorder (will not trigger notification to Pharmacy)) benzonatate (Tessalon Perles) 100 MG capsule Take 1 capsule (100 mg) by mouth if needed in the morning, at noon, and at bedtime for cough for up to 7 days. Do not crush or chew. 20 capsule 025 2024 Hospital, Clinic, or Other Facility Administered Medication Ordered Dose Route Frequency Start Date End Date Status predniSONE (Deltasone) tablet 40 mgIndications:Moderate persistent asthma with acute exacerbation 40 mg PO Once 07/28/2022 Active albuterol (2.5 MG/3ML) 0.083% nebulizer solution 2.5 mgIndications:Moderate persistent asthma with acute exacerbation 2.5 mg NEBULIZATION Once 07/28/2022 Acti ve Active Problems Problem Noted Date Diagnosed Date Encounter for preventive care 03/17/2024 Assessment & Plan (03/17/2024 4:27 PM EST): See HPI Acute pain of right shoulder 03/17/2024 Chronic narcotic use 10/16/2023 Delayed gastric emptying 10/16/2023 GERD (gastroesophageal reflux disease) Hypoglycemia 10/16/2023 Overview (10/16/2023): Last Assessment & Plan: Clinically stable. Continues to have some degree of symptoms of reactive hypoglycemia, which are better when more careful with diet. Did not hear from RD/CDE after we had sent referral, will send again & call to facilitate. Leukocytosis 10/16/2023 Nicotine use 10/16/2023 Pain on movement of skeletal muscle 10/16/2023 Postablative hypothyroidism 10/16/2023 Overview (10/16/2023): Last Assessment & Plan: Euthyroid on recent labs. Reports good consistency taking rx appropriately. Will check labs prior @ follow up, sooner prn symptoms of thyroid dysfunction or > 10-15# weight change, or as otherwise clinically indicated. Pyelonephritis 10/16/2023 Vitamin D deficiency 10/16/2023 Overview (10/16/2023): Last Assessment & Plan: Vitamin D normal on current rx. Chronic tonsillitis 09/22/2023 Assessment & Plan (09/22/2023 5:04 PM EDT): On physical exam it looks like left tonsil hypertrophy, in light that this is a persistent problem I will refer her to ENT Pre-op examination 07/23/2023 Assessment & Plan (07/23/2023 11:20 AM EDT): -patient is at acceptable risk for the proposed surgery and may procced without further testing -Patient is at low risk for major adverse cardiac event -surgery clearance reviewed with patient and informed that no surgery is 100% risk free. This visit is solely to assist the surgeon in accurately reviewing informed consent. -Meets ACC/AHA guidelines to proceed with this non-cardiac surgery without additional testing -BP is maintained on oral agents: patient advised to take verapamil on the morning of surgery -Pulmonary: patient's asthma is well controlled on asmanex. Advised to use inhaler morning of surgery. Smoking cessation strongly encouraged and advised -Diabetes: Hgb A1c within acceptable range of <8% for surgery (6.1%). -Medications: advised to hold lisinopril the morning of surgery. Take levothyroxine and verapamil with small sip of water and use inhaler on the morning of surgery. Prediabetes 05/15/2023 Assessment & Plan (05/15/2023 4:00 PM EST): Today extensive discussion was done about life style modifications I advise healthy diet (low calorie) and cardiovascular exercise Fibromyalgia 05/15/2023 Assessment & Plan (05/15/2023 4:00 PM EST): Patient was educated about multidisciplinary approach for her condition, it was advise cardiovascular exercise, maintain hydration, treat anxiety/depression and take medications as directed Seborrheic dermatitis of scalp 03/13/2023 Positive colorectal cancer screening using Colog uard test 02/09/2023 Lipoma 01/20/2023 Viral syndrome 01/20/2023 Assessment & Plan (01/21/2023 3:59 PM EDT): Drink plenty of fluids and rest Viral upper respiratory tract infection 01/21/20 Colon cancer screening 01/20/2023 Cervical cancer screening 10/23/2022 Cervical fusion syndrome 08/26/2022 Assessment & Plan (10/23/2022 3:44 PM EDT): Referral to specialist done C/w pain medications PRN Assessment & Plan (08/26/2022 4:31 PM EDT): I will refer patient back to dr Mccall as per her request Chronic right shoulder pain 08/26/2022 Assessment & Plan (10/23/2022 3:45 PM EDT): Referral to specialist done XRAY reviewed with patient Assessment & Plan (08/26/2022 4:31 PM EDT): I will order XRAY and nerve conduction study I will refer patient to orthopedics I increased her baclofen to 20mg TID Patient requested percocet to be switch to oxycodone alone 5mg Q 8hrs Exercise counseling 08/26/2022 Obesity 08/26/2022 Oropharyngeal candidiasis 08/05/2022 Assessment & Plan (08/05/2022 6:06 PM EDT): Most likely related to recent abs and PRD use. Patient prefers tablets to liquid. Rx Fluconazole 200 mg x 1st day then 100 mg/d x 9 more days. ZOEY w PCP. Counseled to do gargles with honey and sodium bicarb Lipoma of hip 05/15/2022 Overview (05/15/2022): [place] [facility] [place]. 8 cm diameter. Excision planned. Acute back pain with sciatica 04/12/2022 Backache 04/12/2022 Essential hypertension 04/12/2022 Assessment & Plan (05/15/2023 4:00 PM EST): Maintenance: BMP: up to date Lipid Panel: up to date - Aerobic exercise to reduce BP. Initial goal of 30 min walk 3-5x/week. Increase as tolerated. - low-sodium diet (goal: <2g/day) and heart healthy diet such as DASH to reduce BP and prevent ASCVD. - Home BP monitoring 1-2 x day with goal of <140/90. - Seek immediate medical attention for chest pain, palpitations, SOB, syncope, or sudden changes in mental status. - Do not change or discontinue current prescriptions without first consulting health care provider Assessment & Plan (01/21/2023 3:58 PM EDT): - Aerobic exercise to reduce BP. Initial goal of 30 min walk 3-5x/week. Increase as tolerated. - low-sodium diet (goal: <2g/day) and heart healthy diet such as DASH to reduce BP and prevent ASCVD. - Home BP monitoring 1-2 x day with goal of <140/90. If its not at goal report back to me - Seek immediate medical attention for chest pain, palpitations, SOB, syncope, or sudden changes in mental status. - Do not change or discontinue current prescriptions without first consulting health care provider Assessment & Plan (10/23/2022 3:44 PM EDT): - Aerobic exercise to reduce BP. Initial goal of 30 min walk 3-5x/week. Increase as tolerated. - low-sodium diet (goal: <2g/day) and heart healthy diet such as DASH to reduce BP and prevent ASCVD. - Home BP monitoring 1-2 x day with goal of <140/90. - Seek immediate medical attention for chest pain, palpitations, SOB, syncope, or sudden changes in mental status. - Do not change or discontinue current prescriptions without first consulting health care provider Influenza-like symptoms 04/12/2022 Mood disorder 04/12/2022 Primary insomnia 10/15/2018 Generalized anxiety disorder 07/14/2018 Benign nevus 04/16/2018 Chronic folliculitis 04/16/2018 Neoplasm of uncertain behavior 04/16/2018 Verruca vulgaris 04/16/2018 Degeneration of cervical intervertebral disc Stenosis of intervertebral foramina 02/23/2018 Opiate analgesic use agreement exists 02/23/2018 Callosity 01/14/2018 Headache disorder 01/14/2018 Spasm of cervical paraspinous muscle 01/14/2018 Chest pain 10/22/2017 Benign neoplasm of soft tissue 10/22/2017 Eczema 10/22/2017 Warts of foot 10/22/2017 Perimenopause 04/20/2017 Shoulder joint pain 04/20/2017 Paresthesia 03/19/2017 Positive RPR test 03/19/2017 At risk for sexually transmi tted disease due to unprotected sex 02/04/2017 Low back pain 08/28/2015 Tobacco dependence syndrome 09/15/2013 Hepatitis A immune 03/11/2012 Irregular periods 11/06/2011 Acquired hypothyroidism 10/15/2011 Alopecia 10/15/2011 Asthma 10/15/2011 Chronic interstitial cystitis 10/15/2011 Endometriosis of uterus 10/15/2011 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 Dysplasia of cervix 01/09/2011 Depressive disorder 10/30/2010 Irritable bowel syndrome 10/31/1931 Resolved Problems Problem Noted Date Diagnosed Date Resolved Date Type 2 diabetes mellitus wit hout complication, without long-term current use of insulin 01/20/2023 05/15/2023 Assessment & Plan (03/16/2023 2:24 PM EST): - Lab Results Component Value Date HGBA1C 5.9 01/20/2023 HGBA1C 5.6 05/13/2022 - Lab Results Component Value Date MICROALBUR 27.0 01/20/2023 CREATININE 0.71 08/27/2022 - - Diabetic eye exam: up to date - Diabetic foot exam: referral to podiatry done - Continue lifestyle modifications - Continue current medications Assessment & Plan (01/21/2023 3:58 PM EDT): - Lab Results Component Value Date HGBA1C 5.9 01/20/2023 HGBA1C 5.6 05/13/2022 - Lab Results Component Value Date MICROALBUR 27.0 01/20/2023 CREATININE 0.71 08/27/2022 - Continue lifestyle modifications Encounters Date Type Department Care Team Description 06/10/2024 10:45 AM EST Telemedicine [facility] [address] [place] [address] Roman Funk MD COVID (Primary Dx); Acute cough; Congestion of nasal sinus 06/10/[address] [phone] Carmita Avelar MD Medication Question 06/10/2024 Travel 06/09/2024 Travel 06/09/[address] [phone] Carmita Avelar MD Nurse Triage 06/01/2024 2:00 PM EST Clinical Support [address] [phone] Jennifer Garcia RN Chronic right shoulder pain (Primary Dx) 06/01/[address] [phone] Radha, Jennifer, barrel bung remover and dumper right shoulder pain 06/01/2024 Travel 06/01/2024 Telephone [facility] [address] [place] [address] Jennifer Garcia RN Recommend ORDNANCE KEEPER Tele Tier 2, inperson renewals 05/31/2024 Travel 05/23/2024 Telephone [facility] [address] [place] [address] Stephy Hernandes, SAUL Results 05/23/2024 Orders Only [facility] [address] [place] [address] Carmita Avelar MD Localized osteoarthritis of right shoulder (Primary Dx) 05/23/2024 Refill [facility] [address] [place] [address] Carmita Avelar MD Chronic right shoulder pain 05/23/2024 Refill [facility] [address] [place] [address] Carmita Avelar MD Chronic right shoulder pain 04/21/2024 Refill [facility] [address] [place] [address] Carmita Avelar MD Chronic right shoulder pain 04/12/2024 Telephone [facility] [address] [place] [address] Carmita Avelar MD Appointment Confirmation from Last 3 Months Immunizations Name Administration Dates Next Due Hep B, adult 11/26/1999,05/20/1999,04/18/1999 Influenza Injectable Quadriv alant Preservative Free IIV4 MDCK 12/30/2022 Influenza injectable quadriv alent preservative free 03/07/2022,01/15/2021,01/04/2020,01/06,01/17/2018,01/22/2017,01/07/2016 Influenza, IIV3, injectable 02/03/2014, 2,01/25/2010 Influenza, Split (incl. desi fied surface antigen) 01/28/2013,01/19/2012 MMR 06/25/1999,05/20/1999 Moderna Covid-19 Vaccine 12+ 11/21/2021, 03/25/2021,09/02/2020,08/04 Pneumococcal Conjugate PCV 20 03/17/2024 Pneumococcal Polysaccharide PPSV23 01/04/2020 TD (adult), 2 Lf tetanus tox oid, preservative free, adsorbed 01/06/2006 Tdap 04/29/2013 Zoster, Recombinant 12/15/2020 Social History Tobacco Use Types Packs/Day Years Used Date Smoking Tobacco: Every Day Cigarettes Passive Smoke Exposure: Current Smokeless Tobacco: Never Tobacco Cessation:Ready to Q uit: Not Asked; Counseling Given: Not Answered Alcohol Use Standard Drinks/Week Comments Never 0 [...] Orientation Straight 08/26/2022 12 :21 PM EDT Last Filed Vital Signs Vital Sign Reading Time Taken Comments Blood Pressure 136/93 03/17/2024 2:32 PM EST Pulse 91 03/17/2024 2:32 PM EST Temperature 36.7 ??C (98 ??F) 03/17/2024 2:32 PM EST Respiratory Rate 18 03/17/2024 2:32 PM EST Oxygen Saturation 99% 11/18/2023 3:05 PM EDT Inhaled Oxygen Concentration - - Weight 87.1 kg (192 lb) 03/17/2024 2:32 PM EST Height 162.6 cm (5' 4 ) 03/17/2024 2:32 PM EST Body Mass Index 32.96 03/17/2024 2:32 PM EST Plan of Treatment Upcoming Encounters Date Type Department Care Team (Late st Contact Info) Description 07/20/2024 3:30 PM EDT Office Visit [facility] [address] [place] [phone] Carmita Avelar MD [address] [place] [phone] 08/19/2024 1:30 PM EDT Telemedicine [facility] [address] [place] [address] [phone] Jennifer Garcia, SAUL Health Maintenance Due Date Last Done Comments CT Colonography 1969 FIT 1969 FOBT 1969 Sigmoidoscopy 1969 Diabetes: Foot Exam 1979 Eye Exam 1979 Alcohol/Substance Use Screening 1981 Hepatitis A Vaccines (1 of 2 - Risk 2-dose series) 1988 Pap Smear 1990 HPV/Cotest 1999 Zoster Vaccines (2 of 2) 02/09/2021 12/15/2020 DTaP/Tdap/Td Vaccines (2 - Td or Tdap) 04/29/2023 04/29/2013, 01/06/2006 COVID-19 Vaccine ( season) 2024 02/24/2023, 11/21/2021, 03/25/2021, Additional history exists Diabetes: Urine Protein Screening 01/21/2024 01/20/2023 Diabetes: Hemoglobin A1C 04/12/2024 024, 06/26/2023, 05/15/2023, Additional history exists SDOH Screening 03/08/2025 03/08/2024 Depression Screening 03/17/2025 03/17/2024, 03/17/20 Lipid Panel 03/17/2025 03/17/2024, 0401/2023, 08/12/2021, Additional history exists Tobacco Screening 03/17/2025 03/17/2024 Mammogram 12/31/2025 01/01/2024, 12/10, 10/14/2021, Additional history exists FIT DNA/Cologuard 01/25/2026 01/25/2023 Colonoscopy 05/13/2026 05/13/2023 Colorectal Cancer Screening 05/13/2026 RSV Patients and Patients Aged 60 years or older (1 - 1-dose 75+ series) 2044 Hepatitis B Vaccines Completed 11/26/1999, 05/20/1999, 04/18/1999 Influenza Vaccine Completed 01/01/2024, , 03/07/2022, Additional history exists HIV Screening Completed 03/17/2024, 06/03/2019 Hepatitis C Screening Completed 03/17/2024 Pneumococcal Vaccine: 50+ Years Completed 03/17/2024, 01/04/2020 Cervical Cancer Screening Discontinued HIB Vaccines Aged Out No longer eligi ble based on patient's age to complete this topic HPV Vaccines Aged Out No longer eligi ble based on patient's age to complete this topic IPV Vaccines Aged Out No longer eligi ble based on patient's age to complete this topic Meningococcal Vaccine Aged Out No dinora ira eligible based on patient's age to complete this topic RSV under 20 months Aged Out No longe r eligible based on patient's age to complete this topic Rotavirus Vaccines Aged Out No longer eligible based on patient's age to complete this topic Procedures Procedure Name Priority Date/Time Associated Diagnosis Comments POCT BENOIT-14 URINE DRUG SCREEN Routine 06/01/2024 2:17 PM EST Chronic right shoulder pain HEPATITIS C AB W/REFL TO HCV RNA, QN, PCR Routine 03/17/2024 3:51 PM EST Encounter for preventive care HIV 1/2 ANTIGEN/ANTIBODY, FOURTH GENERATION W/RFL Routine 03/17/2024 3:51 PM EST Encounter for preventive care LIPID PANEL, STANDARD Routine 03/17/2024 3:51 PM EST Encounter for preventive care BI MAMMOGRAM SCREENING TOMOSYNTHESIS BILATERAL Routine 01/01/2024 3:20 PM EDT POCT GLYCOSYLATED HEMOGLOBIN (HGB A1C) Routine 06/26/2023 1:20 PM EST Type 2 diabetes mellitus without complication, without long-term current use of insulin (CMS/HCC) HM COLONOSCOPY Routine 05/13/2023 11:20 AM EST LAB COLOGUARD?? COLON CANCER SCREEN Routine 01/25/2023 2:09 PM EDT Colon cancer screening ALBUMIN, RANDOM URINE W/CREATININE Routine 01/20/2023 3:56 PM EDT from Last 3 Months or Most Recently Relevant to Health Maintenance Results * POCT BENOIT-14 Urine Drug Screen (06/01/2024 2:17 PM EST) Pathologist [facility] Opiate Screen, Urine Positive Benzodiazepines Screen, Urine Positive Oxycodone Screen, Urine Positive Urine Urine specimen obtained by clean catch procedure / Unknown 06/01/2024 2:17 PM EST Jennifer Hardy RN - 06/01/2024 2:17 PM EST UTOX cup Lot#[id number] Exp. 02/02/26 Internal Pass Control us Carmita Alvarado MD POINT OF CARE TEST EN TER/EDIT ORDERABLES Final Result * Hepatitis C Antibody with Reflex to HCV, RNA, Quantitative, Real-Time PCR (03/17/2024 3:51 PM EST) Pathologist [facility] Hepatitis C Antibody Nonreactive Nonreactive [facility] Comment:Antibodies to HCV no t detected; does not exclude early acuteHCV infection. Blood Venous blood specimen / Unknown 03/17/2024 3:51 PM EST 03/17/2024 5:42 PM EST Carmita Alvarado MD LAB BLOOD ORDERABLES Final Result Performing Organization Address City/[facility]/ZIP Co de Phone Number [facility] [address] [place] [address] [phone] * HIV-1/2 Antigen and Antibodies, Fourth Generation, with Reflexes (03/17/2024 3:51 PM EST) [facility] HIV AB/AG Nonreactive Nonreactive [facility] Comment:HIV-1 p24 Ag and/or HIV-1/HIV-2 Ab not detected.A test result that is nonreactive does not exclude thepossibility of exposure to or infection with HIV-1 and/orHIV-2. Nonreactive results in this assay for individualswith prior exposure to HIV-1 and/or HIV-2 may be due toantigen and antibody levels that are below the limit ofdetection of this assay.[employer] HIV Ag/Ab Combo assay result andsupplemental assay results should be interpreted inconjunction with the patient's clinical presentation,history and other laboratory results. If the results areinconsistent with clinical evidence, additional testing issuggested to confirm the result. Blood Venous blood specimen / Unknown 03/17/2024 3:51 PM EST 03/17/2024 5:42 PM EST us Carmita Alvarado MD LAB BLOOD ORDERABLES Final Result Performing Organization Address City/[facility]/ZIP Co de Phone Number [facility] [address] [place] [address] [phone] * (ABNORMAL) Lipid Panel, Standard (03/17/2024 3:51 PM EST) [facility] Triglycerides 146 <150 mg/dL [facility] Comment:Desirable Triglyceri de: less than 150 mg/dLBorderline High Triglyceride 150-199 mg/dLHigh Triglyceride: 200-499 mg/dLVery High Triglyceride: greater than or equal to 5OO mg/dL Cholesterol 131 <200 mg/dL [facility] Comment:Desirable Cholestero l: less than 200 mg/dLBorderline High Cholesterol: 200-239 mg/dLHigh Cholesterol: greater than 239 mg/dL LDL Cholesterol Calculated 65 <100 mg/dL [facility] Comment:Desirable LDL: less than 100 mg/dLNear Optimal/Above Optimal LDL: 110- 129 mg/dLBorderline High LDL: 130-159 mg/dLHigh LDL: 160-189 mg/dLVery High LDL: greater than or equal to 190 mg/dL HDL Cholesterol 37(L) >40 mg/dL [facility] Comment:Desirable HDL: great er than 40 mg/dL Note: This HDL assay may give artificially low results in patients with liver disease. Blood Venous blood specimen / Unknown 03/17/2024 3:51 PM EST 03/17/2024 5:42 PM EST Carmita Alvarado MD LAB BLOOD ORDERABLES Final Result [facility] [address] [place] [phone] * BI Mammogram Screening Tomosynthesis Bilateral (01/01/2024 3:20 PM EDT) Anatomical Region Laterality Modality Breast Bilateral Mammography 01/01/2024 3:20 PM EDT Narrative 01/29/2024 9:47 AM EDT ? [facility] [place] ? [address] ?[place] [address] ? Mammography Report ? Signed ? Patient: Hodge Al,Shirley D ?MR ?? #: [id number] ? : 1970 ?Acct:[id number] ? Age/Sex: 53 / F ?ADM Date: 08/23/24 ? Loc: HO.MAMMO ? Attending Dr: Carmita Alvarado MD ? Ordering Physician: Carmita Avelar MD ?Results: ?? 1Negative ? Date of Service: 01/01/24 ?Follow Up: 1 Year From Orig ?? inal Mammogram ? Procedure(s): MM tomosynthesis screening BI ?? Accession Number(s): [id number] ? cc: Carmita Avelar MD ? EXAMINATION: ?? MM SCREENING DIGITAL BREAST TOMOSYNTHESIS, BILATERAL ? CLINICAL INFORMATION: ? Screening. Asymptomatic. ? COMPARISON: ?? Mammography: Comparison is made with available prior examinations. ? TECHNIQUE: ?? Digital breast tomosynthesis is performed in both the craniocaudal and ?? mediolateral oblique views along with computer-aided detection (CAD). ? Synthesized 2D images are generated from the tomosynthesis. ? FINDINGS: ?? The breasts are heterogeneously dense, which may obscure small masses ?? (ACR BI-RADS breast composition Category c). ? There are no significant masses, abnormal calcifications, or other ?? abnormalities. ? MM/MM tomosynthesis screening BI ?? IMPRESSION: ?? No mammographic evidence of malignancy. ? ASSESSMENT: ? BI-RADS BI-RADS 1 - Negative ? RECOMMENDATION: ?? Routine annual mammography screening. ? 1 year F/U ? This examination should not preclude the clinical evaluation of a ?? suspicious palpable abnormality. ? This patient's information was entered into a reminder system with a ?? target due date for their next mammogram. ? Electronically signed by: ??Myrna Shipley DO ??01/29/2024 09:44 AM EDT ?? RP ? Dictated By: ?Myrna Shipley DO ? Signed By: ?<Electronically signed by Myrna Shipley, DO in OV> ? 01/29/24 0944 ? DD/ 1520 ? TD/TT: 01/01/24 1535 ? Solder Making Supervisor: ? Procedure Note Donotharveyinterpreter, Image - [facility] [address] [place] [address] Mammography Report Signed Patient: Shirley Méndez DMR #: [id number] : 1970Acct:[id number] Age/Sex: 53 / FADM Date: 01/01/24 Loc: .MAMMO Attending Dr: Carmita Alvarado MD Ordering Physician: Carmita Avelar MDResults: 1Negative Date of Service: 01/01/24Follow Up: 1 Year From Orig inal Mammogram Procedure(s): MM tomosynthesis screening BI Accession Number(s): [id number] cc: Carmita Avelar MD EXAMINATION: MM SCREENING DIGITAL BREAST TOMOSYNTHESIS, BILATERAL CLINICAL INFORMATION: Screening. Asymptomatic. COMPARISON: Mammography: Comparison is made with available prior examinations. TECHNIQUE: Digital breast tomosynthesis is performed in both the craniocaudal and mediolateral oblique views along with computer-aided detection (CAD). Synthesized 2D images are generated from the tomosynthesis. FINDINGS: The breasts are heterogeneously dense, which may obscure small masses (ACR BI-RADS breast composition Category c). There are no significant masses, abnormal calcifications, or other abnormalities. MM/MM tomosynthesis screening BI IMPRESSION: No mammographic evidence of malignancy. ASSESSMENT: BI-RADS BI-RADS 1 - Negative RECOMMENDATION: Routine annual mammography screening. 1 year F/U This examination should not preclude the clinical evaluation of a suspicious palpable abnormality. This patient's information was entered into a reminder system with a target due date for their next mammogram. Electronically signed by: Myrna Shipley DO 01/29/2024 09:44 AM EDT Dictated By: Myrna Shipley DO Signed By: <Electronically signed by Myrna Shipley DO in OV> 01/29/24 0944 DD/ 1520 TD/TT: 01/01/24 1535 Solder Making Supervisor: Carmita Alvarado MD IMG BI PROCEDURES Davy yumiko Result - Final * (ABNORMAL) POCT glycosylated hemoglobin (Hgb A1c) (06/26/2023 1:20 PM EST) Hemoglobin A1C 6.1(A) 4.0 - 6.0 % QC Media Lot # [id number] Lot# Expiration Date Blood Capillary blood specimen / Unknown 06/26/2023 1:20 PM EST Yolande De Anda NP POINT OF CARE TEST ENTER/EDIT O RDERABLES Final Result * Hm Colonoscopy (05/13/2023 11:20 AM EST) Historical Provider HEALTH MAINTENANCE Final Result * (ABNORMAL) Cologuard?? colon cancer screening (01/25/2023 2:09 PM EDT) Cologuard Result Positive( A) Negative 01/31/2023 10:31 AM EDT [facility] (CLIA #:[id number]) Comment: POSITIVE TEST RESULT. A positive Cologuard result should be followed with a colonoscopy or visual examination of the colon. The normal value (reference range) for this assay is negative. TEST DESCRIPTION: Composite algorithmic analysis of stool DNA-biomarkers with hemoglobin immunoassay. ?? Quantitative values of individual biomarkers are not reportable and are not associated with individual biomarker result reference ranges. Cologuard is intended for colorectal cancer screening of adults of either sex, 45 years or older, who are at average-risk for colorectal cancer (CRC). Cologuard has been approved for use by the U.S. FDA. The performance of Cologuard was established in a cross sectional study of average-risk adults aged 50-84. Cologuard performance in patients ages 45 to 49 years was estimated by sub-group analysis of near-age groups. Colonoscopies performed for a positive result may find as the most clinically significant lesion: colorectal cancer [4.0%], advanced adenoma (including sessile serrated polyps greater than or equal to 1cm diameter) [20%] or non- advanced adenoma [31%]; or no colorectal neoplasia [45%]. These estimates are derived from a prospective cross-sectional screening study of 10,000 individuals at average risk for colorectal cancer who were screened with both Cologuard and colonoscopy. (Thom Salcido al, N Engl J Med 2014;370(14):1644-5809.) Cologuard may produce a false negative or false positive result (no colorectal cancer or precancerous polyp present at colonoscopy follow up). A negative Cologuard test result does not guarantee the absence of CRC or advanced adenoma (pre-cancer). The current Cologuard screening interval is every 3 years. ([place] Cancer Society and U.S. Multi-Society Task Force). Cologuard performance data in a 10,000 patient pivotal study using colonoscopy as the reference method can be accessed at the following location: www.[employer]/results. Additional description of the Cologuard test process, warnings and precautions can be found at [email or web address].com. Stool specimen (specimen) 01/25/2023 2:09 PM EDT 01/27/2023 9:51 PM EDT Carmita Alvarado MD LAB MOLECULAR DIAGNOS TICS ORDERABLES Final Result [facility] (CLIA #:[id number]) [place] [address], [place] [phone] * Albumin, Random Urine W/Creatinine (01/20/2023 3:56 PM EDT) Creatinine, Urine 265.78 mg/dL [facility] Microalbumin Urine 27.0 mg/L [facility] Microalbum Creatinine Ratio Ur 10.1 <30 ug/mg cr [facility] Comment:Albumin/Creatinine R atio Reference Ranges: Normal: < 30 ug/mg creatinine Microalbuminuria: 30 - 300 ug/mg creatinineClinical Albuminuria: > 300 ug/mg creatinine 01/20/2023 3:56 PM EDT 01/20/2023 5:25 PM EDT us Carmita Alvarado MD LAB URINE ORDERABLES Final Result [facility] [address] [place] [phone] from Last 3 Months or Most Recently Relevant to Health Maintenance [facility] C[employer] Care Teams Table Top Tile Setter Relationship Specialty Start Date End Date Carmita Avelar MD [address] [place] [phone] PCP - General Family Medicine 03/11/19
--- OUTSIDE RECORDS SUMMARY | 2024-06-30 14:50 | XMS_ITS | Encounter Summary ---
Author Organization [employer] Address [address] 7[address] [place] [address] Care Team Providers Care Biopsychologist Name Role Phone Carmita Avelar MD Primary Care Provide r Reason for Visit * Reason Onset Date Comments Labs 07/10/2023 Encounter Details Date Type Department Care Team ([facility] st Contact Info) Description 07/10/2023 Telephone [facility] [address] [place], [place] [phone] Carmita Avelar MD [address] [place], [place] [phone] Labs Social History Tobacco Use Types Packs/Day Years Used Date Smoking Tobacco: Every Day Cigarettes Passive Smoke Exposure: Current Smokeless Tobacco: Never Alcohol Use Standard Drinks/Week Comments Never 0 (1 standard drink = 0.6 oz pur e alcohol) Depression Answer Date Recorded Patient Health Questionnaire-9 Score 18 08/26/2022 Housing Stability Answer Date Recorded What is your housing situation today? I have danae patrick 02/26/[address] you li ve. Do you have problems with any of the following? None of the above 02/26/2023 Food Insecurity Answer Date Recorded Within the past 12 months, y ou worried that your food would run out before you got money to buy more: Never True 02/26/2023 Within the past 12 months,th e food you bought just didn't last and you didn't have enough money to get more: Never True Transportation Answer Date Recorded In the past 12 months, has l ack of transportation kept you from medical appts, meetings, work or from getting things needed for daily living? No 02/26/2023 Utilities Answer Date Recorded In the past 12 months, has t he electric, gas, oil or water company threatened to shut off services in your home? No 02/26/2023 Depression Answer Date Recorded Patient Health Questionnaire-2 [...] encounter Miscellaneous Notes * Telephone Encounter - Wilfredo Vang RN - 07/10/2023 11:10 AM EST Fax sent, confirmation received. * Telephone Encounter - Sampson Garcia - 07/10/2023 10:13 AM EST Tc from [facility] working with [facility] requesting EKG and Labs from 06/26/23 to be faxed over. Shamarequesting to put Attention [facility] as a side note, OR date 07/13/23 If any questions you can contact [facility] at [phone]. documented in this encounter Plan of Treatment Upcoming Encounters Date Type Department Care Team (Late st Contact Info) Description 07/20/2024 3:30 PM EDT Office Visit [facility] [address] [place] [phone] Carmita Avelar MD [address] [place] [phone] 08/19/2024 1:30 PM EDT Telemedicine [facility] [address] [place] [phone] Radha, Jennifer, RN documented as of this encounter Visit Diagnoses Not on filedocumented in this encounter Additional Health Concerns Assessment Noted Time PHQ-9 Depression Total Score: 18 023 3:07 PM EDT documented as of this encounter Care Teams Biopsychologist Relationship Specialty Start Date End Date Carmita Avelar MD [address] [place] [address] PCP - General Family Medicine 03/11/19 documented as of this encounter
--- OUTSIDE RECORDS SUMMARY | 2024-06-30 14:50 | XMS_ITS | Encounter Summary ---
Author Organization [employer] Address [address] [place] [address] Care Team Providers Care Career Based Intervention Coordinator Name Role Phone Carmita Avelar MD Primary Care Provide r Reason for Visit * Reason Onset Date Comments Med Refill 05/23/2024 Encounter Details Date Type Department Care Team (Late st Contact Info) Description 05/23/2024 Refill [facility] [address] [place], [place] [phone] Carmita Avelar MD [address] [place], [place] [phone] Chronic right shoulder pain Social History Tobacco Use Types Packs/Day [...] Description 07/20/2024 3:30 PM EDT Office Visit [facility] [address] [place] [phone] Carmita Avelar MD [address] [place] [phone] 08/19/2024 1:30 PM EDT Telemedicine [facility] [address] [place] [phone] Jennifer Garcia RN documented as of this encounter Visit Diagnoses Diagnosis Chronic right shoulder pain Pain in joint, shoulder region documented in this encounter Additional Health Concerns Assessment Noted Time PHQ-9 Depression Total Score: 0 03/17/20 24 2:34 PM EST documented as of this encounter Care Teams Career Based Intervention Coordinator Relationship Specialty Start Date End Date Carmita Avelar MD [address] [place] [phone] PCP - General Family Medicine 03/11/19 documented as of this encounter
--- OUTSIDE RECORDS SUMMARY | 2024-06-30 14:50 | XMS_ITS | Encounter Summary ---
Author Organization [employer] Address [address] [place] [address] Care Team Providers Care Food Operations Manager Name Role Phone Carmita Avelar MD Primary Care Provide r Encounter Details Date Type Department Care Team ([facility] Contact Info) Description 06/10/2024 10:45 AM EST Telemedicine [facility] [address] [place], [place] [phone] Roman Funk MD [address] [place] [address] COVID (Primary Dx); Acute cough; Congestion of nasal sinus Social History Tobacco Use Types Packs/Day Years [...] as of this encounter Progress Notes * Roman Talley MD - 06/10/2024 10:45 AM EST Subjective Patient ID: Shirley Hodge is a 53 y.o. female who presents for No chief complaint on file.. Illness Associated symptoms include congestion, fatigue and coughing. Pertinent negatives include no fever,shortness of breath or wheezing. Review of Systems Constitutional: Positive for fatigue. Negative for fever. HENT: Positive for congestion. Respiratory: Positive for cough. Negative for shortness of breath and wheezing. Objective Physical Exam Neurological: General: No focal deficit present. Mental Status: She is oriented to person, place, and time. Psychiatric: Mood and Affect: Mood normal. Behavior: Behavior normal. Assessment/Plan Problem List Items Addressed This Visit None Visit Diagnoses COVID - Primary Symptoms started 3 days ago, complains mostly of cough and congestion, will provide sudafed and benzonatate, er precautions discussed Acute cough Congestion of nasal sinus documented in this encounter Plan of Treatment Upcoming Encounters Date Type Department Care Team ([facility] st Contact Info) Description 07/20/2024 3:30 PM EDT Office Visit [facility] [address] [place] [phone] Carmita Avelar MD [address] [place] [address] 08/19/2024 1:30 PM EDT Telemedicine [facility] [address] [place] [phone] Jennifer Garcia RN documented as of this encounter Visit Diagnoses Diagnosis COVID- Primary Acute cough Congestion of nasal sinus Other diseases of nasal cavity and sinuses documented in this encounter Additional Health Concerns Assessment Noted Time PHQ-9 Depression Total Score: 0 03/17/20 24 2:34 PM EST documented as of this encounter Care Teams Food Operations Manager Relationship Specialty Start Date End Date Carmita Avelar MD [address] [place] [phone] PCP - General Family Medicine 03/11/19 documented as of this encounter
--- OUTSIDE RECORDS SUMMARY | 2024-06-30 14:50 | XMS_ITS | Encounter Summary ---
Author Organization [employer] Address [address] [place] [address] Care Team Providers Care Director Of Workforce Development Name Role Phone Carmita Avelar MD Primary Care Provide r Encounter Details Date Type Department Care Team ([facility] Contact Info) Description 02/04/2023 Telephone [facility]INE [address] [place] [phone] Carmita Avelar MD [address] [place] [phone] Social History Tobacco Use Types Packs/Day Years [...] Upcoming Encounters Date Type Department Care Team ([facility] Contact Info) Description 07/20/2024 3:30 PM EDT Office Visit [facility] [address] [place] [address] [phone] Carmita Avelar MD [address] [place] [address] 08/19/2024 1:30 PM EDT Telemedicine [facility]INE [address] [place] [address] [phone] Jennifer Garcia RN documented as of this encounter Visit Diagnoses Not on filedocumented in this encounter Additional Health Concerns Assessment Noted Time PHQ-9 Depression Total Score: 18 023 3:07 PM EDT documented as of this encounter Care Teams Director Of Workforce Development Relationship Specialty Start Date End Date Carmita Avelar MD [address] [place] [address] [phone] PCP - General Family Medicine 03/11/19 documented as of this encounter
--- OUTSIDE RECORDS SUMMARY | 2024-06-30 14:50 | XMS_ITS | Encounter Summary ---
Author Organization [employer] Address [address] [place] [address] Care Team Providers Care Motor Lodge Clerk Name Role Phone Carmita vAelar MD Primary Care Provide r Reason for Visit * Reason Onset Date Comments Recommend OVERHEAD CRANE TECHNICIAN Tele Tier 2, inperson renewals Encounter Details Date Type Department Care Team ([facility] st Contact Info) Description 06/01/2024 Telephone [facility] MED[facility]INE [address] [place] [phone] Jennifer Garcia, RN Recommend OVERHEAD CRANE TECHNICIAN Tele Tier 2, inperson renewals Social History Tobacco Use Types Packs/Day Years [...] encounter Miscellaneous Notes * Telephone Encounter - Jennifer Garcia RN - 06/01/2024 7:39 AM EST What OVERHEAD CRANE TECHNICIAN Tier would you like this patient to be? I recommend Tele Tier 2 /inperson renewals, please let me know if you agree or would rather patientbe in another OVERHEAD CRANE TECHNICIAN Tier. Tier 1 = HIGH RISK, Monthly OVERHEAD CRANE TECHNICIAN visits Tier 2 = MODerate RISK, Q3 Month visits Tier 3 = LOW RISK = Q4-6 month visits documented in this encounter Plan of Treatment Upcoming Encounters Date Type Department Care Team (Late st Contact Info) Description 07/20/2024 3:30 PM EDT Office Visit [facility] MED[facility]INE [address] [place] [phone] Carmita Avelar MD [address] [place], [place] [phone] 08/19/2024 1:30 PM EDT Telemedicine [facility] [address] [place] [phone] Jennifer Garcia RN documented as of this encounter Visit Diagnoses Not on filedocumented in this encounter Additional Health Concerns Assessment Noted Time PHQ-9 Depression Total Score: 0 03/17/20 24 2:34 PM EST documented as of this encounter Care Teams Motor Lodge Clerk Relationship Specialty Start Date End Date Carmita Avelar MD [address] [place] [address] PCP - General Family Medicine 03/11/19 documented as of this encounter
--- OUTSIDE RECORDS SUMMARY | 2024-06-30 14:50 | XMS_ITS | Encounter Summary ---
Author Organization [employer] Address [address] [place] [address] Care Team Providers Care Crew Trainer Name Role Phone Carmita Avelar MD Primary Care Provide r Encounter Details Date Type Department Care Team ([facility] st Contact Info) Description 07/23/2023 Orders Only [facility] [address] [place], [place] [phone] Carmita Avelar MD [address] [place], [place] [phone] Social History Tobacco Use Types Packs/Day Years [...] Description 07/20/2024 3:30 PM EDT Office Visit [facility] MEDICINE [address] [place] [phone] Carmita Avelar MD [address] [place] [phone] 08/19/2024 1:30 PM EDT Telemedicine [facility] [address] [place] [phone] Jennifer Garcia RN documented as of this encounter Visit Diagnoses Not on filedocumented in this encounter Additional Health Concerns Assessment Noted Time PHQ-9 Depression Total Score: 18 023 3:07 PM EDT documented as of this encounter Care Teams Crew Trainer Relationship Specialty Start Date End Date Carmita Avelar MD [address] [place] [phone] PCP - General Family Medicine 03/11/19 documented as of this encounter
--- OUTSIDE RECORDS SUMMARY | 2024-06-30 14:50 | XMS_ITS | Encounter Summary ---
Author Organization [employer] Address [address] [place] [address] Care Team Providers Care Stock Plan Administrator Name Role Phone Carmita Avelar MD Primary Care Provide r Encounter Details Date Type Department Care Team (Latest Contact Info) Description 05/31/2024 Travel Social History Tobacco Use Types Packs/Day [...] Description 07/20/2024 3:30 PM EDT Office Visit [facility] MED[facility]INE [address] [place] [phone] Carmita Avelar MD [address] [place] [phone] 08/19/2024 1:30 PM EDT Telemedicine [facility] MED[facility]INE [address] [place] [address] [phone] Jennifer Garcia RN documented as of this encounter Visit Diagnoses Not on filedocumented in this encounter Additional Health Concerns Assessment Noted Time PHQ-9 Depression Total Score: 0 03/17/20 24 2:34 PM EST documented as of this encounter Care Teams Stock Plan Administrator Relationship Specialty Start Date End Date Carmita Avelar MD [address] [place] [address] [phone] PCP - General Family Medicine 03/11/19 documented as of this encounter
--- OUTSIDE RECORDS SUMMARY | 2024-06-30 14:50 | XMS_ITS | Encounter Summary ---
Author Organization [employer] Address [address] [facility] [address] 7t [place] [address] Care Team Providers Care Railway Yard Assistant Name Role Phone Carmita Avelar MD Primary Care Provide r Reason for Visit * Reason Onset Date Comments Med Refill 12/18/2022 Encounter Details Date Type Department Care Team ([facility] st Contact Info) Description 12/18/2022 Telephone [facility] [address] [place], [place] [phone] Carmita Avelar MD [address] [place], [place] [phone] Med Refill Social History Tobacco Use Types Packs/Day Years [...] encounter Miscellaneous Notes * Telephone Encounter - Carmen Parisi - 12/18/2022 11:07 AM EDT Tc from pt requesting a med refill for oxyCODONE (Roxicodone) 5 MG immediate release tablet , states they are due on 12/21/22 however lands on a weekend ( Thursday ) and would like to know if script canbe filled for tmr 12/19/22 documented in this encounter Plan of Treatment Upcoming Encounters Date Type Department Care Team (Late st Contact Info) Description 07/20/2024 3:30 PM EDT Office Visit [facility] [address] [place] [phone] Carmita Avelar MD [address] [place] [address] 08/19/2024 1:30 PM EDT Telemedicine [facility] [address] [place] [phone] Jennifer Garcia RN documented as of this encounter Visit Diagnoses Not on filedocumented in this encounter Additional Health Concerns Assessment Noted Time PHQ-9 Depression Total Score: 18 023 3:07 PM EDT documented as of this encounter Care Teams Railway Yard Assistant Relationship Specialty Start Date End Date Carmita Avelar MD [address] [place] [address] PCP - General Family Medicine 03/11/19 documented as of this encounter
--- OUTSIDE RECORDS SUMMARY | 2024-06-30 14:50 | XMS_ITS | Encounter Summary ---
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 Previous BPI completed 10/19/23 with pain severity score of 7.8, activity interference score of 9.6. documented in this encounter Plan of Treatment Upcoming Encounters Date Type Department Care Team (Late st Contact Info) Description 07/20/2024 3:30 PM EDT Office Visit [facility] [address] [place] [phone] Carmita Avelar MD [address] [place] [phone] 08/19/2024 1:30 PM EDT Telemedicine [facility] [address] [place] [address] [phone] Jennifer Garcia RN documented as of this encounter Visit Diagnoses Diagnosis Chronic right shoulder pain Pain in joint, shoulder region documented in this encounter Additional Health Concerns Assessment Noted Time PHQ-9 Depression Total Score: 0 03/17/20 2:34 PM EST documented as of this encounter Care Teams Programming Director Relationship Specialty Start Date End Date Carmita Avelar MD 230 [place] [address] PCP - General Family Medicine 03/11/19 documented as of this encounter
--- OUTSIDE RECORDS SUMMARY | 2024-06-30 14:50 | XMS_ITS | Encounter Summary ---
Author Organization [employer] Address [address] [facility] [address] 7t [place] [address] Care Team Providers Care Retail Beauty Specialist Name Role Phone Carmita Avelar MD Primary Care Provide r Reason for Visit * Reason Onset Date Comments Nurse Triage 06/09/2024 Encounter Details Date Type Department Care Team ([facility] st Contact Info) Description 06/09/2024 Telephone [facility] 230 [place], [place] [phone] Carmita Avelar MD 230 [place] [address] Nurse Triage Social History Tobacco Use Types Packs/Day Years [...] encounter Miscellaneous Notes * Telephone Encounter - Bev Gibbons RN - 06/09/2024 4:18 PM EST Call returned to Shirley Hodge to triage below. Reports having cough, GODWIN and fever (99F) 3 days.Per pt also having diarrhea. Pt denies any CP or vomiting. Using inhaler PRN for any SOB. Pt using OTC tylenol for pain. Pt advised of disposition, agrees to telehealth tomorrow with [facility] team provider. Reviewed home care advise, ER precautions and reasons to call back. Protocol Used: COVID-19 - Diagnosed or Suspected (Adult) Protocol-Based Disposition: Discuss with PCP and Callback by Nurse within 1 Hour Future Appointments Date Time Provider Department Center 06/10/2024 10:45 AM Roman Talley MD [facility] 07/20/2024 3:30 PM Carmita Alvarado MD MEDICINE [facility] 08/19/2024 1:30 PM Jennifer Garcia RN MEDICINE [facility] Insurance verified as active per Real Time Eligibility in [facility] [place] [facility]. Video visit offer not recorded Positive Triage Question: * HIGH RISK patient (e.g., weak immune system, age > 64 years, obesity with BMI of 30 or higher,, chronic lung disease) and COVID symptoms (e.g., cough, fever) (Exceptions: Already seen by doctor or PHYSICS TEACHER/PA and no new or worsening symptoms.) * All higher-acuity triage questions were negative Care Advice Discussed: * Reassurance and Education - Positive COVID-19 Lab Test and Mild Symptoms * Cough Medicines * Coughing Spells * Pain and Fever Medicines * Reasons To Call Back - Fever over 103 F (39.4 C) - Chest pain or difficulty breathing occurs - You become worse * Telephone Encounter - Cruz Liunandez - 06/09/2024 3:51 PM EST Symptoms: Fever, Headache, Cough Outcome: Transfer to a nurse or provider NOW! Reason: Sudden worst headache of life now The caller accepted this outcome. Contact pt at [phone] documented in this encounter Plan of Treatment Upcoming Encounters Date Type Department Care Team (Late st Contact Info) Description 07/20/2024 3:30 PM EDT Office Visit [facility] [address] [place] [phone] Carmita Avelar MD [address] [place] [phone] 08/19/2024 1:30 PM EDT Telemedicine [facility] [address] [place] [address] 6[address] Jennifer Garcia RN documented as of this encounter Visit Diagnoses Not on filedocumented in this encounter Additional Health Concerns Assessment Noted Time PHQ-9 Depression Total Score: 0 03/17/20 24 2:34 PM EST documented as of this encounter Care Teams Retail Beauty Specialist Relationship Specialty Start Date End Date Carmita Avelar MD [address] [place] [phone] PCP - General Family Medicine 03/11/19 documented as of this encounter
--- OUTSIDE RECORDS SUMMARY | 2024-06-30 14:50 | XMS_ITS | Encounter Summary ---
Author Organization [employer] Address [address] [facility] [address] 7t [place] [address] Care Team Providers Care Primary School Teacher Name Role Phone Carmita Avelar MD Primary Care Provide r Encounter Details Date Type Department Care Team ([facility] st Contact Info) Description 07/01/2023 Telephone [facility]INE 230 [place], [place] [phone] Carmita Avelar MD 230 [place], [place] [phone] Social History Tobacco Use Types Packs/Day Years [...] Description 07/20/2024 3:30 PM EDT Office Visit [facility] [address] [place] [phone] Carmita Avelar MD [address] [place] [address] 08/19/2024 1:30 PM EDT Telemedicine [facility] [address] [place] [address] [phone] Jennifer Garcia RN documented as of this encounter Visit Diagnoses Not on filedocumented in this encounter Additional Health Concerns Assessment Noted Time PHQ-9 Depression Total Score: 18 023 3:07 PM EDT documented as of this encounter Care Teams Primary School Teacher Relationship Specialty Start Date End Date Carmita Avelar MD [address] [place] [phone] PCP - General Family Medicine 03/11/19 documented as of this encounter
--- OUTSIDE RECORDS SUMMARY | 2024-06-30 14:50 | XMS_ITS | Encounter Summary ---
Author Organization [employer] Address [address] 7t [place] [address] Care Team Providers Care Director Television Name Role Phone Carmita Avelar MD Primary Care Provide r Encounter Details Date Type Department Care Team (Late st Contact Info) Description 10/21/2023 Orders Only [facility] 230 [place], [place] [phone] Marisol Pedroza MD 230 [place], [place] [phone] Social History Tobacco Use Types Packs/Day Years [...] Description 07/20/2024 3:30 PM EDT Office Visit [facility] [address] [place] [address] 96[address] Carmita Avelar MD [address] [place] [phone] 08/19/2024 1:30 PM EDT Telemedicine [address] [phone] Jennifer Garcia RN documented as of this encounter Visit Diagnoses Not on filedocumented in this encounter Additional Health Concerns Assessment Noted Time PHQ-9 Depression Total Score: 18 023 3:07 PM EDT documented as of this encounter Care Teams Director Television Relationship Specialty Start Date End Date Carmita Avelar MD [address] [place] [address] [phone] PCP - General Family Medicine 03/11/19 documented as of this encounter
--- OUTSIDE RECORDS SUMMARY | 2024-06-30 14:50 | XMS_ITS | Encounter Summary ---
Author Organization [employer] Address [address] [facility] [address] [address] 7t [place] [address] Care Team Providers Care Manager Radio Name Role Phone Carmita Avelar MD Primary Care Provide r Encounter Details Date Type Department Care Team (Latest Contact Info) Description 06/01/2024 Travel Social History Tobacco Use Types Packs/Day [...] Description 07/20/2024 3:30 PM EDT Office Visit [facility] [address] [place] [address] Carmita Avelar MD [address] [place] [phone] 08/19/2024 1:30 PM EDT Telemedicine [facility] [address] [place] [address] [phone] Jennifer Garcia RN documented as of this encounter Visit Diagnoses Not on filedocumented in this encounter Additional Health Concerns Assessment Noted Time PHQ-9 Depression Total Score: 0 03/17/20 24 2:34 PM EST documented as of this encounter Care Teams Manager Radio Relationship Specialty Start Date End Date Carmita Avelar MD [address] [place] [address] [phone] PCP - General Family Medicine 03/11/19 documented as of this encounter
--- OUTSIDE RECORDS SUMMARY | 2024-06-30 14:50 | XMS_ITS | Encounter Summary ---
Author Organization [employer] Address [address] 7t [place] [address] Care Team Providers Care Nursing Service Administrator Name Role Phone Carmita Avelar MD Primary Care Provide r Encounter Details Date Type Department Care Team ([facility] st Contact Info) Description 03/26/2023 Abstract [facility]INE 230 [place], [place] [phone] Carmita Avelar MD 230 [place], [place] [phone] Social History Tobacco Use Types Packs/Day Years [...] Description 07/20/2024 3:30 PM EDT Office Visit [facility] MED[facility]INE [address] [place] [address] Carmita Avelar MD [address] [place] [phone] 08/19/2024 1:30 PM EDT Telemedicine [facility] [address] [place] [address] Jennifer Garcia RN documented as of this encounter Visit Diagnoses Not on filedocumented in this encounter Additional Health Concerns Assessment Noted Time PHQ-9 Depression Total Score: 18 023 3:07 PM EDT documented as of this encounter Care Teams Nursing Service Administrator Relationship Specialty Start Date End Date Carmita Avelar MD [address] [place] [phone] PCP - General Family Medicine 03/11/19 documented as of this encounter
--- OUTSIDE RECORDS SUMMARY | 2024-06-30 14:50 | XMS_ITS | Clinical Summary ---
Author Organization [facility] [facility] Address [address] [place] [address] Care Team Providers Care Coat Ironer Hand Name Role Phone Unavailable Primary Care Provider Unavailabl e Social History Tobacco Use Types Packs/Day Years Used Date Smoking Tobacco: Never Assessed Comments Unknown Sex and Gender Information Value Date Recorded Sex Assigned at Not on file Legal Sex Female 9:24 AM EST Gender Identity Not on file Sexual Orientation Not on file Plan of Treatment Health Maintenance Due Date Last Done Comments Breast Cancer Screening 1969 DTaP,Tdap,and Td Vaccines (1 - Tdap) 1988 Hepatitis B Vaccines (1 of 3 - 19+ 3-dose series) 1988 Cervical Cancer Screening: P ap Smear 1990 Pneumococcal Vaccine: 50+ Ye ars (1 of 1 - PCV) 2019 Zoster Vaccines (1 of 2) 2019 COVID-19 Vaccine ( - 2023-2 5 season) 2024 Influenza Vaccine (#1) 2024 HIB Vaccines Aged Out No longer eligi ble based on patient's age to complete this topic HPV Vaccines Aged Out No longer eligi ble based on patient's age to complete this topic Hepatitis A Vaccines Aged Out No long er eligible based on patient's age to complete this topic IPV Vaccines Aged Out No longer eligi ble based on patient's age to complete this topic MMR Vaccines Aged Out No longer eligi ble based on patient's age to complete this topic Meningococcal ACWY Vaccine Aged Out N o longer eligible based on patient's age to complete this topic Meningococcal B Vacine Aged Out No lo nger eligible based on patient's age to complete this topic Pneumococcal Vaccine: Pediat rics (0 to 5 Years) and At-Risk Patients (6 to 64 Years) Aged Out No longer eligible b ased on patient's age to complete this topic RSV Immunization Patients Un alis 20 months Aged Out No longer eligible b ased on patient's age to complete this topic Varicella Vaccines Aged Out No longer eligible based on patient's age to complete this topic
--- OUTSIDE RECORDS SUMMARY | 2024-06-30 14:50 | XMS_ITS | Encounter Summary ---
Author Organization [employer] Address [address] [facility] [address] 7t [place] [address] Care Team Providers Care Orthopedic Assistant Name Role Phone Carmita Avelar MD Primary Care Provide r Encounter Details Date Type Department Care Team (Latest Contact Info) Description 06/10/2024 Travel Social History Tobacco Use Types Packs/Day [...] 3:30 PM EDT Office Visit [facility] MEDICINE [address] [place] [phone] Carmita Avelar MD [address] [place] [address] 08/19/2024 1:30 PM EDT Telemedicine [facility] MEDICINE [address] [place] [address] [phone] Jennifer Garcia RN documented as of this encounter Visit Diagnoses Not on filedocumented in this encounter Additional Health Concerns Assessment Noted Time PHQ-9 Depression Total Score: 0 03/17/20 24 2:34 PM EST documented as of this encounter Care Teams Orthopedic Assistant Relationship Specialty Start Date End Date Carmita Avelar MD [address] [place] [address] [phone] PCP - General Family Medicine 03/11/19 documented as of this encounter
--- OUTSIDE RECORDS SUMMARY | 2024-06-30 14:50 | XMS_ITS | Encounter Summary ---
Author Organization [employer] Address [address] [facility] [facility] [address] 7[address] [place] [address] Care Team Providers Care Therapeutic Mentor Name Role Phone Carmita Avelar MD Primary Care Provide r Encounter Details Date Type Department Care Team (Late st Contact Info) Description 09/09/2023 Orders Only [facility] MEDICINE 230 [place], [place] [phone] ProviderAliyah MD Social History Tobacco Use Types Packs/Day Years Used Date Smoking Tobacco: Every Day Cigarettes Passive Smoke Exposure: Current Smokeless Tobacco: Never Alcohol Use Standard Drinks/Week Comments Never 0 (1 standard drink = 0.6 oz pur e alcohol) Depression Answer Date Recorded Patient Health Questionnaire-9 Score 18 08/26/2022 Housing Stability Answer Date Recorded What is your housing situation today? I have danae darnell 02/26/[address] you li [...] Description 07/20/2024 3:30 PM EDT Office Visit [facility] [address] [place] [address] [phone] Carmita Avelar MD [address] [place] [phone] 08/19/2024 1:30 PM EDT Telemedicine [address] [phone] Jennifer Garcia RN documented as of this encounter Procedures Procedure Name Priority Date/Time Associated Diagnosis Comments HM COLONOSCOPY Routine 05/13/2023 11:20 AM EST documented in this encounter Results * Hm Colonoscopy (05/13/2023 11:20 AM EST) us Historical Provider HEALTH MAINTENANCE Final Result documented in this encounter Visit Diagnoses Not on filedocumented in this encounter Additional Health Concerns Assessment Noted Time PHQ-9 Depression Total Score: 18 023 3:07 PM EDT documented as of this encounter Care Teams Therapeutic Mentor Relationship Specialty Start Date End Date Carmita Avelar MD [address] [place] [address] [phone] PCP - General Family Medicine 03/11/19 documented as of this encounter
== END 2024-06-30 14:19 | disposition home or self-care (01) ==
PROVIDERS: PCP Internal Medicine; Visit Provider Dietitian, Registered
DX: E16.2 Hypoglycemia, unspecified (principal)

== ENCOUNTER → 2024-06-30 13:48 | Outpatient (BNVA) | payer MEDICAID, SELFPAY | PROVIDERS: PCP Internal Medicine; Visit Provider Dietitian, Registered | DX: E16.2 Hypoglycemia, unspecified (principal); Z71.3 Dietary counseling and surveillance | CPT/HCPCS: 97803 ==

== ENCOUNTER 2024-09-16 15:38 | Outpatient (AMB) | payer MEDICAID, SELFPAY ==
--- OUTSIDE RECORDS SUMMARY | 2024-09-16 15:40 | XMS_ITS | Encounter Summary ---
Author Organization [employer] Address [address] [facility] [address] 7t [place] [address] Care Team Providers Care Steel Roller Name Role Phone Carmita Aevlar MD Primary Care Provide r Encounter Details Date Type Department Care Team (Late st Contact Info) Description 03/26/2023 Abstract [facility]INE 230 [place], [place] [phone] Carmita Avelar MD 230 [place], [place] [phone] Social History Tobacco Use Types Packs/Day Years [...] Care Team (Late st Contact Info) Description 11/04/2024 2:00 PM EDT Telemedicine [facility] [address] [place] [phone] Jennifer Garcia RN 11/23/2024 2:00 PM EDT Office Visit [facility] [address] [place] [address] Carmita Avelar MD [address] [place] [address] documented as of this encounter Visit Diagnoses Not on filedocumented in this encounter Additional Health Concerns Assessment Noted Time PHQ-9 Depression Total Score: 18 023 3:07 PM EDT documented as of this encounter Care Teams Steel Roller Relationship Specialty Start Date End Date Carmita Avelar MD [address] [place] [phone] PCP - General Family Medicine 03/11/19 documented as of this encounter
--- OUTSIDE RECORDS SUMMARY | 2024-09-16 15:40 | XMS_ITS | Encounter Summary ---
Author Organization [employer] Address [address] [facility] 7t [place] [address] Care Team Providers Care Manager Talent Name Role Phone Carmita Avelar MD Primary Care Provide r Reason for Visit * Reason Onset Date Comments Med Refill 05/23/2024 Encounter Details Date Type Department Care Team ([facility] st Contact Info) Description 05/23/2024 Refill [facility] MEDICINE 230 [place], [place] [phone] Carmita Avelar MD 230 [place] [address] Chronic right shoulder pain Social History Tobacco [...] Info) Description 11/04/2024 2:00 PM EDT Telemedicine [facility] MEDICINE [address] [place] [phone] Jennifer Garcia RN 11/23/2024 2:00 PM EDT Office Visit [facility] MEDICINE [address] [place] [address] Carmita Avelar MD [address] [place] [address] [phone] documented as of this encounter Visit Diagnoses Diagnosis Chronic right shoulder pain Pain in joint, shoulder region documented in this encounter Additional Health Concerns Assessment Noted Time PHQ-9 Depression Total Score: 0 03/17/20 24 2:34 PM EST documented as of this encounter Care Teams Manager Talent Relationship Specialty Start Date End Date Carmita Avelar MD [address] [place] [phone] PCP - General Family Medicine 03/11/19 documented as of this encounter
--- OUTSIDE RECORDS SUMMARY | 2024-09-16 15:40 | XMS_ITS | Encounter Summary ---
Author Organization [employer] Address [address] [facility] [address] [facility] [address] 7t [place] [address] Care Team Providers Care Bindery Chief Name Role Phone Carmita Avelar MD Primary Care Provide r Encounter Details Date Type Department Care Team (Late st Contact Info) Description 09/09/2023 Orders Only [facility] MED[facility]INE 230 [place], [place] [phone] ProviderAliyah MD Social History Tobacco Use Types [...] housing situation today? I have danaeken patrick 02/26/[address] you [...] Info) Description 11/04/2024 2:00 PM EDT Telemedicine [facility] MEDICINE [address] [place] [address] [phone] Jennifer Garcia RN 11/23/2024 2:00 PM EDT Office Visit [facility]INE [address] [place] [address] Carmita Avelar MD [address] [place] [phone] documented as of this encounter Procedures Procedure Name Priority Date/Time Associated Diagnosis Comments HM COLONOSCOPY Routine 05/13/2023 11:20 AM EST documented in this encounter Results * Hm Colonoscopy (05/13/2023 11:20 AM EST) Historical Provider HEALTH MAINTENANCE Final Result documented in this encounter Visit Diagnoses Not on filedocumented in this encounter Additional Health Concerns Assessment Noted Time PHQ-9 Depression Total Score: 18 023 3:07 PM EDT documented as of this encounter Care Teams Bindery Chief Relationship Specialty Start Date End Date Carmita Avelar MD [address] [place] [address] [phone] PCP - General Family Medicine 03/11/19 documented as of this encounter
--- OUTSIDE RECORDS SUMMARY | 2024-09-16 15:40 | XMS_ITS | Clinical Summary ---
Author Organization [facility] [employer] Address [address] [place] [address] Care Team Providers Care Extractive Metallurgist Name Role Phone Unavailable Primary Care Provider [...] - 2023-2 5 season) 2024 Influenza Vaccine (Season Ended) 2025 HIB Vaccines Aged Out No longer eligi [...] age to complete this topic Meningococcal B Vaccine Aged Out No l onger eligible based on patient's age to complete [...]
--- OUTSIDE RECORDS SUMMARY | 2024-09-16 15:40 | XMS_ITS | Encounter Summary ---
Author Organization [employer] Address [address] [facility] [address] [place] [address] Care Team Providers Care Investigator Name Role Phone Carmita Avelar MD Primary Care Provide r Encounter Details Date Type Department Care Team (Late st Contact Info) Description 10/21/2023 Orders Only [facility] MEDICINE 230 [place], [place] [phone] Marisol Pedroza MD 230 [place], [place] [phone] Social History Tobacco Use Types Packs/Day Years [...] Info) Description 11/04/2024 2:00 PM EDT Telemedicine [facility] MEDICINE [address] [place] [phone] Jennifer Garcia RN 11/23/2024 2:00 PM EDT Office Visit [facility]INE [address] [place] [phone] Carmita Avelar MD [address] [place] [phone] documented as of this encounter Visit Diagnoses Not on filedocumented in this encounter Additional Health Concerns Assessment Noted Time PHQ-9 Depression Total Score: 18 023 3:07 PM EDT documented as of this encounter Care Teams Investigator Relationship Specialty Start Date End Date Carmita Avelar MD [address] [place] [phone] PCP - General Family Medicine 03/11/19 documented as of this encounter
[2024-09-16 15:41] VITALS: BP 114/76; PULSE 98; O2SAT 100; BMI 30.6
--- NOTE | 2024-09-16 15:41 | MHC.OFFVIS ---
Vital Signs 09/16/24 15:41 Height 5 ft 4 in Weight 178 lb 2.136 oz BMI 30.6 BP 114/76 Blood Pressure Location Rt brachial Position Sitting Pulse 98 Pulse Source Pulse Oximeter Pulse Oximetry (%) 100 Oxygen Delivery Method Room Air Intake Visit Reasons: follow up 6 months Intake Note: Patient presents to the office today for a 6 months follow up for Delayed gastric emptying. Allergies carisoprodol [From Soma] Allergy (Severe, Verified 09/16/24 15:43) SHORTNESS OF BREATH,VOMITING duloxetine [Cymbalta] Allergy (Severe, Verified 09/16/24 15:43) Nausea and Vomiting gabapentin [From NEURONTIN] Allergy (Severe, Verified 09/16/24 15:43) RASH,HIVES ibuprofen [From Motrin] Allergy (Severe, Verified 09/16/24 15:43) VOMITING ketorolac Allergy (Severe, Verified 09/16/24 15:43) Shortness of Breath morphine [Morphine] Allergy (Severe, Verified 09/16/24 15:43) SHORTNESS OF BREATH naproxen [From Naprosyn] Allergy (Severe, Verified 09/16/24 15:43) VOMITING oxybutynin Allergy (Severe, Verified 09/16/24 15:43) Nausea and Vomiting pregabalin [From LYRICA] Allergy (Severe, Verified 09/16/24 15:43) HYPER AND PANIC ATTACK ranitidine [RANITIDINE] Allergy (Severe, Verified 09/16/24 15:43) TACHYCARDIA sulfamethoxazole [From BACTRIM] Allergy (Severe, Verified 09/16/24 15:43) VOMITING,RASH, hives tramadol Allergy (Severe, Verified 09/16/24 15:43) Shortness of Breath trimethoprim [From BACTRIM] Allergy (Severe, Verified 09/16/24 15:43) VOMITING,RASH, hives cortisone [CORTISONE] Allergy (Intermediate, Verified 09/16/24 15:43) ITCHING,RASH Sulfa (Sulfonamide Antibiotics) Allergy (Intermediate, Verified 09/16/24 15:43) VOMITING/RASH, hives transparent dressing [Tegaderm] Allergy (Verified 09/16/24 15:43) Rash dicyclomine Adverse Reaction (Severe, Verified 09/16/24 15:43) Palpitations Tricyclic Antidepressants and Tricy [Tricyclic Compounds] Adverse Reaction (Severe, Verified 09/16/24 15:43) VOMITING from ALL ANTIDEPRESSANTS, palpitations all antidepressants except Rem Allergy (Severe, Uncoded 09/16/24 15:43) Nausea and Vomiting milk, yogurt, dairy Allergy (Severe, Uncoded 09/16/24 15:43) Diarrhea, vomitting HPI HPI follow up 6 months: Details: Assessment & Plan (1) Delayed gastric emptying: Code(s): K30 - Functional dyspepsia Category: Medical (2) Irritable bowel syndrome with both constipation and diarrhea: Code(s): K58.2 - Mixed irritable bowel syndrome Category: Medical (3) GERD (gastroesophageal reflux disease): Code(s): K21.9 - Gastro-esophageal reflux disease without esophagitis Category: Medical Plan She has been seeing a cabinet maker for 4 weeks and has lost 4 lbs already. She is measuring portions and trying to eat more healthfully. She continues on her omeprazole and simethicone and metoclopramide, and fiber. She is now able to eat red meat after her Jejuni infection, so I think that her immune system is calming down, but she still will have random upper abd pain that she describes as a burning. ROV 6 mos. TODAY'S VISIT She continues on her omeprazole and simethicone and metoclopramide, and fiber. She continues to do well on her GI regimen and is happy with hit. SHe say our cabinet maker, Makayla, and she has been losing weight, she has lost aobut 20 lbs. She is workign on decreasing her clonazepam with her psych, and I advised her to keep an eye on her BP as these medications may need a decrease over time as well as she loses weight to avoid dizziness. ROV 6 mos. [facility] Medical History (Updated 09/16/24 @ 16:32 by CHRISTIANO Thrasher) Thyroid disease Migraines Elevated cholesterol Fibromyalgia Hypoglycemia Asthma Hypertension Surgical History (Updated 09/16/24 @ 16:32 by CHRISTIANO Thrasher) H/O colonoscopy H/O neck surgery H/O knee surgery Carpal tunnel syndrome History of partial hysterectomy Endometriosis determined by laparoscopy Family History Mother Diabetes Hypertension Heart abnormality Father No problems noted. Father No problems noted. Social History Household Members: None Housing: Apartment Do you presently have visiting nurse or other home services: No Alcohol intake: never Patient Tobacco Use Status: Current everyday Tobacco user Tobacco use type: Cigarette Years Smoked: 26 service: No Review of Systems Const Denies fatigue, Denies fever(s), Denies night sweats, Denies poor appetite and Reports weight loss ENT Reports Normal hearing present, Denies dental pain, Denies dysphagia, Denies hearing loss, Denies mouth pain, Reports neck pain, Denies odynophagia, Denies throat swelling, Denies tongue swelling and Reports other (Dentition adequate) Card Reports no additional complaints Resp Reports no additional complaints GI Details: Denies abdominal pain, Denies melena, Denies bloating, Denies hematochezia, Reports constipation, Denies GI cramping, Denies dysphagia, Denies excessive flatus, Reports early satiety, Reports heartburn, Denies diarrhea, Denies nausea, Denies odynophagia, Denies vomiting and Denies hematemesis Musc Reports back pain, Reports myalgias and Reports neck pain Skin/Breast Denies pruritus, Denies lesions, Denies rash and Denies jaundice Neuro Reports Normal hearing present and Denies Abnormal speech present Endo Denies fatigue Aller/Immun Denies throat swelling and Denies tongue swelling Physical Exam Vital Signs: Last Vital Signs Pulse 98 09/16/24 15:41 BP 114/76 09/16/24 15:41 Pulse Ox 100 09/16/24 15:41 Oxygen Delivery Method Room Air 09/16/24 15:41 BMI result Body Mass Index 30.6 Const General: cooperative, no acute distress, well developed and well groomed Nutritional Appearance: well nourished and obese Orientation/consciousness: oriented to person, oriented to place and oriented to time Limitations: No language barrier HEENT Head: Yes normocephalic and Yes atraumatic Eyes General: appearance normal, both eyes and all related structures Pupils: Equal, round and reactive pupils present Neck Neck: Yes normal visual inspection and Yes no lymphadenopathy Thyroid: Thyroid normal Resp Effort & Inspection: normal respiratory effort and able to speak in complete sentences Auscultation: clear to auscultation bilaterally Cardio Rate: regular rate Rhythm: regular rhythm Heart sounds: Normal, physiologic split S2 sound present Peripheral pulses: radial pulses present and posterior tibial pulses present GI Inspection: No distended, No Abdominal panniculus present and Yes obesity Palpation (GI): Soft to palpation, nontender, no guarding, not rigid and No hepatosplenomegaly present Percussion: Yes normal to percussion Auscultation: normal bowel sounds Rectal Exam - Female: deferred Skin General skin exam: no rashes or lesions noted, turgor normal, skin not dry, no jaundice, No spider nevi and no striae Rashes: no rashes Nails: normal Neuro General: oriented to person, oriented to place and oriented to time Cranial nerves: Yes Equal, round and reactive pupils present and Yes Normal hearing present Speech: No Abnormal speech present Extrem General: Yes normal to inspection, No clubbing, No cyanosis and No edema Psych Appearance: grossly normal and well kempt Mental Status: mental status grossly normal Speech and movement: Normal speech and movement present Affect: normal affect Attitude: cooperative Thought process: Normal thought process present and not confabulating Thought content: Normal thought content present Insight: Limited insight present (Psych) Judgement: Limited judgement present (Psych) Assessment & Plan Assessment & Plan (1) Irritable bowel syndrome with both constipation and diarrhea: Code(s): K58.2 - Mixed irritable bowel syndrome Category: Medical (2) GERD (gastroesophageal reflux disease): Code(s): K21.9 - Gastro-esophageal reflux disease without esophagitis Category: Medical (3) Positive colorectal cancer screening using Cologuard test: Comment: 05/2023 scope= hyperplastic polyps repeat in 5 years due to the positive Cologuard Code(s): R19.5 - Other fecal abnormalities Category: Medical Plan She continues on her omeprazole and simethicone and metoclopramide, and fiber. She continues to do well on her GI regimen and is happy with hit. SHe say our cabinet maker, Makayla, and she has been losing weight, she has lost aobut 20 lbs. She is workign on decreasing her clonazepam with her psych, and I advised her to keep an eye on her BP as these medications may need a decrease over time as well as she loses weight to avoid dizziness. ROV 6 mos. Medications: Refilled metoclopramide HCl 5 mg PO TID 90 tabs 3RF K30 - Functional dyspepsia omeprazole 20 mg PO BID 60 caps 6RF K21.9 - Gastro-esophageal reflux disease without esophagitis sennosides (senna) 17.2 mg (2 x 8.6 mg) PO BEDTIME PRN 60 caps 3RF Constipation 90 days K58.2 - Mixed irritable bowel syndrome simethicone after meals 180 mg PO QID 120 caps 6RF 30 days Coding Level of Care Code Est Pt Level 3 (84840) Diagnoses Irritable bowel syndrome with both constipation and diarrhea K58.2 GERD (gastroesophageal reflux disease) K21.9 Positive colorectal cancer screening using Cologuard test R19.5
--- OUTSIDE RECORDS SUMMARY | 2024-09-16 15:41 | XMS_ITS | Encounter Summary ---
Author Organization [employer] Address [address] 7[address] [place] [address] Care Team Providers Care Biodiesel Plant Operations Engineer Name Role Phone Carmita Avelar MD Primary Care Provide r Encounter Details Date Type Department Care Team (Late st Contact Info) Description 07/23/2023 Orders Only [facility] MED[facility]INE [address] [place], [place] [phone] Carmita Avelar MD [address] [place], [place] [phone] Social History Tobacco Use Types Packs/Day Years [...] Info) Description 11/04/2024 2:00 PM EDT Telemedicine [facility] MEDICINE [address] [place] [phone] Jennifer Garcia RN 11/23/2024 2:00 PM EDT Office Visit [facility] [address] [place] [phone] Carmita Avelar MD [address] [place] [phone] documented as of this encounter Visit Diagnoses Not on filedocumented in this encounter Additional Health Concerns Assessment Noted Time PHQ-9 Depression Total Score: 18 023 3:07 PM EDT documented as of this encounter Care Teams Biodiesel Plant Operations Engineer Relationship Specialty Start Date End Date Carmita Avelar MD [address] [place] [phone] PCP - General Family Medicine 03/11/19 documented as of this encounter
--- OUTSIDE RECORDS SUMMARY | 2024-09-16 15:41 | XMS_ITS | Encounter Summary ---
Author Organization [employer] Address [address] [place] [address] Care Team Providers Care Assistant Professor Of Archaeology Name Role Phone Carmita Avelar MD Primary Care Provide r Reason for Visit * Reason Comments Med Refill Encounter Details Date Type Department Care Team (Late Contact Info) Description 08/24/2022 Refill [facility] 230 [place] [address] [facility] [address] [place] [address] Neck pain Social History Tobacco Use Types [...] Encounters Date Type Department Care Team (Late Contact Info) Description 11/04/2024 2:00 PM EDT Telemedicine [facility] [address] [place] [phone] Jennifer Garcia RN 11/23/2024 2:00 PM EDT Office Visit [address] [address] Carmita Avelar MD [address] [place] [address] documented as of this encounter Visit Diagnoses Diagnosis Neck pain Cervicalgia documented in this encounter Care Teams Assistant Professor Of Archaeology Relationship Specialty Start Date End Date Carmita Avelar MD [address] [place] [phone] PCP - General Family Medicine 03/11/19 documented as of this encounter
--- OUTSIDE RECORDS SUMMARY | 2024-09-16 15:41 | XMS_ITS | Encounter Summary ---
Author Organization [employer] Address [address] [facility] [address] 7[address] [place] [address] Care Team Providers Care Gum Rolling Machine Tender Name Role Phone Carmita Avelar MD Primary Care Provide r Encounter Details Date Type Department Care Team (Late st Contact Info) Description 07/01/2023 Telephone [facility] MEDICINE 230 [place], [place] [phone] Carmita Avelar MD 230 [place], [place] [phone] Social History Tobacco Use Types Packs/Day Years [...] Info) Description 11/04/2024 2:00 PM EDT Telemedicine [facility] MEDICINE [address] [place] [phone] Jennifer Garcia RN 11/23/2024 2:00 PM EDT Office Visit [facility] [address] [place] [phone] Carmita Avelar MD [address] [place] [phone] documented as of this encounter Visit Diagnoses Not on filedocumented in this encounter Additional Health Concerns Assessment Noted Time PHQ-9 Depression Total Score: 18 023 3:07 PM EDT documented as of this encounter Care Teams Gum Rolling Machine Tender Relationship Specialty Start Date End Date Carmita Avelar MD [address] [place] [phone] PCP - General Family Medicine 03/11/19 documented as of this encounter
--- OUTSIDE RECORDS SUMMARY | 2024-09-16 15:41 | XMS_ITS | Encounter Summary ---
Author Organization [employer] Address [address] [place] [address] Care Team Providers Care Class A Lineman Name Role Phone Carmita Avelar MD Primary Care Provide r Reason for Visit * Reason Onset Date Comments Medication Question 06/10/2024 Encounter Details Date Type Department Care Team ([facility] Contact Info) Description 06/10/2024 Telephone [facility] MEDICINE 230 [place], [place] [phone] Carmita Avelar MD 230 [place], [place] [phone] Medication Question Social History Tobacco Use Types [...] covered by insurance. Any questions contact pt: [phone] documented in this encounter Plan of Treatment Upcoming Encounters Date Type Department Care Team (Late st Contact Info) Description 11/04/2024 2:00 PM EDT Telemedicine [facility] MEDICINE [address] [place] [phone] Jennifer Garcia RN 11/23/2024 2:00 PM EDT Office Visit [facility]ICINE 230 [place] [address] Carmita Avelar MD [address] [place] [address] documented as of this encounter Visit Diagnoses Not on filedocumented in this encounter Additional Health Concerns Assessment Noted Time PHQ-9 Depression Total Score: 0 03/17/20 24 2:34 PM EST documented as of this encounter Care Teams Class A Lineman Relationship Specialty Start Date End Date Carmita Avelar MD 230 [place] [address] PCP - General Family Medicine 03/11/19 documented as of this encounter
--- OUTSIDE RECORDS SUMMARY | 2024-09-16 15:41 | XMS_ITS | Data Portability ---
Author Organization [place] - [facility] Address [address] [place] [phone] Care Team Providers Care Underbaster Name Role Phone WENDYRAINER BEATA CAMPBELL Primary Care Provider [phone] Assessment No assessment recorded. Plan of Treatment Reminders Order Date Submit Date Provider Last Modified By Organization Details Last Modified Time Details Appointments None record ed. Lab None record ed. Referral None record ed. Procedures None record ed. Surgeries None record ed. Imaging None record ed. Medication Orders None record ed. Patient TargetsNo targets recorded. Patient InstructionsNo instructions recorded. Reason for Referral None Reported. Problems Name Problem SNOMED Code Status Onset Date Resolution Date Notes Provider Name and Address Organization Details Recorded Time Neck swelling 518396006 Active 2023 JORDAN Herman MD [address] [place] [address], [phone], [place] - [facility] 4 15:09:43 Sialolithiasis 82911938 Active 2023 JORDAN Herman MD [address] [place] [address], [phone], [facility] - [facility] 4 15:30:12 Problem Notes None recorded. Procedures Surgical History Date Name Laterality Status Provider Name and Address Organization Details Recorded Time 4 minor salivary gland biopsy completed JORADN HECTOR MD [address] [place] [address],[address], [phone], [place] - [facility] 03/22/2024 15:29:58 4 FFL_RE completed JORDAN HECTOR MD [address], [phone], [place] - [facility] 03/22/2024 15:10:02 Imaging Results None recorded. Procedure Notes None recorded. Medical Equipment None Reported. Allergies Allergen ID Allergen Name Allergen Category Reaction Reaction Severity Criticality Documentation Date Start Date Code Code System Note Provider Name and Address Organization Details Recorded Time 151072 Motrin medicatio n Not available Not available Not available 03/22/202450269 8 RxNorm Ginnette Rancitell i null, [place] - [facility] 15:07:24 506449 naproxen medicatio n Not available Not available Not available 03/22/2024 7258 RxNorm Ginnette Rancitell i null, [place] - [facility] 15:07:35 383463 morphine medicatio n Not available Not available Not available 03/22/2024 7052 RxNorm Ginnette Rancitell i [place], [place] [facility] 15:07:44 484096 Soma medicatio n Not available Not available Not available 03/22/2024 14878 2 RxNorm Ginnette Rancitell i null, [place] [facility] 15:07:54 296949 Ultram medicatio n Not available Not available Not available 03/22/2024 53544 6 RxNorm Ginnette Rancitell i null, [place] [facility] 15:08:13 384921 tramadol medicatio n Not available Not available Not available 03/22/2024 03483 RxNorm Ginnette Rancitell i [place], [place] [facility] 15:08:27 529515 Bactrim medicatio n Not available Not available Not available 03/22/2024 82838 9 RxNorm Ginnette Rancitell i [place], [place] [facility] 15:08:39 620136 Substance with sulfonami de structure and antibacte rial mechanism of action (substanc e) medicatio n Not available Not available Not available 03/22/2024 40588 8003 SNOMED Ginnette Rancitell i null, [place] - [facility] 4 15:09:23 533750 Neurontin medicatio n Not available Not available Not available 03/22/2024 91556 8 RxNorm Ginnette Rancitell i null, [place] - [facility] 4 15:09:49 518069 Lyrica medicatio n Not available Not available Not available 03/22/2024 71525 1 RxNorm Ginnette Rancitell i null, [place] - [facility] 4 15:10:42 517647 ranitidin e Not available Not available Not available Not available 03/22/2024 9143 RxNorm Ginnette Rancitell i null, [place] - [facility] 4 15:10:59 696926 Cymbalta medicatio n Not available Not available Not available 03/22/2024 13357 4 RxNorm Ginnette Rancitell i [place], [place] - [facility] 4 15:11:10 225060 oxybutyni n medicatio n Not available Not available Not available 03/22/2024 12588 RxNorm Ginnette Rancitell i [place], [place] - [facility] 4 15:11:24 007888 Tegaderm medicatio n Not available Not available Not available 03/22/2024 25420 UNK Ginnette Rancitell i null, [place] - [facility] 4 15:11:41 Medications Name Sig Start Date Stop Date Status Note LastModified by Organization Details LastModified Time amoxicillin 500 mg capsule TAKE 1 CAPSULE BY MOUTH 2 TIMES DAILY FOR 5 DAYS. active Not Available Not Available Not Available atorvastatin 20 mg tablet TAKE 1 TABLET BY MOUTH EVERY DAY FOR 90 DAYS active Not Available Not Available No t Available ketoconazole 2 % shampoo APPLY TOPICALLY 2 TIMES A WEEK active Not Available Not Available No t Available albuterol sulfate 2.5 mg/3 mL (0.083 %) solution for nebulization USE 3 ML VIA NEBULIZER EVERY 4 HOURS NEEDED FOR WHEEZING active Not Available Not Available No t Available simethicone 180 mg capsule TAKE 1 CAPSULE BY MOUTH FOUR TIMES A DAY AFTER MEALS active Not Available Not Available Not Available senna 8.6 mg tablet TAKE 2 TABLETS ORALLY BEDTIME NEEDED FOR CONSTIPATIO N active Not Available Not Available No t Available lisinopril 20 mg tablet TAKE 1 TABLET BY MOUTH EVERY DAY active Not Available Not Available No t Available ondansetron HCl 4 mg tablet TAKE 1 TABLET BY MOUTH EVERY 8 HOURS active Not Available Not Available No t Available prednisone 20 mg tablet TAKE 2 TABLETS BY MOUTH IN THE MORNING FOR 5 DAYS active Not Available Not Available N ot Available clonazepam 1 mg tablet MAXI 1 TABLETA DOS VECES AL EDWAR Y MEDIA TABLETA JEANNINE VEZ AL EDWAR [address] active Not Available Not Available No t Available verapamil ER (SR) 180 mg tablet,exten ded release TAKE 1 TABLET BY MOUTH EVERY DAY active Not Available Not Available No t Available acetaminophe n 500 mg tablet TAKE 1 TAB BY MOUTH EVERY 8 HOURS IF NEEDED FOR MODERATE PAIN, HEADACHES OR FEVER. MAX 3 PER 24 HRS active Not Available Not Available No t Available triamcinolon e acetonide 0.1 % topical cream active Not Available Not Available Not Available verapamil ER 180 mg 24 hr capsule,exte nded release TAKE 1 CAPSULE BY MOUTH EVERY DAY active Not Available Not Available No t Available metocloprami de 5 mg tablet TAKE 1 TABLET BY MOUTH THREE TIMES A DAY active Not Available Not Available Not Available baclofen 10 mg tablet TAKE 1 TABLET BY MOUTH 3 TIMES DAILY active Not Available Not Available Not Available levothyroxin e 125 mcg tablet TAKE 1 TABLET BY MOUTH EVERY DAY IN THE MORNING *LAST FILLED AT [facility]* active Not Available Not Available N ot Available omeprazole 20 mg capsule,darren yed release TAKE 1 CAPSULE BY MOUTH TWICE A DAY active Not Available Not Available No t Available pseudoephedr ine 30 mg tablet TAKE 1 TABLET (30 MG) BY MOUTH EVERY 4 (FOUR) HOURS IF NEEDED FOR CONGESTION FOR UP TO 10 DAYS. active Not Available Not Available No t Available bisacodyl 5 mg tablet,delay ed release TAKE 2 TABLETS BY MOUTH ONCE AT NOON THE DAY BEFORE COLONOSCOPY active Not Available Not Available Not Available ergocalcifer ol (vitamin D2) 1,250 mcg (50,000 unit) capsule TAKE 1 CAPSULE BY MOUTH ONE TIME PER WEEK active Not Available Not Available No t Available amoxicillin 875 mg-potassium clavulanate 125 mg tablet TAKE 1 TABLET BY MOUTH TWICE A DAY FOR 5 DAYS active Not Available Not Available No t Available Ventolin HFA 90 mcg/actuatio n aerosol inhaler TAKE 2 PUFFS BY MOUTH EVERY 4 TO 6 HOURS NEEDED active Not Available Not Available No t Available oxycodone 5 mg tablet PLEASE SEE ATTACHED FOR DETAILED DIRECTIONS active Not Available Not Available N ot Available azithromycin 500 mg tablet TAKE 1 TABLET (500 MG) BY MOUTH ONCE PER DAY FOR 3 DAYS. active Not Available Not Available No t Available Alcohol Prep Pads DIRECTED TO TEST BLOOD SUGAR FOUR TIMES DAILY active Not Available Not Available No t Available Sleep Aid (doxylamine) 25 mg tablet TAKE 1 TO 2 TABLETS BY MOUTH EVERY DAY AT BEDTIME NEEDED active Not Available Not Available No t Available mirtazapine 7.5 mg tablet TAKE 1 TABLET BY MOUTH AT BEDTIME MAXI JEANNINE TABLETA EN LA NOCHE ANTES DE DORMIR active Not Available Not Available No t Available FreeStyle Lite Meter kit USE FOR TESTING BLOOD SUGARS DAILY active Not Available Not Available No t Available FreeStyle Lite Strips USE TO TEST BLOOD SUGAR FOUR TIMES DAILY active Not Available Not Available No t Available diclofenac 1 % topical gel APPLY 2 GRAMS TOPICALLY TO THE AFFECTED AREA TWICE DAILY active Not Available Not Available No t Available blood pressure test kit-large cuff USE TO CHECK BLOOD PRESSURE EVERY DAY active Not Available Not Available No t Available Asmanex HFA 100 mcg/actuatio n aerosol inhaler INHALE 2 PUFFS INTO THE LUNGS BY MOUTH EVERY 12 HOURS active Not Available Not Available No t Available naloxone 4 mg/actuation nasal spray CALL 911. SPR CONTENTS OF ONE SPRAYER (0.1ML) INTO ONE NOSTRIL. REPEAT IN 2-3 MIN IF SYMPTOMS OF OPIOID EMERGENCY PERSIST, ALTERNATE NOSTRILS active Not Available Not Available No t Available Accu-Chek Fastclix Lancet Drum DIRECTED TO TEST BLOOD SUGAR active Not Available Not Available Not Available Vitals Date Recorded Body height Body mass index (BMI) Body weight Provider Name and Address Organization Details Last Updated DateTime 03/22/2024 162.56 cm 32.8 kg/m2 09253.14 g Shan Mendoza [place] - [facility] 03/22/2024 15:05:11 Social History None recorded. Functional Status None recorded. Mental Status None recorded. Family History Nothing Reported. Medical History Condition Response Asthma Y Gynecological HistoryNo gynecological history recorded. Obstetrics History GPAL:G 0 P 0 0 0 0 Past Encounters Encounter ID Performer Location Encounter Start Date Encounter Closed Date Diagnosis/Indication Diagnosis SNOMED-CT Code Diagnosis ICD10 Code Diagnosis Note [id number] JORDAN HECTOR MD [facility] [address] [place] [address] 03/22/2024 14:33:21 03/22/2024 15:22:44 Neck swelling 323974389 R22.1 FFL was normal. LIkely due to salivary gland swelling. Sialolithiasis 50448866 K11.5 Pt tolerated stone removal without problem. Discussed hydration and warm compressed . I asked her to call if any additional bleeding. she likely had a stone causing left submandibu lar swelling with eating. Health Concerns Section Related Observation LastModified by Organization Detai ls LastModified Time None Recorded Concern Status LastModified by Organization Details LastModified Time None Recorded Advance Directives Directive None Recorded Payers Insurance Date Sequence Insurance Name Policy Number Policy Rivera Covered Member ID Rivera Member ID Guarantor Name 03/22/2024 1 [place] [facility] Shirley Hodge Al [id number] Shirley Hodge Notes Date Note Type Note Provider Name and Address Organization Details Recorded Time 03/22/2024 text/html She reports she had a cervical fusion in July. She has had two ACDF surgeries the most recent in July. She has noted some swelling in her left neck when she eats. This was evaluated by her surgeon and she was referred here for evaluation. No hx of strep throat. She reports her neck swelling issue with swallowing has improved. She does smoke and is trying to quit. she does have tonsil stones and gargles which helps. She also notes a bump under her tongue. It has been enlarging. JORDAN HECTOR MD [address] [place] [address], [place], [address], [place] - [facility] 03/22/2024 15:31:56 OBGyn Episode No OBEpisode recorded.
--- OUTSIDE RECORDS SUMMARY | 2024-09-16 15:41 | XMS_ITS | Clinical Summary ---
Author Organization [employer] Address [address] [facility] [address] [place] [address] Care Team Providers Care Investigative Shopper Name Role Phone Carmita Avelar MD Primary [...] day. Active ergocalciferol (Vitamin D-2) 1.25 MG (62562 UT) capsule Take 1 capsule by mouth [...] without complication, unspecified whether alf insulin use ([facility]) USE FIVE TIMES DAILY 100 each 11 [...] 6 hours as needed 18 g 3 Active Diclofenac Sodium 1 % gelIndications: Chronic right shoulder pain Apply 2 g topically every 12 (twelve) hours. To affected areas. 100 g 1 025 Active pseudoephedrine (Sudafed) 60 MG tablet Take 1 tablet (60 mg) by mouth every 4 (four) hours if needed for congestion for up to 10 days. 30 tablet 025 Active baclofen (Lioresal) 10 MG tabletIndicatio ns:Acute pain of right shoulder TAKE 1 TABLET BY MOUTH 3 TIMES DAILY 90 tablet 1 Active oxyCODONE (Roxicodone) 5 MG immediate release tabletIndicatio ns:Chronic right shoulder pain Take 1 tablet (5 mg) by mouth every 8 (eight) hours if needed for severe pain for up to 28 days. 84 tablet 025 2024 Active oxyCODONE (Roxicodone) 5 MG immediate release tabletIndicatio ns:Chronic right shoulder pain Take 1 tablet (5 mg) by mouth every 8 (eight) hours if needed for severe pain for up to 28 days. Do not start before August 01, 2024. 84 tablet 025 2024 Discontinued(R eorder (will not trigger notification to Pharmacy)) Hospital, Clinic, or Other Facility Administered Medication Ordered Dose Route Frequency Start Date End Date Status predniSONE (Deltasone) tablet 40 mgIndications:Moderate persistent asthma with acute exacerbation 40 mg PO Once 07/28/2022 Active albuterol (2.5 MG/3ML) 0.083% nebulizer solution 2.5 mgIndications:Moderate persistent asthma with acute exacerbation 2.5 mg NEBULIZATION Once 07/28/2022 Acti ve Active Problems Problem Noted Date Diagnosed Date Class 1 obesity due to exces s calories with serious comorbidity and body mass index (BMI) of 31.0 to 31.9 in adult 07/20/2024 Encounter for preventive care 03/17/2024 Assessment & Plan (03/17/2024 4:27 PM EST): See HPI Acute pain of right shoulder 03/17/2024 Chronic narcotic use 10/16/2023 Delayed gastric emptying 10/16/2023 GERD (gastroesophageal reflux disease) 4 Hypoglycemia 10/16/2023 Overview (10/16/2023): Last Assessment & [...] of surgery. Prediabetes 05/15/2023 Assessment & Plan (07/21/2024 10:46 AM EDT): Counseling about healthy diet and exercise done today Assessment & Plan (05/15/2023 4:00 PM EST): [...] then 100 mg/d x 9 more days. FU w PCP. Counseled to do gargles with honey and sodium bicarb Lipoma of hip 05/15/2022 Overview (05/15/2022): [place] [facility] [place]. 8 cm diameter. Excision planned. Acute back pain with sciatica 04/12/2022 Backache 04/12/2022 Essential hypertension 04/12/2022 Assessment & Plan (07/21/2024 10:45 AM EDT): Blood pressure seems to be under control advised to continue with the weight loss, I advised low-sodium diet and continue with same medications Assessment & Plan (05/15/2023 4:00 PM EST): [...] periods 11/06/2011 Acquired hypothyroidism 10/15/2011 Alopecia 10/15/2011 Mild intermittent asthma 10/15/2011 Assessment & Plan (07/21/2024 10:45 AM EDT): Patient educated to avoid asthma triggers Continue albuterol as needed I will refer patient to pulmonology Chronic interstitial cystitis 10/15/2011 Endometriosis of uterus 10/15/2011 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 Dysplasia of cervix 01/09/2011 Depressive disorder 10/30/2010 Irritable bowel syndrome 10/31/1931 Resolved Problems Problem Noted Date Diagnosed Date Resolved Date Type 2 diabetes mellitus wit hout complication, without long-term current use of insulin 01/20/2023 07/20/2024 Assessment & Plan (03/16/2023 2:24 PM EST): [...] Encounters Date Type Department Care Team Description 08/26/2024 Refill [facility] [address] [place] [address] Carmita Avelar MD Chronic right shoulder pain 08/08/2024 Refill [facility] [address] [place] [address] Carmita Avelar MD Acute pain of right shoulder 07/28/2024 Refill [facility] [address] [place] [address] Carmita Avelar MD Chronic right shoulder pain 07/22/2024 Population Health Risk Score [facility] (C[facility]) Department [address] [place] [phone] Provider, Population Health Generic 07/20/2024 3:30 PM EDT Office Visit [facility] [address] [place] [phone] Carmita Avelar MD Essential hypertension (Primary Dx); Mild intermittent asthma, unspecified whether complicated; Prediabetes; Class 1 obesity due to excess calories with serious comorbidity and body mass index (BMI) of 31.0 to 31.9 in adult 07/20/2024 Travel 07/19/2024 Telephone [facility] [address] [place] [phone] Carmita Avelar MD Chart Prep 07/13/2024 Patient Outreach [address] [phone] Carmita Avelar MD Pre-visit Planning ((Unable to reach for PVP screening, LVM)) 07/01/2024 Refill [facility] [address] [place] [phone] Carmita Aevlar MD Chronic right shoulder pain from Last 3 Months Immunizations Name Administration [...] Sign Reading Time Taken Comments Blood Pressure 115/81 07/20/2024 3:36 PM EDT Pulse 97 07/20/2024 3:36 PM EDT Temperature 35.8 ??C (96.5 ??F) 07/20/2024 3:36 PM ED T Respiratory Rate 18 07/20/2024 3:36 PM EDT Oxygen Saturation 99% 11/18/2023 3:05 PM EDT Inhaled Oxygen Concentration - - Weight 81.9 kg (180 lb 9.6 oz) 07/20/2024 3:36 P M EDT Height 162.6 cm (5' 4 ) 07/20/2024 3:36 PM EDT Body Mass Index 31 07/20/2024 3:36 PM EDT Plan of Treatment Upcoming Encounters Date Type Department Care Team (Late st Contact Info) Description 11/04/2024 2:00 PM EDT Telemedicine [facility] [address] [place] [address] [phone] Jennifer Garcia RN 11/23/2024 2:00 PM EDT Office Visit [facility] [address] [place] [address] [phone] Carmita Avelar MD [address] [place], [place] [phone] Health Maintenance Due Date Last Done Comments CT Colonography 1969 FIT 1969 FOBT 1970 Sigmoidoscopy 1969 Pap Smear 1990 HPV/Cotest 1999 Zoster Vaccines (2 of 2) 02/09/2021 12/15/2020 DTaP/Tdap/Td Vaccines (2 - Td or Tdap) 04/29/2023 04/29/2013, 01/06/2006 COVID-19 Vaccine ( season) 2024 02/24/2023, 11/21/2021, 03/25/2021, Additional history exists Diabetes: Hemoglobin A1C 01/11/2025 024, 06/26/2023, 05/15/2023, Additional history exists SDOH Screening 03/08/2025 03/08/2024 Depression Screening 03/17/2025 03/17/2024, 03/17/20 24 Alcohol/Substance Use Screening 07/20/2025 07/20/2024 Tobacco Screening 07/20/2025 07/20/2024 Mammogram 12/31/2025 01/01/2024, 12/10, 12/30/2022, Additional history exists FIT DNA/Cologuard 01/25/2026 01/25/2023 Colonoscopy 05/13/2026 05/13/2023 Colorectal Cancer Screening 05/13/2026 Lipid Panel 03/17/2029 03/17/2024, 0401/2023, 08/12/2021, Additional history exists RSV Patients and Patients Aged 60 years [...] Procedure Name Priority Date/Time Associated Diagnosis Comments HEPATITIS C AB W/REFL TO HCV RNA, [...] 01/25/2023 2:09 PM EDT Colon cancer screening from Last 3 Months or Most Recently Relevant to Health Maintenance Results * Hepatitis C Antibody with Reflex to HCV, RNA, Quantitative, Real-Time PCR (03/17/2024 3:51 PM EST) Pathologist [facility] Hepatitis C Antibody Nonreactive Nonreactive [facility] Comment:Antibodies to HCV no t detected; does not exclude early acuteHCV infection. Blood Venous blood specimen / Unknown 03/17/2024 3:51 PM EST 03/17/2024 5:42 PM EST us Carmita Alvarado MD LAB BLOOD ORDERABLES Final Result [facility] [address] [place] [phone] * HIV-1/2 Antigen and Antibodies, Fourth Generation, with Reflexes (03/17/2024 3:51 PM EST) Pathologist [facility] HIV AB/AG Nonreactive Nonreactive [facility] Comment:HIV-1 p24 Ag and/or HIV-1/HIV-2 Ab not detected.A test result that is nonreactive does not exclude thepossibility of exposure to or infection with HIV-1 and/orHIV-2. Nonreactive results in this assay for individualswith prior exposure to HIV-1 and/or HIV-2 may be due toantigen and antibody levels that are below the limit ofdetection of this assay.The [employer] HIV Ag/Ab Combo assay result andsupplemental assay results should be interpreted inconjunction with the patient's clinical presentation,history and other laboratory results. If the results areinconsistent with clinical evidence, additional testing issuggested to confirm the result. Blood Venous blood specimen / Unknown 03/17/2024 3:51 PM EST 03/17/2024 5:42 PM EST Carmita Alvarado MD LAB BLOOD ORDERABLES Final Result Performing Organization Address [facility] Co de Phone Number [facility] [address] [place] [phone] * (ABNORMAL) Lipid Panel, Standard (03/17/2024 3:51 PM EST) Triglycerides 146 <150 mg/dL [facility] Comment:Desirable Triglyceri de: less than 150 mg/dLBorderline High Triglyceride 150-199 mg/dLHigh Triglyceride: 200-499 mg/dLVery High Triglyceride: greater than or equal to 5OO mg/dL Cholesterol 131 <200 mg/dL [facility] Comment:Desirable Cholestero l: less than 200 mg/dLBorderline High Cholesterol: 200-239 mg/dLHigh Cholesterol: greater than 239 mg/dL LDL Cholesterol Calculated 65 <100 mg/dL [facility] Comment:Desirable LDL: less than 100 mg/dLNear Optimal/Above Optimal LDL: 110- 129 mg/dLBorderline High LDL: 130-159 mg/dLHigh LDL: 160-189 mg/dLVery High LDL: greater than or equal to 190 mg/dL HDL Cholesterol 37(L) >40 mg/dL [facility] Comment:Desirable HDL: great er than 40 mg/dL Note: This HDL assay may give artificially low results in patients with liver disease. Blood Venous blood specimen / Unknown 03/17/2024 3:51 PM EST 03/17/2024 5:42 PM EST Carmita Alvarado MD LAB BLOOD ORDERABLES Final Result Performing Organization Address [facility] Co de Phone Number [facility] [address] [place] [phone] * BI Mammogram Screening Tomosynthesis Bilateral (01/01/2024 3:20 PM EDT) Anatomical Region Laterality Modality Breast Bilateral Mammography 01/01/2024 3:20 PM EDT Narrative 01/29/2024 9:47 AM EDT ? [facility] ? [address] ?[place] [address] ? Mammography Report ? Signed ? Patient: Shirley Méndez D ?MR ?? #: [id number] ? : 1970 ?Acct:[id number] ? Age/Sex: 53 / F ?ADM Date: 01/01/24 ? Loc: HO.MAMMO ? Attending Dr: Carmita Alvarado MD ? Ordering Physician: Carmita Avelar MD ?Results: ?? 1Negative ? Date of Service: 01/01/24 ?Follow Up: 1 Year From Orig ?? inal Mammogram ? Procedure(s): MM tomosynthesis screening BI ?? Accession Number(s): [id number] ? cc: Carmita Avelar MD ? EXAMINATION: [...] ??Myrna Shipley DO ??01/29/2024 09:44 AM EDT ? Dictated By: ?Myrna Shipley DO ? Signed By: ?<Electronically signed by Myrna Shipley, DO in [place]> ? 01/29/24 0944 ? DD/ 1520 ? TD/TT: 01/01/24 1535 ? Senior Commissary Agent: ? Procedure Note Karie, Image - 01/29/2024 [facility] [address] [place], [place] [address] Mammography Report Signed Patient: Shirley Méndez DMR #: [id number] : 1970Acct:[id number] Age/Sex: 53 / FADM Date: 01/01/24 Loc: [facility] Attending Dr: Carmita Alvarado MD Ordering Physician: Carmita Avelaresults: 1Negative Date of Service: 01/01/24Follow Up: 1 Year From Orig inal Mammogram Procedure(s): MM tomosynthesis screening BI Accession Number(s): [id number] cc: Carmita Avelar MD EXAMINATION: MM SCREENING [...] 01/29/24 0944 DD/ 1520 TD/TT: 01/01/24 1535 Senior Commissary Agent: Carmita Alvarado MD IMG BI PROCEDURES Davy [...] Positive( A) Negative 01/31/2023 10:31 AM EDT [facility] (CLIA #:[id number]) Comment: POSITIVE TEST RESULT. A positive Cologuard [...] screened with both Cologuard and colonoscopy. (Thom Gotti. et al, N Engl J Med 2014;370(14):8578-1123.) Cologuard may produce a false negative or false positive result (no colorectal cancer or precancerous polyp present at colonoscopy follow up). A negative Cologuard test result does not guarantee the absence of CRC or advanced adenoma (pre-cancer). The current Cologuard screening interval is every 3 years. ([employer] Society and U.S. Multi-Society Task Force). Cologuard performance data in a 10,000 patient pivotal study using colonoscopy as the reference method can be accessed at the following location: www.[employer]/results. Additional description of the Cologuard test process, warnings and precautions can be found at www.cologuard.com. Stool specimen (specimen) 01/25/2023 2:09 PM EDT 01/27/2023 9:51 PM EDT Carmita Alvarado MD LAB MOLECULAR DIAGNOS TICS ORDERABLES Final Result [employer] (CLIA #:[id number]) [place] [address], from Last 3 Months or Most Recently Relevant to Health Maintenance Insurance [facility] C3 Care Teams Investigative Shopper Relationship Specialty Start Date End Date Carmita Avelar MD [address] [place] [phone] PCP - General Family Medicine 03/11/19
--- OUTSIDE RECORDS SUMMARY | 2024-09-16 15:41 | XMS_ITS | Encounter Summary ---
Author Organization [employer] Address [address] [place] [address] Care Team Providers Care Calculation Reviewer Name Role Phone Carmita Avelar MD Primary Care Provide r Reason for Visit * Reason Onset Date Comments Labs 07/10/2023 Encounter Details Date Type Department Care Team ([facility] st Contact Info) Description 07/10/2023 Telephone [facility] [address] [place], [place] [phone] Carmita Avelar MD [address] [place], [place] [phone] Labs Social History Tobacco Use Types Packs/Day [...] AM EST Tc from Shama working with [facility] requesting EKG and Labs from 06/26/23 to be faxed over. Shamarequesting to put Attention Shama as a side note, OR date 07/13/23 If any questions you can contact Shama at [phone]. documented in this encounter Plan of Treatment Upcoming Encounters Date Type Department Care Team (Late st Contact Info) Description 11/04/2024 2:00 PM EDT Telemedicine [facility] [address] [place] [phone] Jennifer Garcia RN 11/23/2024 2:00 PM EDT Office Visit [facility] [address] [place] [phone] Carmita Aevlar MD [address] [place] [phone] documented as of this encounter Visit Diagnoses Not on filedocumented in this encounter Additional Health Concerns Assessment Noted Time PHQ-9 Depression Total Score: 18 023 3:07 PM EDT documented as of this encounter Care Teams Calculation Reviewer Relationship Specialty Start Date End Date Carmita Avelar MD [address] [place] [phone] PCP - General Family Medicine 03/11/19 documented as of this encounter
--- OUTSIDE RECORDS SUMMARY | 2024-09-16 15:41 | XMS_ITS | Encounter Summary ---
Author Organization [employer] Address [address] [place] [address] Care Team Providers Care Manager Privacy Name Role Phone Carmita Avelar MD Primary Care Provide r Encounter Details Date Type Department Care Team (Late Contact Info) Description 02/04/2023 Telephone [facility] [address] [place] [phone] Carmita Avelar MD [address] [place] [address] [phone] Social History Tobacco Use Types Packs/Day Years [...] Info) Description 11/04/2024 2:00 PM EDT Telemedicine [facility] [address] [place] [address] [phone] Jennifer Garcia RN 11/23/2024 2:00 PM EDT Office Visit [facility] [address] [place] [address] Carmita Avelar MD [address] [place] [phone] documented as of this encounter Visit Diagnoses Not on filedocumented in this encounter Additional Health Concerns Assessment Noted Time PHQ-9 Depression Total Score: 18 023 3:07 PM EDT documented as of this encounter Care Teams Manager Privacy Relationship Specialty Start Date End Date Carmita Avelar MD [address] [place] [phone] PCP - General Family Medicine 03/11/19 documented as of this encounter
== END 2024-09-16 16:22 | disposition home or self-care (01) ==
LOC: HO.HGI 15:39
PROVIDERS: PCP Internal Medicine; Visit Provider Nurse Practitioner
DX: K58.2 Mixed irritable bowel syndrome (principal); K21.9 Gastro-esophageal reflux disease without esophagitis; R19.5 Other fecal abnormalities
CPT/HCPCS: 99213

== ENCOUNTER → 2024-09-16 15:38 | Outpatient (BNVA) | payer MEDICAID, SELFPAY | PROVIDERS: PCP Internal Medicine; Visit Provider Nurse Practitioner | DX: K58.2 Mixed irritable bowel syndrome (principal); K30 Functional dyspepsia; K21.9 Gastro-esophageal reflux disease without esophagitis; R19.5 Other fecal abnormalities | CPT/HCPCS: 99212 ==

== ENCOUNTER 2024-10-27 13:44 | Outpatient (AMB) | payer MEDICAID, SELFPAY ==
--- NOTE | 2024-10-27 14:13 | A.OFFVIS_ITS ---
VS Expanded 10/27/24 14:13 Height 5 ft 4 in Weight 174 lb 9.698 oz BMI 30.0 Intake Visit Reasons: reactive hypoglycemia Allergies carisoprodol (From Soma) Allergy (Severe, Verified 09/16/24 15:43) SHORTNESS OF BREATH,VOMITING duloxetine (Cymbalta) Allergy (Severe, Verified 09/16/24 15:43) Nausea and Vomiting gabapentin (From NEURONTIN) Allergy (Severe, Verified 09/16/24 15:43) RASH,HIVES ibuprofen (From Motrin) Allergy (Severe, Verified 09/16/24 15:43) VOMITING ketorolac Allergy (Severe, Verified 09/16/24 15:43) Shortness of Breath morphine (Morphine) Allergy (Severe, Verified 09/16/24 15:43) SHORTNESS OF BREATH naproxen (From Naprosyn) Allergy (Severe, Verified 09/16/24 15:43) VOMITING oxybutynin Allergy (Severe, Verified 09/16/24 15:43) Nausea and Vomiting pregabalin (From LYRICA) Allergy (Severe, Verified 09/16/24 15:43) HYPER AND PANIC ATTACK ranitidine (RANITIDINE) Allergy (Severe, Verified 09/16/24 15:43) TACHYCARDIA sulfamethoxazole (From BACTRIM) Allergy (Severe, Verified 09/16/24 15:43) VOMITING,RASH, hives tramadol Allergy (Severe, Verified 09/16/24 15:43) Shortness of Breath trimethoprim (From BACTRIM) Allergy (Severe, Verified 09/16/24 15:43) VOMITING,RASH, hives cortisone (CORTISONE) Allergy (Intermediate, Verified 09/16/24 15:43) ITCHING,RASH Sulfa (Sulfonamide Antibiotics) Allergy (Intermediate, Verified 09/16/24 15:43) VOMITING/RASH, hives transparent dressing (Tegaderm) Allergy (Verified 09/16/24 15:43) Rash dicyclomine Adverse Reaction (Severe, Verified 09/16/24 15:43) Palpitations Tricyclic Antidepressants and Tricy (Tricyclic Compounds) Adverse Reaction (Severe, Verified 09/16/24 15:43) VOMITING from ALL ANTIDEPRESSANTS, palpitations all antidepressants except Rem Allergy (Severe, Uncoded 09/16/24 15:43) Nausea and Vomiting milk, yogurt, dairy Allergy (Severe, Uncoded 09/16/24 15:43) Diarrhea, vomitting Nutrition Presentation Details: Pt presents for MNT f/u for reactive hypoglycemia Pt reports working on combining total carb with lean protein , watching portion sizes. Working on choosing lower fat foods/preparing foods with less fats fluids: water, almond milk , fruit/veg smoothies: fluids 36-48 oz/day fish 2 x/wk baked/broiled dairy: does not include d/t intolerance veg: incorporating cooked veg (greens 3 x/wk , mushrooms, carrots fruits: 2-3/day physical activity:sedentary BS Monitoring Most Recent Diabetes Results: Cholesterol, (<200) 131 mg/dL 03/17/24 HDL Cholesterol, (>40) 37 mg/dL L 03/17/24 Triglycerides, (<150) 146 mg/dL 03/17/24 Creatinine, (0.5-1.4) 0.62 mg/dL 03/17/24 BUN, (9-16) 11 mg/dL 03/17/24 Sodium, (135-145) 141 mmol/L 03/17/24 Potassium, (3.3-5.1) 3.6 mmol/L 03/17/24 Chloride, (96-108) 106 mmol/L 03/17/24 Carbon Dioxide, (22-29) 28 mmol/L 03/17/24 Calcium, (8.4-10.2) 9.8 mg/dL 03/17/24 AST, (5-31) 22 U/L 03/17/24 ALT, (0-31) 24 U/L 03/17/24 Total Protein, (6.5-8.0) 7.5 g/dL 03/17/24 Albumin, (3.5-5.0) 4.3 g/dL 03/17/24 [facility] Medical History (Updated 09/16/24 @ 16:32 by CHRISTIANO Thrasher) Thyroid disease Migraines Elevated cholesterol Fibromyalgia Hypoglycemia Asthma Hypertension Surgical History (Updated 09/16/24 @ 16:32 by SEMAJ ThrasherC) H/O colonoscopy H/O neck surgery H/O knee surgery Carpal tunnel syndrome History of partial hysterectomy Endometriosis determined by laparoscopy Family History Mother Diabetes Hypertension Heart abnormality Father No problems noted. Father No problems noted. Social History Household Members: None Housing: Apartment Do you presently have visiting nurse or other home services: No Alcohol intake: never Patient Tobacco Use Status: Current everyday Tobacco user Tobacco use type: Cigarette Years Smoked: 26 service: No Assessment & Plan Assessment & Plan (1) Hypoglycemia: Code(s): E16.2 - Hypoglycemia, unspecified Category: Medical Plan: Wt: 88 Kg ( 03/03 ), 82 kg(07/05), 79 (11/02) Est kcal needs as per MSJ: 1900 (40% carb, 30% protein/fat) Est fluid needs as per 25-30 ml/d: 2500 Est prot per day as per 1 g/kg bw: 80 Recommend fiber intake : 8-10 g per day and gradually increase to 25-28 g per day for women and 35-38 g for men or as tolerated Recommend sodium intake per day : less than 2000 mg Educated patient on: ( R = reviewed V = verbalizes understanding N/R = needs review N/A = not applicable * Food sources of carbohydrate, adequate serving sizes and its role in various health conditions: R * Differences between complex carbohydrates a simple carbohydrates, role of fi shantel in diet: R * Lean protein sources of foods: R * Differences between types of fats and role in diet (mono on saturated fat fatty acids, saturated fatty acids, trans fats): R basic * Food sources of sodium in salt and healthy modifications for heart health in kidney health: R * Vitamins and minerals: R * Healthy plate method concept: R V * Physical activity: Benefits a precaution: R * Hypoglycemia protocol (rule of 15): R * Dietary prevention of Hyperglycemia: R Patient Instructions: Walk 30 minutes 3-4 x/wk keep hydrated by having water iwth meals/snacks include at least 2 serving of dairy alternative per day Coding Level of Care Code Nutr Indiv Subseq (98158) Diagnoses Hypoglycemia E16.2 Time Spent (min) 30
--- OUTSIDE RECORDS SUMMARY | 2024-10-27 14:55 | XMS_ITS | Encounter Summary ---
Author Organization [employer] Address [address] [place] [address] Care Team Providers Care World Travel Counselor Name Role Phone Carmita Avelar MD Primary Care Provide r Encounter Details Date Type Department Care Team (Late st Contact Info) Description 10/21/2023 Orders Only [facility] [address] [place], [place] [phone] Marisol Pedroza MD [address] [place], [place] [phone] Social History Tobacco Use Types Packs/Day Years [...] Care Team (Late st Contact Info) Description 11/23/2024 2:00 PM EDT Office Visit [facility] [address] [place] [phone] Carmita Avelar MD [address] [place] [phone] 12/30/2024 2:00 PM EDT Telemedicine [address] [address] Jennifer Garcia RN documented as of this encounter Visit Diagnoses Not on filedocumented in this encounter Additional Health Concerns Assessment Noted Time PHQ-9 Depression Total Score: 18 023 3:07 PM EDT documented as of this encounter Care Teams World Travel Counselor Relationship Specialty Start Date End Date Carmita Avelar MD [address] [place] [phone] PCP - General Family Medicine 03/11/19 documented as of this encounter
== END 2024-10-27 14:35 | disposition home or self-care (01) ==
LOC: HO.ENCR 13:44
PROVIDERS: PCP Internal Medicine; Visit Provider Dietitian, Registered
DX: E16.2 Hypoglycemia, unspecified (principal)

== ENCOUNTER → 2024-10-27 13:44 | Outpatient (BNVA) | payer MEDICAID, SELFPAY | PROVIDERS: PCP Internal Medicine; Visit Provider Dietitian, Registered | DX: E16.2 Hypoglycemia, unspecified (principal) | CPT/HCPCS: 97803 ==

== ENCOUNTER 2024-11-10 15:17 | Outpatient (REF) | payer MEDICAID, SELFPAY ==
--- NOTE | ~2024-11-10 | XR_ITS ---
EXAMINATION: XR CLAVICLE, RIGHT CLINICAL INFORMATION: 1 week R clavicle pain COMPARISON: None available. TECHNIQUE: Two views of the right clavicle. FINDINGS: The clavicle is intact. The bones and soft tissues are normal. No fracture. Acromioclavicular joint alignment is anatomic. XR/XR clavicle RT IMPRESSION: Unremarkable right clavicle. Electronically signed by: Gonzalo Kasper MD 11/10/2024 04:11 PM EDT
--- NOTE | ~2024-11-10 | XR_ITS ---
EXAMINATION: XR SHOULDER, RIGHT CLINICAL INFORMATION: 1 week of R shoulder pain COMPARISON: Right shoulder 03/17/2024 TECHNIQUE: AP external rotation, Grashey, scapular Y, and axillary views of the right shoulder. FINDINGS: The bones and soft tissues are normal. No acute fracture, dislocation or loose bodies. No bony erosive changes.. Glenohumeral and acromioclavicular alignment is anatomic with with slight loss of glenohumeral joint space. There is mild subacromial spurring as before. Abnormal soft tissue calcifications. XR/XR shoulder RT min 2V IMPRESSION: Mild right shoulder osteoarthritis. No change from previous exam 03/17/2024 Electronically signed by: Gonzalo Kasper MD 11/10/2024 04:06 PM EDT
--- OUTSIDE RECORDS SUMMARY | 2024-11-10 15:20 | XMS_ITS | Patient Health Record ---
Author Organization [facility] Address [address] [place] [phone] Care Team Providers Care Program Evaluation Consultant Name Role Phone Bradley Fishman Unavailable [phone] Reason For Referral No Information Plan Of Treatment No Information
--- OUTSIDE RECORDS SUMMARY | 2024-11-10 15:20 | XMS_ITS | Data Portability ---
Author Organization [place] [facility] Address [address] [place] [phone] Care Team Providers Care Manager Of Product Name Role Phone PETERJoyce BEATA CAMPBELL Primary Care Provider Assessment No assessment recorded. Plan of Treatment [...] Address Organization Details Recorded Time Neck swelling 614150520 Active 2023 JORDAN Herman MD [address] [place] [address], [phone], [place] [facility] 4 15:09:43 Sialolithiasis 90255539 Active 2023 JORDAN Herman MD [address] [place] [address], [phone], [place] [facility] 4 15:30:12 Problem Notes None recorded. Procedures Surgical History Date Name Laterality Status Provider Name and Address Organization Details Recorded Time 4 minor salivary gland biopsy completed JORDAN HECTOR MD [address] [place] [address], [phone], [place] [facility] 03/22/2024 15:29:58 4 FFL_RE completed JORDAN HECTOR MD [address] [place] [address], [phone], [place] [facility] 03/22/2024 15:10:02 Imaging Results None recorded. Procedure Notes None recorded. Medical Equipment None Reported. Allergies Allergen ID Allergen Name Allergen Category Reaction Reaction Severity Criticality Documentation Date Start Date Code Code System Note Provider Name and Address Organization Details Recorded Time 008748 Motrin medicatio n Not available Not available Not available 03/22/2024 02798 8 RxNorm Ginnette Rancitell i null, [place] - [facility] 15:07:24 946558 naproxen medicatio n Not available Not available Not available 03/22/2024 7258 RxNorm Ginnette Rancitell i null, [place] [facility] 15:07:35 742501 morphine medicatio n Not available Not available Not available 03/22/2024 7052 RxNorm Ginnette Rancitell i null, [place] [facility] 15:07:44 315453 Soma medicatio n Not available Not available Not available 03/22/2024 14947 2 RxNorm Ginnette Rancitell i null, [place] [facility] 4 15:07:54 715179 Ultram medicatio n Not available Not available Not available 03/22/2024 30216 6 RxNorm Ginnette Rancitell i null, [place] [facility] 15:08:13 378922 tramadol medicatio n Not available Not available Not available 03/22/2024 63983 RxNorm Ginnette Rancitell i null, [place] [facility] 15:08:27 295072 Bactrim medicatio n Not available Not available Not available 03/22/2024 32367 9 RxNorm Ginnette Rancitell i [place], [place] [facility] 4 15:08:39 888922 Substance with sulfonami de structure and antibacte rial mechanism of action (substanc e) medicatio n Not available Not available Not available 03/22/2024 22611 8003 SNOMED Ginnette Rancitell i null, [place] - [facility] 4 15:09:23 659040 Neurontin medicatio n Not available Not available Not available 03/22/2024 62221 8 RxNorm Ginnette Rancitell i null, [place] [facility] 4 15:09:49 142662 Lyrica medicatio n Not available Not available Not available 03/22/2024 60550 1 RxNorm Ginnette Rancitell i null, [place] - [facility] 4 15:10:42 442409 ranitidin e Not available Not available Not available Not available 03/22/2024 9143 RxNorm Ginnette Rancitell i null, [place] - [facility] 4 15:10:59 379082 Cymbalta medicatio n Not available Not available Not available 03/22/2024 84539 4 RxNorm Ginnette Rancitell i null, [place] - [facility] 4 15:11:10 301729 oxybutyni n medicatio n Not available Not available Not available 03/22/2024 73409 RxNorm Ginnette Rancitell i null, [place] - [facility] 4 15:11:24 108632 Tegaderm medicatio n Not available Not available Not available 03/22/2024 00703 UNK Ginnette Rancitell i null, [place] - [facility] 4 15:11:41 Medications Name Sig Start Date [...] DAY IN THE MORNING *LAST FILLED AT [facility]* active Not Available Not Available N ot [...] Updated DateTime 03/22/2024 162.56 cm 32.8 kg/m2 57303.14 g Shan Mendoza [place] - [facility] 03/22/2024 15:05:11 Social History None recorded. Functional Status None recorded. Mental Status None recorded. Family History Nothing Reported. Medical History Condition Response Asthma Y Gynecological HistoryNo gynecological history recorded. Obstetrics History GPAL:G 0 P 0 0 0 0 Past Encounters Encounter ID Performer Location Encounter Start Date Encounter Closed Date Diagnosis/Indication Diagnosis SNOMED-CT Code Diagnosis ICD10 Code Diagnosis Note [id number] JORDAN HECTOR MD [facility] [address] [place] [address] 03/22/2024 14:33:21 03/22/2024 15:22:44 Neck swelling 405185684 R22.1 FFL was normal. LIkely due to salivary gland swelling. Sialolithiasis 06479347 K11.5 Pt tolerated stone removal without problem. [...] Rivera Member ID Guarantor Name 03/22/2024 1 [place] [facility] Shirley Hodge [place] [id number] Shirley Hodge Notes Date Note Type Note [...] It has been enlarging. JORDAN HECTOR MD [address] [place] [address], [place], [phone], [facility] 03/22/2024 15:31:56 OBGyn Episode No OBEpisode recorded.
--- OUTSIDE RECORDS SUMMARY | 2024-11-10 15:20 | XMS_ITS | Clinical Summary ---
Author Organization [facility] ity Address [address] [place] [address] Care Team Providers Care Property Custodian Name Role Phone Unavailable Primary Care Provider [...] 2023-2 5 season) 2024 Influenza Vaccine (#1) 2025 HIB Vaccines Aged Out No longer [...]
--- OUTSIDE RECORDS SUMMARY | 2024-11-10 15:20 | XMS_ITS | Encounter Summary ---
Author Organization [employer] Address [address] [place] [address] Care Team Providers Care Flux Core Welder Name Role Phone Carmita Avelar MD Primary Care Provide r Encounter Details Date Type Department Care Team (Late st Contact Info) Description 10/21/2023 Orders Only [facility] [address] [place], [place] [phone] Marisol Pedroza MD [address] [place], [place] [phone] Social History Tobacco Use Types Packs/Day Years [...] Description 11/23/2024 2:00 PM EDT Office Visit [facility] [address] [place] [phone] Carmita Avelar MD [address] [place] [phone] 12/30/2024 2:00 PM EDT Telemedicine [address] [address] Jennifer Garcia RN documented as of this encounter Visit Diagnoses Not on filedocumented in this encounter Additional Health Concerns Assessment Noted Time PHQ-9 Depression Total Score: 18 023 3:07 PM EDT documented as of this encounter Care Teams Flux Core Welder Relationship Specialty Start Date End Date Carmita Avelar MD [address] [place] [id number] PCP - General Family Medicine 03/11/19 documented as of this encounter
== END 2024-11-10 15:18 | disposition home or self-care (01) ==
LOC: HO.HHCX 15:17
PROVIDERS: PCP Internal Medicine; Visit Provider Nurse Practitioner Primary Care
DX: M25.511 Pain in right shoulder (principal); M89.8X1 Other specified disorders of bone, shoulder
CPT/HCPCS: 73000; 73030

== ENCOUNTER → 2024-11-10 15:31 | Outpatient (BNV) | payer MEDICAID, SELFPAY | PROVIDERS: PCP Internal Medicine; Visit Provider Radiology Diagnostic Radiology | DX: M19.011 Primary osteoarthritis, right shoulder (principal); M25.511 Pain in right shoulder | CPT/HCPCS: 73000; 73030 ==

== ENCOUNTER 2024-11-23 15:26 | Outpatient (REF) | payer MEDICAID, SELFPAY ==
--- OUTSIDE RECORDS SUMMARY | 2024-11-23 15:40 | XMS_ITS | Patient Health Record ---
Author Organization [facility] Address [address] [place] [phone] Care Team Providers Care Director Hair Name Role Phone Bradley Fishman Unavailable [phone] Reason For Referral No Information Plan Of Treatment No Information
--- OUTSIDE RECORDS SUMMARY | 2024-11-23 15:40 | XMS_ITS | Encounter Summary ---
Author Organization [employer] Address [address] [place] [address] Care Team Providers Care Disability Examiner Name Role Phone Carmita Avelar MD Primary Care Provide r Encounter Details Date Type Department Care Team (Late st Contact Info) Description 10/21/[address] [facility] MEDICINE [address] [place], [place] [phone] Marisol Pedroza MD [address] [place], [place] [phone] Social History Tobacco Use Types Packs/Day Years [...] Care Team (Late st Contact Info) Description 12/30/2024 9:[address] [facility] [address] [place] [address] Jennifer Garcia RN documented as of this encounter Visit Diagnoses Not on filedocumented in this encounter Additional Health Concerns Assessment Noted Time PHQ-9 Depression Total Score: 18 023 3:07 PM EDT documented as of this encounter Care Teams Disability Examiner Relationship Specialty Start Date End Date Carmita Avelar MD [address] [place] [address] PCP - General Family Medicine 03/11/19 documented as of this encounter
--- OUTSIDE RECORDS SUMMARY | 2024-11-23 15:40 | XMS_ITS | Clinical Summary ---
Author Organization [facility] it[facility] Address [address] [place] [address] Care Team Providers Care Lining Baster Name Role Phone Unavailable Primary Care Provider [...] Vaccine ( - 2023-2 5 season) 2024 Depression Screening 05/11/2024 Influenza Vaccine (#1) 2025 HIB Vaccines Aged [...]
--- OUTSIDE RECORDS SUMMARY | 2024-11-23 15:40 | XMS_ITS | Data Portability ---
Author Organization [place] - [facility], Allergy Address [address] [place] [phone] Care Team Providers Care Band Teacher Name Role Phone PETERJoyce BEATA CAMPBELL Primary [...] Address Organization Details Recorded Time Neck swelling 093622263 Active 2023 JORDAN Herman MD [address] [place] [address], [phone], [place] - [facility] 4 15:09:43 Sialolithiasis 54906953 Active 2023 JORDAN Herman MD [address] [place] [address], [phone], [place] - [facility] 4 15:30:12 Problem Notes None recorded. Procedures Surgical History Date Name Laterality Status Provider Name and Address Organization Details Recorded Time 4 minor salivary gland biopsy completed JORDAN HECTOR MD [address] [place] [address], [phone], [place] - [facility] 03/22/2024 15:29:58 4 FFL_RE completed JORDAN HECTOR MD [address] [place] [address], [phone], [place] - [facility] 03/22/2024 15:10:02 Imaging Results None recorded. Procedure Notes None recorded. Medical Equipment None Reported. Allergies Allergen ID Allergen Name Allergen Category Reaction Reaction Severity Criticality Documentation Date Start Date Code Code System Note Provider Name and Address Organization Details Recorded Time 954757 Motrin medicatio n Not available Not available Not available 03/22/2024 69604 8 RxNorm Ginnette Rancitell i null, [place] - [facility] 15:07:24 333076 naproxen medicatio n Not available Not available Not available 03/22/2024 7258 RxNorm Ginnette Rancitell i null, [place] - [facility] 15:07:35 743258 morphine medicatio n Not available Not available Not available 03/22/2024 7052 RxNorm Ginnette Rancitell i null, [place] - [facility] 15:07:44 845539 Soma medicatio n Not available Not available Not available 03/22/2024 63362 2 RxNorm Ginnette Rancitell i [place], [place] - [facility] 4 15:07:54 531134 Ultram medicatio n Not available Not available Not available 03/22/2024 87613 6 RxNorm Ginnette Rancitell i [place], [place] - [facility] 15:08:13 033006 tramadol medicatio n Not available Not available Not available 03/22/2024 22398 RxNorm Ginnette Rancitell i [place], [place] [facility] 15:08:27 220083 Bactrim medicatio n Not available Not available Not available 03/22/2024 29031 9 RxNorm Ginnette Rancitell i [place], [place] [facility] 4 15:08:39 776100 Substance with sulfonami de structure and antibacte rial mechanism of action (substanc e) medicatio n Not available Not available Not available 03/22/2024 59319 8003 SNOMED Ginnette Rancitell i null, [place] - [facility] 4 15:09:23 362075 Neurontin medicatio n Not available Not available Not available 03/22/2024 11293 8 RxNorm Ginnette Rancitell i [place], [place] - [facility] 4 15:09:49 885107 Lyrica medicatio n Not available Not available Not available 03/22/2024 27633 1 RxNorm Ginnette Rancitell i [place], [place] - [facility] 4 15:10:42 707824 ranitidin e Not available Not available Not available Not available 03/22/2024 9143 RxNorm Ginnette Rancitell i null, [place] - [facility] 4 15:10:59 526603 Cymbalta medicatio n Not available Not available Not available 03/22/2024 93412 4 RxNorm Ginnette Rancitell i null, [place] - [facility] 4 15:11:10 069351 oxybutyni n medicatio n Not available Not available Not available 03/22/2024 44896 RxNorm Ginnette Rancitell i null, [place] - [facility] 4 15:11:24 652125 Tegaderm medicatio n Not available Not available Not available 03/22/2024 52659 UNK Ginnette Rancitell i null, [place] - [facility] 4 15:11:41 Medications Name Sig Start Date [...] DAY IN THE MORNING *LAST FILLED AT [facility]* active Not Available Not Available N [...] Updated DateTime 03/22/2024 162.56 cm 32.8 kg/m2 65809.14 g Shan Mendoza [place] - [facility] 03/22/2024 15:05:11 Social History None recorded. Functional Status None recorded. Mental Status None recorded. Family History Nothing Reported. Medical History Condition Response Asthma Y Gynecological HistoryNo gynecological history recorded. Obstetrics History GPAL:G 0 P 0 0 0 0 Past Encounters Encounter ID Performer Location Encounter Start Date Encounter Closed Date Diagnosis/Indication Diagnosis SNOMED-CT Code Diagnosis ICD10 Code Diagnosis Note [id number] JORDAN HECTOR MD [facility] [address] [place] [address] 03/22/2024 14:33:21 03/22/2024 15:22:44 Neck swelling 047338184 R22.1 FFL was normal. LIkely due to salivary gland swelling. Sialolithiasis 45697980 K11.5 Pt tolerated stone removal without problem. [...] Rivera Member ID Guarantor Name 03/22/2024 1 [place]ICA[place]: [facility] Shirley Hodge [place] [id number] Shirley Hodge Notes Date Note Type Note [...] It has been enlarging. JORDAN HECTOR MD [address] [place] [address], [place], [phone], [facility] - [facility] 03/22/2024 15:31:56 OBGyn Episode No OBEpisode recorded.
[2024-11-23 16:06] LABS: MANUAL DIFF FLAG NO
[2024-11-23 16:11] LABS: Hematocrit 43.6 % (37.0-47.0); Hemoglobin 14.5 g/dl (12.0-16.0); Imm Gran Abs Auto 0.06 X10*3/uL (0.00-0.03); Imm Gran Pct Auto 0.4 % (0.0-0.4); Lymphocytes Absolute Auto 4.6 X10*3/uL (1.2-4.9); Mean Corpuscular HGB Conc 33.3 g/dl (31.0-35.0); Mean Corpuscular Hemoglobin 29.8 pg (27.0-33.0); Mean Corpuscular Volume 89.7 fL (80.0-98.0); NRBC Abs Auto 0.000 X10*3/uL (0.0-0.012); NRBC Pct Auto 0.0 /100WBC (0.0-0.2); Platelet Count 338 X10*3/uL (160-400); Red Blood Count 4.86 X10*6/uL (4.20-5.50); White Blood Count 15.4 X10*3/uL (4.8-10.8)
[2024-11-23 16:23] LABS: Hemoglobin A1C 128.2454 umol/L; Total Hemoglobin (HGBA1C) 3703.7891 umol/L
[2024-11-23 16:34] LABS: Alanine Aminotransferase 28 U/L (0-31); Albumin Level 4.8 g/dL (3.5-5.0); Alkaline Phosphatase 102 U/L (39-117); Anion Gap 13 (12-20); Aspartate Amino Transferase 26 U/L (5-31); Blood Urea Nitrogen 16 mg/dL (9-16); Calcium 9.8 mg/dL (8.4-10.2); Carbon Dioxide 26 mmol/L (22-29); Chloride 104 mmol/L (96-108); Cholesterol 166 mg/dL (<200); Estimated Glomerular Filt Rate > 60; HDL Cholesterol 38 mg/dL (>40); Potassium 4.0 mmol/L (3.3-5.1); Sodium 139 mmol/L (135-145); Total Protein 7.6 g/dL (6.5-8.0); Triglycerides 177 mg/dL (<150)
== END 2024-11-23 15:27 | disposition home or self-care (01) ==
LOC: HO.HHCL 15:26
PROVIDERS: PCP Internal Medicine; Visit Provider Internal Medicine
DX: I10 Essential (primary) hypertension (principal)
CPT/HCPCS: 36415; 80053; 80061; 83036; 85025

== ENCOUNTER 2025-02-13 13:13 | Outpatient (REF) | payer MEDICAID, SELFPAY ==
[2025-02-13 14:26] LABS: Cholesterol 217 mg/dL (<200); HDL Cholesterol 40 mg/dL (>40); Triglycerides 239 mg/dL (<150)
--- OUTSIDE RECORDS SUMMARY | 2025-02-13 15:42 | XMS_ITS | Encounter Summary ---
Author Organization [email or web address] Address [address] [place] [address] Care Team Providers Care Conference Planning Manager Name Role Phone Carmita Avelar MD Primary Care Provide r Encounter Details Date Type Department Care Team (Late st Contact Info) Description 10/21/2023 Orders Only [facility] MEDICINE [address] [place], [place] [phone] Marisol Pedroza MD [address] [place], [place] [phone] Social History Tobacco Use Types Packs/Day Years [...] Care Team (Late st Contact Info) Description 03/03/2025 3:30 PM EDT Office Visit [address] [address] Carmita Avelar MD [address] [place] [address] 03/10/2025 9:30 AM EDT Telemedicine [address] [address] Jennifer Garcia RN 04/10/2025 2:45 PM EST Office Visit [address] [address] Carmita Avelar MD [address] [place] [address] documented as of this encounter Visit Diagnoses Not on filedocumented in this encounter Additional Health Concerns Assessment Noted Time PHQ-9 Depression Total Score: 18 023 3:07 PM EDT documented as of this encounter Care Teams Conference Planning Manager Relationship Specialty Start Date End Date Carmita Avelar MD [address] [place] [phone] PCP - General Family Medicine 03/11/19 documented as of this encounter
--- OUTSIDE RECORDS SUMMARY | 2025-02-13 15:42 | XMS_ITS | Encounter Summary ---
Author Organization [employer] Address [address] [facility] 7t [place] [address] Care Team Providers Care Shoe Planner Name Role Phone Carmita Avelar MD Primary Care Provide r Reason for Visit * Reason Onset Date Comments Med Refill 05/23/2024 Encounter Details Date Type Department Care Team (Late st Contact Info) Description 05/23/2024 Refill [facility] MEDICINE [address] [place], [place] [phone] Carmita Avelar MD [address] [place], [place] [phone] Chronic right shoulder pain Social History Tobacco [...] Description 03/03/2025 3:30 PM EDT Office Visit [address] [address] Carmita Avelar MD [address] [place] [phone] 03/10/2025 9:30 AM EDT Telemedicine [address] [address] Jennifer Garcia RN 04/10/2025 2:45 PM EST Office Visit [address] [address] Carmita Avelar MD [address] [place] [phone] documented as of this encounter Visit Diagnoses Diagnosis Chronic right shoulder pain Pain in joint, shoulder region documented in this encounter Additional Health Concerns Assessment Noted Time PHQ-9 Depression Total Score: 0 03/17/20 2:34 PM EST documented as of this encounter Care Teams Shoe Planner Relationship Specialty Start Date End Date Carmita Avelar MD [address] [place] [address] PCP - General Family Medicine 03/11/19 documented as of this encounter
--- OUTSIDE RECORDS SUMMARY | 2025-02-13 15:42 | XMS_ITS | Encounter Summary ---
Author Organization [email or web address] Address [address] [place] [address] Care Team Providers Care Junior Programmer Name Role Phone Carmita Avelar MD Primary Care Provide r Encounter Details Date Type Department Care Team ([facility] st Contact Info) Description 03/26/2023 Abstract [facility] MEDICINE [address] [place], [place] [phone] Carmita Avelar MD [address] [place], [place] [phone] Social History Tobacco Use Types Packs/Day Years [...] Description 03/03/2025 3:30 PM EDT Office Visit [address] [address] Carmita Avelar MD [address] [place] [phone] 03/10/2025 9:30 AM EDT Telemedicine [address] [address] Jennifer Garcia, RN 04/10/2025 2:45 PM EST Office Visit [address] [address] Carmita Avelar MD [address] [place] [address] documented as of this encounter Visit Diagnoses Not on filedocumented in this encounter Additional Health Concerns Assessment Noted Time PHQ-9 Depression Total Score: 18 023 3:07 PM EDT documented as of this encounter Care Teams Junior Programmer Relationship Specialty Start Date End Date Carmita Avelar MD [address] [place] [phone] PCP - General Family Medicine 03/11/19 documented as of this encounter
--- OUTSIDE RECORDS SUMMARY | 2025-02-13 15:42 | XMS_ITS | Encounter Summary ---
Author Organization [employer] Address [address] [place] [address] Care Team Providers Care Protective Officer Name Role Phone Carmita Avelar MD Primary Care Provide r Reason for Visit * Reason Onset Date Comments Labs 07/10/2023 Encounter Details Date Type Department Care Team ([facility] Contact Info) Description 07/10/2023 Telephone [facility] MEDICINE [address] [place], [place] [phone] Carmita Avelar MD [address] [place], [place] [phone] Labs Social History Tobacco Use Types Packs/Day [...] AM EST Tc from [facility] working with [facility] requesting EKG and Labs from 06/26/23 to be faxed over. Shamarequesting to put Attention [facility]ama as a side note, OR date 07/13/23 If any questions you can contact [facility] at [phone]. documented in this encounter Plan of Treatment Upcoming Encounters Date Type Department Care Team (Late st Contact Info) Description 03/03/2025 3:30 PM EDT Office Visit [facility] MEDICINE [address] [place] [address] Carmita Avelar MD [address] [place] [address] 03/10/2025 9:30 AM EDT Telemedicine [facility] MEDICINE [address] [place] [address] Jennifer Garcia RN 04/10/2025 2:45 PM EST Office Visit [facility] MEDICINE [address] [place] [address] Carmita Avelar MD [address] [place] [address] documented as of this encounter Visit Diagnoses Not on filedocumented in this encounter Additional Health Concerns Assessment Noted Time PHQ-9 Depression Total Score: 18 023 3:07 PM EDT documented as of this encounter Care Teams Protective Officer Relationship Specialty Start Date End Date Carmita Avelar MD [address] [place] [address] PCP - General Family Medicine 03/11/19 documented as of this encounter
--- OUTSIDE RECORDS SUMMARY | 2025-02-13 15:42 | XMS_ITS | Clinical Summary ---
Author Organization [employer] Address [address] [facility] [address] [place] [address] Care Team Providers Care Security Checker Name Role Phone Carmita Avelar MD Primary [...] day. Active ergocalciferol (Vitamin D-2) 1.25 MG (92670 UT) capsule Take 1 capsule by mouth [...] area(s): rub in gently and completely Active clonazePAM (KlonoPIN) 1 MG tablet Take [...] 2 diabetes mellitus without complication, unspecified whether correction insulin use USE FIVE TIMES DAILY 100 each 11 [...] 3 tablets per 24 hrs 30 tablet 024 Active atorvastatin (Lipitor) 10 MG tablet Take 20 mg by mouth. Active lamoTRIgine (LaMICtal) 25 MG tablet Take [...] needed for wheezing 75 mL 1 Active albuterol (Ventolin HFA) 108 (90 Base) MCG/ACT inhalerIndicati ons:Shortness of breath Inhale 2 puffs by mouth every 4 to 6 hours as needed 18 g 3 Active Diclofenac Sodium 1 % gelIndications: Chronic right shoulder pain APPLY 2 G TOPICALLY EVERY 12 (TWELVE) HOURS. TO AFFECTED AREAS. 100 g 1 Active baclofen (Lioresal) 10 MG tabletIndicatio ns:Acute pain of right shoulder TAKE 1 TABLET BY MOUTH 3 TIMES DAILY 90 tablet 1 Active oxyCODONE (Roxicodone) 5 MG immediate release tabletIndicatio ns:Chronic right shoulder pain Take 1 tablet (5 mg) by mouth every 8 (eight) hours if needed for severe pain for up to 28 days. Do not start before February 08, 2025. 84 tablet 2024 Active Diclofenac Sodium 1 % gelIndications: Chronic right shoulder pain Apply 2 g topically every 12 (twelve) hours. To affected areas. 100 g 1 025 2024 Discontinued baclofen (Lioresal) 10 MG tabletIndicatio ns:Acute pain of right shoulder TAKE 1 TABLET BY MOUTH 3 TIMES DAILY 90 tablet 1 025 2024 Discontinued oxyCODONE (Roxicodone) 5 MG immediate release tabletIndicatio ns:Chronic right shoulder pain Take 1 tablet (5 mg) by mouth every 8 (eight) hours if needed for severe pain for up to 28 days. Do not start before January 11, 2025. 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 Class 1 obesity due to exces s [...] rest Viral upper respiratory tract infection 01/21/20 23 Colon cancer screening 01/20/2023 Cervical cancer screening 10/23/2022 Cervical fusion syndrome 08/26/2022 Assessment & Plan (10/23/2022 3:44 PM EDT): Referral to specialist done C/w pain medications PRN Assessment & Plan (08/26/2022 4:31 PM EDT): I will refer patient back to dr Mccall as per her request Chronic right shoulder pain 08/26/2022 Assessment & Plan (11/23/2024 2:34 PM EDT): Patient has upcoming orthopedics appointment Continues with heat pads Continue with same doses of oxycodone and acetaminophen Assessment & Plan (10/23/2022 3:45 PM EDT): [...] Overview (05/15/2022): Evaluated by Dr. Stout at [facility] 05/2022. 8 cm diameter. Excision planned. Acute back pain with sciatica 04/12/2022 Backache 04/12/2022 Essential hypertension 04/12/2022 Assessment & Plan (11/23/2024 2:29 PM EDT): I advised: - Aerobic exercise to reduce BP. Initial [...] consulting health care provider Assessment & Plan (07/21/2024 10:45 AM EDT): [...] intervertebral disc Stenosis of intervertebral foramina 02/23/2018 Long-term current use of opiate analgesic 2017 Callosity 01/14/2018 Headache disorder 01/14/2018 Spasm of [...] Encounters Date Type Department Care Team Description 02/06/2025 Refill [facility] [address] [place] [phone] Carmita Avelar MD Chronic right shoulder pain 02/05/2025 Refill [facility] [address] [place] [phone] Carmita Avelar MD Chronic right shoulder pain; Acute pain of right shoulder 01/19/2025 Telephone [facility] [address] [place] [address] Carmita Avelar MD NOV RECALL 01/10/2025 Refill [facility] [address] [place] [phone] Carmita Avelar MD Chronic right shoulder pain 01/03/2025 Telephone [facility] [address] [place] [address] Carmita Avelar MD Referral 12/30/2024 9:00 AM EDT Telemedicine [facility] [address] [place] [address] Jennifer Garcia, SAUL Long-term current use of opiate analgesic 12/30/2024 Telephone [facility] [address] [place] [phone] Jennifer Garcia, RN BPI scoring 12/29/2024 Travel 12/22/2024 Telephone [facility] [address] [place] [address] Carmita Avelar MD OCT RECALL 12/13/2024 Refill [facility] [address] [place] [phone] Carmita Avelar MD Chronic right shoulder pain 11/23/2024 2:00 PM EDT Office Visit [facility] [address] [place] [phone] Carmita Avelar MD Essential hypertension (Primary Dx); Overweight (BMI 25.0-29.9); Skin tag; Folliculitis keloidalis; Chronic right shoulder pain 11/23/2024 Travel 11/22/2024 Travel 11/22/2024 Telephone [facility] [address] [place] [address] Carmita Avelar MD Chart Prep 11/15/2024 Refill [facility] [address] [place], [place] [phone] Carmita Avelar MD Chronic right shoulder pain 11/15/2024 Patient Outreach [facility] [address] [place], [place] [phone] Carmita Avelar MD Pre-visit Planning (SDOH screening negative and tobacco screening positive) 11/15/2024 Refill [facility] [address], [place] [phone] Carmita Avelar MD Chronic right shoulder pain from Last 3 Months Immunizations Immunization Administration Dates Next Due Hep B, adult [...] tox oid, preservative free, adsorbed 01/06/2006 Tdap 11/10/2024,04/29/2013 Zoster, Recombinant 12/15/2020 Social History Tobacco Use [...] Sign Reading Time Taken Comments Blood Pressure 110/78 11/23/2024 1:58 PM EDT Pulse 92 11/23/2024 1:58 PM EDT Temperature 36.4 C (97.5 F) 11/23/2024 1:58 PM EDT Respiratory Rate 12 11/23/2024 1:58 PM EDT Oxygen Saturation 99% 11/18/2023 3:05 PM EDT Inhaled Oxygen Concentration - - Weight 78.5 kg (173 lb) 11/23/2024 1:58 PM EDT Height 162.6 cm (5' 4 ) 11/23/2024 1:58 PM EDT Body Mass Index 29.7 11/23/2024 1:58 PM EDT Plan of Treatment Upcoming Encounters Date Type Department Care Team (Late st Contact Info) Description 03/03/2025 3:30 PM EDT Office Visit [address] [address] Carmita Avelar MD [address] [place] [phone] 03/10/2025 9:30 AM EDT Telemedicine [address] [phone] Jennifer Garcia RN 04/10/2025 2:45 PM EST Office Visit [address] [address] Carmita Avelar MD [address] [place] [phone] Health Maintenance Due Date Last Done Comments CT Colonography 1969 FIT 1969 Sigmoidoscopy 1970 Pap Smear 1990 HPV/Cotest 1999 Zoster Vaccines (2 of 2) 02/09/2021 12/15/2020 FOBT 01/26/2024 01/25/2023 COVID-19 Vaccine ( season) 2025 02/24/2023, 11/21/2021, 03/25/2021, Additional history exists Depression Screening 03/17/2025 03/17/2024, 03/17/20 24 Alcohol/Substance Use Screening 07/20/2025 07/20/2024 Disability Screening 11/10/2025 11/10/2024 SDOH Screening 11/15/2025 11/15/2024 Diabetes: Hemoglobin A1C 11/23/2025 025, 01/12/2024, 06/26/2023, Additional history exists Tobacco Screening 11/23/2025 11/23/2024 Mammogram 12/31/2025 01/01/2024, 12/10, 12/30/2022, Additional history exists FIT DNA/Cologuard 01/25/2026 01/25/2023 Colonoscopy 05/13/2026 05/13/2023 Colorectal Cancer Screening 05/13/2026 Lipid Panel 11/23/2029 11/23/2024, 11/0 11/2023, 08/27/2022, Additional history exists DTaP/Tdap/Td Vaccines (3 - Td or Tdap) 11/10/2034 11/10/2024, 04/29/2013, 01/06/2006 Hepatitis B Vaccines Completed 11/26/1999, 05/20/1999, 04/18/1999 HIV Screening Completed 03/17/2024, 06/03/2019 Hepatitis C Screening Completed 03/17/2024 Pneumococcal Vaccine: 50+ Years Completed 03/17/2024, 01/04/2020 Influenza Vaccine Completed 01/11/2025, , 12/30/2022, Additional history exists RSV Patients and Patients Aged 60 years or older Completed 01/11/2025 Cervical Cancer Screening Discontinued HIB Vaccines Aged [...] Procedure Name Priority Date/Time Associated Diagnosis Comments AMB REFERRAL TO ORTHOPAEDIC SURGERY Routine 02/01/2025 Localized osteoarthritis of right shoulder HEMOGLOBIN A1C Routine 11/23/2024 3:31 PM EDT Essential hypertension Overweight (BMI 25.0-29.9) COMPREHENSIVE METABOLIC PANEL Routine 11/23/2024 3:31 PM EDT Essential hypertension LIPID PANEL, STANDARD Routine 11/23/2024 3:31 PM EDT Essential hypertension CBC WITH AUTO DIFFERENTIAL Routine 11/23/2024 3:31 PM EDT Essential hypertension HEPATITIS C AB W/REFL TO HCV RNA, QN, PCR Routine 03/17/2024 3:51 PM EST Encounter for preventive care HIV 1/2 ANTIGEN/ANTIBODY, FOURTH GENERATION W/RFL Routine 03/17/2024 3:51 PM EST Encounter for preventive care BI MAMMOGRAM SCREENING TOMOSYNTHESIS BILATERAL Routine 01/01/2024 3:20 PM EDT HM COLONOSCOPY Routine 05/13/2023 11:20 AM EST LAB COLOGUARD COLON CANCER SCREEN Routine 01/25/2023 2:09 PM EDT Colon cancer screening from Last 3 Months or Most Recently Relevant to Health Maintenance Results * Referral to Orthopaedic Surgery (02/01/2025) us Carmita Alvarado MD OUTPATIENT REFERRAL O RDERABLES Final Result * (ABNORMAL) CBC auto differential (11/23/2024 3:31 PM EDT) White Blood Count 15.4(H) 4.8 - 10.8 X10*3/uL [facility] Red Blood Count 4.86 4.20 - 5.50 X10*6/uL [facility] Hemoglobin 14.5 12.0 - 16.0 g/dl [facility] Hematocrit 43.6 37.0 - 47.0 % [facility] Mean Corpuscular Volume 89.7 80.0 - 98.0 fL [facility] Mean Corpuscular Hemoglobin 29.8 27.0 - 33.0 pg [facility] Mean Corpuscular HGB Conc 33.3 31.0 - 35.0 g/dl [facility] Red Cell Distribution Width 14.0 11.0 - 16.0 % [facility] Platelet Count 338 160 - 400 X10*3/uL [facility] Mean Platelet Volume 10.0 9.4 - 12.3 fL [facility] Neutrophils Percent Auto 62.2 45 - 73 % [facility] Imm Gran Pct Auto 0.4 0.0 - 0.4 % [facility] Lymphocytes Percent Auto 29.9 20 - 40 % [facility] Monocytes Percent Auto 5.6 2 - 11 % [facility] Eosinophils Percent Auto 1.3 0 - 4 % [facility] Basophils Percent Auto 0.6 0 - 2 % [facility] NRBC Pct Auto 0.0 0.0 - 0.2 /100WBC [facility] Neutrophils Absolute Auto 9.6(H) 2.0 - 8.3 x10*3/uL [facility] Imm Gran Abs Auto 0.06(H) 0.00 - 0.03 X10*3/uL [facility] Lymphocytes Absolute Auto 4.6 1.2 - 4.9 X10*3/uL [facility] Monocytes Absolute Auto 0.9 0.1 - 1.2 X10*3/uL [facility] Eosinophils Absolute Auto 0.2 0.0 - 0.4 X10*3/uL [facility] Basophils Absolute Auto 0.1 0.0 - 0.2 X10*3/uL [facility] NRBC Abs Auto 0.000 0.0 - 0.012 X10*3/uL [facility] Blood Venous blood specimen / Unknown 11/23/2024 3:31 PM EDT 11/23/2024 4:03 PM EDT us Carmita Alvarado MD LAB BLOOD ORDERABLES Final Result [facility] [address] [place] [phone] * Hemoglobin A1c (11/23/2024 3:31 PM EDT) Hemoglobin A1c 5.3 <6.0 % [facility] Comment:Hemoglobin A1C Refer ence Range Adults: 4.8 - 6.0 % Non diabetic: < 6.0 % Goal: < 7.0 %Additional Action Suggested: > 8.0 %Note: Hemoglobin A1c results are invalid for patients with abnormal amounts of HbF. Blood transfusions may impact the HbA1c concentration in the patient sample. Estimated Average Glucose 105 mg/dL [facility] Comment:eAG = Estimated ave rage glucose which is %A1C expressed asaverage glucose, using the formula of the R1L-EwtzjkuSolfvxo Glucose study (ADAG), Diabetes Care, Vol.31,#8,Dec. 2007 Blood Venous blood specimen / Unknown 11/23/2024 3:31 PM EDT 11/23/2024 4:03 PM EDT Carmita Alvarado MD LAB BLOOD ORDERABLES Final Result [facility] [address] [place] [phone] * (ABNORMAL) Lipid Panel, Standard (11/23/2024 3:31 PM EDT) Triglycerides 177(H) <150 mg/dL [facility] Comment:Desirable Triglyceri de: less than 150 mg/dLBorderline High Triglyceride 150-199 mg/dLHigh Triglyceride: 200-499 mg/dLVery High Triglyceride: greater than or equal to 5OO mg/dL Cholesterol 166 <200 mg/dL [facility] Comment:Desirable Cholestero l: less than 200 mg/dLBorderline High Cholesterol: 200-239 mg/dLHigh Cholesterol: greater than 239 mg/dL LDL Cholesterol Calculated 93 <100 mg/dL [facility] Comment:Desirable LDL: less than 100 mg/dLNear Optimal/Above Optimal LDL: 110- 129 mg/dLBorderline High LDL: 130-159 mg/dLHigh LDL: 160-189 mg/dLVery High LDL: greater than or equal to 190 mg/dL HDL Cholesterol 38(L) >40 mg/dL [facility] Comment:Desirable HDL: great er than 40 mg/dL Note: This HDL assay may give artificially low results in patients with liver disease. Blood Venous blood specimen / Unknown 11/23/2024 3:31 PM EDT 11/23/2024 4:07 PM EDT Carmita Alvarado MD LAB BLOOD ORDERABLES Final Result [facility] [address] [place] [phone] * Comprehensive Metabolic Panel (11/23/2024 3:31 PM EDT) Sodium 139 135 - 145 mmol/L [facility] Potassium 4.0 3.3 - 5.1 mmol/L [facility] Chloride 104 96 - 108 mmol/L [facility] Carbon Dioxide 26 22 - 29 mmol/L [facility] Anion Gap 13 12 - 20 [facility] Urea Nitrogen (BUN) 16 9 - 16 mg/dL [facility] Creatinine, Serum 0.81 0.5 - 1.4 mg/dL [facility] Estimated Glomerular Filt Rate >60 [facility] Comment:Chronic Kidney Disea se: Estimated GFR < 60 mL/min/1.18x6Qukfsf Kidney Disease: Estimated GFR < 15 mL/min/1.73m2 Glucose 99 60 - 115 mg/dL [facility] Calcium 9.8 8.4 - 10.2 mg/dL [facility] Bilirubin, Total 0.3 0.0 - 1.0 mg/dL [facility] Aspartate Amino Transferase 26 5 - 31 U/L [facility] Alanine Aminotransferase 28 0 - 31 U/L [facility] Total Protein 7.6 6.5 - 8.0 g/dL [facility] Albumin Level 4.8 3.5 - 5.0 g/dL [facility] Alkaline Phosphatase 102 39 - 117 U/L [facility] Blood Venous blood specimen / Unknown 11/23/2024 3:31 PM EDT 11/23/2024 4:07 PM EDT Carmita Alvarado MD LAB BLOOD ORDERABLES Final Result Performing Organization Address [facility]/ZIP Co de Phone Number [facility] [address] [place] [address] [phone] * Hepatitis C Antibody with Reflex to HCV, RNA, Quantitative, Real-Time PCR (03/17/2024 3:51 PM EST) Hepatitis C Antibody Nonreactive Nonreactive [facility] Comment:Antibodies to HCV no t detected; does not exclude early acuteHCV infection. Blood Venous blood specimen / Unknown 03/17/2024 3:51 PM EST 03/17/2024 5:42 PM EST Carmita Alvarado MD LAB BLOOD ORDERABLES Final Result Performing Organization Address [facility] Co de Phone Number [facility] [address] [place] [phone] * HIV-1/2 Antigen and Antibodies, Fourth Generation, with Reflexes (03/17/2024 3:51 PM EST) HIV AB/AG Nonreactive Nonreactive [facility] Comment:HIV-1 p24 Ag and/or HIV-1/HIV-2 Ab not detected.A test result that is nonreactive does not exclude thepossibility of exposure to or infection with HIV-1 and/orHIV-2. Nonreactive results in this assay for individualswith prior exposure to HIV-1 and/or HIV-2 may be due toantigen and antibody levels that are below the limit ofdetection of this assay.The [employer]anda[email or web address] HIV Ag/Ab Combo assay result andsupplemental assay results should be interpreted inconjunction with the patient's clinical presentation,history and other laboratory results. If the results areinconsistent with clinical evidence, additional testing issuggested to confirm the result. Blood Venous blood specimen / Unknown 03/17/2024 3:51 PM EST 03/17/2024 5:42 PM EST us Carmita Alvarado MD LAB BLOOD ORDERABLES Final Result [facility] [address] [place] [address] [phone] * BI Mammogram Screening Tomosynthesis Bilateral (01/01/2024 3:20 PM EDT) Anatomical Region Laterality Modality Breast Bilateral Mammography 01/01/2024 3:20 PM EDT Narrative 01/29/2024 9:47 AM EDT [facility] [address] [place] [address] Mammography Report Signed Patient: Shirley Méndez MR #: [id number] : 1970 Acct:[id number] Age/Sex: 53 / F ADM Date: 01/01/24 Loc: HO.MAMMO Attending Dr: Carmita Alvarado MD Ordering Physician: Carmita Avelar MD Results: 1Negative Date of Service: 01/01/24 Follow Up: 1 Year From [facility] M[facility] Procedure(s): MM tomosynthesis screening BI Accession Number(s): [id number] cc: Carmita Avelar MD EXAMINATION: MM SCREENING [...] 01/29/24 0944 DD/ 1520 TD/TT: 01/01/24 1535 [employer] Supervisor: Procedure Note Donotuseinterpreter, Image - 01/29/2024 [facility] [address] [place] [address] Mammography Report Signed Patient: Shirley Méndez DMR #: [id number] : 1970Acct:[id number] Age/Sex: 53 / FADM Date: 01/01/24 Loc: HO.MAMMO Attending Dr: Carmita Alvarado MD Ordering Physician: Carmita Avelar MDResults: 1Negative Date of Service: 01/01/24Follow Up: 1 Year From Orig inal Mammogram Procedure(s): MM tomosynthesis screening BI Accession Number(s): [id number] cc: Carmita Avelar MD EXAMINATION: MM SCREENING [...] 01/29/24 0944 DD/ 1520 TD/TT: 01/01/24 1535 [employer] Supervisor: us Carmita Alvarado MD IMG BI PROCEDURES Davy yumiko Result - Final * Hm Colonoscopy (05/13/2023 11:20 AM EST) Historical Provider [facility] Final Result * (ABNORMAL) Cologuard?? colon cancer screening (01/25/2023 2:09 PM EDT) Cologuard Result Positive( A) Negative 01/31/2023 10:31 AM EDT [facility] (CLIA #:[id number]) Comment: POSITIVE TEST RESULT. A positive Cologuard result should be followed with a colonoscopy or visual examination of the colon. The normal value (reference range) for this assay is negative. TEST DESCRIPTION: Composite algorithmic analysis of stool DNA-biomarkers with hemoglobin immunoassay. Quantitative values of individual biomarkers are not [...] (Thom Salcido al, N Engl J Med 2014;370(14):0075-6000.) Cologuard may produce a false negative or false positive result (no colorectal cancer or precancerous polyp present at colonoscopy follow up). A negative Cologuard test result does not guarantee the absence of CRC or advanced adenoma (pre-cancer). The current Cologuard screening interval is every 3 years. ([place] [employer] Society and U.S. Multi-Society Task Force). Cologuard performance data in a 10,000 patient pivotal study using colonoscopy as the reference method can be accessed at the following location: www.[employer]/results. Additional description of the Cologuard test process, warnings and precautions can be found at www.cologuard.[facility]. Stool specimen (specimen) 01/25/2023 2:09 PM EDT 01/27/2023 9:51 PM EDT Carmita Alvarado MD LAB MOLECULAR DIAGNOS TICS ORDERABLES Final Result [facility] (CLIA #:[id number]) [place] [address], from Last 3 Months or Most Recently Relevant to Health Maintenance Insurance [facility] [employer] Care Teams Security Checker Relationship Specialty Start Date End Date Carmita Avelar MD [address] [place] [phone] PCP - General Family Medicine 03/11/19
--- OUTSIDE RECORDS SUMMARY | 2025-02-13 15:42 | XMS_ITS | Encounter Summary ---
Author Organization [employer] Address [address] [facility] [address] [place] [address] Care Team Providers Care Cooking Instructor Name Role Phone Carmita Avelar MD Primary Care Provide r Reason for Visit * Reason Onset Date Comments Med Refill 10/17/2024 Encounter Details Date Type Department Care Team (Late st Contact Info) Description 10/17/2024 Refill [facility] [address] [place], [place] [phone] Carmita Avelar MD [address] [place], [place] [phone] Chronic right shoulder pain Social History Tobacco [...] Description 03/03/2025 3:30 PM EDT Office Visit [address] [address] Carmita Avelar MD [address] [place] [phone] 03/10/2025 9:30 AM EDT Telemedicine [address] [address] Jennifer Garcia RN 04/10/2025 2:45 PM EST Office Visit [address] [address] Carmita Avelar MD [address] [place] [phone] documented as of this encounter Visit Diagnoses Diagnosis Chronic right shoulder pain Pain in joint, shoulder region documented in this encounter Additional Health Concerns Assessment Noted Time PHQ-9 Depression Total Score: 0 03/17/20 2:34 PM EST documented as of this encounter Care Teams Cooking Instructor Relationship Specialty Start Date End Date Carmita Avelar MD [address] [place] [address] PCP - General Family Medicine 03/11/19 documented as of this encounter
--- OUTSIDE RECORDS SUMMARY | 2025-02-13 15:42 | XMS_ITS | Encounter Summary ---
Author Organization [employer] Address [address] [facility] [address] [place] [address] Care Team Providers Care Corrosion Control Technician Name Role Phone Carmita Avelar MD Primary Care Provide r Encounter Details Date Type Department Care Team (Late st Contact Info) Description 09/09/2023 Orders Only [facility] [address] [place], [place] [phone] Provider, MD Aliyah Social History Tobacco Use Types Packs/Day Years [...] Description 03/03/2025 3:30 PM EDT Office Visit [address] [address] Carmita Avelar MD [address] [place] [phone] 03/10/2025 9:30 AM EDT Telemedicine [address] [address] Jennifer Garcia RN 04/10/2025 2:45 PM EST Office Visit [facility] [address] [place] [address] Carmita Avelar MD [address] [place] [phone] documented as of this encounter Procedures Procedure Name Priority Date/Time Associated Diagnosis Comments COLONOSCOPY Routine 05/13/2023 11:20 AM EST documented in this encounter Results * Hm Colonoscopy (05/13/2023 11:20 AM EST) us Historical Provider [facility] MAINTENANCE Final Result documented in this encounter Visit Diagnoses Not on filedocumented in this encounter Additional Health Concerns Assessment Noted Time PHQ-9 Depression Total Score: 18 023 3:07 PM EDT documented as of this encounter Care Teams Corrosion Control Technician Relationship Specialty Start Date End Date Carmita Avelar MD [address] [place] [address] [phone] PCP - General Family Medicine 03/11/19 documented as of this encounter
--- OUTSIDE RECORDS SUMMARY | 2025-02-13 15:42 | XMS_ITS | Patient Health Record ---
Author Organization [facility] Address [address] [place] [phone] Care Team Providers Care Quote Clerk Name Role Phone Bradley Fishman Unavailable [phone] Reason For Referral No Information Plan Of Treatment No Information
--- OUTSIDE RECORDS SUMMARY | 2025-02-13 15:42 | XMS_ITS | Encounter Summary ---
Author Organization [employer] Address [address] 7t [place] [address] Care Team Providers Care Histology Supervisor Name Role Phone Carmita Avelar MD Primary Care Provide r Encounter Details Date Type Department Care Team ([facility] Contact Info) Description 02/04/2023 Telephone [facility] [address] [place] [phone] Carmita Avelar MD [address] [place] [phone] Social History Tobacco Use Types Packs/Day Years [...] Upcoming Encounters Date Type Department Care Team ([facility] Contact Info) Description 03/03/2025 3:30 PM EDT Office Visit [facility] [address] [place] [address] [phone] Carmita Avelar MD [address] [place] [phone] 03/10/2025 9:30 AM EDT Telemedicine [facility] [address] [place] [address] [phone] Jennifer Garcia RN 04/10/2025 2:45 PM EST Office Visit [address] [phone] Carmita Avelar MD [address] [place] [phone] documented as of this encounter Visit Diagnoses Not on filedocumented in this encounter Additional Health Concerns Assessment Noted Time PHQ-9 Depression Total Score: 18 023 3:07 PM EDT documented as of this encounter Care Teams Histology Supervisor Relationship Specialty Start Date End Date Carmita Avelar MD [address] [place] [phone] PCP - General Family Medicine 03/11/19 documented as of this encounter
--- OUTSIDE RECORDS SUMMARY | 2025-02-13 15:42 | XMS_ITS | Encounter Summary ---
Author Organization [employer] Address [address] 7t [place] [address] Care Team Providers Care Infection Preventionist Name Role Phone Carmita Avelar MD Primary Care Provide r Reason for Visit * Reason Onset Date Comments Referral 01/03/2025 Encounter Details Date Type Department Care Team ([facility] Contact Info) Description 01/03/2025 Telephone [facility] [address] [place], [place] [phone] Carmita Avelar MD [address] [place], [place] [phone] Referral Social History Tobacco Use Types Packs/Day Years [...] encounter Miscellaneous Notes * Telephone Encounter - Gail Ross - 01/04/2025 3:41 PM EDT Tc from pt requesting a call back in regard of prior message. Pt stated she need the referral number and not the referral in order for her to do her appt. Contact pt at [phone] * Telephone Encounter - Rose Smith RN - 01/03/2025 4:17 PM EDT TC returned to pt. Pt. Reports she is established with Dr. Martinez at [facility] who ordered a CT scan for her clavicle that is apparently not healing correctly. Advised pt. I would call their office to inquire on what is needed from PCP team. TC placed to [facility], they report as of 12/09/24, [facility] [place] is requiring all referrals to come from PCP team. They report they gave the pt. The fax number the referral needs to go to ([facility]- in message below). I had them fax over the order and scanned it into the chart. Please advise if this is something you can do or know about, thank you!!! * Telephone Encounter - Jacobo Xie - 01/03/2025 3:03 PM EDT Tc from pt requesting a referral for chest CT Scan to be sent to [facility]. Fx number is [phone] Any questions contact pt at [phone] documented in this encounter Plan of Treatment Upcoming Encounters Date Type Department Care Team (Late st Contact Info) Description 03/03/2025 3:30 PM EDT Office Visit [address] [address] Carmita Avelar MD [address] [place] [phone] 03/10/2025 9:30 AM EDT Telemedicine [address] [address] Jennifer Garcia RN 04/10/2025 2:45 PM EST Office Visit [address] [address] Carmita Avelar MD [address] [place] [address] [phone] documented as of this encounter Visit Diagnoses Not on filedocumented in this encounter Additional Health Concerns Assessment Noted Time PHQ-9 Depression Total Score: 0 03/17/20 24 2:34 PM EST documented as of this encounter Care Teams Infection Preventionist Relationship Specialty Start Date End Date Carmita Avelar MD [address] [place] [address] [phone] PCP - General Family Medicine 03/11/19 documented as of this encounter
--- OUTSIDE RECORDS SUMMARY | 2025-02-13 15:42 | XMS_ITS | Encounter Summary ---
Author Organization [employer] Address [address] 7t [place] [address] Care Team Providers Care Gate Watchman Name Role Phone Carmita Avelar MD Primary Care Provide r Reason for Visit * Reason Onset Date Comments Medication Question 06/10/2024 Encounter Details Date Type Department Care Team ([facility] Contact Info) Description 06/10/2024 Telephone [facility] [address] [place], [place] [phone] Carmita Avelar MD [address] [place] [address] Medication Question Social History Tobacco Use Types [...] covered by insurance. Any questions contact pt: [phone] documented in this encounter Plan of Treatment Upcoming Encounters Date Type Department Care Team (Late st Contact Info) Description 03/03/2025 3:30 PM EDT Office Visit [facility] [address] [place] [address] Carmita Avelar MD [address] [place] [phone] 03/10/2025 9:30 AM EDT Telemedicine [address] [address] Jennifer Garcia RN 04/10/2025 2:45 PM EST Office Visit [facility] [address] [place] [address], [place] [address] Carmita Avelar MD [address] [place] [address] documented as of this encounter Visit Diagnoses Not on filedocumented in this encounter Additional Health Concerns Assessment Noted Time PHQ-9 Depression Total Score: 0 03/17/20 24 2:34 PM EST documented as of this encounter Care Teams Gate Watchman Relationship Specialty Start Date End Date Carmita Avelar MD [address] [place] [address] PCP - General Family Medicine 03/11/19 documented as of this encounter
--- OUTSIDE RECORDS SUMMARY | 2025-02-13 15:42 | XMS_ITS | Encounter Summary ---
Author Organization [employer] Address [address] 7t [place] [address] Care Team Providers Care Spinning Frame Tender Name Role Phone Carmita Avelar MD Primary Care Provide r Reason for Visit * Reason Comments Med Refill Encounter Details Date Type Department Care Team ([facility] st Contact Info) Description 08/24/2022 Refill [facility] [address] [place], [place] [phone] [facility] [address] [place], [place] [phone] Neck pain Social History Tobacco Use Types [...] PM EDT documented as of this encounter Functional Status * Over the past 2 weeks, how often have you been bothered by any of the following problems? Question Answer Date of Assessment Author Patient Health Questionnaire -2 Score 6 08/26/2022 3:07 PM Froilan Kearney [place] * If you checked off any problems on this questionnaire so far, Question Answer Date of Assessment Author How difficult have these problems made it for you to do your work, take care of things at home, or get along with other people? Extremely difficult 08/26/2022 3:07 PM Froilan Kearney [place] * Over the past 2 weeks, how often have you been bothered by any of the following problems? Question Answer Date of Assessment Author Little interest or pleasure in doing things Nearly every day 08/26/2022 3:07 PM Froilan Kearney [place] Feeling down, depressed, or hopeless Nearly every day 08/26/2022 3:07 PM Froilan Kearney [place] Trouble falling or staying asleep, or sleeping too much Nearly every day 08/26/2022 3:07 PM Froilan Kearney [place] Feeling tired or having little energy Nearly every day 08/26/2022 3:07 PM Froilan Kearney [place] Poor appetite or overeating Not at all 08/26/2022 3:07 PM Froilan Kearney [place] Feeling bad about yourself - or that you are a failure or have let yourself or your family down Not at all 08/26/2022 3:07 PM Froilan Kearney [place] Trouble concentrating on things, such as reading the newspaper or watching television Nearly every day 08/26/2022 3:07 PM Froilan Kearney MA Moving or speaking so slowly that other people could have noticed? Or the opposite - being so fidgety or restless that you have been moving around a lot more than usual. Nearly every day 08/26/2022 3:07 PM Froilan Kearney MA Thoughts that you would be better off or hurting yourself in some way Not at all 08/26/2022 3:07 PM Froilan Kearney MA Patient Health Questionnaire-9 Score 18 08/26/2022 3:07 PM Froilan Kearney [place] documented as of this encounter Plan of Treatment Upcoming Encounters Date Type Department Care Team (Late st Contact Info) Description 03/03/2025 3:30 PM EDT Office Visit [address] [address] Carmita Avelar MD [address] [place] [phone] 03/10/2025 9:30 AM EDT Telemedicine [address] [address] Jennifer Garcia RN 04/10/2025 2:45 PM EST Office Visit [address] [address] Carmita Avelar MD [address] [place] [address] [phone] documented as of this encounter Visit Diagnoses Diagnosis Neck pain Cervicalgia documented in this encounter Care Teams Spinning Frame Tender Relationship Specialty Start Date End Date Carmita Avelar MD [address] [place] [address] [phone] PCP - General Family Medicine 03/11/19 documented as of this encounter
--- OUTSIDE RECORDS SUMMARY | 2025-02-13 15:42 | XMS_ITS | Encounter Summary ---
Author Organization [employer] Address [address] 7t [place] [address] Care Team Providers Care Ecommerce Marketing Specialist Name Role Phone Carmita Avelar MD Primary Care Provide r Encounter Details Date Type Department Care Team ([facility] st Contact Info) Description 07/23/[address] [facility] [address] [place], [place] [phone] Carmita Avelar MD 230 [place], [place] [phone] Social History Tobacco Use Types Packs/Day Years [...] Description 03/03/2025 3:30 PM EDT Office Visit [address] [address] Carmita Avelar MD [address] [place] [phone] 03/10/2025 9:30 AM EDT Telemedicine [address] [address] Jennifer Garcia RN 04/10/2025 2:45 PM EST Office Visit [address] [address] Carmita Avelar MD [address] [place] [address] [phone] documented as of this encounter Visit Diagnoses Not on filedocumented in this encounter Additional Health Concerns Assessment Noted Time PHQ-9 Depression Total Score: 18 023 3:07 PM EDT documented as of this encounter Care Teams Ecommerce Marketing Specialist Relationship Specialty Start Date End Date Carmita Avelar MD [address] [place] [phone] PCP - General Family Medicine 03/11/19 documented as of this encounter
--- OUTSIDE RECORDS SUMMARY | 2025-02-13 15:42 | XMS_ITS | Encounter Summary ---
Author Organization [employer] Address [address] 7t [place] [address] Care Team Providers Care Cafeteria Director Name Role Phone Carmita Avelar MD Primary Care Provide r Encounter Details Date Type Department Care Team ([facility] st Contact Info) Description 07/01/2023 Telephone [facility] [address] [place], [place] [phone] Carmita Avelar MD 230 [place], [place] [phone] Social History Tobacco Use Types Packs/Day Years [...] Description 03/03/2025 3:30 PM EDT Office Visit [address] [address] Carmita Avelar MD [address] [place] [address] 03/10/2025 9:30 AM EDT Telemedicine [address] [address] Jennifer Garcia, RN 04/10/2025 2:45 PM EST Office Visit [address] [address] Carmita Avelar MD [address] [place] [phone] documented as of this encounter Visit Diagnoses Not on filedocumented in this encounter Additional Health Concerns Assessment Noted Time PHQ-9 Depression Total Score: 18 023 3:07 PM EDT documented as of this encounter Care Teams Cafeteria Director Relationship Specialty Start Date End Date Carmita Avelar MD [address] [place] [address] [phone] PCP - General Family Medicine 03/11/19 documented as of this encounter
--- OUTSIDE RECORDS SUMMARY | 2025-02-13 15:42 | XMS_ITS | Clinical Summary ---
Author Organization [facility] Address [address] [facility] [address] [place] [phone] Phone Care Team Providers Care Curb Setter Name Role Phone Carmita Avelar MD Primary Care Provider Allergies Active Allergy Reactions Criticality Noted Date Comments Carisoprodol 07/17/2014 Cortisone 07/17/2014 Duloxetine 06/11/2023 Gabapentin 07/17/2014 Ibuprofen 07/17/2014 Ketorolac Tromethamine 07/17/2014 Morphine 07/17/2014 Naproxen 07/17/2014 Oxybutynin 06/11/2023 Pregabalin 07/17/2014 Ranitidine High 04/12/2015 Other reaction(s): Vomiting Sulfa (Sulfonamide Antibiotics) 07/04/2010 Other reaction(s): unspecified Sulfamethoxazole 07/17/2014 Adhesive Tape-Silicones 06/11/2023 Ketorolac 06/11/2023 Trimethoprim 07/17/2014 Tramadol 06/11/2023 Medications clonazePAM (KLONOPIN) 1 MG tablet Active OXYCODONE HCL (OXYCODONE ORAL) Act [place] FLUTICASONE PROPIONATE (FLOVENT HFA INHL) A ctive mirtazapine (REMERON ORAL) Take 7.5 mg by mouth. Active verapamiL (VERELAN) 180 MG 24 hr capsule Take by mouth. A ctive omeprazole (PRILOSEC) 20 MG capsule Take 1 capsule by mouth Medrol Dose Pack use ONLY. 11/26/19 22 Active SLEEP AID, DOXYLAMINE, 25 mg tablet Take 1 tablet by mouth nightly at bedtime as needed. 09/12/19 Active glucose 4 GM chewable tablet Take 1 tablet by mouth daily as needed. Active albuterol 2.5 mg /3 mL (0.083 %) nebulizer solution Take 3 mL by nebulization every 4 (four) hours. 07/29/19 Active albuterol 90 mcg/actuation inhaler Take 2 puffs by mouth every 4 (four) hours as needed. 05/15/19 Active oxyCODONE-acetamin ophen (PERCOCET) 5-325 mg per tablet Take 1 tablet by mouth every 4 (four) hours as needed for pain (specific location in comments). Partial fill ok Active promethazine (PHENERGAN) 12.5 MG tablet Take 12.5 mg by mouth every 6 (six) hours as needed for nausea. Active lisinopril (PRINIVIL,ZESTRIL) 20 MG tablet Take 20 mg by mouth daily. Active ZINC ORAL Take 50 mg by mouth. Active atorvastatin (LIPITOR) 20 MG tablet Take 20 mg by mouth daily. Active FREESTYLE LITE METER meter kitIndications:Hyp oglycemia Use as instructed 1 each 01/19/20 24 Active therapeutic multivitamin tablet Take 1 tablet by mouth daily. Active ergocalciferol (DRISDOL) 50,000 unit capsuleIndications :Vitamin D deficiency Take 1 capsule (50,000 Units total) by mouth once a week. 12 capsule 3 08/13/19 25 Active lancets (ACCU-CHEK FASTCLIX LANCET DRUM) MiscIndications:Hy poglycemia Use to test glucose 4x per day 400 each 3 08/26/19 25 Active FREESTYLE LITE Strp stripsIndications: Hypoglycemia USE TO TEST BLOOD SUGAR FOUR TIMES DAILY 150 strip 11 08/26/19 25 Active levothyroxine (SYNTHROID, LEVOTHROID) 125 MCG tabletIndications: Postablative hypothyroidism TAKE 1 TABLET BY MOUTH EVERY MORNING 90 tablet 1 10/15/19 25 Active ALCOHOL PREP PADS PadMIndications:Hy poglycemia DIRECTED TO TEST BLOOD SUGAR FOUR TIMES DAILY 200 each 5 11/30/19 25 Active Active Problems Problem Noted Date Diagnosed Date Essential hypertension 04/12/2022 Overview (11/10/2022): Last Assessment & Plan: - Aerobic exercise to reduce BP. Initial [...] prescriptions without first consulting health care provider Generalized anxiety disorder 07/14/2018 Headache disorder 01/14/2018 Asthma 10/15/2011 Depressive disorder 10/30/2010 Postablative hypothyroidism Assessment & Plan (07/28/2024 5:50 PM EDT): Reports good consistency taking rx appropriately. Has lost weight. Will check labs. To call if doesn't hear from us with results within 1-2 weeks. Assessment & Plan (12/18/2023 3:24 PM EDT): Euthyroid on most recent labs. Will check labs soon. To call if doesn't hear from us with results within 1-2 weeks. Assessment & Plan (06/15/2023 2:49 PM EST): Euthyroid on recent labs. Reports good consistency taking rx appropriately. Will check labs prior @ follow up, sooner prn symptoms of thyroid dysfunction or > 10-15# weight change, or as otherwise clinically indicated. Assessment & Plan (11/10/2022 4:39 PM EDT): Euthyroid on labs earlier in the year. Reports good consistency taking rx appropriately. Will check labs prior to follow up, sooner prn symptoms of thyroid dysfunction or > 10-15# weight change, or as otherwise clinically indicated. Obesity Hypoglycemia Assessment & Plan (07/28/2024 5:49 PM EDT): Working w/ RD. Losing weight. Controlling carb intake. Has had a few episodes of symptoms w/ low readings on the meter. To continue to eat regularly through the day. Assessment & Plan (12/18/2023 3:26 PM EDT): Clinically stable. Continues to have some degree of symptoms of reactive hypoglycemia, which are better when more careful with diet. Reported glucose readings wnl. Will look into what happened @ previous referral to RD/CDE. Assessment & Plan (06/15/2023 2:50 PM EST): Clinically stable. Continues to have some degree of symptoms of reactive hypoglycemia, which are better when more careful with diet. Did not hear from RD/CDE after we had sent referral, will send again & call to facilitate. Assessment & Plan (11/10/2022 4:40 PM EDT): Clinically stable. Continues to have some degree of hypoglycemia. Better when more careful with diet. Would like to see RD/CDE again, will send referral. Vitamin D deficiency Assessment & Plan (11/10/2022 4:40 PM EDT): Vitamin D normal on current rx. Fibromyalgia Encounters Date Type Department Care Team Description 01/11/2025 Telephone [facility] [address] [place] [address] [place] [address] Marisa Galvan MD Medication Prior Authorization (/FREESTYLE LITE Strp strips /) 11/28/2024 Refill [facility] [address] [place] [address] Marisa Galvan MD Medication Refill from Last 3 Months Immunizations Immunization Administration Dates Next Due Influenza, Unspecified Formulation 01/01/2024 Social History Tobacco Use Types Packs/Day Years Used Date Smoking Tobacco: Every Day Cigarettes Passive Smoke Exposure: Never Smokeless Tobacco: Never Alcohol Use Standard Drinks/Week Comments Never 0 (1 standard drink = 0.6 oz pur e alcohol) Education Answer Date Recorded Are you interested in more education? Not on suzanna e 09/05/2022 Are you concerned about learning? Not on file 09/05/2022 No 09/05/2022 No 09/05/2022 Digital Access Answer Date Recorded No 10/04/2022 No 10/04/2022 Reliable internet access at home? Not on file 10/04/2022 Device with a working camera? Not on file Comments Unknown Sex and Gender Information Value Date Recorded Sex Assigned at Female 08/08/2024 11:06 AM EDT Legal Sex Female 9:36 PM EDT Gender Identity Female 08/08/2024 11:06 AM EDT Sexual Orientation Straight 08/08/2024 11 :06 AM EDT Last Filed Vital Signs Vital Sign Reading Time Taken Comments Blood Pressure 124/62 07/28/2024 3:19 PM EDT Pulse 85 07/28/2024 3:19 PM EDT Temperature - - Respiratory Rate - - Oxygen Saturation 96% 07/28/2024 3:19 PM EDT Inhaled Oxygen Concentration - - Weight 81.5 kg (179 lb 9.6 oz) 07/28/2024 3:19 P M EDT Height 162.6 cm (5' 4.02 ) 07/28/2024 3:19 PM ED T Body Mass Index 30.81 07/28/2024 3:19 PM EDT Plan of Treatment Upcoming Encounters Date Type Department Care Team (Late st Contact Info) Description 04/20/2025 3:20 PM EST Office Visit [facility] [address] [place] [address] Marisa Galvan MD [address] [place] [phone] [email or web address] Health Maintenance Due Date Last Done Comments DEPRESSION SCREENING 1981 SMOKING Hx and SMOKELESS TOBACCO SCREENING 1982 HEPATITIS C SCREENING 1987 HIV ONE-TIME SCREENING (18-65 YEARS) 1987 PAP SMEAR 1990 COLOGUARD 2014 COLONOSCOPY 2014 COLORECTAL CANCER SCREENING 2014 FIT TEST 2014 FOBT 2014 SIGMOIDOSCOPY 2014 VIRTUAL COLONOSCOPY 2014 PNEUMOCOCCAL VACCINES (50+ years) (2 of 2 - PCV) 01/03/2021 01/04/2020 ZOSTER VACCINES (2 of 2) 02/09/2021 12/15/2020 Adult Td,Tdap Booster 04/29/2023 04/29/2013, 006 INFLUENZA VACCINE (#1) 2024 , 12/30/2022, 03/07/2022, Additional history exists MAMMOGRAM 12/30/2024 12/30/2022, 02/0 09/2019, 03/22/2018 COVID-19 VACCINE ( season) 2025 02/24/2023, 11/21/2021, 03/25/2021, Additional history exists BLOOD PRESSURE 01/28/2025 07/28/2024 CREATININE LEVEL 07/28/2025 07/28/2024, 07/2023, 06/09/2023 POTASSIUM LEVEL 07/28/2025 07/28/2024, 090 07/2023, 06/09/2023 TSH LEVEL 07/28/2025 07/28/2024, 09/0 07/2023, 06/09/2023 SCREENING FOR DIABETES 07/29/2027 , 05/15/2023, 03/13/2023 LIPID PANEL 03/17/2029 03/17/2024, 08/27/2022 HEPATITIS A VACCINES Aged Out No long er eligible based on patient's age to complete this topic HIB VACCINES Aged Out No longer eligi ble based on patient's age to complete this topic MENINGOCOCCAL VACCINES (ACWY) Aged Out No longer eligible based on patient's age to complete this topic MENINGOCOCCAL VACCINES (B) Aged Out N o longer eligible based on patient's age to complete this topic Medical Devices Not on file Procedures Procedure Name Priority Date/Time Associated Diagnosis Comments TSH WITH REFLEX Routine 07/28/2024 4:02 PM EDT Postablative hypothyroidism BASIC METABOLIC PANEL Routine 07/28/2024 4:02 PM EDT Hypoglycemia from Last 3 Months or Most Recently Relevant to Health Maintenance Results * TSH with reflex (07/28/2024 4:02 PM EDT) TSH 1.47 0.27 - 4.20 uIU/mL [facility] Blood 07/28/2024 4:02 PM EDT 07/28/2024 4:05 PM EDT Marisa Galvan MD LAB BLOOD ORDERABLES F inal Result Performing Organization Address City/[facility]/ZIP Co de Phone Number [address] [address] * Basic metabolic panel (07/28/2024 4:02 PM EDT) SODIUM 138 133 - 146 mmol/L [facility] CHLORIDE 100 96 - 108 mmol/L [facility] POTASSIUM 4.3 3.3 - 5.1 mmol/L [facility] CO2 27 21 - 35 mmol/L [facility] BUN 11 6 - 19 mg/dL [facility] CREATININE 0.70 0.5 - 1.5 mg/dL [facility] GLUCOSE 79 70 - 99 mg/dL [facility] CALCIUM 9.9 8.4 - 10.3 mg/dL [facility] EGFR 102 >59 mL/min/1.7 3m2 [facility] Comment:Estimated glomerular filtration rate calculated using the CKD-EPI refit equation. ANION GAP 15 10 - 20 mmol/L [facility] Blood 07/28/2024 4:02 PM EDT 07/28/2024 4:05 PM EDT Marisa Galvan MD LAB BLOOD ORDERABLES F inal Result Performing Organization Address City/[facility]/ZIP Co de Phone Number [address] [address] from Last 3 Months or Most Recently Relevant to Health Maintenance Insurance [facility] C3 ACO C3 ACO C3 ACO C3 [facility]CO [facility] [place] [address] [address] [place] [address] C3 ACO Care Teams Curb Setter Relationship Specialty Start Date End Date Carmita Avelar MD [address] [place] [phone] PCP - General Internal Medicine 11/10/22 Additional Source Comments The information contained in this document represents components of the legal health record. It is not the complete legal health record.[facility]
--- OUTSIDE RECORDS SUMMARY | 2025-02-13 15:42 | XMS_ITS | Clinical Summary ---
Author Organization [facility] Address [address] [place] [address] Care Team Providers Care Office Services Manager Name Role Phone Unavailable Primary Care Provider [...] 2019 Zoster Vaccines (1 of 2) 2019 Depression Screening 05/11/2024 COVID-19 Vaccine (1 - 2023-2 5 season) 2025 Influenza Vaccine (#1) 2025 RSV Immunization Adult Patie nts (1 - 1-dose 75+ series) 2044 HIB Vaccines Aged Out No longer eligi [...]
== END 2025-02-13 13:14 | disposition home or self-care (01) ==
LOC: HO.LAB 13:13
PROVIDERS: PCP Internal Medicine; Visit Provider Internal Medicine Cardiovascular Disease
DX: E78.5 Hyperlipidemia, unspecified (principal)
CPT/HCPCS: 36415; 80061

== ENCOUNTER 2025-02-14 13:50 | Outpatient (REF) | payer MEDICAID, SELFPAY ==
--- OUTSIDE RECORDS SUMMARY | 2025-02-14 17:03 | XMS_ITS | Encounter Summary ---
Author Organization [employer] Address [address] [facility] [address] [place] [address] Care Team Providers Care Sheet Metal Helper Name Role Phone Carmita Avelar MD Primary Care Provide r Encounter Details Date Type Department Care Team ([facility] st Contact Info) Description 03/26/2023 Abstract [facility] MEDICINE 230 [place], [place] [phone] Carmita Avelar MD 230 [place], [place] [phone] Social History Tobacco Use Types Packs/Day Years [...] Description 03/03/2025 3:30 PM EDT Office Visit [address] [address] Carmita Avelar MD [address] [place] [address] 03/10/2025 9:30 AM EDT Telemedicine [address] [address] Jennifer Garcia, RN 04/10/2025 2:45 PM EST Office Visit [address] [address] Carmita Avelar MD [address] [place] [address] documented as of this encounter Visit Diagnoses Not on filedocumented in this encounter Additional Health Concerns Assessment Noted Time PHQ-9 Depression Total Score: 18 023 3:07 PM EDT documented as of this encounter Care Teams Sheet Metal Helper Relationship Specialty Start Date End Date Carmita Avelar MD [address] [place] [address] [phone] PCP - General Family Medicine 03/11/19 documented as of this encounter
--- OUTSIDE RECORDS SUMMARY | 2025-02-14 17:03 | XMS_ITS | Encounter Summary ---
Author Organization [employer] Address [address] [facility] [address] 7t [place] [address] Care Team Providers Care Antenna Installer Name Role Phone Carmita Avelar MD Primary Care Provide r Encounter Details Date Type Department Care Team ([facility] st Contact Info) Description 07/01/[address] [facility] MEDICINE 230 [place], [place] [phone] Carmita Avelar MD 230 [place], [place] [phone] Social History Tobacco Use Types Packs/Day Years [...] Description 03/03/2025 3:30 PM EDT Office Visit [address] [address] Carmita Avelar MD [address] [place] [address] 03/10/2025 9:30 AM EDT Telemedicine [address] [address] Jennifer Garcia, RN 04/10/2025 2:45 PM EST Office Visit [address] [address] Carmita Avelar MD [address] [place] [address] documented as of this encounter Visit Diagnoses Not on filedocumented in this encounter Additional Health Concerns Assessment Noted Time PHQ-9 Depression Total Score: 18 023 3:07 PM EDT documented as of this encounter Care Teams Antenna Installer Relationship Specialty Start Date End Date Carmita Avelar MD [address] [place] [address] [phone] PCP - General Family Medicine 03/11/19 documented as of this encounter
--- OUTSIDE RECORDS SUMMARY | 2025-02-14 17:03 | XMS_ITS | Encounter Summary ---
Author Organization [employer] Address 75 [facility] [address] 7t [place] [address] Care Team Providers Care Children'S Service Worker Name Role Phone Carmita Avelar MD Primary Care Provide r Encounter Details Date Type Department Care Team (Late st Contact Info) Description 09/09/2023 Orders Only [facility] MEDICINE 230 [place], [place] [phone] Provider, MD Aliyah Social History Tobacco Use [...] Description 03/03/2025 3:30 PM EDT Office Visit [address] [address] Carmita Avelar MD [address] [place] [address] 03/10/2025 9:30 AM EDT Telemedicine [address] [address] Jennifer Garcia RN 04/10/2025 2:45 PM EST Office Visit [facility] MEDICINE [address] [place] [address] Carmita Avelar MD [address] [place] [address] documented as of this encounter Procedures Procedure [...] documented as of this encounter Care Teams Children'S Service Worker Relationship Specialty Start Date End Date Carmita Avelar MD [address] [place] [address] [phone] PCP - General Family Medicine 03/11/19 documented as of this encounter
--- OUTSIDE RECORDS SUMMARY | 2025-02-14 17:03 | XMS_ITS | Encounter Summary ---
Author Organization [employer] Address 75 [facility] 7t [place] [address] Care Team Providers Care Water Plant Operator Name Role Phone Carmita Avelar MD Primary Care Provide r Reason for Visit * Reason Onset Date Comments Med Refill 05/23/2024 Encounter Details Date Type Department Care Team (Late st Contact Info) Description 05/23/2024 Refill [facility] MEDICINE 230 [place], [place] [phone] Carmita Avelar MD 230 [place], [place] [phone] Chronic right shoulder pain Social History Tobacco [...] Description 03/03/2025 3:30 PM EDT Office Visit [address] [address] Carmita Avelar MD [address] [place] [address] 03/10/2025 9:30 AM EDT Telemedicine [address] [address] Jennifer Garcia RN 04/10/2025 2:45 PM EST Office Visit [address] [address] Carmita Avelar MD [address] [place] [address] documented as of this encounter Visit Diagnoses Diagnosis Chronic right shoulder pain Pain in joint, shoulder region documented in this encounter Additional Health Concerns Assessment Noted Time PHQ-9 Depression Total Score: 0 03/17/20 2:34 PM EST documented as of this encounter Care Teams Water Plant Operator Relationship Specialty Start Date End Date Carmita Avelar MD 230 [place] [address] PCP - General Family Medicine 03/11/19 documented as of this encounter
--- OUTSIDE RECORDS SUMMARY | 2025-02-14 17:03 | XMS_ITS | Encounter Summary ---
Author Organization [employer] Address [address] [facility] [address] 7t [place] [address] Care Team Providers Care Per Diem Registered Nurse Name Role Phone Carmita Avelar MD Primary Care Provide r Reason for Visit * Reason Onset Date Comments Referral 01/03/2025 Encounter Details Date Type Department Care Team ([facility] Contact Info) Description 01/03/2025 Telephone [facility] MEDICINE 230 [place], [place] [phone] Carmita Avelar MD 230 [place], [place] [phone] Referral Social History Tobacco Use Types Packs/Day [...] to do her appt. Contact pt at [phone] * Telephone Encounter - Rose Smith RN - 01/03/2025 4:17 PM EDT TC returned to pt. Pt. Reports she is established with Dr. Martinez at [facility] who ordered a CT scan for her clavicle that is apparently not healing correctly. Advised pt. I would call their office to inquire on what is needed from PCP team. TC placed to [facility], they report as of 12/09/24, [facility] is requiring all referrals to come from PCP team. They report they gave the pt. The fax number the referral needs to go to (for [facility] radiology- in message below). I had them fax over the order and scanned it into the chart. Please advise if this is something you can do or know about, thank you!!! * Telephone Encounter - Jacobo Xie - 01/03/2025 3:03 PM EDT Tc from pt requesting a referral for chest CT Scan to be sent to [facility]. Fx number is [phone] Any questions contact pt at [phone] documented in this encounter Plan of Treatment Upcoming Encounters Date Type Department Care Team (Late st Contact Info) Description 03/03/2025 3:30 PM EDT Office Visit [address] [address] Carmita Avelar MD [address] [place] [address] 03/10/2025 9:30 AM EDT Telemedicine [address] [address] Jennifer Garcia RN 04/10/2025 2:45 PM EST Office Visit [address] [address] Carmita Avelar MD [address] [place] [address] [phone] documented as of this encounter Visit Diagnoses Not on filedocumented in this encounter Additional Health Concerns Assessment Noted Time PHQ-9 Depression Total Score: 0 03/17/20 24 2:34 PM EST documented as of this encounter Care Teams Per Diem Registered Nurse Relationship Specialty Start Date End Date Carmita Avelar MD [address] [place] [address] [phone] PCP - General Family Medicine 03/11/19 documented as of this encounter
--- OUTSIDE RECORDS SUMMARY | 2025-02-14 17:03 | XMS_ITS | Encounter Summary ---
Author Organization [employer] Address [address] [facility] [address] 7t [place] [address] Care Team Providers Care Director Plans Name Role Phone Carmita Avelar MD Primary Care Provide r Encounter Details Date Type Department Care Team (Late st Contact Info) Description 10/21/2023 Orders Only [facility] MEDICINE 230 [place], [place] [phone] Marisol Pedroza MD 230 [place], [place] [phone] Social History Tobacco Use Types Packs/Day Years [...] Description 03/03/2025 3:30 PM EDT Office Visit [address] [address] Carmita Avelar MD [address] [place] [address] 03/10/2025 9:30 AM EDT Telemedicine [address] [address] Jennifer Garcia RN 04/10/2025 2:45 PM EST Office Visit [address] [address] Carmita Avelar MD [address] [place] [address] documented as of this encounter Visit Diagnoses Not on filedocumented in this encounter Additional Health Concerns Assessment Noted Time PHQ-9 Depression Total Score: 18 023 3:07 PM EDT documented as of this encounter Care Teams Director Plans Relationship Specialty Start Date End Date Carmita Avelar MD [address] [place] [address] [phone] PCP - General Family Medicine 03/11/19 documented as of this encounter
--- OUTSIDE RECORDS SUMMARY | 2025-02-14 17:03 | XMS_ITS | Encounter Summary ---
Author Organization [employer] Address [address] [facility] [address] 7t [place] [address] Care Team Providers Care Floor Coverer Name Role Phone Carmita Avelar MD Primary Care Provide r Reason for Visit * Reason Onset Date Comments Labs 07/10/2023 Encounter Details Date Type Department Care Team ([facility] Contact Info) Description 07/10/2023 Telephone [facility] MEDICINE 230 [place], [place] [phone] Carmita Avelar MD 230 [place], [place] [phone] Labs Social History Tobacco Use Types Packs/Day [...] AM EST Tc from [facility] working with [facility] requesting EKG and Labs from 06/26/23 to be faxed over. Shamarequesting to put Attention Shama as a side note, OR date 07/13/23 If any questions you can contact Shama at [phone]. documented in this encounter Plan of Treatment Upcoming Encounters Date Type Department Care Team (Late st Contact Info) Description 03/03/2025 3:30 PM EDT Office Visit [facility] MEDICINE [address] [place] [address] Carmita Avelar MD [address] [place] [address] 03/10/2025 9:30 AM EDT Telemedicine [facility] MEDICINE [address] [place] [address] Jennifer Garcia RN 04/10/2025 2:45 PM EST Office Visit [facility] MEDICINE 230 [place] [address] Carmita Avelar MD 230 [place] [address] documented as of this encounter Visit Diagnoses Not on filedocumented in this encounter Additional Health Concerns Assessment Noted Time PHQ-9 Depression Total Score: 18 023 3:07 PM EDT documented as of this encounter Care Teams Floor Coverer Relationship Specialty Start Date End Date Carmita Avelar MD 230 [place] [address] PCP - General Family Medicine 03/11/19 documented as of this encounter
--- OUTSIDE RECORDS SUMMARY | 2025-02-14 17:03 | XMS_ITS | Clinical Summary ---
Author Organization [facility] Address [address] [place] [address] Care Team Providers Care Box Blank Machine Operator Helper Name Role Phone Unavailable Primary Care Provider [...]
--- OUTSIDE RECORDS SUMMARY | 2025-02-14 17:03 | XMS_ITS | Encounter Summary ---
Author Organization [employer] Address 75 [facility] 7t [place] [address] Care Team Providers Care Marketing Outreach Coordinator Name Role Phone Carmita Avelar MD Primary Care Provide r Reason for Visit * Reason Onset Date Comments Med Refill 10/17/2024 Encounter Details Date Type Department Care Team (Late st Contact Info) Description 10/17/2024 Refill [facility] MEDICINE 230 [place], [place] [phone] Carmita Avelar MD 230 [place], [place] [phone] Chronic right shoulder pain Social History Tobacco [...] Description 03/03/2025 3:30 PM EDT Office Visit [address] [address] Carmita Avelar MD [address] [place] [address] 03/10/2025 9:30 AM EDT Telemedicine [address] [address] Jennifer Garcia RN 04/10/2025 2:45 PM EST Office Visit [address] [address] Carmita Avelar MD [address] [place] [address] documented as of this encounter Visit Diagnoses Diagnosis Chronic right shoulder pain Pain in joint, shoulder region documented in this encounter Additional Health Concerns Assessment Noted Time PHQ-9 Depression Total Score: 0 03/17/20 2:34 PM EST documented as of this encounter Care Teams Marketing Outreach Coordinator Relationship Specialty Start Date End Date Carmita Avelar MD 230 [place] [address] PCP - General Family Medicine 03/11/19 documented as of this encounter
--- OUTSIDE RECORDS SUMMARY | 2025-02-14 17:03 | XMS_ITS | Encounter Summary ---
Author Organization [employer] Address [address] [facility] [address] 7t [place] [address] Care Team Providers Care Acquisition Specialist Name Role Phone Carmita Avelar MD Primary Care Provide r Encounter Details Date Type Department Care Team ([facility] st Contact Info) Description 07/23/2023 Orders Only [facility] MEDICINE 230 [place], [place] [phone] Carmita Avelar MD 230 [place], [place] [phone] Social History Tobacco Use Types Packs/Day Years [...] Description 03/03/2025 3:30 PM EDT Office Visit [address] [address] Carmita Avelar MD [address] [place] [address] 03/10/2025 9:30 AM EDT Telemedicine [address] [address] Jennifer Garcia RN 04/10/2025 2:45 PM EST Office Visit [address] [address] Carmita Avelar MD [address] [place] [address] [phone] documented as of this encounter Visit Diagnoses Not on filedocumented in this encounter Additional Health Concerns Assessment Noted Time PHQ-9 Depression Total Score: 18 023 3:07 PM EDT documented as of this encounter Care Teams Acquisition Specialist Relationship Specialty Start Date End Date Carmita Avelar MD [address] [place] [address] PCP - General Family Medicine 03/11/19 documented as of this encounter
--- OUTSIDE RECORDS SUMMARY | 2025-02-14 17:03 | XMS_ITS | Encounter Summary ---
Author Organization [employer] Address [address] [facility] [address] 7t [place] [address] Care Team Providers Care Director Of Psychology Name Role Phone Carmita Avelar MD Primary Care Provide r Reason for Visit * Reason Comments Med Refill Encounter Details Date Type Department Care Team ([facility] st Contact Info) Description 08/24/2022 Refill [facility] 230 [place], [place] [phone] [facility] 230 [place], [place] [phone] Neck pain Social History Tobacco Use Types [...] Description 03/03/2025 3:30 PM EDT Office Visit [address] [address] Carmita Avelar MD [address] [place] [address] 03/10/2025 9:30 AM EDT Telemedicine [address] [address] Jennifer Garcia RN 04/10/2025 2:45 PM EST Office Visit [address] [address] Carmita Avelar MD [address] [place] [address] [phone] documented as of this encounter Visit Diagnoses Diagnosis Neck pain Cervicalgia documented in this encounter Care Teams Director Of Psychology Relationship Specialty Start Date End Date Carmita Avelar MD [address] [place] [address] [phone] PCP - General Family Medicine 03/11/19 documented as of this encounter
--- OUTSIDE RECORDS SUMMARY | 2025-02-14 17:04 | XMS_ITS | Encounter Summary ---
Author Organization [employer] Address 75 [facility] 7t [place] [address] Care Team Providers Care Dirt Bike Mechanic Name Role Phone Carmita Avelar MD Primary Care Provide r Reason for Visit * Reason Onset Date Comments Medication Question 06/10/2024 Encounter Details Date Type Department Care Team ([facility] Contact Info) Description 06/10/2024 Telephone [facility] MEDICINE 230 [place], [place] [phone] Carmita Avelar MD [address] [place] [address] Medication Question Social History Tobacco Use Types [...] covered by insurance. Any questions contact pt: [phone] documented in this encounter Plan of Treatment Upcoming Encounters Date Type Department Care Team (Late st Contact Info) Description 03/03/2025 3:30 PM EDT Office Visit [facility] MEDICINE [address] [place] [address] Carmita Avelar MD [address] [place] [address] 03/10/2025 9:30 AM EDT Telemedicine [address] [address] Jennifer Garcia RN 04/10/2025 2:45 PM EST Office Visit [facility] MEDICINE [address] [place] [address], [place] [address] Carmita Avelar MD [address] [place] [address] documented as of this encounter Visit Diagnoses Not on filedocumented in this encounter Additional Health Concerns Assessment Noted Time PHQ-9 Depression Total Score: 0 03/17/20 24 2:34 PM EST documented as of this encounter Care Teams Dirt Bike Mechanic Relationship Specialty Start Date End Date Carmita Avelar MD [address] [place] [address] PCP - General Family Medicine 03/11/19 documented as of this encounter
--- OUTSIDE RECORDS SUMMARY | 2025-02-14 17:04 | XMS_ITS | Clinical Summary ---
Author Organization [employer] Address [address] [place] [address] Care Team Providers Care Radiophone Operator Name Role Phone Carmita Avelar MD [...] day. Active ergocalciferol (Vitamin D-2) 1.25 MG (48714 UT) capsule Take 1 capsule by mouth [...] 2 diabetes mellitus without complication, unspecified whether fci insulin use USE FIVE TIMES DAILY 100 [...] Overview (05/15/2022): Evaluated by Dr. Stout at [facility] 05/2022. 8 cm diameter. Excision planned. Acute [...] Type Department Care Team Description 02/06/2025 Refill [facility] MEDICINE [address] [place] [phone] Carmita Avelar MD Chronic right shoulder pain 02/05/2025 Refill [facility] MEDICINE [address] [place] [address] 260[address] Carmita Avelar MD Chronic right shoulder pain; Acute pain of right shoulder 01/19/2025 Telephone [facility] PEDS [address] [place] [address] Carmita Avelar MD NOV RECALL 01/10/2025 Refill [facility] MEDICINE [address] [place] [address] Carmita Avelar MD Chronic right shoulder pain 01/03/2025 Telephone [facility] MEDICINE [address] [place] [address] Carmita Aevlar MD Referral 12/30/2024 9:00 AM EDT Telemedicine [facility] MEDICINE [address] [place] [phone] Jennifer Garcia, SAUL Long-term current use of opiate analgesic 12/30/2024 Telephone [facility] MEDICINE [address] [place] [phone] Jennifer Garcia, RN BPI scoring 12/29/2024 Travel 12/22/2024 Telephone [facility] [address] [place] [address] Carmita Avelar MD OCT RECALL 12/13/2024 Refill [facility] MEDICINE [address] [place] [address] Carmita Avelar MD Chronic right shoulder pain 11/23/2024 2:00 PM EDT Office Visit [facility] MEDICINE [address] [place] [address] Carmita Avelar MD Essential hypertension (Primary Dx); Overweight (BMI 25.0-29.9); Skin tag; Folliculitis keloidalis; Chronic right shoulder pain 11/23/2024 Travel 11/22/2024 Travel 11/22/2024 Telephone [facility] MEDICINE [address] [place] [address] Carmita Avelar MD Chart Prep 11/15/2024 Refill [facility] MEDICINE [address] [place], [place] [phone] Carmita Avelar MD Chronic right shoulder pain 11/15/2024 Patient Outreach [facility]ICINE [address] [place], [place] [phone] Carmita Avelar MD Pre-visit Planning (SDOH screening negative and tobacco screening positive) 11/15/2024 Refill [facility] MEDICINE [address] [place], [place] [phone] Carmita Avelar MD Chronic right shoulder pain [...] Description 03/03/2025 3:30 PM EDT Office Visit [address] [address] Carmita Avelar MD [address] [place] [phone] 03/10/2025 9:30 AM EDT Telemedicine [address] [phone] Jennifer Garcia RN 04/10/2025 2:45 PM EST Office Visit [address] [address] Carmita Avelar MD [address] [place] [phone] Health Maintenance Due Date Last Done Comments [...] Blood Count 15.4(H) 4.8 - 10.8 X10*3/uL [facility] Red Blood Count 4.86 4.20 - 5.50 X10*6/uL [facility] Hemoglobin 14.5 12.0 - 16.0 g/dl [facility] Hematocrit 43.6 37.0 - 47.0 % [facility] Mean Corpuscular Volume 89.7 80.0 - 98.0 fL [facility] Mean Corpuscular Hemoglobin 29.8 27.0 - 33.0 pg [facility] Mean Corpuscular HGB Conc 33.3 31.0 - 35.0 g/dl [facility] Red Cell Distribution Width 14.0 11.0 - 16.0 % [facility] Platelet Count 338 160 - 400 X10*3/uL [facility] Mean Platelet Volume 10.0 9.4 - 12.3 fL [facility] Neutrophils Percent Auto 62.2 45 - 73 % [facility] Imm Gran Pct Auto 0.4 0.0 - 0.4 % [facility] Lymphocytes Percent Auto 29.9 20 - 40 % [facility] Monocytes Percent Auto 5.6 2 - 11 % [facility] Eosinophils Percent Auto 1.3 0 - 4 % [facility] Basophils Percent Auto 0.6 0 - 2 % [facility] NRBC Pct Auto 0.0 0.0 - 0.2 /100WBC [facility] Neutrophils Absolute Auto 9.6(H) 2.0 - 8.3 x10*3/uL [facility] Imm Gran Abs Auto 0.06(H) 0.00 - 0.03 X10*3/uL [facility] Lymphocytes Absolute Auto 4.6 1.2 - 4.9 X10*3/uL [facility] Monocytes Absolute Auto 0.9 0.1 - 1.2 X10*3/uL [facility] Eosinophils Absolute Auto 0.2 0.0 - 0.4 X10*3/uL [facility] Basophils Absolute Auto 0.1 0.0 - 0.2 X10*3/uL [facility] NRBC Abs Auto 0.000 0.0 - 0.012 X10*3/uL [facility] Blood Venous blood specimen / Unknown 11/23/2024 3:31 PM EDT 11/23/2024 4:03 PM EDT us Carmita Alvarado MD LAB BLOOD ORDERABLES Final Result [facility] [address] [place] [address] [phone] * Hemoglobin A1c (11/23/2024 3:31 PM EDT) Hemoglobin A1c 5.3 <6.0 % [facility] Comment:Hemoglobin A1C Refer ence Range Adults: 4.8 - 6.0 % Non diabetic: < 6.0 % Goal: < 7.0 %Additional Action Suggested: > 8.0 %Note: Hemoglobin A1c results are invalid for patients with abnormal amounts of HbF. Blood transfusions may impact the HbA1c concentration in the patient sample. Estimated Average Glucose 105 mg/dL [facility] Comment:eAG = Estimated ave rage glucose which is %A1C expressed asaverage glucose, using the formula of the H1C-RxronryGooyvsj Glucose study (ADAG), Diabetes Care, Vol.31,#8,Dec. 2007 Blood Venous blood specimen / Unknown 11/23/2024 3:31 PM EDT 11/23/2024 4:03 PM EDT Carmita Alvarado MD LAB BLOOD ORDERABLES Final Result [facility] [address] [place] [phone] * (ABNORMAL) Lipid Panel, Standard (11/23/2024 3:31 PM EDT) Triglycerides 177(H) <150 mg/dL [facility] Comment:Desirable Triglyceri de: less than 150 mg/dLBorderline High Triglyceride 150-199 mg/dLHigh Triglyceride: 200-499 mg/dLVery High Triglyceride: greater than or equal to 5OO mg/dL Cholesterol 166 <200 mg/dL [facility] Comment:Desirable Cholestero l: less than 200 mg/dLBorderline High Cholesterol: 200-239 mg/dLHigh Cholesterol: greater than 239 mg/dL LDL Cholesterol Calculated 93 <100 mg/dL [facility] Comment:Desirable LDL: less than 100 mg/dLNear Optimal/Above Optimal LDL: 110- 129 mg/dLBorderline High LDL: 130-159 mg/dLHigh LDL: 160-189 mg/dLVery High LDL: greater than or equal to 190 mg/dL HDL Cholesterol 38(L) >40 mg/dL [facility] Comment:Desirable HDL: great er than 40 mg/dL Note: This HDL assay may give artificially low results in patients with liver disease. Blood Venous blood specimen / Unknown 11/23/2024 3:31 PM EDT 11/23/2024 4:07 PM EDT Carmita Alvarado MD LAB BLOOD ORDERABLES Final Result [facility] [address] [place] [address] [phone] * Comprehensive Metabolic Panel (11/23/2024 3:31 PM EDT) Sodium 139 135 - 145 mmol/L [facility] Potassium 4.0 3.3 - 5.1 mmol/L [facility] Chloride 104 96 - 108 mmol/L [facility] Carbon Dioxide 26 22 - 29 mmol/L [facility] Anion Gap 13 12 - 20 [facility] Urea Nitrogen (BUN) 16 9 - 16 mg/dL [facility] Creatinine, Serum 0.81 0.5 - 1.4 mg/dL [facility] Estimated Glomerular Filt Rate >60 [facility] Comment:Chronic Kidney Disea se: Estimated GFR < 60 mL/min/1.32n8Atucjq Kidney Disease: Estimated GFR < 15 mL/min/1.73m2 Glucose 99 60 - 115 mg/dL [facility] Calcium 9.8 8.4 - 10.2 mg/dL [facility] Bilirubin, Total 0.3 0.0 - 1.0 mg/dL [facility] Aspartate Amino Transferase 26 5 - 31 U/L [facility] Alanine Aminotransferase 28 0 - 31 U/L [facility] Total Protein 7.6 6.5 - 8.0 g/dL [facility] Albumin Level 4.8 3.5 - 5.0 g/dL [facility] Alkaline Phosphatase 102 39 - 117 U/L [facility] Blood Venous blood specimen / Unknown 11/23/2024 3:31 PM EDT 11/23/2024 4:07 PM EDT Carmita Alvarado MD LAB BLOOD ORDERABLES Final Result Performing Organization Address [facility]/ZIP Co de Phone Number [facility] [address] [place] [address] [phone] * Hepatitis C Antibody with Reflex to HCV, RNA, Quantitative, Real-Time PCR (03/17/2024 3:51 PM EST) Hepatitis C Antibody Nonreactive Nonreactive [facility] Comment:Antibodies to HCV no t detected; does not exclude early acuteHCV infection. Blood Venous blood specimen / Unknown 03/17/2024 3:51 PM EST 03/17/2024 5:42 PM EST Carmita Alvarado MD LAB BLOOD ORDERABLES Final Result Performing Organization Address [facility] Co de Phone Number [facility] [address] [place] [phone] * HIV-1/2 Antigen and Antibodies, Fourth Generation, with Reflexes (03/17/2024 3:51 PM EST) HIV AB/AG Nonreactive Nonreactive [facility] Comment:HIV-1 p24 Ag and/or HIV-1/HIV-2 Ab not detected.A test result that is nonreactive does not exclude thepossibility of exposure to or infection with HIV-1 and/orHIV-2. Nonreactive results in this assay for individualswith prior exposure to HIV-1 and/or HIV-2 may be due toantigen and antibody levels that are below the limit ofdetection of this assay.The [employer] HIV Ag/Ab Combo assay result andsupplemental assay results should be interpreted inconjunction with the patient's clinical presentation,history and other laboratory results. If the results areinconsistent with clinical evidence, additional testing issuggested to confirm the result. Blood Venous blood specimen / Unknown 03/17/2024 3:51 PM EST 03/17/2024 5:42 PM EST us Carmita Alvarado MD LAB BLOOD ORDERABLES Final Result [facility] [address] [place] [address] [phone] * BI Mammogram Screening Tomosynthesis Bilateral (01/01/2024 3:20 PM EDT) Anatomical Region Laterality Modality Breast Bilateral Mammography 01/01/2024 3:20 PM EDT Narrative 01/29/2024 9:47 AM EDT [facility] [address] [place] [address] Mammography Report Signed Patient: Shirley Méndez MR #: [id number] : 1970 Acct:[id number] Age/Sex: 53 / F ADM Date: 01/01/24 Loc: HO.MAMMO Attending Dr: Carmita Alvarado MD Ordering Physician: Carmita Avelar MD Results: 1Negative Date of Service: 01/01/24 Follow Up: 1 Year From [facility] Mammogram Procedure(s): MM tomosynthesis screening BI Accession Number(s): [id number] cc: Carmita Avelar MD EXAMINATION: MM SCREENING [...] 01/29/24 0944 DD/ 1520 TD/TT: 01/01/24 1535 Car Packer: Procedure Note Donotuseinterpreter, Image - [facility]/29/[facility] [address] [place] [address] Mammography Report Signed Patient: Shirley Méndez DMR #: [id number] : 1970Acct:[id number] Age/Sex: 53 / FADM Date: 01/01/24 Loc: HO.MAMMO Attending Dr: Carmita Alvarado MD Ordering Physician: Carmita Avelar MDResults: 1Negative Date of Service: 01/01/24Follow Up: 1 Year From Orig inal Mammogram Procedure(s): MM tomosynthesis screening BI Accession Number(s): [id number] cc: Carmita Avelar MD EXAMINATION: MM SCREENING [...] 01/29/24 0944 DD/ 1520 TD/TT: 01/01/24 1535 Car Packer: us Carmita Alvarado MD IMG BI PROCEDURES Davy yumiko Result - Final * Hm Colonoscopy (05/13/2023 11:20 AM EST) Historical Provider [facility] MAINTENANCE Final Result * (ABNORMAL) Cologuard?? colon cancer screening (01/25/2023 2:09 PM EDT) Cologuard Result Positive( A) Negative 01/31/2023 10:31 AM EDT [employer] (CLIA #:[id number]) Comment: POSITIVE TEST RESULT. A positive Cologuard [...] (Thom Salcido al, N Engl J Med 2014;370(14):6032-3207.) Cologuard may produce a false negative or false positive result (no colorectal cancer or precancerous polyp present at colonoscopy follow up). A negative Cologuard test result does not guarantee the absence of CRC or advanced adenoma (pre-cancer). The current Cologuard screening interval is every 3 years. ([place] [employer] Society and U.S. Multi-Society Task Force). Cologuard performance data in a 10,000 patient pivotal study using colonoscopy as the reference method can be accessed at the following location: www.[employer]/results. Additional description of the Cologuard test process, warnings and precautions can be found at www.cologuard.APProtect. Stool specimen (specimen) 01/25/2023 2:09 PM EDT 01/27/2023 9:51 PM EDT Carmita Alvarado MD LAB MOLECULAR DIAGNOS TICS ORDERABLES Final Result [employer] (CLIA #:[id number]) [place] [address], from Last 3 Months or Most Recently Relevant to Health Maintenance [facility] Care Teams Radiophone Operator Relationship Specialty Start Date End Date Carmita Avelar MD [address] [place] [phone] PCP - General Family Medicine 03/11/19
--- OUTSIDE RECORDS SUMMARY | 2025-02-14 17:04 | XMS_ITS | Patient Health Record ---
Author Organization [facility] Address [address] [place] [phone] Care Team Providers Care Door Repairman Name Role Phone Bradley Fishman Unavailable [phone] Reason For Referral No Information Plan Of Treatment No Information
--- OUTSIDE RECORDS SUMMARY | 2025-02-14 17:04 | XMS_ITS | Encounter Summary ---
Author Organization [employer] Address [address] [place] [address] Care Team Providers Care Pets Salesperson Name Role Phone Carmita Avelar MD Primary Care Provide r Encounter Details Date Type Department Care Team ([facility] Contact Info) Description 02/04/2023 Telephone [facility] [address] [place] [phone] Carmita Avelar MD [address] [place] [phone] Social History Tobacco Use Types Packs/Day Years [...] Upcoming Encounters Date Type Department Care Team ([facility] Contact Info) Description 03/03/2025 3:30 PM EDT Office Visit [facility] [address] [place] [address] [phone] Carmita Avelar MD [address] [place] [phone] 03/10/2025 9:30 AM EDT Telemedicine [facility] [address] [place] [address] [phone] Jennifer Garcia RN 04/10/2025 2:45 PM EST Office Visit [address] [phone] Carmita Avelar MD [address] [place] [phone] documented as of this encounter Visit Diagnoses Not on filedocumented in this encounter Additional Health Concerns Assessment Noted Time PHQ-9 Depression Total Score: 18 023 3:07 PM EDT documented as of this encounter Care Teams Pets Salesperson Relationship Specialty Start Date End Date Carmita Avelar MD [address] [place] [phone] PCP - General Family Medicine 03/11/19 documented as of this encounter
--- OUTSIDE RECORDS SUMMARY | 2025-02-14 17:04 | XMS_ITS | Clinical Summary ---
Author Organization [facility] Address [address] [facility] [address] [facility] [address] [facility] [address] [place] [phone] Phone Care Team Providers Care Instructional Support Specialist Name Role Phone Carmita Avelar MD [...] Care Team Description 01/11/2025 Telephone [facility] [address] [place] [address] [place] [address] Marisa Galvan MD Medication Prior Authorization (/[employer] L[employer] Strp strips /) 11/28/2024 Refill [facility] [address] [place] [address] Marisa Galvan MD Medication Refill from Last [...] 3:20 PM EST Office Visit [facility] [address] [place] [phone] Marisa Galvan MD [address] [place] [phone] [email or web address] Health Maintenance Due Date Last Done [...] EDT) TSH 1.47 0.27 - 4.20 uIU/mL [facility] Blood 07/28/2024 4:02 PM EDT 07/28/2024 4:05 PM EDT Marisa Galvan MD LAB BLOOD ORDERABLES F inal Result Performing Organization Address City/[facility]/ZIP Co de Phone Number [address] [phone] * Basic metabolic panel (07/28/2024 4:02 PM EDT) SODIUM 138 133 - 146 mmol/L [facility] CHLORIDE 100 96 - 108 mmol/L [facility] POTASSIUM 4.3 3.3 - 5.1 mmol/L [facility] CO2 27 21 - 35 mmol/L [facility] BUN 11 6 - 19 mg/dL [facility] CREATININE 0.70 0.5 - 1.5 mg/dL [facility] GLUCOSE 79 70 - 99 mg/dL [facility] CALCIUM 9.9 8.4 - 10.3 mg/dL [facility] EGFR 102 >59 mL/min/1.7 3m2 [facility] Comment:Estimated glomerular filtration rate calculated using the CKD-EPI refit equation. ANION GAP 15 10 - 20 mmol/L [facility] Blood 07/28/2024 4:02 PM EDT 07/28/2024 4:05 PM EDT Marisa Galvan MD LAB BLOOD ORDERABLES F inal Result Performing Organization Address City/[facility] Care [facility]/ZIP Co de Phone Number [address] [phone] from Last 3 Months or Most Recently Relevant to Health Maintenance Insurance [facility] C3 ACO C3 ACO C3 ACO C[address] [facility] C[address] [place] [address] [address] C3 ACO Care Teams Instructional Support Specialist Relationship Specialty Start Date End Date Carmita Avelar MD [address] [place] [phone] PCP - General Internal Medicine 11/10/22 Additional Source Comments The information contained in this document represents components of the legal health record. It is not the complete legal health record.[facility]
== END 2025-02-14 13:51 | disposition home or self-care (01) ==
LOC: HO.MAMMO 13:50
PROVIDERS: PCP Internal Medicine; Visit Provider Internal Medicine
DX: Z12.31 Encounter for screening mammogram for malignant neoplasm of breast (principal)
CPT/HCPCS: 77063; 77067

== ENCOUNTER → 2025-02-14 14:30 | Outpatient (BNV) | payer MEDICAID, SELFPAY | PROVIDERS: PCP Internal Medicine; Visit Provider Internal Medicine | DX: Z12.31 Encounter for screening mammogram for malignant neoplasm of breast (principal) | CPT/HCPCS: 77063; 77067 ==

== ENCOUNTER 2025-03-21 15:25 | Outpatient (AMB) | payer MEDICAID, SELFPAY ==
--- NOTE | 2025-03-21 15:37 | MHC.OFFVIS ---
Vital Signs 03/21/25 16:00 Height 5 ft 4 in Weight 175 lb BMI 30.0 BP 110/64 Blood Pressure Location Rt brachial Position Sitting Pulse 112 H Pulse Source Pulse Oximeter Pulse Oximetry (%) 97 Oxygen Delivery Method Room Air Intake Visit Reasons: 6 mo CIC, GERD, Paresis Intake Note: Est pt for mgmt of GERD + gastroparesis. CC; C.O. excessive salivation + abnormal (salty) taste in her mouth. Pt reports onset of sx shortly after viral illness with onset March 13. Pt states this lasted about 4 days and this presentation has continued even after viral sx had ceased. Keel Press Operator Required: No Accompanied by: Spouse Allergies carisoprodol (From Soma) Allergy (Severe, Verified 03/21/25 15:59) SHORTNESS OF BREATH,VOMITING duloxetine (Cymbalta) Allergy (Severe, Verified 03/21/25 15:59) Nausea and Vomiting gabapentin (From NEURONTIN) Allergy (Severe, Verified 03/21/25 15:59) RASH,HIVES ibuprofen (From Motrin) Allergy (Severe, Verified 03/21/25 15:59) VOMITING ketorolac Allergy (Severe, Verified 03/21/25 15:59) Shortness of Breath morphine (Morphine) Allergy (Severe, Verified 03/21/25 15:59) SHORTNESS OF BREATH naproxen (From Naprosyn) Allergy (Severe, Verified 03/21/25 15:59) VOMITING oxybutynin Allergy (Severe, Verified 03/21/25 15:59) Nausea and Vomiting pregabalin (From LYRICA) Allergy (Severe, Verified 03/21/25 15:59) HYPER AND PANIC ATTACK ranitidine (RANITIDINE) Allergy (Severe, Verified 03/21/25 15:59) TACHYCARDIA sulfamethoxazole (From BACTRIM) Allergy (Severe, Verified 03/21/25 15:59) VOMITING,RASH, hives tramadol Allergy (Severe, Verified 03/21/25 15:59) Shortness of Breath trimethoprim (From BACTRIM) Allergy (Severe, Verified 03/21/25 15:59) VOMITING,RASH, hives cortisone (CORTISONE) Allergy (Intermediate, Verified 03/21/25 15:59) ITCHING,RASH Sulfa (Sulfonamide Antibiotics) Allergy (Intermediate, Verified 03/21/25 15:59) VOMITING/RASH, hives transparent dressing (Tegaderm) Allergy (Verified 03/21/25 15:59) Rash dicyclomine Adverse Reaction (Severe, Verified 03/21/25 15:59) Palpitations Tricyclic Antidepressants and Tricy (Tricyclic Compounds) Adverse Reaction (Severe, Verified 03/21/25 15:59) VOMITING from ALL ANTIDEPRESSANTS, palpitations all antidepressants except Rem Allergy (Severe, Uncoded 03/21/25 15:59) Nausea and Vomiting milk, yogurt, dairy Allergy (Severe, Uncoded 03/21/25 15:59) Diarrhea, vomitting HPI HPI 6 mo CIC, GERD, Paresis: Details: Assessment & Plan (1) Irritable bowel syndrome with both constipation and diarrhea: Code(s): K58.2 - Mixed irritable bowel syndrome Category: Medical (2) GERD (gastroesophageal reflux disease): Code(s): K21.9 - Gastro-esophageal reflux disease without esophagitis Category: Medical (3) Positive colorectal cancer screening using Cologuard test: Comment: 05/2023 scope= hyperplastic polyps repeat in 5 years due to the positive Cologuard Code(s): R19.5 - Other fecal abnormalities Category: Medical Plan She continues on her omeprazole and simethicone and metoclopramide, and fiber. She continues to do well on her GI regimen and is happy with hit. She say our platform stapler, Makayla, and she has been losing weight, she has lost about 20 lbs. She is working on decreasing her clonazepam with her psych, and I advised her to keep an eye on her BP as these medications may need a decrease over time as well as she loses weight to avoid dizziness. ROV 6 mos. Medications: Refilled metoclopramide HCl 5 mg PO TID 90 tabs 3RF K30 - Functional dyspepsia omeprazole 20 mg PO BID 60 caps 6RF K21.9 - Gastro-esophageal reflux disease without esophagitis sennosides (senna) 17.2 mg (2 x 8.6 mg) PO BEDTIME PRN 60 caps 3RF Constipation 90 days K58.2 - Mixed irritable bowel syndrome simethicone after meals 180 mg PO QID 120 caps 6RF 30 days TODAY'S VISIT [facility] Medical History (Updated 03/21/25 @ 16:17 by CHRISTIANO Thrasher) Thyroid disease Migraines Elevated cholesterol Fibromyalgia Hypoglycemia Asthma Hypertension Surgical History (Updated 09/16/24 @ 16:32 by CHRISTIANO Thrasher) H/O colonoscopy H/O neck surgery H/O knee surgery Carpal tunnel syndrome History of partial hysterectomy Endometriosis determined by laparoscopy Family History Mother Diabetes Hypertension Heart abnormality Father No problems noted. Father No problems noted. Social History Household Members: None Housing: Apartment Do you presently have visiting nurse or other home services: No Alcohol intake: never Patient Tobacco Use Status: Current everyday Tobacco user Tobacco use type: Cigarette Years Smoked: 26 service: No Review of Systems Const Reports fatigue, Denies fever(s), Denies night sweats, Denies poor appetite and Denies weight loss ENT Reports Normal hearing present, Denies dental pain, Denies dysphagia, Reports dizziness, Denies hearing loss, Denies mouth pain, Reports nasal discharge, Denies odynophagia, Denies throat swelling, Denies tongue swelling and Reports other (Dentition adequate) Card Reports no additional complaints Resp Reports cough GI Details: Denies abdominal pain, Denies melena, Denies bloating, Denies hematochezia, Reports constipation, Denies GI cramping, Denies dysphagia, Denies excessive flatus, Denies early satiety, Reports heartburn, Denies diarrhea, Denies nausea, Denies odynophagia, Denies vomiting and Denies hematemesis Skin/Breast Denies pruritus, Denies lesions, Denies rash and Denies jaundice Neuro Reports Normal hearing present, Denies Abnormal speech present and Reports dizziness Endo Reports fatigue Aller/Immun Reports seasonal rhinorrhea, Denies throat swelling and Denies tongue swelling Physical Exam Const General: cooperative, no acute distress, well developed and well groomed Nutritional Appearance: well nourished and overweight Orientation/consciousness: oriented to person, oriented to place and oriented to time Limitations: No language barrier HEENT Head: Yes normocephalic and Yes atraumatic Eyes General: appearance normal, both eyes and all related structures Pupils: Equal, round and reactive pupils present Neck Neck: Yes normal visual inspection and Yes no lymphadenopathy Thyroid: Thyroid normal Resp Effort & Inspection: normal respiratory effort and able to speak in complete sentences Auscultation: clear to auscultation bilaterally Cardio Rate: regular rate Rhythm: regular rhythm Heart sounds: Normal, physiologic split S2 sound present Peripheral pulses: radial pulses present and posterior tibial pulses present GI Inspection: No distended and No Abdominal panniculus present Palpation (GI): Soft to palpation, nontender, no guarding, not rigid and No hepatosplenomegaly present Percussion: Yes normal to percussion Auscultation: normal bowel sounds Rectal Exam - Female: deferred Skin General skin exam: no rashes or lesions noted, turgor normal, skin not dry, no jaundice, No spider nevi and no striae Rashes: no rashes Nails: normal Neuro General: oriented to person, oriented to place and oriented to time Cranial nerves: Yes Equal, round and reactive pupils present and Yes Normal hearing present Speech: No Abnormal speech present Extrem General: Yes normal to inspection, No clubbing, No cyanosis and No edema Psych Appearance: grossly normal and well kempt Mental Status: mental status grossly normal Speech and movement: Normal speech and movement present Affect: normal affect Attitude: cooperative Thought process: Normal thought process present and not confabulating Thought content: Normal thought content present Insight: Fair insight present (Psych) and Limited insight present (Psych) Judgement: Fair judgement present (Psych) and Limited judgement present (Psych) Assessment & Plan Assessment & Plan (1) Fatigue: Code(s): R53.83 - Other fatigue Category: Medical Plan She continues on her omeprazole and simethicone and metoclopramide, and fiber. She has been doing fairly well until, suddenly, a March 13 she developed a copious runny nose, vomited once (without nausea) and since then has felt like she is producing a lot of saliva in her mouth that is very salty tasting. She does endorse allergies for which she takes antihistamines and uses a Vicks inhaler. She is not on any medications that would cause hypersalivation, and the most likely cause of the salty taste would be postnasal drip. She no longer has the runny nose out the front but she could still be having some lingering sinusitis especially with the weather change. She has had no more nausea or vomiting since and she does not feel particularly ill except that she has been having some fatigue and dizziness. I am really not sure what to make of this but I will get some basic labs as a courtesy and see her back in a few weeks. Orders: Orders Comprehensive Met. Panel Today R53.83 - Other fatigue Complete Blood Count Auto Diff Today R53.83 - Other fatigue TSH reflex Free T4 Today R53.83 - Other fatigue Vitamin D 25-OH (D2 and D3) Today R53.83 - Other fatigue Coding Level of Care Code Est Pt Level 4 (85919) Diagnoses Fatigue R53.83
[2025-03-21 16:00] VITALS: BP 110/64; PULSE 112; O2SAT 97
--- OUTSIDE RECORDS SUMMARY | 2025-03-21 17:04 | XMS_ITS | Encounter Summary ---
Author Organization [employer] Address [address] [place] [address] Care Team Providers Care Electric Motorman Name Role Phone Carmita Avelar MD Primary Care Provide r Encounter Details Date Type Department Care Team (Late st Contact Info) Description 09/09/2023 Orders Only [facility] [address], [place] [phone] Provider, MD Aliyah Social History Tobacco Use [...] Care Team (Late st Contact Info) Description 04/10/2025 2:45 PM EST Office Visit [address] [address] Carmita Avelar MD [address] [place] [phone] 05/30/2025 1:30 PM EST Clinical Support [address] [address] Jennifer Garcia, SAUL documented as of this encounter Procedures Procedure [...] documented as of this encounter Care Teams Electric Motorman Relationship Specialty Start Date End Date Carmita Avelar MD [address] [place] [address] [phone] PCP - General Family Medicine 03/11/19 documented as of this encounter
--- OUTSIDE RECORDS SUMMARY | 2025-03-21 17:04 | XMS_ITS | Encounter Summary ---
Author Organization [employer] Address [address] [place] [address] Care Team Providers Care Fws Faculty Assistant Name Role Phone Carmita Avelar MD Primary Care Provide r Encounter Details Date Type Department Care Team ([facility] [address] Contact Info) Description 02/04/2023 Telephone [facility] [address] [place] [id number] Carmita Avelar MD [address] [place] [id number] Social History Tobacco Use Types Packs/Day Years [...] Upcoming Encounters Date Type Department Care Team ([facility] [address] Contact Info) Description 04/10/2025 2:45 PM EST Office Visit [facility] [address] [place] [address] [phone] Carmita Avelar MD [address] [place] [address] 05/30/2025 1:30 PM EST Clinical Support [facility] [address] [place], [place] [phone] Jennifer Garcia RN documented as of this encounter Visit Diagnoses Not on filedocumented in this encounter Additional Health Concerns Assessment Noted Time PHQ-9 Depression Total Score: 18 023 3:07 PM EDT documented as of this encounter Care Teams Fws Faculty Assistant Relationship Specialty Start Date End Date Carmita Avelar MD [address] [place] [address] [phone] PCP - General Family Medicine 03/11/19 documented as of this encounter
--- OUTSIDE RECORDS SUMMARY | 2025-03-21 17:04 | XMS_ITS | Patient Health Record ---
Author Organization [facility] Address [address] [place] [id number] Care Team Providers Care Survey Superintendent Name Role Phone Bradley Fishman Unavailable [phone] Reason For Referral No Information Plan Of Treatment No Information
--- OUTSIDE RECORDS SUMMARY | 2025-03-21 17:04 | XMS_ITS | Clinical Summary ---
Author Organization [employer] Address [address] [place] [address] Care Team Providers Care Tower Switch Operator Name Role Phone Carmita Avelar MD [...] day. Active ergocalciferol (Vitamin D-2) 1.25 MG (21425 UT) capsule Take 1 capsule by mouth [...] 2 diabetes mellitus without complication, unspecified whether chcf insulin use USE FIVE TIMES DAILY 100 [...] a week. 120 mL 1 024 Active acetaminophen (Tylenol) 500 MG tablet Take 1 tablet (500 mg) by mouth every 8 (eight) hours if needed for moderate pain, headaches or fever. Not to exceed 3 tablets per 24 hrs 30 tablet 024 Active atorvastatin (Lipitor) 10 MG tablet Take 20 mg by mouth. 024 Active lamoTRIgine (LaMICtal) 25 MG tablet Take 1 tablet by mouth at bedtime. Active loperamide (Imodium) 2 MG capsule Active metoclopramide (Reglan) 5 MG tablet Take 5 mg by mouth 3 times daily. Active ondansetron (Zofran) 4 MG tablet Take 4 mg by mouth every 8 (eight) hours. Active GaviLyte-G 236 g solution 023 Active senna (Senokot) 8.6 MG tablet TAKE [...] needed for wheezing 75 mL 1 Active Diclofenac Sodium 1 % gelIndications: Chronic right shoulder pain APPLY 2 G TOPICALLY EVERY 12 (TWELVE) HOURS. TO AFFECTED AREAS. 100 g 1 025 Active baclofen (Lioresal) 10 MG tabletIndicatio ns:Acute pain of right shoulder TAKE 1 TABLET BY MOUTH 3 TIMES DAILY 90 tablet 1 025 Active albuterol (Ventolin HFA) 108 (90 Base) MCG/ACT inhalerIndicati ons:Shortness of breath Inhale 2 puffs by mouth every 4 to 6 hours as needed 18 g 3 025 Active fluticasone furoate (Arnuity Ellipta) 200 MCG/ACT inhalerIndicati ons:Mild intermittent asthma without complication Inhale 1 puff Once per day. Rinse mouth with water after use to reduce aftertaste and incidence of candidiasis. Do not swallow. 1 each 11 025 2025 Active Lactobacillus (Probiotic Acidophilus) capsuleIndicati ons:Irritable bowel syndrome with both constipation and diarrhea Take 1 capsule by mouth Once per day. 30 capsule 3 Active oxyCODONE (Roxicodone) 5 MG immediate release tabletIndicatio ns:Chronic right shoulder pain Take 1 tablet (5 mg) by mouth every 8 (eight) hours if needed for severe pain for up to 28 days. Do not start before March 08, 2025. 84 tablet 025 2024 Active Asmanex HFA 100 MCG/ACT aerosol INHALE 2 PUFFS INTO THE LUNGS BY MOUTH EVERY 12 HOURS 13 g 1 024 2024 Discontinued albuterol (Ventolin HFA) 108 (90 Base) MCG/ACT inhalerIndicati ons:Shortness of breath Inhale 2 puffs by mouth every 4 to 6 hours as needed 18 g 3 024 2024 Discontinued(R eorder (will not trigger notification to Pharmacy)) oxyCODONE (Roxicodone) 5 MG immediate release tabletIndicatio ns:Chronic right shoulder pain Take 1 tablet (5 mg) by mouth every 8 (eight) hours if needed for severe pain for up to 28 days. Do not start before February 08, 2025. 84 tablet 025 2024 Discontinued(R eorder [...] Active Problems Problem Noted Date Diagnosed Date Localized osteoarthritis of right shoulder 03/03 Overweight (BMI 25.0-29.9) 11/23/2024 Assessment & Plan [...] Overview (05/15/2022): Evaluated by Dr. Stout at [facility] 05/2022. 8 cm diameter. Excision planned. Acute [...] Encounters Date Type Department Care Team Description 03/10/2025 9:30 AM EDT Telemedicine [facility] MED[facility]INE [address] [place] [phone] Jennifer Garcia RN Long-term current use of opiate analgesic 03/10/2025 Travel 03/09/2025 Travel 03/06/2025 Refill [facility] [address] [place] [address] Carmita Avelar MD Chronic right shoulder pain 03/03/2025 3:30 PM EDT Office Visit [facility] [address] [place] [phone] Carmita Avelar MD Irritable bowel syndrome with both constipation and diarrhea (Primary Dx); Dietary counseling; Exercise counseling; Shortness of breath; Mild intermittent asthma without complication; Localized osteoarthritis of right shoulder; Leukocytosis, unspecified type 03/03/2025 Travel 03/02/2025 Refill [facility] [address] [place] [address] Carmita Avelar MD Acute pain of right shoulder 03/02/2025 Telephone [facility] [address] [place] [phone] Carmita Avelar MD Chart Prep 02/24/2025 Travel 02/24/2025 Patient Outreach [facility] [address] [place], [place] [phone] Carmita Avelar MD Pre-visit Planning ([facility] was already completed ) 02/14/2025 Orders Only [facility] [address] [place] [address] Carmita Avelar MD 02/06/2025 Refill [facility] [address] [place] [address] Carmita Avelar MD Chronic right shoulder pain 02/05/2025 Refill [facility] [address] [place] [address] Carmita Avelar MD Chronic right shoulder pain; Acute pain of right shoulder 01/19/2025 Telephone [facility] [address] [place] [address] Carmita Avelar MD NOV RECALL 01/10/2025 Refill [facility] [address] [place] [address] Carmita Avelar MD Chronic right shoulder pain 01/03/2025 Telephone [facility] [address] [place] [address] Carmita Avelar MD Referral 12/30/2024 9:00 AM EDT Telemedicine [facility] [address] [place] [address] Jennifer Garcia, SAUL Long-term current use of opiate analgesic 12/30/2024 Telephone [facility] [address] [place] [phone] Jennifer Garcia, RN BPI scoring 12/29/2024 Travel 12/22/2024 Telephone [facility] [address] [place] [address] Carmita Avelar MD OCT RECALL from Last 3 Months Immunizations Immunization Administration [...] Answer Date Recorded Patient Health Questionnaire-2 Score 4 03/03/2025 Internet Access Answer Date Recorded Internet Access [...] Sign Reading Time Taken Comments Blood Pressure 120/78 03/03/2025 3:29 PM EDT Pulse 99 03/03/2025 3:29 PM EDT Temperature 36.4 C (97.5 F) 03/03/2025 3:29 PM EDT Respiratory Rate 14 03/03/2025 3:29 PM EDT Oxygen Saturation 96% 03/03/2025 3:29 PM EDT Inhaled Oxygen Concentration - - Weight 81.2 kg (179 lb) 03/03/2025 3:29 PM EDT Height 162.6 cm (5' 4 ) 03/03/2025 3:29 PM EDT Body Mass Index 30.73 03/03/2025 3:29 PM EDT Plan of Treatment Upcoming Encounters Date Type Department Care Team (Late st Contact Info) Description 04/10/2025 2:45 PM EST Office Visit [facility] [address] [place] [phone] Carmita Avelar MD [address] [place] [phone] 05/30/2025 1:30 PM EST Clinical Support [address] [phone] Jennifer Garcia, RN Health Maintenance Due Date Last Done Comments CT Colonography 1969 FIT 1969 Sigmoidoscopy 1970 Pap Smear 1990 HPV/Cotest 1999 Zoster Vaccines (2 of 2) 02/09/2021 12/15/2020 FOBT 01/26/2024 01/25/2023 COVID-19 Vaccine ( season) 2025 02/24/2023, 11/21/2021, 03/25/2021, Additional history exists Alcohol/Substance Use Screening 07/20/2025 07/20/2024 Disability Screening 11/10/2025 11/10/2024 SDOH Screening 11/15/2025 11/15/2024 Diabetes: Hemoglobin A1C 11/23/2025 025, 01/12/2024, 06/26/2023, Additional history exists FIT DNA/Cologuard 01/25/2026 01/25/2023 Mammogram 02/14/2026 02/14/2025, 12/10, 12/30/2022, Additional history exists Depression Screening 03/03/2026 03/03/2025, 03/17/20 Tobacco Screening 03/03/2026 03/03/2025 Colonoscopy 05/13/2026 05/13/2023 Colorectal Cancer Screening 05/13/2026 [...] Procedure Name Priority Date/Time Associated Diagnosis Comments BI MAMMOGRAM SCREENING TOMOSYNTHESIS BILATERAL Routine 02/14/2025 2:10 PM EDT AMB REFERRAL TO ORTHOPAEDIC SURGERY Routine 02/01/2025 Localized osteoarthritis of right shoulder HEMOGLOBIN A1C Routine 11/23/2024 3:31 PM EDT Essential hypertension Overweight (BMI 25.0-29.9) LIPID PANEL, STANDARD Routine 11/23/2024 3:31 PM EDT Essential hypertension HEPATITIS C AB W/REFL TO HCV RNA, QN, PCR Routine 03/17/2024 3:51 PM EST Encounter for preventive care HIV 1/2 ANTIGEN/ANTIBODY, FOURTH GENERATION W/RFL Routine 03/17/2024 3:51 PM EST Encounter for preventive care HM COLONOSCOPY Routine 05/13/2023 11:20 AM EST LAB COLOGUARD COLON CANCER SCREEN Routine 01/25/2023 2:09 PM EDT Colon cancer screening from Last 3 Months or Most Recently Relevant to Health Maintenance Results * BI Mammogram Screening Tomosynthesis Bilateral (02/14/2025 2:10 PM EDT) Anatomical Region Laterality Modality Breast Bilateral Mammography 02/14/2025 2:10 PM EDT Narrative 02/21/2025 10:03 AM EDT [facility] [address] [place] [address] Mammography Report Signed Patient: Shirley Méndez MR #: [id number] : 1970 Acct:[id number] Age/Sex: 54 / F ADM Date: 02/14/25 Loc: [facility] Attending Dr: Carmita Alvarado MD Ordering Physician: Carmita Avelar MD Results: 1Negative Date of Service: 02/14/25 Follow Up: 1 Year From Orig inal Mammogram Procedure(s): MM tomosynthesis screening BI Accession Number(s): [id number] cc: Carmita Avelar MD Reason For Exam: SCREENING EXAMINATION: MM SCREENING DIGITAL BREAST TOMOSYNTHESIS, BILATERAL CLINICAL INFORMATION: Screening. Asymptomatic. COMPARISON: Mammography: Comparison is made with available priors TECHNIQUE: Digital breast mammography with tomosynthesis is performed in both the craniocaudal and mediolateral oblique views along with computer-aided detection (CAD). FINDINGS: The breasts are heterogeneously dense, which may obscure small masses. There are no significant masses, abnormal calcifications, or other abnormalities. MM/MM tomosynthesis screening BI IMPRESSION: No mammographic evidence of malignancy. ASSESSMENT: BI-RADS Category 1: Negative RECOMMENDATION: Routine annual mammography screening. 1 year F/U This examination should not preclude the clinical evaluation of a suspicious palpable abnormality. This patient's information was entered into a reminder system with a target due date for their next mammogram. Electronically signed by: Myrna Shipley DO 02/21/2025 10:01 AM EDT Dictated By: Myrna Shipley DO Signed By: <Electronically signed by Myrna Shipley DO in OV> 02/21/25 1001 DD/ 1410 TD/TT: 02/14/25 1430 [employer]punch Operators Supervisor: Procedure Note Donotuseinterpreter, Image - 02/21/2025 [facility] [address] [place] [address] [place] [address] Mammography Report Signed Patient: Shirley Méndez DMR #: [id number] : 1970Acct:[id number] Age/Sex: 54 / FADM Date: 02/14/25 Loc: MAMMO Attending Dr: Carmita Alvarado MD Ordering Physician: Carmita Avelar MDResults: 1Negative Date of Service: 02/14/25Follow Up: 1 Year From Orig inal Mammogram Procedure(s): MM tomosynthesis screening BI Accession Number(s): [id number] cc: Carmita Avelar MD Reason For Exam: SCREENING EXAMINATION: MM SCREENING DIGITAL BREAST TOMOSYNTHESIS, BILATERAL CLINICAL INFORMATION: Screening. Asymptomatic. COMPARISON: Mammography: Comparison is made with available priors TECHNIQUE: Digital breast mammography with tomosynthesis is performed in both the craniocaudal and mediolateral oblique views along with computer-aided detection (CAD). FINDINGS: The breasts are heterogeneously dense, which may obscure small masses. There are no significant masses, abnormal calcifications, or other abnormalities. MM/MM tomosynthesis screening BI IMPRESSION: No mammographic evidence of malignancy. ASSESSMENT: BI-RADS Category 1: Negative RECOMMENDATION: Routine annual mammography screening. 1 year F/U This examination should not preclude the clinical evaluation of a suspicious palpable abnormality. This patient's information was entered into a reminder system with a target due date for their next mammogram. Electronically signed by: Myrna Shipley DO 02/21/2025 10:01 AM EDT Dictated By: Myrna Shipley DO Signed By: <Electronically signed by Myrna Shipley DO in OV> 02/21/25 1001 DD/ 1410 TD/TT: 02/14/25 1430 [employer] Operators Supervisor: us Carmita Alvarado MD IMG BI PROCEDURES Fin al Result * Referral to Orthopaedic Surgery (02/01/2025) us Carmita Alvarado MD OUTPATIENT REFERRAL O RDERABLES Final Result * Hemoglobin A1c (11/23/2024 3:31 PM EDT) Hemoglobin A1c 5.3 <6.0 % [facility] Comment:Hemoglobin A1C Refer ence Range Adults: 4.8 - 6.0 % Non diabetic: < 6.0 % Goal: < 7.0 %Additional Action Suggested: > 8.0 %Note: Hemoglobin A1c results are invalid for patients with abnormal amounts of HbF. Blood transfusions may impact the HbA1c concentration in the patient sample. Estimated Average Glucose 105 mg/dL [facility] Comment:eAG = Estimated ave rage glucose which is %A1C expressed asaverage glucose, using the formula of the [id number] Glucose study (ADAG), Diabetes Care, Vol.31,#8,Dec. 2007 Blood Venous blood specimen / Unknown 11/23/2024 3:31 PM EDT 11/23/2024 4:03 PM EDT us Carmita Alvarado MD LAB BLOOD ORDERABLES Final Result Performing Organization Address [facility] Co de Phone Number [facility] [address] [place] [phone] * (ABNORMAL) Lipid Panel, Standard (11/23/2024 3:31 PM EDT) Triglycerides 177(H) <150 mg/dL [facility] Comment:Desirable Triglyceri de: less than 150 mg/dLBorderline High Triglyceride 150-199 mg/dLHigh Triglyceride: 200-499 mg/dLVery High Triglyceride: greater than or equal to 5OO mg/dL Cholesterol 166 <200 mg/dL [facility] Comment:Desirable Cholestero l: less than 200 mg/dLBorderline High Cholesterol: 200-239 mg/dLHigh Cholesterol: greater than 239 mg/dL LDL Cholesterol Calculated 93 <100 mg/dL [facility] Comment:Desirable LDL: less than 100 mg/dLNear Optimal/Above Optimal LDL: 110- 129 mg/dLBorderline High LDL: 130-159 mg/dLHigh LDL: 160-189 mg/dLVery High LDL: greater than or equal to 190 mg/dL HDL Cholesterol 38(L) >40 mg/dL [facility] Comment:Desirable HDL: great er than 40 mg/dL Note: This HDL assay may give artificially low results in patients with liver disease. Blood Venous blood specimen / Unknown 11/23/2024 3:31 PM EDT 11/23/2024 4:07 PM EDT us Carmita Alvarado MD LAB BLOOD ORDERABLES Final Result Performing Organization Address City/[facility]/ZIP Co de Phone Number [facility] [address] [place] [phone] * Hepatitis C Antibody with Reflex to HCV, RNA, Quantitative, Real-Time PCR (03/17/2024 3:51 PM EST) Hepatitis C Antibody Nonreactive Nonreactive [facility] Comment:Antibodies to HCV no t detected; does not exclude early acuteHCV infection. Blood Venous blood specimen / Unknown 03/17/2024 3:51 PM EST 03/17/2024 5:42 PM EST us Carmita Alvarado MD LAB BLOOD ORDERABLES Final Result Performing Organization Address [facility]/ZIP Co de Phone Number [facility] [address] [place] [phone] * HIV-1/2 Antigen and Antibodies, Fourth Generation, with Reflexes (03/17/2024 3:51 PM EST) Pathologist [facility] HIV AB/AG Nonreactive Nonreactive [facility] Comment:HIV-1 p24 Ag and/or HIV-1/HIV-2 Ab not detected.A test result that is nonreactive does not exclude thepossibility of exposure to or infection with HIV-1 and/orHIV-2. Nonreactive results in this assay for individualswith prior exposure to HIV-1 and/or HIV-2 may be due toantigen and antibody levels that are below the limit ofdetection of this assay.The [employer] HIV Ag/Ab Combo assay result andsupplemental assay results should be interpreted inconjunction with the patient's clinical presentation,history and other laboratory results. If the results areinconsistent with clinical evidence, additional testing issuggested to confirm the result. Blood Venous blood specimen / Unknown 03/17/2024 3:51 PM EST 03/17/2024 5:42 PM EST us Carmita Alvarado MD LAB BLOOD ORDERABLES Final Result Performing Organization Address City/[facility]/ZIP Co de Phone Number [facility] [address] [place] [phone] * Colonoscopy (05/13/2023 11:20 AM EST) us Historical Provider HEALTH MAINTENANCE Final Result * (ABNORMAL) Cologuard?? colon cancer screening (01/25/2023 2:09 PM EDT) Cologuard Result Positive( A) Negative 01/31/2023 10:31 AM EDT [facility] (CLIA #:[id number]) Comment: POSITIVE TEST RESULT. A positive Cologuard [...] (Thom Salcido al, N Engl J Med 2014;370(14):1417-4559.) Cologuard may produce a false negative or false positive result (no colorectal cancer or precancerous polyp present at colonoscopy follow up). A negative Cologuard test result does not guarantee the absence of CRC or advanced adenoma (pre-cancer). The current Cologuard screening interval is every 3 years. ([place] [employer] and U.S. Multi-Society Task Force). Cologuard performance data in a 10,000 patient pivotal study using colonoscopy as the reference method can be accessed at the following location: [email or web address].adaffix/results. Additional description of the Cologuard test process, warnings and precautions can be found at www.Talking Datard.com. Stool specimen (specimen) 01/25/2023 2:09 PM EDT 01/27/2023 9:51 PM EDT Carmita Alvarado MD LAB MOLECULAR DIAGNOS TICS ORDERABLES Final Result [facility] (CLIA #:[id number]) [address] [place] [address], from Last 3 Months or Most Recently Relevant to Health Maintenance Insurance [employer] Care Teams Tower Switch Operator Relationship Specialty Start Date End Date Carmita Avelar MD [address] [place] [address] PCP - General Family Medicine 03/11/19
--- OUTSIDE RECORDS SUMMARY | 2025-03-21 17:04 | XMS_ITS | Encounter Summary ---
Author Organization [employer] Address [address] [place] [address] Care Team Providers Care Healthcare Consultant Name Role Phone Carmita Avelar MD Primary Care Provide r Encounter Details Date Type Department Care Team ([facility] st Contact Info) Description 07/01/2023 Telephone [facility] [address] [place], [place] [phone] Carmita Avelar MD [address] [place], [place] [phone] Social History Tobacco Use Types Packs/Day Years [...] Description 04/10/2025 2:45 PM EST Office Visit [address] [phone] Carmita Avelar MD [address] [place] [phone] 05/30/2025 1:30 PM EST Clinical Support [address] [address] Jennifer Garcia RN documented as of this encounter Visit Diagnoses Not on filedocumented in this encounter Additional Health Concerns Assessment Noted Time PHQ-9 Depression Total Score: 18 023 3:07 PM EDT documented as of this encounter Care Teams Healthcare Consultant Relationship Specialty Start Date End Date Carmita Avelar MD [address] [place] [phone] PCP - General Family Medicine 03/11/19 documented as of this encounter
--- OUTSIDE RECORDS SUMMARY | 2025-03-21 17:04 | XMS_ITS | Encounter Summary ---
Author Organization [employer] Address [address] [place] [address] Care Team Providers Care Drawer In Name Role Phone Carmita Avelar MD Primary Care Provide r Encounter Details Date Type Department Care Team ([facility] st Contact Info) Description 07/23/2023 Orders Only [facility] MED[facility]INE [address] [place], [place] [phone] Carmita Avelar MD [address] [place], [place] [phone] Social History Tobacco Use Types Packs/Day Years [...] Description 04/10/2025 2:45 PM EST Office Visit [address] [phone] Carmita Avelar MD [address] [place] [phone] 05/30/2025 1:30 PM EST Clinical Support [address] [address] Jennifer Garcia RN documented as of this encounter Visit Diagnoses Not on filedocumented in this encounter Additional Health Concerns Assessment Noted Time PHQ-9 Depression Total Score: 18 023 3:07 PM EDT documented as of this encounter Care Teams Drawer In Relationship Specialty Start Date End Date Carmita Avelar MD [address] [place] [phone] PCP - General Family Medicine 03/11/19 documented as of this encounter
--- OUTSIDE RECORDS SUMMARY | 2025-03-21 17:04 | XMS_ITS | Data Portability ---
Author Organization [place] [facility], Allergy Address [address] [place] [address] Care Team Providers Care Retail Agent Name Role Phone PETERJoyce BEATA CAMPBELL Primary [...] Address Organization Details Recorded Time Neck swelling 932030277 Active 2023 JORDAN Herman MD [address] [place] [address], [phone], [place] [facility] 4 15:09:43 Sialolithiasis 88797934 Active 2023 JORDAN Herman MD [address] [place] [address], [phone], [place] [facility] 4 15:30:12 Problem Notes None recorded. Procedures Surgical History Date Name Laterality Status Provider Name and Address Organization Details Recorded Time 4 minor salivary gland biopsy completed JORDAN HECTOR MD [address] [place] [address], [phone], [place] [facility] 03/22/2024 15:29:58 4 FFL_RE completed JORDAN HECTOR MD [address] [place] [address], [phone], [place] [facility] 03/22/2024 15:10:02 Imaging Results None recorded. Procedure Notes None recorded. Medical Equipment None Reported. Allergies Allergen ID Allergen Name Allergen Category Reaction Reaction Severity Criticality Documentation Date Start Date Code Code System Note Provider Name and Address Organization Details Recorded Time 595395 Motrin medicatio n Not available Not available Not available 03/22/2024 57630 8 RxNorm Ginnette Rancitell i null, [place] - [facility] [place] 15:07:24 453675 naproxen medicatio n Not available Not available Not available 03/22/2024 7258 RxNorm Ginnette Rancitell i null, [place] [facility] 15:07:35 941039 morphine medicatio n Not available Not available Not available 03/22/2024 7052 RxNorm Ginnette Rancitell i null, [place] [facility] 15:07:44 490527 Soma medicatio n Not available Not available Not available 03/22/2024 96273 2 RxNorm Ginnette Rancitell i [place], [place] [facility] 4 15:07:54 857554 Ultram medicatio n Not available Not available Not available 03/22/2024 24152 6 RxNorm Ginnette Rancitell i [place], [place] [facility] 15:08:13 151463 tramadol medicatio n Not available Not available Not available 03/22/2024 26994 RxNorm Ginnette Rancitell i [place], [place] [facility] 15:08:27 720819 Bactrim medicatio n Not available Not available Not available 03/22/2024 85763 9 RxNorm Ginnette Rancitell i [place], [place] [facility] 4 15:08:39 608335 Substance with sulfonami de structure and antibacte rial mechanism of action (substanc e) medicatio n Not available Not available Not available 03/22/2024 34565 8003 SNOMED Ginnette Rancitell i null, [place] [facility] 4 15:09:23 565191 Neurontin medicatio n Not available Not available Not available 03/22/2024 42461 8 RxNorm Ginnette Rancitell i null, [place] [facility] 4 15:09:49 399487 Lyrica medicatio n Not available Not available Not available 03/22/2024 17166 1 RxNorm Ginnette Rancitell i null, [place] [facility] 4 15:10:42 134443 ranitidin e Not available Not available Not available Not available 03/22/2024 9143 RxNorm Ginnette Rancitell i null, [place] [facility] [place] [facility] 4 15:10:59 296089 Cymbalta medicatio n Not available Not available Not available 03/22/2024 16590 4 RxNorm Ginnette Rancitell i null, [place] - [facility] [place] 4 15:11:10 918741 oxybutyni n medicatio n Not available Not available Not available 03/22/2024 84587 RxNorm Ginnette Rancitell i [place] [facility] 4 15:11:24 538196 Tegaderm medicatio n Not available Not available Not available 03/22/2024 Ginnette Rancitell i null, [place] [facility] 4 15:11:41 Medications Name Sig Start Date [...] DAY IN THE MORNING *LAST FILLED AT [facility]* active Not Available Not Available N [...] Updated DateTime 03/22/2024 162.56 cm 32.8 kg/m2 29931.14 g Shan Mendoza [place] [facility] 03/22/2024 15:05:11 Social History None recorded. Functional Status None recorded. Mental Status None recorded. Family History Nothing Reported. Medical History Condition Response Asthma Y Gynecological HistoryNo gynecological history recorded. Obstetrics History GPAL:G 0 P 0 0 0 0 Past Encounters Encounter ID Performer Location Encounter Start Date Encounter Closed Date Diagnosis/Indication Diagnosis SNOMED-CT Code Diagnosis ICD10 Code Diagnosis IMO Codes Diagnosis Note [id number] JORDAN HECTOR MD [facility] [address] [place] [address] 03/22/2024 14:33:21 03/22/2024 15:22:44 Neck swelling 221525487 R22.1 FFL was normal. LIkely due to salivary gland swelling. Sialolithiasis 60156831 K11.5 Pt tolerated stone removal without problem. [...] Rivera Member ID Guarantor Name 03/22/2024 1 [place] [facility] Shirley Hodge [place] [id number] Shirley Hodge Notes Date Note Type Note Provider Name and Address Organization Details Recorded Time 03/22/2024 text/html ROS as noted in the HPI She reports she had a cervical fusion [...] It has been enlarging. JORDAN HECTOR MD [address] [place] [address], [phone], [place] [facility] 03/22/2024 15:31:56 OBGyn Episode No OBEpisode recorded.
--- OUTSIDE RECORDS SUMMARY | 2025-03-21 17:04 | XMS_ITS | Clinical Summary ---
Author Organization [facility] ity Address [address] [place] [address] Care Team Providers Care Acid Leveler Name Role Phone Unavailable Primary Care Provider [...] 2) 2019 Depression Screening 05/11/2024 COVID-19 Vaccine ( - 2024-2 6 season) 2025 Influenza Vaccine (#1) 2025 RSV [...]
--- OUTSIDE RECORDS SUMMARY | 2025-03-21 17:04 | XMS_ITS | Encounter Summary ---
Author Organization [employer] Address [address] [place] [address] Care Team Providers Care Wharf Attendant Name Role Phone Carmita Avelar MD Primary Care Provide r Reason for Visit * Reason Onset Date Comments Referral 01/03/2025 Encounter Details Date Type Department Care Team ([facility] Contact Info) Description 01/03/2025 Telephone [facility] [address] [place], [place] [phone] Carmita Avelar MD [address] [place], [place] [phone] Referral Social History Tobacco Use Types Packs/Day [...] to do her appt. Contact pt at [phone] * Telephone Encounter - Rose Smith RN - 01/03/2025 4:17 PM EDT TC returned to pt. Pt. Reports she is established with Dr. Martinez at [facility] who ordered a CT scan for her clavicle that is apparently not healing correctly. Advised pt. I would call their office to inquire on what is needed from PCP team. TC placed to [facility], they report as of 12/09/24, [facility] is requiring all referrals to come from PCP team. They report they gave the pt. The fax number the referral needs to go to ([facility] in message below). I had them [...] [facility]. Fx number is [phone] Any questions contact pt at [phone] documented in this encounter Plan of Treatment Upcoming Encounters Date Type Department Care Team (Late st Contact Info) Description 04/10/2025 2:45 PM EST Office Visit [address] [phone] Carmita Avelar MD [address] [place] [address] 05/30/2025 1:30 PM EST Clinical Support [address] [address] Jennifer Garcia, SAUL documented as of this encounter Visit Diagnoses Not on filedocumented in this encounter Additional Health Concerns Assessment Noted Time PHQ-9 Depression Total Score: 0 03/17/20 24 2:34 PM EST documented as of this encounter Care Teams Wharf Attendant Relationship Specialty Start Date End Date Carmita Avelar MD [address] [place] [address] PCP - General Family Medicine 03/11/19 documented as of this encounter
--- OUTSIDE RECORDS SUMMARY | 2025-03-21 17:04 | XMS_ITS | Encounter Summary ---
Author Organization [employer] Address [address] [facility] 7t [place] [address] Care Team Providers Care Evp General Counsel Name Role Phone Carmita Avelar MD Primary Care Provide r Reason for Visit * Reason Onset Date Comments Med Refill 05/23/2024 Encounter Details Date Type Department Care Team (Late st Contact Info) Description 05/23/2024 Refill [facility] MEDICINE 230 [place], [place] [phone] Carmita Avelar MD 230 [place], [place] [phone] Chronic right shoulder pain Social History Tobacco [...] Description 04/10/2025 2:45 PM EST Office Visit [address] [address] Carmita Avelar MD [address] [place] [address] 05/30/2025 1:30 PM EST Clinical Support [address] [address] Jennifer Garcia RN documented as of this encounter Visit Diagnoses Diagnosis Chronic right shoulder pain Pain in joint, shoulder region documented in this encounter Additional Health Concerns Assessment Noted Time PHQ-9 Depression Total Score: 0 03/17/20 24 2:34 PM EST documented as of this encounter Care Teams Evp General Counsel Relationship Specialty Start Date End Date Carmita Avelar MD [address] [place] [address] PCP - General Family Medicine 03/11/19 documented as of this encounter
--- OUTSIDE RECORDS SUMMARY | 2025-03-21 17:04 | XMS_ITS | Encounter Summary ---
Author Organization [employer] Address [address] 7t [place] [address] Care Team Providers Care Direct Care Specialist Name Role Phone Carmita Avelar MD Primary Care Provide r Encounter Details Date Type Department Care Team (Late st Contact Info) Description 10/21/2023 Orders Only [facility] MEDICINE 230 [place], [place] [phone] Marisol Pedroza MD 230 [place], [place] [phone] Social History Tobacco Use Types Packs/Day Years [...] Description 04/10/2025 2:45 PM EST Office Visit [address] [address] Carmita Avelar MD [address] [place] [address] 05/30/2025 1:30 PM EST Clinical Support [address] [phone] Jennifer Garcia RN documented as of this encounter Visit Diagnoses Not on filedocumented in this encounter Additional Health Concerns Assessment Noted Time PHQ-9 Depression Total Score: 18 023 3:07 PM EDT documented as of this encounter Care Teams Direct Care Specialist Relationship Specialty Start Date End Date Carmita Avelar MD [address] [place] [phone] PCP - General Family Medicine 03/11/19 documented as of this encounter
--- OUTSIDE RECORDS SUMMARY | 2025-03-21 17:04 | XMS_ITS | Encounter Summary ---
Author Organization [employer] Address [address] [facility] 7t [place] [address] Care Team Providers Care Enrollment Services Dean Name Role Phone Carmita Avelar MD Primary Care Provide r Reason for Visit * Reason Onset Date Comments Med Refill 10/17/2024 Encounter Details Date Type Department Care Team (Late st Contact Info) Description 10/17/2024 Refill [facility] MEDICINE [address] [place], [place] [phone] Carmita Avelar MD 230 [place], [place] [phone] Chronic right shoulder pain Social History Tobacco [...] Description 04/10/2025 2:45 PM EST Office Visit [address] [address] Carmita Avelar MD [address] [place] [address] 05/30/2025 1:30 PM EST Clinical Support [address] [address] Jennifer Garcia RN documented as of this encounter Visit Diagnoses Diagnosis Chronic right shoulder pain Pain in joint, shoulder region documented in this encounter Additional Health Concerns Assessment Noted Time PHQ-9 Depression Total Score: 0 03/17/20 24 2:34 PM EST documented as of this encounter Care Teams Enrollment Services Dean Relationship Specialty Start Date End Date Carmita Avelar MD [address] [place] [address] PCP - General Family Medicine 03/11/19 documented as of this encounter
--- OUTSIDE RECORDS SUMMARY | 2025-03-21 17:04 | XMS_ITS | Encounter Summary ---
Author Organization [employer] Address [address] [facility] 7t [place] [address] Care Team Providers Care Digital Solutions Architect Name Role Phone Carmita Avelar MD Primary Care Provide r Reason for Visit * Reason Onset Date Comments Medication Question 06/10/2024 Encounter Details Date Type Department Care Team ([facility] Contact Info) Description 06/10/2024 Telephone [facility] MEDICINE 230 [place], [place] [phone] Carmita Avelar MD 230 [place] [address] Medication Question Social History Tobacco Use Types [...] covered by insurance. Any questions contact pt: [phone] documented in this encounter Plan of Treatment Upcoming Encounters Date Type Department Care Team (Late st Contact Info) Description 04/10/2025 2:45 PM EST Office Visit [facility] MED[facility]INE [address] [place] [address] Carmita Avelar MD [address] [place] [address] 05/30/2025 1:30 PM EST Clinical Support [address] [address] Jennifer Garcia RN documented as of this encounter Visit Diagnoses Not on filedocumented in this encounter Additional Health Concerns Assessment Noted Time PHQ-9 Depression Total Score: 0 03/17/20 24 2:34 PM EST documented as of this encounter Care Teams Digital Solutions Architect Relationship Specialty Start Date End Date Carmita Avelar MD 230 [place] [address] PCP - General Family Medicine 03/11/19 documented as of this encounter
--- OUTSIDE RECORDS SUMMARY | 2025-03-21 17:04 | XMS_ITS | Encounter Summary ---
Author Organization [employer] Address [address] 7[address] [place] [address] Care Team Providers Care Embedded Firmware Developer Name Role Phone Carmita Avelar MD Primary Care Provide r Reason for Visit * Reason Comments Med Refill Encounter Details Date Type Department Care Team ([facility] st Contact Info) Description 08/24/2022 Refill [facility] 230 [place], [place] [phone] [facility] [address] [place], [place] [phone] Neck pain Social History Tobacco Use Types [...] Description 04/10/2025 2:45 PM EST Office Visit [address] [address] Carmita Avelar MD [address] [place] [address] 05/30/2025 1:30 PM EST Clinical Support [address] [address] Jennifer Garcia, SAUL documented as of this encounter Visit Diagnoses Diagnosis Neck pain Cervicalgia documented in this encounter Care Teams Embedded Firmware Developer Relationship Specialty Start Date End Date Carmita Avelar MD [address] [place] [address] PCP - General Family Medicine 03/11/19 documented as of this encounter
--- OUTSIDE RECORDS SUMMARY | 2025-03-21 17:04 | XMS_ITS | Encounter Summary ---
Author Organization [employer] Address [address] 7[address] [place] [address] Care Team Providers Care Manager Qa Name Role Phone Carmita Avelar MD Primary Care Provide r Reason for Visit * Reason Onset Date Comments Labs 07/10/2023 Encounter Details Date Type Department Care Team ([facility] Contact Info) Description 07/10/2023 Telephone [facility] MEDICINE 230 [place], [place] [phone] Carmita Avelar MD 230 [place], [place] [phone] Labs Social History Tobacco Use Types Packs/Day [...] AM EST Tc from [facility] working with [facility] requesting EKG and Labs from 06/26/23 to be faxed over. Shamarequesting to put Attention Shama as a side note, OR date 07/13/23 If any questions you can contact hSama at [phone]. documented in this encounter Plan of Treatment Upcoming Encounters Date Type Department Care Team (Late st Contact Info) Description 04/10/2025 2:45 PM EST Office Visit [facility] MEDICINE [address] [place] [address] Carmita Avelar MD 230 [place] [address] 05/30/2025 1:30 PM EST Clinical Support [facility] [address] [place] [address] Radha, Jennifer, RN documented as of this encounter Visit Diagnoses Not on filedocumented in this encounter Additional Health Concerns Assessment Noted Time PHQ-9 Depression Total Score: 18 023 3:07 PM EDT documented as of this encounter Care Teams Manager Qa Relationship Specialty Start Date End Date Carmita Avelar MD [address] [place] [address] PCP - General Family Medicine 03/11/19 documented as of this encounter
--- OUTSIDE RECORDS SUMMARY | 2025-03-21 17:04 | XMS_ITS | Encounter Summary ---
Author Organization [employer] Address [address] 7[address] [place] [address] Care Team Providers Care Risk Tech Name Role Phone Carmita Avelar MD Primary Care Provide r Encounter Details Date Type Department Care Team ([facility] st Contact Info) Description 03/26/2023 Abstract [facility] MED[facility]INE 230 [place], [place] [phone] Carmita Avelar MD 230 [place], [place] [phone] Social History Tobacco Use Types Packs/Day Years [...] Description 04/10/2025 2:45 PM EST Office Visit [address] [address] Carmita Avelar MD [address] [place] [address] 05/30/2025 1:30 PM EST Clinical Support [address] [address] Jennifer Garcia RN documented as of this encounter Visit Diagnoses Not on filedocumented in this encounter Additional Health Concerns Assessment Noted Time PHQ-9 Depression Total Score: 18 023 3:07 PM EDT documented as of this encounter Care Teams Risk Tech Relationship Specialty Start Date End Date Carmita Avelar MD [address] [place] [address] PCP - General Family Medicine 03/11/19 documented as of this encounter
--- OUTSIDE RECORDS SUMMARY | 2025-03-21 17:04 | XMS_ITS | Clinical Summary ---
Author Organization [facility] Address [address] [facility] [address] [place] [address] Phone Care Team Providers Care Regional Intermodal Truck Driver Name Role Phone Carmita Olson MD Primary Care Provider Allergies Active Allergy [...] Care Team Description 01/11/2025 Telephone [facility] [address] [place] [address] Marisa Galvan MD Medication Prior Authorization (/FREESTYLE LITE Strp strips /) from Last 3 Months Immunizations Immunization Administration [...] 3:20 PM EST Office Visit [facility] [address] [place] [address] Marisa Galvan MD [address] [place] [address] [email or web address] Health Maintenance Due Date Last Done Comments DEPRESSION SCREENING 1981 SMOKING Hx and SMOKELESS TOBACCO SCREENING 1982 HEPATITIS C SCREENING 1987 HIV ONE-TIME SCREENING (18-65 YEARS) 1987 PAP SMEAR 1990 COLOGUARD 2014 COLONOSCOPY 2014 COLORECTAL CANCER SCREENING 2014 FIT TEST 2014 FOBT 2014 SIGMOIDOSCOPY 2014 VIRTUAL COLONOSCOPY 2014 RSV VACCINE (1 - Risk 50-74 years 1-dose series) 2019 PNEUMOCOCCAL VACCINES (50+ years) (2 of 2 - PCV) 01/03/2021 01/04/2020 ZOSTER VACCINES (2 of 2) 02/09/2021 12/15/2020 Adult Td,Tdap Booster 04/29/2023 04/29/2013, 006 INFLUENZA VACCINE (#1) 2024 , 12/30/2022, 03/07/2022, Additional history exists MAMMOGRAM 12/30/2024 12/30/2022, 09/2019, 03/22/2018 COVID-19 VACCINE ( season) 2025 02/24/2023, 11/21/2021, 03/25/2021, Additional history exists BLOOD PRESSURE 01/28/2025 07/28/2024 CREATININE LEVEL 07/28/2025 07/28/2024, 07/2023, 06/09/2023 POTASSIUM LEVEL 07/28/2025 07/28/2024, 090 07/2023, 06/09/2023 TSH LEVEL 07/28/2025 07/28/2024, 090 07/2023, 06/09/2023 SCREENING FOR DIABETES 07/29/2027 , [...] PM EDT Postablative hypothyroidism BASIC METABOLIC PANEL (BMP) Routine 07/28/2024 4:02 PM EDT Hypoglycemia from Last 3 Months or Most Recently Relevant to Health Maintenance Results * TSH with reflex (07/28/2024 4:02 PM EDT) TSH 1.47 0.27 - 4.20 uIU/mL [facility] Blood 07/28/2024 4:02 PM EDT 07/28/2024 4:05 PM EDT Marisa Galvan MD LAB BLOOD BKR ORDERABL ES Final Result Performing Organization Address City/[facility]/ZIP Co de Phone Number [address] [address] * Basic metabolic panel (07/28/2024 4:02 PM EDT) SODIUM 138 133 - 146 mmol/L [facility] CHLORIDE 100 96 - 108 mmol/L [facility] POTASSIUM 4.3 3.3 - 5.1 mmol/L [facility] CO2 27 21 - 35 mmol/L [facility] BUN 11 6 - 19 mg/dL [facility] CREATININE 0.70 0.5 - 1.5 mg/dL [facility] GLUCOSE 79 70 - 99 mg/dL [facility] CALCIUM 9.9 8.4 - 10.3 mg/dL [facility] EGFR 102 >59 mL/min/1.7 3m2 [facility] Comment:Estimated glomerular filtration rate calculated using the CKD-EPI refit equation. ANION GAP 15 10 - 20 mmol/L [facility] Blood 07/28/2024 4:02 PM EDT 07/28/2024 4:05 PM EDT Marisa Galvan MD LAB BLOOD BKR ORDERABL ES Final Result Performing Organization Address City/[facility]/ZIP Co de Phone Number [address] [phone] from Last 3 Months or Most Recently Relevant to Health Maintenance Insurance [facility] C3 ACO C3 ACO C3 ACO C3 ACO CARE COOPERATIVE C3 ACO [facility] C3 ACO Care Teams Regional Intermodal Truck Driver Relationship Specialty Start Date End Date Carmita Olson MD [address] [place] [phone] PCP - General Internal Medicine 11/10/22 Additional Source Comments The information contained in this document represents components of the legal health record. It is not the complete legal health record.[facility]
--- OUTSIDE RECORDS SUMMARY | 2025-03-21 17:04 | XMS_ITS | Encounter Summary ---
Author Organization [employer] Address [address] [place] [address] Care Team Providers Care Java Xml Developer Name Role Phone Carmita Avelar MD Primary Care Provide r Reason for Visit * Reason Comments Med Change Request Encounter Details Date Type Department Care Team ([facility] Contact Info) Description 03/02/2025 Refill [facility] [address] [place], [place] [phone] Carmita Avelar MD [address], [place] [phone] Acute pain of right shoulder Social History Tobacco Use Types Packs/Day Years [...] Answer Date of Assessment Author Patient Health Questionnaire-2 Score 4 02/09 3:31 PM EDT Wandy Mckoy [place] * Little interest or pleasure in doing things Answer Date of Assessment Author More than half the days 03/03/2025 3:31 PM EDT Wandy Guerin [place] * Feeling down, depressed, or hopeless Answer Date of Assessment Author More than half the days 03/03/2025 3:31 PM EDT Wandy Guerin [place] * Trouble falling or staying asleep, or sleeping too much Answer Date of Assessment Author More than half the days 03/03/2025 3:31 PM EDT Wandy Guerin [place] * Feeling tired or having little energy Answer Date of Assessment Author Nearly every day 03/03/2025 3:31 PM EDT Smith Mckoy [place] * Poor appetite or overeating Answer Date of Assessment Author Not at all 03/03/2025 3:31 PM EDT Tim Mckoy ra, [place] * Feeling bad about yourself - or that you are a failure or have let yourself or your family down Answer Date of Assessment Author Not at all 03/03/2025 3:31 PM EDT Tim Mckoy ra, [place] * Moving or speaking so slowly that other people could have noticed? Or the opposite - being so fidgety or restless that you have been moving around a lot more than usual. Answer Date of Assessment Author More than half the days 03/03/2025 3:31 PM EDT Wandy Guerin [place] * Thoughts that you would be better off or hurting yourself in some way Answer Date of Assessment Author Not at all 03/03/2025 3:31 PM EDT Tim Mckoy ra, [place] * Over the last 2 weeks, how often have you been bothered by any of the following problems? Question Answer Date of Assessment Author Feeling nervous, anxious, or on edge 2 02/09 3:30 PM EDT Wandy Mckoy [place] Not being able to stop or co ntrol worrying 3 03/03/2025 3:30 PM EDT Wandy Mckoy [place] Worrying too much about diff erent things 3 03/03/2025 3:30 PM EDT Wandy Mckoy [place] Trouble relaxing 2 03/03/2025 3:30 PM EDT H Wandy gonsales [place] Being so restless that it is hard to sit still 1 03/03/2025 3:30 PM EDT Wandy Mckoy [place] Becoming easily annoyed or irritable 2 02/09 3:30 PM EDT Wandy Mckoy [place] Feeling afraid as if somethi ng awful might happen 2 03/03/2025 3:30 PM EDT Wandy Mckoy [place] JENS-7 Total Score 15 03/03/2025 3:30 PM EDT Wandy Mckoy [place] documented as of this encounter Plan of Treatment Upcoming Encounters Date Type Department Care Team (Late st Contact Info) Description 04/10/2025 2:45 PM EST Office Visit [address] [id number] Carmita Avelar MD [address] [place] [id number] 05/30/2025 1:30 PM EST Clinical Support [address] [place] [address] Jennifer Garcia RN documented as of this encounter Visit Diagnoses Diagnosis Acute pain of right shoulder documented in this encounter Additional Health Concerns Assessment Noted Time PHQ-9 Depression Total Score: 0 03/17/20 24 2:34 PM EST documented as of this encounter Care Teams Java Xml Developer Relationship Specialty Start Date End Date Carmita Avelar MD [address] [place] [phone] PCP - General Family Medicine 03/11/19 documented as of this encounter
== END 2025-03-21 16:24 | disposition home or self-care (01) ==
LOC: HO.HGI 15:26
PROVIDERS: PCP Internal Medicine; Visit Provider Nurse Practitioner
DX: R53.83 Other fatigue (principal)
CPT/HCPCS: 99214

== ENCOUNTER 2025-03-21 15:25 | Outpatient (REF) | payer MEDICAID, SELFPAY ==
[2025-03-21 17:12] LABS: Hematocrit 44.6 % (37.0-47.0); Hemoglobin 14.4 g/dl (12.0-16.0); Imm Gran Abs Auto 0.08 X10*3/uL (0.00-0.03); Imm Gran Pct Auto 0.4 % (0.0-0.4); Lymphocytes Absolute Auto 5.3 X10*3/uL (1.2-4.9); MANUAL DIFF FLAG SCAN; Mean Corpuscular HGB Conc 32.3 g/dl (31.0-35.0); Mean Corpuscular Hemoglobin 29.9 pg (27.0-33.0); Mean Corpuscular Volume 92.7 fL (80.0-98.0); NRBC Abs Auto 0.000 X10*3/uL (0.0-0.012); NRBC Pct Auto 0.0 /100WBC (0.0-0.2); Platelet Count 386 X10*3/uL (160-400); Red Blood Count 4.81 X10*6/uL (4.20-5.50); SCAN SMEAR FLAG 1; White Blood Count 17.9 X10*3/uL (4.8-10.8)
[2025-03-21 17:37] LABS: Alanine Aminotransferase 23 U/L (0-31); Albumin Level 5.0 g/dL (3.5-5.0); Alkaline Phosphatase 111 U/L (39-117); Anion Gap 12 (12-20); Aspartate Amino Transferase 18 U/L (5-31); Blood Urea Nitrogen 22 mg/dL (9-16); Calcium 9.8 mg/dL (8.4-10.2); Carbon Dioxide 28 mmol/L (22-29); Chloride 102 mmol/L (96-108); Estimated Glomerular Filt Rate > 60; Potassium 4.1 mmol/L (3.3-5.1); Sodium 138 mmol/L (135-145); Total Protein 7.7 g/dL (6.5-8.0)
[2025-03-21 19:26] LABS: Free T4 (Free Thyroxine) 1.31 ng/dL (0.71-1.85)
[2025-03-25 13:33] LABS: Vitamin D 25-OH, D2 41 ng/mL; Vitamin D 25-OH, D3 14 ng/mL; Vitamin D 25-OH, Total 55 ng/mL (30-100)
== END 2025-03-21 15:26 | disposition home or self-care (01) ==
LOC: HO.LAB 15:25
PROVIDERS: PCP Internal Medicine; Visit Provider Nurse Practitioner
DX: R53.83 Other fatigue (principal); Z79.899 Other long term (current) drug therapy
CPT/HCPCS: 36415; 80053; 82306; 84439; 84443; 85025; 99212

== ENCOUNTER 2025-04-18 10:23 | Outpatient (REF) | payer MEDICAID, SELFPAY ==
[2025-04-18 11:05] LABS: MANUAL DIFF FLAG NO
[2025-04-18 11:19] LABS: Hematocrit 43.6 % (37.0-47.0); Hemoglobin 14.0 g/dl (12.0-16.0); Imm Gran Abs Auto 0.05 X10*3/uL (0.00-0.03); Imm Gran Pct Auto 0.4 % (0.0-0.4); Lymphocytes Absolute Auto 4.1 X10*3/uL (1.2-4.9); Mean Corpuscular HGB Conc 32.1 g/dl (31.0-35.0); Mean Corpuscular Hemoglobin 29.7 pg (27.0-33.0); Mean Corpuscular Volume 92.4 fL (80.0-98.0); NRBC Abs Auto 0.000 X10*3/uL (0.0-0.012); NRBC Pct Auto 0.0 /100WBC (0.0-0.2); Platelet Count 333 X10*3/uL (160-400); Red Blood Count 4.72 X10*6/uL (4.20-5.50); White Blood Count 13.8 X10*3/uL (4.8-10.8)
[2025-04-18 14:49] LABS: Alanine Aminotransferase 88 U/L (0-31); Albumin Level 4.6 g/dL (3.5-5.0); Alkaline Phosphatase 117 U/L (39-117); Anion Gap 8 (12-20); Aspartate Amino Transferase 32 U/L (5-31); Blood Urea Nitrogen 13 mg/dL (9-16); Calcium 9.7 mg/dL (8.4-10.2); Carbon Dioxide 28 mmol/L (22-29); Chloride 108 mmol/L (96-108); Estimated Glomerular Filt Rate > 60; Potassium 3.3 mmol/L (3.3-5.1); Sodium 141 mmol/L (135-145); Total Protein 7.4 g/dL (6.5-8.0)
== END 2025-04-18 10:24 | disposition home or self-care (01) ==
LOC: HO.HHCL 10:23
PROVIDERS: PCP Internal Medicine; Visit Provider Internal Medicine
DX: I10 Essential (primary) hypertension (principal); D72.829 Elevated white blood cell count, unspecified; E03.9 Hypothyroidism, unspecified
CPT/HCPCS: 36415; 80053; 84443; 85025